=== PATIENT | female | born 1960 | race Caucasian/White ===

== ENCOUNTER 2023-10-17 20:09 | Inpatient (IN) ==
--- OUTSIDE RECORDS SUMMARY | 2023-10-17 20:12 | External Medical Summary | Summary of Care ---
Author Name Unknown Organization [facility] Address [address] [place] [address] Phone [phone] Care Team Providers Care Division Service Manager Name Role Phone Mikla Butler MD Primary Care Provide r Reason for Visit * Reason Comments Acute Encounter Details Date Type Department Care Team (Latest Contact Info) Description 10/13/2023 3:00 PM EDT Office Visit Family Medicine [address] [phone] Baldemar Krishnan [address] [place] [address] Gastroesophageal reflux disease, unspecified whether esophagitis present*; Burning chest pain; Shortness of breath Allergies Active Allergy Reactions Criticality Noted Date Comments Penicillins 03/18/2012 documented as of this encounter (statuses as of 10/13/2023) Medications Medication Sig Dispensed Refills Start Date End Date Status Buprenorphine HCl-Naloxone HCl 8-2 MG Sublingual Tablet Sublingual (Suboxone) Place 1.25 tablet under tongue once a day as directed 04/22/2022 Active Ventolin HFA 108 (90 Base) MCG/ACT Inhalation Aerosol SolutionIndicatio ns:Bronchitis, complicated Inhale 2 Puffs by mouth every 4 hours as needed for Wheezing (cough). 8 g 5 01/06/2023 Active Cetirizine HCl 10 MG Oral Tablet (ZyrTEC)Indicatio ns:Allergic disorder, initial encounter Take 1 Tablet by mouth in the morning. 90 Tablet 1 05/20/2023 Active Clopidogrel Bisulfate 75 MG Oral Tablet (pLAVix)Indicatio ns:History of DVT (deep vein thrombosis) Take 1 Tablet by mouth in the morning. 90 Tablet 1 05/20/2023 Active Rivaroxaban 20 MG Oral Tablet (Xarelto) Take 1 Tablet by mouth daily with dinner. 30 Tablet 5 05/27/2023 Active hydrOXYzine HCl 25 MG Oral TabletIndications :Rash and nonspecific skin eruption Take 1 Tablet by mouth every 6 hours as needed for Itching. 40 Tablet 2 09/30/2023 Active Triamcinolone Acetonide 0.1 % External Ointment (Aristocort)Indic ations:Stasis dermatitis of both legs Apply 2x daily (or more if itchy instead of scratching) to areas on trunk/arms/legs as instructed on patient checkout sheet 454 g 1 09/30/2023 Active Pantoprazole Sodium 40 MG Oral Tablet Delayed Release (Protonix)Indicat ions:Gastroesopha geal reflux disease, unspecified whether esophagitis present Take 1 Tablet by mouth in the morning. 60 Tablet 5 10/13/2023 Active Permethrin 5 % External Cream (Elimite)Indicati ons:Scabies Apply thin layer from cheeks of face down to inbetween toes and all creases of body (be sure to cut nails very short and place under nails), rinse off 10-14 hours after applying, then repeat 1 week later. Use whole tube for each treatment and take the ivermectin pills at the same time. 60 g 1 09/01/2023 10/13/2023 Discontinue d(Medicatio n List Clean Up) Ivermectin 3 MG Oral Tablet (Stromectol)Indic ations:Scabies Take 7 pills all together (the same night you are applying the permethrin cream) and then repeat both 1 week later 7 Tablet 1 09/01/2023 10/13/2023 Discontinue d(Medicatio n List Clean Up) documented as of this encounter (statuses as of 10/13/2023) Active Problems Problem Noted Date Diagnosed Date Pain of left calf 04/09/2023 Tobacco use 01/06/2023 Claudication in peripheral vascular disease 05/2021 History of DVT (deep vein thrombosis) 12/14/2017 BMI 26.0-26.9,adult 11/07/2015 Overview: 183 lbs Dyslipidemia, goal LDL below 130 02/26/2011 Family hx-breast malignancy 01/07/2010 Family history of diabetes mellitus 01/07/2010 HSV-2 infection Opioid dependence, uncomplicated Overview: on Subutex documented as of this encounter (statuses as of 10/13/2023) Resolved Problems Problem Noted Date Diagnosed Date Resolved Date Obesity, Class I, BMI 30.0-3 4.9 (see actual BMI) 02/26/2011 11/07/2015 Cervicalgia 02/26/2011 12/14/2017 Non-traumatic compartment sy ndrome of upper extremity 02/26/2011 12/14/2017 Pain in limb 02/26/2011 12/14/2017 PHLEBITIS OF DEEP VEINS OF RIGHT ARM 01/07/2010 11/07/2015 documented as of this encounter (statuses as of 10/13/2023) Immunizations Name Administration Dates Next Due COVID-19 mRNA, LNP-s, No Pre serve, 2-Dose Series (Moderna) 09/21/2020,08/24/2020 COVID-19, MRNA-LNP, 23-24, P F, 30 MCG/0.3 mL, 12 YRS AND ABOVE, IM (PFIZER-Comirnaty) 04/15/2023 Pneumococcal Polysaccharide PPV23 (Pneumovax) 06/17/2010 Seasonal Influenza, PF, 6 M & above, IM , (FluLaval or Fluzone) 04/15/2023,05/13/2022,03/04/2021 Seasonal Influenza, Quadriva lent, No Preserve, IM 01/11/2015 Seasonal Influenza, Split, I IV3, With Preserve, Inj 12/14/2013,02/12/2012,12/23/2010 TDAP, Age 7 and older, IM (Adacel) 01/07/2010 Zoster Vaccine Recombinant (Shingrix) 03/04/2021 documented as of this encounter Social History Tobacco Use Types Packs/Day Years Used Date Smoking Tobacco: Some Days Cigarettes Smokeless Tobacco: Never Tobacco Cessation:Ready to Q uit: Not Asked; Counseling Given: Not Answered Comments:MAYBE 1 EVERY OTHER DAY IF THAT Alcohol Use Standard Drinks/Week Comments Yes 0 (1 standard drink = 0.6 oz pur e alcohol) social PHQ-2 Answer Date Recorded PHQ-2 Score 0 03/21/2019 Sex and Gender Information Value Date Recorded Sex Assigned at Not on file Gender Identity Not on file Sexual Orientation Not on file Job Start Date Occupation Industry Not on file Not on file Not on file documented as of this encounter Last Filed Vital Signs Vital Sign Reading Time Taken Comments Blood Pressure 130/62 10/13/2023 2:07 PM EDT Pulse 84 10/13/2023 2:07 PM EDT Temperature 36.6 C (97.8 F) 10/13/2023 2:07 PM ED T Respiratory Rate 16 10/13/2023 2:07 PM EDT Oxygen Saturation 98% 10/13/2023 2:07 PM EDT Inhaled Oxygen Concentration - - Weight 93.2 kg (205 lb 7 oz) 10/13/2023 2:07 PM EDT Height - - Body Mass Index 31.68 04/09/2023 8:22 AM EST documented in this encounter Nursing Notes * Ginger Jane LPN - 10/13/2023 2:[address], has to catch her breath when she first wakes up. Feels like she wants to pass out when doing activities. Chest pain. Has been feeling this way for a month. Funny taste in mouth. Stopped smoking a month ago. documented in this encounter Plan of Treatment Upcoming Encounters Date Type Department Care Team (Late st Contact Info) Description 10/23/2023 10:00 AM EDT Office Visit Family Medicine [address] [place] [phone] Tana Gil PA-C [address] [place] [address] [place] [id number] 04/22/2024 10:00 AM EST Office Visit Family Medicine [address] [place] [phone] Mikal Butler MD [address] [place] [address] [place] [id number] Scheduled Orders Name Type Priority Associated Diagnoses Orde r Schedule EKG EKG Routine Burning chest pain Shortness of breath Expected: 10/13/2023 (Approximate), Expires: 11/12/2024 Health Maintenance Due Date Last Done Comments DISCUSS TOBACCO CESSATION (REFER TO SMARTSET #3293) 1959 HPV/Co-Test 1989 Cologuard 2004 Colonoscopy 2004 Colorectal Cancer Screening 2004 Fecal Occult Blood Test 2004 Sigmoidoscopy 2004 Pneumococcal Vaccine: Pediatrics (0 to 5 Years) and At-Risk Patients (6 to 64 Years) (2 of 2 - PCV) 06/18/2011 06/17/2010 Cervical Cancer Screening 02/13/2013 Pap Smear 02/13/2013 02/13/2010, 02/13/2010 DTaP,Tdap,and Td Vaccines (2 - Td or Tdap) 01/08/2020 01/07/2010 Depression Screening 03/21/2020 03/21/2019 Zoster Vaccines (2 of 2) 04/29/2021 03/04/2021 Mammogram 06/26/2023 06/25/2022, 08/0 09/2011, 02/15/2010, Additional history exists Influenza Vaccine (FLU shot) (#1) 2023 04/15/2023, 05/13/2022, 03/04/2021, Additional history exists Diabetes Screening 04/07/2026 04/07/2023, 0 08/20/2021, 03/04/2021, Additional history exists Lipid Panel 04/07/2028 04/07/2023, 02/05, 11/21/2016, Additional history exists COVID-19 Vaccine Completed 04/15/2023, , 08/24/2020 HPV (Gardasil) Vaccine Aged Out No lo nger eligible based on patient's age to complete this topic Hepatitis B Vaccine Aged Out No longe r eligible based on patient's age to complete this topic MENINGOCOCCAL (MENACTRA/MENVEO) Aged Out No longer eligible based on patient's age to complete this topic documented as of this encounter Medical Devices Not on filedocumented as of this encounter Visit Diagnoses Diagnosis Gastroesophageal reflux disease, unspecified whether esophagitis present- Primary Burning chest pain Other chest pain Shortness of breath documented in this encounter Care Teams Division Service Manager Relationship Specialty Start Date End Date Mikal Butler MD [address] [place] [address] [place] [id number] PCP - General Family Medicine 11/21/16 documented as of this encounter
--- OUTSIDE RECORDS SUMMARY | 2023-10-17 20:12 | External Medical Summary | Summary of Care ---
Author Name Unknown Organization [facility] Address [address] [place] [address] Phone [phone] Care Team Providers Care Pattern Cleaner Name Role Phone Mikal Butler MD Primary Care Provide r Reason for Visit * Reason Onset Date Comments Medication Refill 09/29/2023 Encounter Details Date Type Department Care Team (Late st Contact Info) Description 09/29/2023 Refill Dermat[address] [place] [phone] Amanda Thomason PA-C [address] [place] [address] [place] [address] Stasis dermatitis of both legs Allergies Active Allergy Reactions Criticality Noted Date Comments Penicillins 03/18/2012 documented as of this encounter (statuses as of 09/30/2023) Medications Medication Sig Dispensed Refills Start Date [...] with dinner. 30 Tablet 5 05/27/2023 Active Permethrin 5 % External Cream (Elimite)Indicati [...] the same time. 60 g 1 09/01/2023 Active Ivermectin 3 MG Oral Tablet (Stromectol)Indic ations:Scabies Take 7 pills all together (the same night you are applying the permethrin cream) and then repeat both 1 week later 7 Tablet 1 09/01/2023 Active Triamcinolone Acetonide 0.1 % External Ointment (Aristocort)Indic ations:Stasis dermatitis of both legs Apply 2x daily (or more if itchy instead of scratching) to areas on trunk/arms/legs as instructed on patient checkout sheet 454 g 1 09/30/2023 Active Triamcinolone Acetonide 0.1 % External Ointment (Aristocort)Indic ations:Stasis dermatitis of both legs Apply 2x daily (or more if itchy instead of scratching) to areas on trunk/arms/legs as instructed on patient checkout sheet 454 g 10/13/2022 09/29/2023 Discontinue d(Refill) hydrOXYzine HCl 25 MG Oral TabletIndications :Rash and nonspecific skin eruption Take 1 Tablet by mouth every 6 hours as needed for Itching. 40 Tablet 2 07/29/2023 09/29/2023 Discontinue d(Refill) documented as of this encounter (statuses as of 09/30/2023) Active Problems Problem Noted Date Diagnosed Date [...] as of this encounter (statuses as of 09/30/2023) Resolved Problems Problem Noted Date Diagnosed Date Resolved Date Obesity, Class I, BMI 30.0-3 4.9 (see actual BMI) 02/26/2011 11/07/2015 Cervicalgia 02/26/2011 12/14/2017 Non-traumatic compartment sy ndrome of upper extremity 02/26/2011 12/14/2017 Pain in limb 02/26/2011 12/14/2017 PHLEBITIS OF DEEP VEINS OF RIGHT ARM 01/07/2010 11/07/2015 documented as of this encounter (statuses as of 09/30/2023) Immunizations Name Administration Dates Next Due COVID-19 [...] Tobacco: Some Days Cigarettes Smokeless Tobacco: Never Comments:MAYBE 1 EVERY OTHER DAY IF THAT [...] on file documented as of this encounter Miscellaneous Notes * Telephone Encounter - Ivania Clark PA-C - 09/30/2023 11:39 AM EDT Signed Prescriptions: Disp Refills Triamcinolone Acetonide 0.1 % External Oin*454 g 1 Sig: Apply 2xdaily (or more if itchy instead of scratching) to areas on trunk/arms/legs as instructed on patientcheckout sheetAuthorizing Provider: IVANIA CLARK * Telephone Encounter - Sherin Yuen LPN - 09/30/2023 9:37 AM EDTPending Prescriptions: Disp Refills Triamcinolone Acetonide 0.1 % External Oin*454 g 1 Sig: Apply 2x daily (or more if itchy instead of scratching) to areas on trunk/arms/legs as instructed on patient checkout sheet * Telephone Encounter - Sherin Yuen LPN - 09/30/2023 9:37 AM EDT Pending Prescriptions: Disp Refills Triamcinolone Acetonide 0.1 % External Oi*454 g 1 Sig: Apply 2x daily (or more if itchy instead of scratching) to areas on trunk/arms/legs as instructed on patient checkout sheet 05/11/2023 (in office), Visit date not found (telemedicine) Patient Phone Numbers Labs: Lab Results Component Value Date/Time CREAT 1.0 04/07/2023 08:36 AM CREAT 0.8 07/14/2012 11:35 AM POTASSIUM 4.3 04/07/2023 08:36 AM POTASSIUM 4.4 07/14/2012 11:35 AM TSH 2.64 08/20/2021 02:45 PM TSH 2.99 01/22/2011 03:57 PM LDLCALC 131 (H) 04/07/2023 08:36 AM LDLCALC 155 (H) 11/21/2016 03:56 PM LDLDIRECT NOT APPLICABLE 11/21/2016 03:56 PM ALT 16 08/20/2021 02:45 PM ALT 19 07/14/2012 11:35 AM documented in this encounter Plan of Treatment Upcoming Encounters Date Type Department Care Team (Late st Contact Info) Description 10/23/2023 10:00 AM EDT Office Visit [address] [place] [phone] Tana Gil PA-C [address] [place] [address] [place] [phone] 04/22/2024 10:00 AM EST Office Visit [address] [place] [phone] Mikal Butler MD [address] [place] [address] [place] [address] Health Maintenance Due Date Last Done Comments DISCUSS TOBACCO CESSATION (REFER TO SMARTSET #1109) 1959 HPV/Co-Test 1989 Cologuard 2004 Colonoscopy 2004 [...] 06/25/2022, 08/0 09/2011, 02/15/2010, Additional history exists Diabetes Screening 04/07/2026 04/07/2023, 0 08/20/2021, 03/04/2021, Additional history exists Lipid Panel 04/07/2028 04/07/2023, 02/05, 11/21/2016, Additional history exists COVID-19 Vaccine Completed 04/15/2023, , 08/24/2020 Influenza Vaccine (FLU shot) Completed 01/2024, 05/13/2022, 03/04/2021, Additional history exists GARDASIL-HPV IMMUNIZATION SERIES Aged Out No longer eligible based on patient's age to complete this topic Hepatitis B Aged Out No longer eligi ble based on patient's age to complete this topic MENINGOCOCCAL (MENACTRA/MENVEO) Aged Out No longer eligible based on patient's age to complete this topic documented as of this encounter Medical Devices Not on filedocumented as of this encounter Visit Diagnoses Diagnosis Stasis dermatitis of both legs Varicose veins of lower extremities with inflammation documented in this encounter Care Teams Pattern Cleaner Relationship Specialty Start Date End Date Mikal Butler MD [address] [place] [address] [place] [id number] PCP - General Family Medicine 11/21/16 documented as of this encounter
--- OUTSIDE RECORDS SUMMARY | 2023-10-17 20:12 | External Medical Summary | Summary of Care ---
Author Name Unknown Organization [facility] Address [address] [place] [address] Phone [phone] Care Team Providers Care Phlebotomy Tech Name Role Phone Shirley Butler MD Primary Care Provide r Reason for Visit * Reason Onset Date Comments Medication Refill 09/29/2023 Encounter Details Date Type Department Care Team (Late st Contact Info) Description 09/29/2023 Refill Family Medicine [address] [phone] Shirley Butler MD [address] [place] [address] [place] [address] Rash and nonspecific skin eruption Allergies Active Allergy Reactions Criticality Noted Date Comments Penicillins 03/18/2012 documented as of this encounter (statuses as of 09/30/2023) Medications Medication Sig Dispensed Refills Start Date End Date Status Buprenorphine HCl-Naloxone HCl 8-2 MG Sublingual Tablet Sublingual (Suboxone) Place 1.25 tablet under tongue once a day as directed 04/22/2022 Active Triamcinolone Acetonide 0.1 % External Ointment (Aristocort)Indic ations:Stasis dermatitis of both legs Apply 2x daily (or more if itchy instead of scratching) to areas on trunk/arms/legs as instructed on patient checkout sheet 454 g 10/13/2022 Active Ventolin HFA 108 (90 Base) MCG/ACT [...] week later 7 Tablet 1 09/01/2023 Active hydrOXYzine HCl 25 MG Oral TabletIndications :Rash and nonspecific skin eruption Take 1 Tablet by mouth every 6 hours as needed for Itching. 40 Tablet 2 09/30/2023 Active hydrOXYzine HCl 25 MG Oral TabletIndications [...] MCG/0.3 mL, 12 YRS AND ABOVE, IM (uSpeak-Comirnat) 04/15/2023 Pneumococcal Polysaccharide PPV23 (Pneumovax) 06/17/2010 Seasonal [...] encounter Miscellaneous Notes * Telephone Encounter - Ely Fried [facility] - 09/30/2023 10:11 AM EDT Signed Prescriptions: Disp Refills hydrOXYzine HCl 25 MG Oral Tablet 40 Tab*2 Sig: Take 1 Tablet bymouth every 6 hours as needed for Itching.Authorizing Provider: SHIRLEY BUTLER User: ELY FRIED documented in this encounter Plan of Treatment Upcoming Encounters Date Type Department Care Team (Late st Contact Info) Description 10/23/2023 10:00 AM EDT Office Visit [address] [phone] Tana Gil PA-C [address] [place] [address] [place] [address] 04/22/2024 10:00 AM EST Office Visit Family [address] [place] [phone] Shirley Butler MD [address] [place] [address] [place] [address] Health Maintenance Due Date Last Done Comments DISCUSS TOBACCO CESSATION (REFER TO SMARTSET #3291) 1959 HPV/Co-Test 1989 Cologuard 2004 Colonoscopy 2004 [...] as of this encounter Visit Diagnoses Diagnosis Rash and nonspecific skin eruption Rash and other nonspecific skin eruption documented in this encounter Care Teams Phlebotomy Tech Relationship Specialty Start Date End Date Shirley Butler MD [address] [place] [address] [place] [id number] PCP - General Family Medicine 11/21/16 documented as of this encounter
--- OUTSIDE RECORDS SUMMARY | 2023-10-17 20:13 | External Medical Summary | Summary of Care ---
Author Name Unknown Organization [facility] Address [address] [place] [address] Phone [phone] Care Team Providers Care Box Person Name Role Phone Shirley Butler MD Primary Care Provide r Reason for Visit * Reason Onset Date Comments Medication Refill 07/27/2023 Encounter Details Date Type Department Care Team (Late st Contact Info) Description 07/27/2023 Refill Family Medicine [address] [phone] Shirley Butler MD [address] [place] [address] [place] [address] Rash and nonspecific skin eruption Allergies Active Allergy Reactions Criticality Noted Date Comments Penicillins 03/18/2012 documented as of this encounter (statuses as of 07/29/2023) Medications Medication Sig Dispensed Refills Start Date End Date Status Buprenorphine HCl-Naloxone HCl 8-2 MG Sublingual Tablet Sublingual (Suboxone) Place 1.25 tablet under tongue once a day as directed 0 04/22/2022 Active Triamcinolone Acetonide 0.1 % External Ointment (Aristocort)Indic ations:Stasis dermatitis of both legs Apply 2x daily (or more if itchy instead of scratching) to areas on trunk/arms/legs as instructed on patient checkout sheet 454 g 0 10/13/2022 Active Ventolin HFA 108 (90 Base) [...] body (be sure to cut nails very short), rinse off 10-14 hours after applying, then repeat 1 week later. Use whole tube for each treatment. 60 g 1 07/28/2023 Active hydrOXYzine HCl 25 MG Oral TabletIndications :Rash and nonspecific skin eruption Take 1 Tablet by mouth every 6 hours as needed for Itching. 40 Tablet 2 07/29/2023 Active hydrOXYzine HCl 25 MG Oral TabletIndications :Rash and nonspecific skin eruption Take 1 Tablet by mouth every 6 hours as needed for Itching. 40 Tablet 2 04/28/2023 07/27/2023 Discontinue d(Refill) documented as of this encounter (statuses as of 07/29/2023) Active Problems Problem Noted Date Diagnosed Date [...] as of this encounter (statuses as of 07/29/2023) Resolved Problems Problem Noted Date Diagnosed Date Resolved Date Obesity, Class I, BMI 30.0-3 4.9 (see actual BMI) 02/26/2011 11/07/2015 Cervicalgia 02/26/2011 12/14/2017 Non-traumatic compartment sy ndrome of upper extremity 02/26/2011 12/14/2017 Pain in limb 02/26/2011 12/14/2017 PHLEBITIS OF DEEP VEINS OF RIGHT ARM 01/07/2010 11/07/2015 documented as of this encounter (statuses as of 07/29/2023) Immunizations Name Administration Dates Next Due COVID-19 [...] Split, I IV3, With Preserve, Inj 12/14/2013,02/12/2012,12/23/2010 TDAP (age 11 and older)(Adacel) 01/07/2010 Zoster Vaccine Recombinant (Shingrix) 03/04/2021 documented [...] encounter Miscellaneous Notes * Telephone Encounter - Karli Navas [facility] - 07/29/2023 8:52 AM EDTSigned Prescriptions: Disp Refills hydrOXYzine HCl 25 MG Oral Tablet 40 Tab*2 Sig: Take 1 Tablet by mouth every 6 hours as needed for Itching.Authorizing Provider: SHIRLEY BUTLEROrderflor User: KARLI NAVAS documented in this encounter Plan of Treatment Upcoming Encounters Date Type Department Care Team (Late st Contact Info) Description 10/23/2023 10:00 AM EDT Office Visit [address] [phone] Tana Gil PA-C [address] [place] [address] [place] [address] 04/22/2024 10:00 AM EST Office Visit [address] [phone] Shirley Butler MD [address] [place] [address] [place] [id number] Health Maintenance Due Date Last Done Comments DISCUSS TOBACCO CESSATION (REFER TO SMARTSET #1833) 1959 HPV/Co-Test 1989 Cologuard 2004 Colonoscopy 2004 [...] eruption documented in this encounter Care Teams Box Person Relationship Specialty Start Date End Date Shirley Butler MD [address] [place] [address] [place] [id number] PCP - General Family Medicine 11/21/16 documented as of this encounter
--- OUTSIDE RECORDS SUMMARY | 2023-10-17 20:13 | External Medical Summary | Summary of Care ---
Author Name Unknown Organization [facility] Address [address] [place] [address] Phone [phone] Care Team Providers Care Client Solutions Manager Name Role Phone Mikal Butler MD Primary Care Provide r Reason for Visit * Reason Onset Date Comments Health Maintenance 06/23/2023 Encounter Details Date Type Department Care Team (Late st Contact Info) Description 06/23/2023 Telephone Family Medicine [address] [phone] Mikal Butler MD [address] [place], [place] [address]t [id number] Health Maintenance Allergies Active Allergy Reactions Criticality Noted Date Comments Penicillins 03/18/2012 documented as of this encounter (statuses as of 06/23/2023) Medications Medication Sig Dispensed Refills Start Date End Date Status Buprenorphine HCl-Naloxone HCl 8-2 MG Sublingual Tablet Sublingual (Suboxone) Place 1.25 tablet under tongue once a day as directed 0 04/22/2022 Active Triamcinolone Acetonide 0.1 % External Ointment (Aristocort)Indicati ons:Stasis dermatitis of both legs Apply 2x daily (or more if itchy instead of scratching) to areas on trunk/arms/legs as instructed on patient checkout sheet 454 g 0 10/13/2022 Active Ventolin HFA 108 (90 Base) MCG/ACT Inhalation Aerosol SolutionIndications: Bronchitis, complicated Inhale 2 Puffs by mouth every 4 hours as needed for Wheezing (cough). 8 g 5 01/06/2023 Active hydrOXYzine HCl 25 MG Oral TabletIndications:Ra sh and nonspecific skin eruption Take 1 Tablet by mouth every 6 hours as needed for Itching. 40 Tablet 2 04/28/2023 Active Cetirizine HCl 10 MG Oral Tablet (ZyrTEC)Indications: Allergic disorder, initial encounter Take 1 Tablet by mouth in the morning. 90 Tablet 1 05/20/2023 Active Clopidogrel Bisulfate 75 MG Oral Tablet (pLAVix)Indications: History of DVT (deep vein thrombosis) Take 1 Tablet by mouth in the morning. 90 Tablet 1 05/20/2023 Active Rivaroxaban 20 MG Oral Tablet (Xarelto) Take 1 Tablet by mouth daily with dinner. 30 Tablet 5 05/27/2023 Active Permethrin 5 % External Cream (Elimite) Apply thin layer from cheeks of face down to inbetween toes and all creases of body (be sure to cut nails very short), rinse off 10-14 hours after applying, then repeat 1 week later. Use whole tube for each treatment. 60 g 1 05/28/2023 Active documented as of this encounter (statuses as of 06/23/2023) Active Problems Problem Noted Date Diagnosed Date [...] as of this encounter (statuses as of 06/23/2023) Resolved Problems Problem Noted Date Diagnosed Date Resolved Date Obesity, Class I, BMI 30.0-3 4.9 (see actual BMI) 02/26/2011 11/07/2015 Cervicalgia 02/26/2011 12/14/2017 Non-traumatic compartment sy ndrome of upper extremity 02/26/2011 12/14/2017 Pain in limb 02/26/2011 12/14/2017 PHLEBITIS OF DEEP VEINS OF RIGHT ARM 01/07/2010 11/07/2015 documented as of this encounter (statuses as of 06/23/2023) Immunizations Name Administration Dates Next Due COVID-19 [...] encounter Miscellaneous Notes * Telephone Encounter - oXchilt AnthonyJARRETT - 06/23/2023 10:34 AM EDT Care Gaps Comprehensive Care Outreach Last Office/Telemedicine Visit: 04/15/2023 (in office), 12/29/2022 (telemedicine) Next Office Visit: Visit date not found Hemoglobin AIC Results: No results found for: "HEMOGLOBIN A1C" BP Readings from Last 1 Encounters: 04/15/23 114/76 Reviewed Health Maintenance below: Health Maintenance Topic Date Due DISCUSS TOBACCO CESSATION (REFER TO SMARTSET #3291) Never done Colorectal Cancer Screening Never done Pneumococcal Vaccine: Pediatrics (0 to 5 Years) and At-Risk Patients (6 to 64 Years) (2 of 2 - PCV)06/18/2011 Cervical Cancer Screening 02/13/2013 DTaP,Tdap,and Td Vaccines (2 - Td or Tdap) 01/08/2020 Depression Screening 03/21/2020 Zoster Vaccines (2 of 2) 04/29/2021 Mammogram 06/26/2023 Cologuard follow declined Mamm already scheduled Ov scheduled 6 month Care Gap Outreach Action Taken: Spoke to patient documented in this encounter Plan of Treatment Upcoming Encounters Date Type Department Care Team (Late st Contact Info) Description 06/26/2023 10:00 AM EDT Imaging Radiology [address] [place] [id number] 10/23/2023 10:00 AM EDT Office Visit Family Medicine [address] [place] [address] Tana Gil PA-C [address] [place] [address] [place] [address] 04/22/2024 10:00 AM EST Office Visit Family Medicine [address] [place] [phone] Mikal Butler MD [address] [place] [address] [place] [address] Health Maintenance Due Date Last Done Comments DISCUSS TOBACCO CESSATION (REFER TO SMARTSET #8342) 1959 HPV/Co-Test 1989 Cologuard 2004 Colonoscopy 2004 [...] Not on filedocumented as of this encounter Care Teams Client Solutions Manager Relationship Specialty Start Date End Date Mikal Butler MD [address] [place] [address] [place] [address] PCP - General Family Medicine 11/21/16 documented as of this encounter
--- OUTSIDE RECORDS SUMMARY | 2023-10-17 20:13 | External Medical Summary | Summary of Care ---
Author Name Unknown Organization [facility] Address [address] [place] [address] Phone [phone] Care Team Providers Care Community Nutrition Educator Name Role Phone Mikal Butler MD Primary Care Provide r Reason for Visit * Reason Comments Acute Encounter Details Date Type Department Care Team (Late st Contact Info) Description 08/21/2023 12:40 PM EDT Telemedicine Family Practice [facility] [address] [place] [address] Jamie Guzman, DO [address] [place] [address] Thrush* Allergies Active Allergy Reactions Criticality Noted Date Comments Penicillins 03/18/2012 documented as of this encounter (statuses as of 08/21/2023) Medications Medication Sig Dispensed Refills Start Date End Date Status Buprenorphine HCl-Naloxone HCl 8-2 MG Sublingual Tablet Sublingual (Suboxone) Place 1.25 tablet under tongue once a day as directed 0 04/22/2022 Active Triamcinolone Acetonide 0.1 % External Ointment (Aristocort)Indicat ions:Stasis dermatitis of both legs Apply 2x daily (or more if itchy instead of scratching) to areas on trunk/arms/legs as instructed on patient checkout sheet 454 g 0 10/13/2022 Active Ventolin HFA 108 (90 Base) MCG/ACT Inhalation Aerosol SolutionIndications :Bronchitis, complicated Inhale 2 Puffs by mouth every 4 hours as needed for Wheezing (cough). 8 g 5 01/06/2023 Active Cetirizine HCl 10 MG Oral Tablet (ZyrTEC)Indications :Allergic disorder, initial encounter Take 1 Tablet by mouth in the morning. 90 Tablet 1 05/20/2023 Active Clopidogrel Bisulfate 75 MG Oral Tablet (pLAVix)Indications :History of DVT (deep vein thrombosis) Take 1 Tablet by mouth in the morning. 90 Tablet 1 05/20/2023 Active Rivaroxaban 20 MG Oral Tablet (Xarelto) Take 1 Tablet by mouth daily with dinner. 30 Tablet 5 05/27/2023 Active Permethrin 5 % External Cream (Elimite)Indication s:Scabies Apply thin layer from cheeks of face down to inbetween toes and all creases of body (be sure to cut nails very short), rinse off 10-14 hours after applying, then repeat 1 week later. Use whole tube for each treatment. 60 g 1 07/28/2023 Active hydrOXYzine HCl 25 MG Oral TabletIndications:R nikkie and nonspecific skin eruption Take 1 Tablet by mouth every 6 hours as needed for Itching. 40 Tablet 2 07/29/2023 Active Nystatin 314883 UNIT/ML Mouth/Throat SuspensionIndicatio ns:Thrush Swish and swallow 5 mL in the morning and 5 mL at noon and 5 mL in the evening and 5 mL before bedtime. For thrush.. 240 mL 1 08/21/2023 09/20/2023 Active documented as of this encounter (statuses as of 08/21/2023) Active Problems Problem Noted Date Diagnosed Date [...] as of this encounter (statuses as of 08/21/2023) Resolved Problems Problem Noted Date Diagnosed Date Resolved Date Obesity, Class I, BMI 30.0-3 4.9 (see actual BMI) 02/26/2011 11/07/2015 Cervicalgia 02/26/2011 12/14/2017 Non-traumatic compartment sy ndrome of upper extremity 02/26/2011 12/14/2017 Pain in limb 02/26/2011 12/14/2017 PHLEBITIS OF DEEP VEINS OF RIGHT ARM 01/07/2010 11/07/2015 documented as of this encounter (statuses as of 08/21/2023) Immunizations Name Administration Dates Next Due COVID-19 [...] on file documented as of this encounter Progress Notes * Jamie Guzman, DO - 08/21/2023 12:48 PM EDT Subjective: Sonia Mccarthy is a 63 year old female. Chief Complaint Patient presents with Acute Patient location: HOME. I was in a hospital or clinic location. After connecting through [employer],patient was verified with two unique identifiers. Patient (or authorized legal outbound sales representative) was then informed that this was a Telemedicine visit and being conducted confidentially over secure lines. Methods to assure confidentiality were taken. Patient acknowledged consent and understanding of pr ivacy and security of the Telemedicine visit. The patient agreed to participate. HPI: YEsterday she woke up with a nasty taste in her mouth. She has a white or yellow film on her tongue. She had a yellow film with smoking but now more white. IT has a terrible taste. No ST.No F or C. Her food tastes a little off. 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 Opioid dependence, uncomplicated (HCC) F11.20 History of DVT (deep vein thrombosis) Z86.718 Claudication in peripheral vascular disease (HCC) I73.9 Tobacco use Z72.0 Pain of left calf M79.662 Current Outpatient Medications Medication Sig Dispense Refill Buprenorphine HCl-Naloxone HCl 8-2 MG Sublingual Tablet Sublingual (Suboxone) Place 1.25 tablet under tongue once a day as directed Triamcinolone Acetonide 0.1 % External Ointment (Aristocort) Apply 2x daily (or more if itchy instead of scratching) to areas on trunk/arms/legs as instructed on patient checkout sheet 454 g 0 Ventolin HFA 108 (90 Base) MCG/ACT Inhalation Aerosol Solution Inhale 2 Puffs by mouth every 4 hours as needed for Wheezing (cough). 8 g 5 Cetirizine HCl 10 MG Oral Tablet (ZyrTEC) Take 1 Tablet by mouth in the morning. 90 Tablet 1 Clopidogrel Bisulfate 75 MG Oral Tablet (pLAVix) Take 1 Tablet by mouth in the morning. 90 Tablet 1 Rivaroxaban 20 MG Oral Tablet (Xarelto) Take 1 Tablet by mouth daily with dinner. 30 Tablet 5 Permethrin 5 % External Cream (Elimite) Apply thin layer from cheeks of face down to inbetween toesand all creases of body (be sure to cut nails very short), rinse off 10-14 hours after applying, then repeat 1 week later. Use whole tube for each treatment. 60 g 1 hydrOXYzine HCl 25 MG Oral Tablet Take 1 Tablet by mouth every 6 hours as needed for Itching. 40 Tablet 2 No current facility-administered medications for this visit. Review of patient's allergies indicates: Allergen Reactions Penicillins OBJECTIVE: LMP 05/01/2013 Estimated body mass index is 31.61 kg/m as calculated from the following: Height as of 04/09/23: 1.715 m (5' 7.52"). Weight as of 04/15/23: 93 kg (205 lb). BP Readings from Last 3 Encounters: 04/15/23 114/76 04/09/23 146/80 01/06/23 140/82 Wt Readings from Last 3 Encounters: 04/15/23 93 kg (205 lb) 04/09/23 94.4 kg (208 lb 3.2 oz) 01/06/23 86.2 kg (190 lb) ROS: Negative except for above PHYSICAL EXAM: General: alert, healthy, and no distress Head: Normocephalic, No masses, lesions, tenderness or abnormalities Oropharynx: no exudate, no erythema, mucous membranes are moist, and thrush ASSESSMENT/Plan Thrush (Primary) - Nystatin 225380 UNIT/ML Mouth/Throat Suspension; Swish and swallow 5 mL in the morning and 5 mL at noon and 5 mL in the evening and 5 mL before bedtime. For thrush.. The above was discussed and understanding was expressed. Jamie Guzman DO documented in this encounter Nursing Notes * Everett Monge MED ASSIST - 08/21/2023 12:28 PM EDT Attempted to call patient could not get a hold of them. documented in this encounter Plan of Treatment Upcoming Encounters Date Type Department Care Team (Late st Contact Info) Description 10/23/2023 10:00 AM EDT Office Visit [address] [phone] Tana Gli PA-C [address] [place] [address] [place] [address] 04/22/2024 10:00 AM EST Office Visit [address] [phone] Mikal Butler MD [address] [place] [address] [place] [address] Health Maintenance Due Date Last Done Comments DISCUSS TOBACCO CESSATION (REFER TO SMARTSET #9542) 1959 HPV/Co-Test 1989 Cologuard 2004 Colonoscopy 2004 [...] Additional history exists Lipid Panel 04/07/2028 04/07/2023, 1112/2020, 11/21/2016, Additional history exists COVID-19 Vaccine Completed [...] as of this encounter Visit Diagnoses Diagnosis Thrush- Primary Candidiasis of mouth documented in this encounter Care Teams Community Nutrition Educator Relationship Specialty Start Date End Date Mikal Butler MD [address] [place] [address] [place] [address] PCP - General Family Medicine 11/21/16 documented as of this encounter
--- OUTSIDE RECORDS SUMMARY | 2023-10-17 20:13 | External Medical Summary | Summary of Care ---
Author Name Unknown Organization [facility] Address [address] [place] [address] Phone [phone] Care Team Providers Care Head Of It Name Role Phone Mikal Butler MD Primary Care Provide r Reason for Visit * Reason Onset Date Comments Medication Refill 09/01/2023 Encounter Details Date Type Department Care Team (Late st Contact Info) Description 09/01/[address] [address] Amanda Thomason PA-C [address] [place] [address] [place] [address] Scabies Allergies Active Allergy Reactions Criticality Noted Date Comments Penicillins 03/18/2012 documented as of this encounter (statuses as of 09/01/2023) Medications Medication Sig Dispensed Refills Start Date [...] Itching. 40 Tablet 2 07/29/2023 Active Nystatin 688204 UNIT/ML Mouth/Throat SuspensionIndicat ions:Thrush Swish and swallow 5 mL in the morning and 5 mL at noon and 5 mL in the evening and 5 mL before bedtime. For thrush.. 240 mL 1 08/21/2023 09/20/2023 Active Permethrin 5 % External Cream (Elimite)Indicati [...] week later 7 Tablet 1 09/01/2023 Active Permethrin 5 % External Cream (Elimite)Indicati ons:Scabies Apply thin layer from cheeks of face down to inbetween toes and all creases of body (be sure to cut nails very short), rinse off 10-14 hours after applying, then repeat 1 week later. Use whole tube for each treatment. 60 g 1 07/28/2023 09/01/2023 Discontinue d(Refill) documented as of this encounter (statuses as of 09/01/2023) Active Problems Problem Noted Date Diagnosed Date [...] as of this encounter (statuses as of 09/01/2023) Resolved Problems Problem Noted Date Diagnosed Date Resolved Date Obesity, Class I, BMI 30.0-3 4.9 (see actual BMI) 02/26/2011 11/07/2015 Cervicalgia 02/26/2011 12/14/2017 Non-traumatic compartment sy ndrome of upper extremity 02/26/2011 12/14/2017 Pain in limb 02/26/2011 12/14/2017 PHLEBITIS OF DEEP VEINS OF RIGHT ARM 01/07/2010 11/07/2015 documented as of this encounter (statuses as of 09/01/2023) Immunizations Name Administration Dates Next Due COVID-19 mRNA, LNP-s, No Pre serve, 2-Dose Series (Moderna) 09/21/2020,08/24/2020 COVID-19, MRNA-LNP, 23-24, P F, 30 MCG/0.3 mL, 12 YRS AND ABOVE, IM ([employer]-Comirnaty) 04/15/2023 Pneumococcal Polysaccharide PPV23 (Pneumovax) 06/17/2010 Seasonal [...] on file documented as of this encounter Plan of Treatment Upcoming Encounters Date Type Department Care Team (Late st Contact Info) Description 10/23/2023 10:00 AM EDT Office Visit [address] [place] [phone] Tana Gil PA-C [address] [place] [address] [place] [address] 04/22/2024 10:00 AM EST Office Visit [address] [place] [phone] Mikal Butler MD [address] [place] [address] [place] [address] Health Maintenance Due Date Last Done Comments DISCUSS TOBACCO CESSATION (REFER TO SMARTSET #7518) 1959 HPV/Co-Test 1989 Cologuard 2004 Colonoscopy 2004 [...] as of this encounter Visit Diagnoses Diagnosis Scabies documented in this encounter Care Teams Head Of It Relationship Specialty Start Date End Date Mikal Butler MD [address] [place] [address] [place] [address] PCP - General Family Medicine 11/21/16 documented as of this encounter
--- OUTSIDE RECORDS SUMMARY | 2023-10-17 20:13 | External Medical Summary | Summary of Care ---
Author Name Unknown Organization [facility] Address [address] [place] [address] Phone [phone] Care Team Providers Care Laborer Pole Crew Name Role Phone Mikal Butler MD Primary Care Provide r Reason for Visit * Reason Onset Date Comments Medication Refill 06/26/2023 Encounter Details Date Type Department Care Team (Late st Contact Info) Description 06/26/[address] [address] Amanda Thomason PA-C [address] [place] [address] [place] [address] Scabies* Allergies Active Allergy Reactions Criticality Noted Date Comments Penicillins 03/18/2012 documented as of this encounter (statuses as of 06/26/2023) Medications Medication Sig Dispensed Refills Start Date [...] 01/06/2023 Active hydrOXYzine HCl 25 MG Oral TabletIndications [...] tube for each treatment. 60 g 1 06/26/2023 Active Ivermectin 3 MG Oral Tablet (Stromectol)Indic ations:Scabies Take 7 pills all together (the same night you are applying the permethrin cream) and then repeat both 1 week later 7 Tablet 1 06/26/2023 Active Permethrin 5 % External Cream (Elimite) Apply thin layer from cheeks of face down to inbetween toes and all creases of body (be sure to cut nails very short), rinse off 10-14 hours after applying, then repeat 1 week later. Use whole tube for each treatment. 60 g 1 05/28/2023 06/26/2023 Discontinue d(Refill) documented as of this encounter (statuses as of 06/26/2023) Active Problems Problem Noted Date Diagnosed Date [...] as of this encounter (statuses as of 06/26/2023) Resolved Problems Problem Noted Date Diagnosed Date Resolved Date Obesity, Class I, BMI 30.0-3 4.9 (see actual BMI) 02/26/2011 11/07/2015 Cervicalgia 02/26/2011 12/14/2017 Non-traumatic compartment sy ndrome of upper extremity 02/26/2011 12/14/2017 Pain in limb 02/26/2011 12/14/2017 PHLEBITIS OF DEEP VEINS OF RIGHT ARM 01/07/2010 11/07/2015 documented as of this encounter (statuses as of 06/26/2023) Immunizations Name Administration Dates Next Due COVID-19 [...] 10/23/2023 10:00 AM EDT Office Visit Family [address] [place] [address] Tana Gil PA-C [address] [place] [address] [place] [address] 04/22/2024 10:00 AM EST Office Visit [address] [place] [address] Mikal Butler MD [address] [place] [address] [place] [address] Health Maintenance Due Date Last Done Comments DISCUSS TOBACCO CESSATION (REFER TO SMARTSET #9871) 1959 HPV/Co-Test 1989 Cologuard 2004 Colonoscopy 2004 [...] of 2) 04/29/2021 03/04/2021 Mammogram 06/26/2023 06/25/2022, 08/09/2011, 02/15/2010, Additional history exists Diabetes Screening 04/07/2026 [...] as of this encounter Visit Diagnoses Diagnosis Scabies- Primary documented in this encounter Care Teams Laborer Pole Crew Relationship Specialty Start Date End Date Mikal Butler MD [address] [place] [address] [place] [address] PCP - General Family Medicine 11/21/16 documented as of this encounter
--- OUTSIDE RECORDS SUMMARY | 2023-10-17 20:13 | External Medical Summary | Summary of Care ---
Author Name Unknown Organization [facility] Address [address] [place] [address] Phone [phone] Care Team Providers Care Pharmacy Scheduler Name Role Phone Mikal Butler MD Primary Care Provide r Reason for Visit * Reason Onset Date Comments Medication Refill 07/27/2023 Encounter Details Date Type Department Care Team (Late st Contact Info) Description 07/27/[address] [address] Romy Thomason PA-C [address] [place] [address] [place] [address] Scabies Allergies Active Allergy Reactions Criticality Noted Date Comments Penicillins 03/18/2012 documented as of this encounter (statuses as of 07/28/2023) Medications Medication Sig Dispensed Refills Start Date [...] each treatment. 60 g 1 07/28/2023 Active Permethrin 5 % External Cream (Elimite)Indicati ons:Scabies Apply thin layer from cheeks of face down to inbetween toes and all creases of body (be sure to cut nails very short), rinse off 10-14 hours after applying, then repeat 1 week later. Use whole tube for each treatment. 60 g 1 06/26/2023 07/27/2023 Discontinue d(Refill) Ivermectin 3 MG Oral Tablet (Stromectol)Indic ations:Scabies Take 7 pills all together (the same night you are applying the permethrin cream) and then repeat both 1 week later 7 Tablet 1 06/26/2023 07/28/2023 Discontinue d(End of Procedure) documented as of this encounter (statuses as of 07/28/2023) Active Problems Problem Noted Date Diagnosed Date [...] as of this encounter (statuses as of 07/28/2023) Resolved Problems Problem Noted Date Diagnosed Date Resolved Date Obesity, Class I, BMI 30.0-3 4.9 (see actual BMI) 02/26/2011 11/07/2015 Cervicalgia 02/26/2011 12/14/2017 Non-traumatic compartment sy ndrome of upper extremity 02/26/2011 12/14/2017 Pain in limb 02/26/2011 12/14/2017 PHLEBITIS OF DEEP VEINS OF RIGHT ARM 01/07/2010 11/07/2015 documented as of this encounter (statuses as of 07/28/2023) Immunizations Name Administration Dates Next Due COVID-19 [...] encounter Miscellaneous Notes * Telephone Encounter - Romy Thomason PA-C - 07/28/2023 7:41 AM EDT Signed Prescriptions: Disp Refills Permethrin 5 % External Cream (Elimite) 60 g 1 Sig: Apply thin layer from cheeks of face down to inbetween toes and all creases of body (be sure to cut nails very short), rinse off 10-14 hours after applying, then repeat 1 week later. Use whole tube for each treat ment.Authorizing Provider: ROMY THOMASON * Telephone Encounter - Naz Deleon LPN - 07/28/2023 7:27 AM EDTPending Prescriptions: Disp Refills Permethrin 5 % External Cream (Elimite) 60 g 1 Sig: Apply thin layer from cheeks of face down to inbetween toes and all creases of body (be sure to cut nails very short), rinse off 10-14 hours after applying, then repeat 1 week later. Use whole tube for each treatment. * Telephone Encounter - Naz Deleon LPN - 07/28/2023 7:27 AM EDT Pending Prescriptions: Disp Refills Permethrin 5 % External Cream (Elimite) 60 g 1 Sig: Apply thin layer from cheeks of face down to inbetween toes and all creases of body (be sure to cut nails very short), rinse off 10-14 hours after applying, then repeat 1 week later. Use whole tube for each treatment. Visit date not found (in office), Visit date not found (telemedicine) Visit date not found If no future appointments scheduled, and last appointment is greater than a year ago, please schedule patient for a follow-up appointment Last date the medication was ordered: 06/06/2023 Patient Phone Numbers Labs: Lab Results Component [...] 10:00 AM EDT Office Visit Family Medicine [address] [phone] Tana Gil PA-C [address] [place] [address] [place] [address] 04/22/2024 10:00 AM EST Office Visit Family Medicine [address] [place] [phone] Mikal Butler MD [address] [place] [address] [place] [address] Health Maintenance Due Date Last Done Comments DISCUSS TOBACCO CESSATION (REFER TO SMARTSET #8374) 1960 HPV/Co-Test 1989 Cologuard 2004 Colonoscopy 2004 [...] Scabies documented in this encounter Care Teams Pharmacy Scheduler Relationship Specialty Start Date End Date Mikal Butler MD [address] [place] [address] [place] [id number] PCP - General Family Medicine 11/21/16 documented as of this encounter
--- OUTSIDE RECORDS SUMMARY | 2023-10-17 20:13 | External Medical Summary | Summary of Care ---
Author Name Unknown Organization [facility] Address [address] [place] [address] Phone [phone] Care Team Providers [employer] Sales Representative Name Role Phone Mikal Butler MD Primary Care Provide r Reason for Visit * Reason Comments eRx-Medication Refill Encounter Details Date Type Department Care Team (Late st Contact Info) Description 07/28/2023 Refill Family [address] [phone] Mikal Butler MD [address] [place] [address] [place] [id number] Rash and nonspecific skin eruption Allergies Active [...] Notes * Telephone Encounter - Karli Navas [facility] - 07/29/2023 8:52 AM EDTRefused Prescriptions: Disp Refills hydrOXYzine HCl 25 MG Oral Tablet 40 Tab*0 Sig: Take 1 Tablet by mouth every 6 hours as needed for Itching.Refused By: KARLI NAVAS for Refusal: Duplicate Request documented in this encounter Plan of Treatment Upcoming Encounters Date Type Department Care Team (Late st Contact Info) Description 10/23/2023 10:00 AM EDT Office Visit [address] [phone] Tana Gil PA-C [address] [place] [address] [place] [id number] 04/22/2024 10:00 AM EST Office Visit [address] [phone] Mikal Butler MD [address] [place] [address] [place] [id number] Health Maintenance Due Date Last Done Comments DISCUSS TOBACCO CESSATION (REFER TO SMARTSET #[id number]) 1959 HPV/Co-Test 1989 Cologuard 2004 Colonoscopy 2004 [...] eruption documented in this encounter Care Teams Fuels Sales Representative Relationship Specialty Start Date End Date Mikal Butler MD [address] [place] [address] [place] [id number] PCP - General Family Medicine 11/21/16 documented as of this encounter
[2023-10-17 20:51] LABS: Base Excess VBG -1.1 mEq/L; HCO3 VBG 23 mmol/L; Oxygen Saturation VBG < 60.0 %; PCO2 VBG 34 mmHg (38-50); PO2 VBG < 20 mmHg; pH VBG 7.43 (7.36-7.41)
--- NOTE | 2023-10-17 21:04 | Emergency Department Note ---
Impression & Plan AMS (altered mental status), Anemia requiring transfusions, Symptomatic anemia, Hypocalcemia ED Provider Note HISTORY OF PRESENT ILLNESS: Patient is a 63-year-old female presenting with altered mental status. Daughter provides most of history. Reports the patient lives home alone. She last checked on her mom last week and states that she seemed to be slightly confused. Reports that she had had a fever and a cough and runny nose for the few days prior to her visit a week ago. She thought that it was just secondary to her respiratory illness. Reports that today she went and checked on the patient and she was speaking nonsensically and was acting very abnormal. Reports that the patient has been complaining of significant shortness of breath over the last few days via phone conversations. She reportedly is normally [facility] around the corner from her house, but 2 days ago became significantly winded. Daughter reports that she thinks the patient passed out sometime this week, but states the patient is confused on time. Reports the patient is normally fully independent and alert and oriented. Patient denies any complaints on arrival to the ER. She denies any chest pain, shortness of breath, nausea or vomiting. Denies any recent melena or blood in her stool. She is on Xarelto and plavix for history of a DVT. History of cardiac stents. ROS: as above PHYSICAL EXAM: Constitutional: Patient appears in no acute distress. HENT: Head: Normocephalic and atraumatic. Eyes: EOMI, PERRL Mouth/Throat: Mucous membranes moist. Neck: Trachea midline. Neck supple. Cardiovascular: Tachycardic with regular rhythm. No murmurs, rubs or gallops. Intact distal pulses. Pulmonary/Chest: No respiratory distress. Breath sounds clear and equal bilaterally. No wheezes or rales. Abdominal: Abdomen soft, no tenderness, rebound or guarding. Rectal: Chaperoned by nursing staff. No palpable masses or hemorrhoids. No significant melena on glove. Hemoccult negative. Musculoskeletal: No edema, tenderness or deformity noted. Skin: Warm and dry. Patient is very pale in complexion Psychiatric: Appropriate mood and affect for situation. Neurological: Alert to self only - she thinks is 1925 and that she is in [place]. CN II-XII grossly intact, moving all extremities equally and fully. MDM: - Vitals signs showed tachycardic and hypoxic. However, on repeat assessment, the patient's saturations are normal on room air. - History obtained via patient's daughter, given patient's confusion. History as above. - Chronic conditions affecting care: peripheral vascular disease; opioid dependence; DVT; HLD - Differential diagnoses include, but are not limited to: CVA; intracranial hemorrhage; ACS; pneumonia; UTI; anemia; viral syndrome - Order placed for continuous cardiac monitoring. At this time, monitor showed rate of 101 bpm with normal sinus rhythm, per my interpretation. - External medical records reviewed. [facility] medicine visit note dated 10/09/2023 was reviewed. Patient was seen in the clinic for shortness of breath and epigastric pain. It is noted to have been ongoing for 2 months per their documentation. They are noting that she has a history of DVT and is on Xarelto for 6 months. [facility] to have had a hemoglobin level of 13.6 on 04/07/2023. - EKG interpreted by myself showed normal sinus rhythm. Rate tachycardic at 101 bpm. QT 388. No acute ischemic changes. - Laboratory workup interpreted by myself showed leukopenia (WBC 4.59); anemia (Hgb 4.9); elevated INR (1.3); normal lactate; normal lactate; hypocalcemia (Ca 7.7); normal troponin; normal procalciton - VBG grossly unremarkable - CXR showed a left pleural effusion, per my interpretation. - CT head wo contrast negative for acute intracranial hemorrhage, per my interpretation - Patient consented for blood. 3 units PRBCs ordered for transfusion. Ordered 1g IV calcium gluconate for hypoglycemia and in setting of multiple PRBC transfusions. - Viral respiratory panel negative - UA ordered. - Discussion was had with special education case manager about patient's case and need for admission - Hospitalist, Dr. Reynoso, consulted for admission - Patient admitted to [facility] hospitalist service for further evaluation and management. I have personally spent 48 minutes of critical care time in the direct management of this patient. This includes bedside care, interpretation of diagnostic studies, and testing, discussion with consultants, patient, and family members, and other required patient management activities. This 48 minutes is in excess of all separately billable procedures. ASSESSMENT AND PLAN: Diagnosis: Altered mental status; anemia requiring transfusions; symptomatic anemia; hypocalcemia Plan: Admit Past Med/Surg History Problem List (Updated 10/17/23 @ 22:02 by Karli Hess MD) Hypocalcemia (Acute) Symptomatic anemia (Acute) Anemia requiring transfusions (Acute) AMS (altered mental status) (Acute) Recurrent UTI (urinary tract infection) Microscopic hematuria Urinary symptom or sign Chest pain (Acute) Social History Smoking Status: Current every day smoker Tobacco Type: Cigarettes Preferred Language: Romanian Feels Safe at Home: Yes Allergies Allergies Allergy/AdvReac Type Severity Reaction Status Date / Time amoxicillin Allergy Intermediate RASH; N/V/D Verified 10/17/23 21:37 Home Meds Home Medications Medication Instructions Recorded Confirmed buprenorphine 8 mg-naloxone 2 mg 1.25 tab sublingual DAILY 10/17/23 10/17/23 sublingual tablet cetirizine 10 mg tablet 10 mg PO DAILY PRN .allergies 10/17/23 10/17/23 clopidogrel 75 mg tablet 75 mg PO DAILY 10/17/23 10/17/23 hydroxyzine HCl 25 mg tablet 25 mg PO Q6 PRN Itching 10/17/23 10/17/23 naloxone 4 mg/actuation nasal spray 1 spray intranasal DIRECTED PRN 10/17/23 10/17/23 .opioid od pantoprazole 40 mg tablet,delayed 40 mg PO QAM 10/17/23 10/17/23 release rivaroxaban 20 mg tablet (Xarelto) 20 mg PO DAILY 10/17/23 10/17/23 triamcinolone acetonide 0.1 % 1 applic topical DIRECTED 10/17/23 10/17/23 topical ointment Results & Data (ED) Vital Signs Vital Signs - 24 hr 10/17/23 20:15 10/17/23 20:18 10/17/23 20:51 Temperature 37.5 C Temperature Source Oral Pulse Rate 103 H 104 H Pulse Rate [Apical] Pulse Rhythm [Apical] Respiratory Rate 18 Respiratory Depth Normal Blood Pressure 112/63 Blood Pressure [Right Arm] Blood Pressure Mean 79 Blood Pressure Mean [Right Arm] Pulse Oximetry 88 L 97 Oxygen Delivery Method Room Air Room Air Sepsis Recent Fever Within 48 Hours No Sepsis New/Unexplained Change in Mental Status No Sepsis Action Taken by Nursing No Action Required 10/17/23 21:05 10/17/23 21:45 Temperature Temperature Source Pulse Rate Pulse Rate [Apical] 100 H 101 H Pulse Rhythm [Apical] Regular Respiratory Rate 18 18 Respiratory Depth Normal Normal Blood Pressure Blood Pressure [Right Arm] 112/63 112/63 Blood Pressure Mean Blood Pressure Mean [Right Arm] 79 79 Pulse Oximetry 95 96 Oxygen Delivery Method Room Air Room Air Sepsis Recent Fever Within 48 Hours Sepsis New/Unexplained Change in Mental Status Sepsis Action Taken by Nursing Laboratory Data 10/17/23 20:20 10/17/23 20:20 Lab Results 10/17/23 10/17/23 10/17/23 Range/Units 20:20 20:40 21:05 WBC 4.59 L (4.8-10.8) K/ul RBC 1.40 L (4.20-5.40) M/uL Hgb 4.9 L* (12.0-16.0) g/dl Hct 15.4 L* (37.0-47.0) % MCV 110.0 H (80.0-100.0) fL MCH 35.0 H (25.0-34.0) pg MCHC 31.8 L (32.0-36.0) g/dL RDW Std Deviation 64.6 H (36.4-46.3) fL RDW Coeff of Jared 16.2 H (11.5-14.5) % PT 13.5 H (9.0-12.0) Seconds INR 1.3 H (0.9-1.1) VBG pH 7.43 H (7.36-7.41) VBG pCO2 34 L (38-50) mmHg VBG pO2 < 20 mmHg VBG HCO3 23 mmol/L VBG O2 Saturation < 60.0 % VBG Base Excess -1.1 mEq/L Sodium 133 L (136-145) mmol/L Potassium 3.5 (3.5-5.1) mmol/L Chloride 103 (98-107) mmol/L Carbon Dioxide 21 (21-32) mmol/L Anion Gap 9 (3-11) BUN 14 (6-23) mg/dl Creatinine 0.98 (0.6-1.2) mg/dl Est Cr Clr Drug Dosing 71.8 ml/min Est GFR ( Amer) 70.7 ml/min Est GFR (Non-Af Amer) 61.0 ml/min BUN/Creatinine Ratio 14.3 (10-20) Glucose 130 H (70-99(Fasting)) mg/dl Lactate 1.2 (0.4-2.0) mmol/L Calcium 7.7 L (8.6-10.3) mg/dl Magnesium 2.0 (1.7-2.4) mg/dl Total Bilirubin 0.6 (0.2-1.0) mg/dl AST 19 (13-39) U/L ALT 18 (7-52) U/L Alkaline Phosphatase 99 (34-104) U/L Troponin I High Sens 9.3 (0-14) pg/ml Total Protein 6.9 (6.0-8.3) gm/dl Albumin 3.0 L (3.4-5.0) gm/dl Globulin 3.9 (2.5-4.0) gm/dl Albumin/Globulin Ratio 0.8 L (0.9-2) Procalcitonin 0.34 (0-0.5) ng/ml Adenovirus (PCR) Not Detected (NotDetected) B. pertussis DNA (PCR) Not Detected (NotDetected) B.parapertussis DNA PCR Not Detected (NotDetected) C. pneumoniae DNA (PCR) Not Detected (NotDetected) Coronavirus OC43 (PCR) Not Detected (NotDetected) Coronavirus HKU1 (PCR) Not Detected (NotDetected) Coronavirus 229E (PCR) Not Detected (NotDetected) SARS-CoV-2 (PCR) Not Detected (NotDetected) Coronavirus NL63 (PCR) Not Detected (NotDetected) Human Metapneumovir PCR Not Detected (NotDetected) Influenza Type A (PCR) Not Detected (NotDetected) Influenza Type B (PCR) Not Detected (NotDetected) M. pneumoniae (PCR) Not Detected (NotDetected) Parainfluenza 1 (PCR) Not Detected (NotDetected) Parainfluenza 2 (PCR) Not Detected (NotDetected) Parainfluenza 3 (PCR) Not Detected (NotDetected) Parainfluenza 4 (PCR) Not Detected (NotDetected) RSV (PCR) Not Detected (NotDetected) Entero/Rhino (PCR) Not Detected (NotDetected) Blood Type A Positive Blood Type Recheck Antibody Screen NEGATIVE Crossmatch See Detail 10/17/23 Range/Units 21:30 WBC (4.8-10.8) K/ul RBC (4.20-5.40) M/uL Hgb (12.0-16.0) g/dl Hct (37.0-47.0) % MCV (80.0-100.0) fL MCH (25.0-34.0) pg MCHC (32.0-36.0) g/dL RDW Std Deviation (36.4-46.3) fL RDW Coeff of Jared (11.5-14.5) % PT (9.0-12.0) Seconds INR (0.9-1.1) VBG pH (7.36-7.41) VBG pCO2 (38-50) mmHg VBG pO2 mmHg VBG HCO3 mmol/L VBG O2 Saturation % VBG Base Excess mEq/L Sodium (136-145) mmol/L Potassium (3.5-5.1) mmol/L Chloride (98-107) mmol/L Carbon Dioxide (21-32) mmol/L Anion Gap (3-11) BUN (6-23) mg/dl Creatinine (0.6-1.2) mg/dl Est Cr Clr Drug Dosing ml/min Est GFR ( Amer) ml/min Est GFR (Non-Af Amer) ml/min BUN/Creatinine Ratio (10-20) Glucose (70-99(Fasting)) mg/dl Lactate (0.4-2.0) mmol/L Calcium (8.6-10.3) mg/dl Magnesium (1.7-2.4) mg/dl Total Bilirubin (0.2-1.0) mg/dl AST (13-39) U/L ALT (7-52) U/L Alkaline Phosphatase (34-104) U/L Troponin I High Sens (0-14) pg/ml Total Protein (6.0-8.3) gm/dl Albumin (3.4-5.0) gm/dl Globulin (2.5-4.0) gm/dl Albumin/Globulin Ratio (0.9-2) Procalcitonin (0-0.5) ng/ml Adenovirus (PCR) (NotDetected) B. pertussis DNA (PCR) (NotDetected) B.parapertussis DNA PCR (NotDetected) C. pneumoniae DNA (PCR) (NotDetected) Coronavirus OC43 (PCR) (NotDetected) Coronavirus HKU1 (PCR) (NotDetected) Coronavirus 229E (PCR) (NotDetected) SARS-CoV-2 (PCR) (NotDetected) Coronavirus NL63 (PCR) (NotDetected) Human Metapneumovir PCR (NotDetected) Influenza Type A (PCR) (NotDetected) Influenza Type B (PCR) (NotDetected) M. pneumoniae (PCR) (NotDetected) Parainfluenza 1 (PCR) (NotDetected) Parainfluenza 2 (PCR) (NotDetected) Parainfluenza 3 (PCR) (NotDetected) Parainfluenza 4 (PCR) (NotDetected) RSV (PCR) (NotDetected) Entero/Rhino (PCR) (NotDetected) Blood Type Blood Type Recheck A Positive Antibody Screen Crossmatch Administered Medications Discontinued Medications Calcium Gluconate () 1,000 mg in 60 mls @ 240 mls/hr IV NOW STA Stop: 10/17/23 22:05 Last Admin: 10/17/23 21:58 Dose: 240 mls/hr Documented By: GRIFFIN Discharge Plan Visit Data Chief Complaint: Illness Stated Complaint: ILLNESS ED Provider: Karli Hess Discharge Problem: AMS (altered mental status), Anemia requiring transfusions, Symptomatic anemia, Hypocalcemia Forms Stand Alone Forms: [facility] Prescriptions Prescriptions: No Action cetirizine 10 mg tablet 10 mg PO DAILY PRN (Reason: .allergies) clopidogrel 75 mg tablet 75 mg PO DAILY pantoprazole 40 mg tablet,delayed release (DR/EC) 40 mg PO QAM triamcinolone acetonide 0.1 % ointment 1 applic TOPICAL DIRECTED hydroxyzine HCl 25 mg tablet 25 mg PO Q6 PRN (Reason: Itching) buprenorphine-naloxone 8-2 mg tablet, sublingual 1.25 tab SUBLINGUAL DAILY Xarelto 20 mg tablet 20 mg PO DAILY naloxone 4 mg/actuation spray,non-aerosol 1 spray INTRANASAL DIRECTED PRN (Reason: .opioid od) Referrals Referrals: Xiang Thibodeaux [Outside Practitioners] -
[2023-10-17 21:11] LABS: Albumin Globulin Ratio 0.8 (0.9-2); BUN Creatinine Ratio 14.3 (10-20); Bilirubin,Total 0.6 mg/dl (0.2-1.0); Calcium 7.7 mg/dl (8.6-10.3); Creatinine Clr Calc Pharmacy 71.8 ml/min; Est GFR (African American) 70.7 ml/min; Globulin 3.9 gm/dl (2.5-4.0); Potassium 3.5 mmol/L (3.5-5.1); Total Protein 6.9 gm/dl (6.0-8.3)
[2023-10-17 21:17] LABS: Troponin I High Sensitivity 9.3 pg/ml (0-14)
[2023-10-17 21:24] LABS: INR 1.3 (0.9-1.1); Prothrombin Time 13.5 Seconds (9.0-12.0)
[2023-10-17 21:31] LABS: Hematocrit (blood only) 15.4 % (37.0-47.0); Hemoglobin 4.9 g/dl (12.0-16.0); Mean Corpuscular Hgb Conc 31.8 g/dL (32.0-36.0); RDW Coefficient of Variation 16.2 % (11.5-14.5); RDW Standard Deviation 64.6 fL (36.4-46.3); White Blood Count 4.59 K/ul (4.8-10.8)
[2023-10-17] MEDS ORDERED: SODIUM CHLORIDE 0.9% 250 ML IV PRN (21:45)
[2023-10-17] MEDS: CALCIUM GLUCONATE 1,000 MG/60 ML BAG IV STA (21:58)
[2023-10-17 22:15] LABS: Adenovirus PCR Not Detected (NotDetected); Bordetella parapertussis PCR Not Detected (NotDetected); Bordetella pertussis PCR Not Detected (NotDetected); Chlamydia pneumoniae PCR Not Detected (NotDetected); Coronavirus 229E PCR Not Detected (NotDetected); Coronavirus CoV-2 (COVID19)PCR Not Detected (NotDetected); Coronavirus HKU1 PCR Not Detected (NotDetected); Coronavirus NL63 PCR Not Detected (NotDetected); Coronavirus OC43PCR Not Detected (NotDetected); Human Metapneumovirus PCR Not Detected (NotDetected); Influenza A PCR Not Detected (NotDetected); Influenza B PCR Not Detected (NotDetected); Mycoplasma pneumoniae PCR Not Detected (NotDetected); Parainfluenza Virus 1 PCR Not Detected (NotDetected); Parainfluenza Virus 2 PCR Not Detected (NotDetected); Parainfluenza Virus 3 PCR Not Detected (NotDetected); Parainfluenza Virus 4 PCR Not Detected (NotDetected); Respiratory Syncytial VirusPCR Not Detected (NotDetected); Rhinovirus/Enterovirus PCR Not Detected (NotDetected)
[2023-10-17 22:18] LABS: Dohle Bodies 1+; Mean Platelet Volume 11.5 fL (9.4-12.4); Platelet Count 40 K/uL (130-400); Platelet Estimate Decreased (Normal)
--- NOTE | 2023-10-17 23:56 | CT Scan Report ---
Exam(s): CT HEAD Without Contrast IV Amt: 120 ml optiray 320 EXAM: CT Head Without Intravenous Contrast CLINICAL HISTORY: Reason for exam: confusion. TECHNIQUE: Axial computed tomography images of the head/brain without intravenous contrast. CTDI is 34.49 mGy and DLP is 546.36 mGy-cm. Automated exposure control was utilized for the study. A dose lowering technique was utilized adhering to the principles of ALARA. COMPARISON: No relevant prior studies available. FINDINGS: No acute intracranial hemorrhage. No midline shift or mass effect. The territorial tomlin-white matter differentiation is maintained throughout. The ventricles and sulci are commensurate with age. The visualized orbits appear grossly unremarkable. The calvarium is intact. The visualized paranasal sinuses and mastoid air cells are grossly clear. IMPRESSION: No acute intracranial hemorrhage, midline shift, or mass effect. Electronically signed by: Anurag Wynn MD 10/17/23 23:55 PM
--- NOTE | 2023-10-18 00:06 | History & Physical Report ---
Date of Service October 18, 2023 Assessment & Plan (1) Symptomatic anemia: Plan: New onset pancytopenia ? Precipitated by viral illness ? New PPI Rx for possible GERD (myelosuppression noted in some case reports) hx PAD/arterial occlusive disease on Plavix LE DVT on Xarelto (04/2023) chronic pain on Suboxone Hyperglycemia rule out DM past tobacco abuse Medical telemetry Transfuse PRBC to maintain hemoglobin of at least 8, history PAD Peripheral blood smear, anemia workup Hold Plavix and Xarelto, hemoccult all stools until GI bleed ruled out (initial FOBT done at the ER was negative) Hematology consult Re: Pancytopenia Check hemoglobin A1c DVT prophylaxis. TEDs while Xarelto on hold (SCDs contraindicated with history PAD) Full code Patient daughter requesting updates providers. Ms. Maki Mccarthy, contact #[phone]. Text document was generated using Gigz[employer] voice recognition software. It may contain grammatical or spelling errors. Kindly contact undersigned for clarification of any documentation item in question. History of Present Illness Chief Complaint: Chest pain, shortness of breath, weakness Primary Care Provider: Mikal Butler MD History obtained from patient, family, and records. Medical history significant for PAD/arterial occlusive disease on Plavix, LE DVT on Xarelto (04/2023), GERD, chronic pain on Suboxone, past tobacco abuse. Patient seen at PCPs office 5 days ago for shortness of breath and burning epigastric pain of 2 months duration. Nausea and dry cough symptoms. Denies black/bloody stools/hematemesis/coffee-ground emesis/hematuria. Protonix started for possible GERD. Improved discomfort as per patient. Patient with worsening SOB over the last few days. Substernal pain. Patient somewhat confused when daughter saw her yesterday. Patient brought to ER for evaluation. 3 units PRBC transfused at the ER. 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 Allergies Allergy/AdvReac Type Severity Reaction Status Date / Time amoxicillin Allergy Intermediate RASH; N/V/D Verified 10/17/23 21:37 Home Medications Medication Instructions Recorded Confirmed Type buprenorphine 8 mg-naloxone 2 mg 1.25 tab sublingual DAILY 10/17/23 10/17/23 History sublingual tablet cetirizine 10 mg tablet 10 mg PO DAILY PRN .allergies 10/17/23 10/17/23 History clopidogrel 75 mg tablet 75 mg PO DAILY 10/17/23 10/17/23 History hydroxyzine HCl 25 mg tablet 25 mg PO Q6 PRN Itching 10/17/23 10/17/23 History naloxone 4 mg/actuation nasal spray 1 spray intranasal DIRECTED PRN 10/17/23 10/17/23 History .opioid od pantoprazole 40 mg tablet,delayed 40 mg PO QAM 10/17/23 10/17/23 History release rivaroxaban 20 mg tablet (Xarelto) 20 mg PO DAILY 10/17/23 10/17/23 History triamcinolone acetonide 0.1 % 1 applic topical DIRECTED 10/17/23 10/17/23 History topical ointment Past Med/Surg History Problem List (Updated 10/17/23 @ 22:02 by Karli Hess MD) Hypocalcemia (Acute) Symptomatic anemia (Acute) Anemia requiring transfusions (Acute) AMS (altered mental status) (Acute) Recurrent UTI (urinary tract infection) Microscopic hematuria Urinary symptom or sign Chest pain (Acute) Social History Smoking Status: Former smoker Tobacco Type: Cigarettes Hx Alcohol Use: No Hx Substance Use: No Preferred Language: Citizen Of [place] Communication Ability: Effective 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 Psychologist Required: No Beliefs That Will Affect Care: None Current Living Situation: Alone Feels Safe at Home: Yes Safety Concerns: Feels Safe At This Time Assistive Devices: Denture - Upper, Denture - Lower, Glasses, Hearing Aid - Bilateral and Walker Assistive Devices Comment: PRN O2 per pt Review of Systems Review of Systems: As per HPI, all other systems reviewed and negative Physical Exam Physical Exam: GENERAL: Slightly anxious, oriented to day,, no respiratory distress SKIN: Pallor,, warm HEENT: Pale palpebral conjunctivae, no ptosis, dry buccal mucosa NECK : Supple, no tenderness CHEST : Decreased breath sounds, no tenderness HEART : RRR, no obvious murmurs ABDOMEN: Some distention, nontender EXTREMITIES : No LE swelling/tenderness, no other conspicuous deformities noted NEUROLOGIC : Coherent, no facial asymmetry, no other gross focality Results & Data Results & Data Vital Signs (Past 12 Hours) Vital Signs Temp Pulse Pulse Resp BP BP Pulse Ox 10/17/23 23:25 37.2 C 98 H 18 124/61 96 10/17/23 22:55 37.2 C 97 H 18 100/80 98 10/17/23 22:40 37.0 C 98 H 18 112/86 96 10/17/23 22:20 36.9 C 97 H 18 110/61 96 10/17/23 21:45 101 H 18 112/63 96 10/17/23 21:05 100 H 18 112/63 95 10/17/23 20:51 97 10/17/23 20:18 104 H 10/17/23 20:15 37.5 C 103 H 18 112/63 88 L O2 Del Method 10/17/23 23:25 10/17/23 22:55 10/17/23 22:40 10/17/23 22:20 10/17/23 21:45 Room Air 10/17/23 21:05 Room Air 10/17/23 20:51 Room Air 10/17/23 20:18 10/17/23 20:15 Room Air Laboratory Results Laboratory Results WBC 4.59 K/ul (4.8-10.8) L 10/17/23 20:20 RBC 1.40 M/uL (4.20-5.40) L 10/17/23 20:20 Hgb 4.9 g/dl (12.0-16.0) L* 10/17/23 20:20 Hct 15.4 % (37.0-47.0) L* 10/17/23 20:20 MCV 110.0 fL (80.0-100.0) H 10/17/23 20:20 MCH 35.0 pg (25.0-34.0) H 10/17/23 20:20 MCHC 31.8 g/dL (32.0-36.0) L 10/17/23 20:20 RDW Std Deviation 64.6 fL (36.4-46.3) H 10/17/23 20:20 RDW Coeff of Jared 16.2 % (11.5-14.5) H 10/17/23 20:20 Plt Count 40 K/uL (130-400) L 10/17/23 20:20 MPV 11.5 fL (9.4-12.4) 10/17/23 20:20 Neutrophils % (Manual) 54 % 10/17/23 20:20 Lymphocytes % (Manual) 43 % 10/17/23 20:20 Monocytes % (Manual) 1 % 10/17/23 20:20 Eosinophils % (Manual) 1 % 10/17/23 20:20 Myelocytes % (Man) 1 % 10/17/23 20:20 Neutrophils # (Manual) 2.48 K/uL (1.40-6.50) 10/17/23 20:20 Total Absolute Neuts 2.48 K/uL (1.4-6.5) 10/17/23 20:20 Lymphocytes # (Manual) 1.97 K/uL (1.2-3.4) 10/17/23 20:20 Total Abs Lymphocytes 1.97 K/uL (1.2-3.4) 10/17/23 20:20 Monocytes # (Manual) 0.05 K/uL (0.11-0.59) L 10/17/23 20:20 Eosinophils # (Manual) 0.05 K/uL (0-0.50) 10/17/23 20:20 Myelocytes # (Manual) 0.05 K/uL (0-0) H 10/17/23 20:20 Dohle Bodies 1+ 10/17/23 20:20 Platelet Estimate Decreased (Normal) L 10/17/23 20:20 PT 13.5 Seconds (9.0-12.0) H 10/17/23 20:20 INR 1.3 (0.9-1.1) H 10/17/23 20:20 VBG pH 7.43 (7.36-7.41) H 10/17/23 20:40 VBG pCO2 34 mmHg (38-50) L 10/17/23 20:40 VBG pO2 < 20 mmHg 10/17/23 20:40 VBG HCO3 23 mmol/L 10/17/23 20:40 VBG O2 Saturation < 60.0 % 10/17/23 20:40 VBG Base Excess -1.1 mEq/L 10/17/23 20:40 Sodium 133 mmol/L (136-145) L 10/17/23 20:20 Potassium 3.5 mmol/L (3.5-5.1) 10/17/23 20:20 Chloride 103 mmol/L (98-107) 10/17/23 20:20 Carbon Dioxide 21 mmol/L (21-32) 10/17/23 20:20 Anion Gap 9 (3-11) 10/17/23 20:20 BUN 14 mg/dl (6-23) 10/17/23 20:20 Creatinine 0.98 mg/dl (0.6-1.2) 10/17/23 20:20 Est Cr Clr Drug Dosing 71.8 ml/min 10/17/23 20:20 Est GFR ( Amer) 70.7 ml/min 10/17/23 20:20 Est GFR (Non-Af Amer) 61.0 ml/min 10/17/23 20:20 BUN/Creatinine Ratio 14.3 (10-20) 10/17/23 20:20 Glucose 130 mg/dl (70-99(Fasting)) H 10/17/23 20:20 Lactate 1.2 mmol/L (0.4-2.0) 10/17/23 21:05 Calcium 7.7 mg/dl (8.6-10.3) L 10/17/23 20:20 Magnesium 2.0 mg/dl (1.7-2.4) 10/17/23 20:20 Total Bilirubin 0.6 mg/dl (0.2-1.0) 10/17/23 20:20 AST 19 U/L (13-39) 10/17/23 20:20 ALT 18 U/L (7-52) 10/17/23 20:20 Alkaline Phosphatase 99 U/L (34-104) 10/17/23 20:20 Lactate Dehydrogenase 296 U/L (86-244) H 10/17/23 20:20 Troponin I High Sens 9.3 pg/ml (0-14) 10/17/23 20:20 B-Natriuretic Peptide 308 pg/ml (0-100) H 10/17/23 20:20 Total Protein 6.9 gm/dl (6.0-8.3) 10/17/23 20:20 Albumin 3.0 gm/dl (3.4-5.0) L 10/17/23 20:20 Globulin 3.9 gm/dl (2.5-4.0) 10/17/23 20:20 Albumin/Globulin Ratio 0.8 (0.9-2) L 10/17/23 20:20 Procalcitonin 0.34 ng/ml (0-0.5) 10/17/23 20:20 Adenovirus (PCR) Not Detected (NotDetected) 10/17/23 20:40 B. pertussis DNA (PCR) Not Detected (NotDetected) 10/17/23 20:40 B.parapertussis DNA PCR Not Detected (NotDetected) 10/17/23 20:40 C. pneumoniae DNA (PCR) Not Detected (NotDetected) 10/17/23 20:40 Coronavirus OC43 (PCR) Not Detected (NotDetected) 10/17/23 20:40 Coronavirus HKU1 (PCR) Not Detected (NotDetected) 10/17/23 20:40 Coronavirus 229E (PCR) Not Detected (NotDetected) 10/17/23 20:40 SARS-CoV-2 (PCR) Not Detected (NotDetected) 10/17/23 20:40 Coronavirus NL63 (PCR) Not Detected (NotDetected) 10/17/23 20:40 Human Metapneumovir PCR Not Detected (NotDetected) 10/17/23 20:40 Influenza Type A (PCR) Not Detected (NotDetected) 10/17/23 20:40 Influenza Type B (PCR) Not Detected (NotDetected) 10/17/23 20:40 M. pneumoniae (PCR) Not Detected (NotDetected) 10/17/23 20:40 Parainfluenza 1 (PCR) Not Detected (NotDetected) 10/17/23 20:40 Parainfluenza 2 (PCR) Not Detected (NotDetected) 10/17/23 20:40 Parainfluenza 3 (PCR) Not Detected (NotDetected) 10/17/23 20:40 Parainfluenza 4 (PCR) Not Detected (NotDetected) 10/17/23 20:40 RSV (PCR) Not Detected (NotDetected) 10/17/23 20:40 Entero/Rhino (PCR) Not Detected (NotDetected) 10/17/23 20:40 Blood Type A Positive 10/17/23 21:05 Blood Type Recheck A Positive 10/17/23 21:30 Antibody Screen NEGATIVE 10/17/23 21:05 Crossmatch See Detail 10/17/23 21:[address] 10/17/23 20:58 Exam(s): CT HEAD Without Contrast IV Amt: 120 ml optiray 320 EXAM: CT Head Without Intravenous Contrast CLINICAL HISTORY: Reason for exam: confusion. TECHNIQUE: Axial computed tomography images of the head/brain without intravenous contrast. CTDI is 34.49 mGy and DLP is 546.36 mGy-cm. Automated exposure control was utilized for the study. A dose lowering technique was utilized adhering to the principles of ALARA. COMPARISON: No relevant prior studies available. FINDINGS: No acute intracranial hemorrhage. No midline shift or mass effect. The territorial tomlin-white matter differentiation is maintained throughout. The ventricles and sulci are commensurate with age. The visualized orbits appear grossly unremarkable. The calvarium is intact. The visualized paranasal sinuses and mastoid air cells are grossly clear. IMPRESSION: No acute intracranial hemorrhage, midline shift, or mass effect. Electronically signed by: Anurag Wynn MD 10/17/23 23:55 PM Diagnostic Findings Chest x-ray as per them interpretation cardiomegaly, minimal congestion, atelectasis EKG as per my interpretation : Rate 105, sinus tachycardia, normal axis, nonspecific T wave abnormalities
[2023-10-18] MEDS ORDERED: PROMETHAZINE HCL 6.25 MG in SODIUM CHLORIDE 0.9% 50 ML IV PRN (00:09)
[2023-10-18 01:12] LABS: Thyroid Stimulating Hormone 2.162 uIu/ml (0.300-4.500)
[2023-10-18] MEDS ORDERED: CETIRIZINE HCL 10 MG TABLET PO PRN (02:24)
[2023-10-18] MEDS ORDERED: SODIUM CHLORIDE 0.9% 250 ML IV PRN (02:55)
[2023-10-18 07:13] LABS: Appearance Urine Cloudy (Clear); Bilirubin Urine Negative (Negative); Blood Urine 1+ (Negative); Glucose Urine UA Negative (Negative); Ketones Urine Negative (Negative); Leukocyte Esterase Urine Trace (Negative); Nitrite Urine Negative (Negative); Protein Urine Trace (Negative); Specific Gravity Urine 1.025 (1.000-1.030); Urobilinogen Urine Negative (Negative); pH Urine 5.5 (4.5-7.5)
[2023-10-18 07:16] LABS: Color Urine Dark Yellow
[2023-10-18 07:40] LABS: Epithelial Cell Urine 0-2 /hpf (0-2); WBC Urine >50 /hpf (0-5)
[2023-10-18 07:41] LABS: Bacteria Urine 4+ (None Seen)
[2023-10-18 08:25] LABS: Estimated Average Glucose 137 mg/dl; Hemoglobin A1C 6.4 % (4.5-5.6)
[2023-10-18 08:29] LABS: BUN Creatinine Ratio 15.4 (10-20); Calcium 7.5 mg/dl (8.6-10.3); Est GFR (African American) 77.3 ml/min; Est GFR (Non-African American) 66.7 ml/min; Potassium 3.7 mmol/L (3.5-5.1)
[2023-10-18 08:36] LABS: Hematocrit (blood only) 23.8 % (37.0-47.0); White Blood Count 3.89 K/ul (4.8-10.8)
[2023-10-18 08:37] LABS: Mean Corpuscular Hemoglobin 32.1 pg (25.0-34.0); Mean Corpuscular Hgb Conc 33.6 g/dL (32.0-36.0); Mean Corpuscular Volume 95.6 fL (80.0-100.0); RDW Coefficient of Variation 19.8 % (11.5-14.5); RDW Standard Deviation 68.6 fL (36.4-46.3); Red Blood Count 2.49 M/uL (4.20-5.40)
--- NOTE | 2023-10-18 08:42 | XRay Report ---
XR chest 1V portable HISTORY: Dyspnea COMPARISON: Chest 05/09/2013. FINDINGS: No pneumothorax. Trace right and small left pleural effusions. The heart is mildly enlarged . There is progressive interstitial and vascular thickening consistent with mild congestive change. L eft basilar linear densities favor subsegmental atelectasis. No acute fractures. IMPRESSION: 1. Cardiomegaly with mild congestive change and bilateral pleural effusions. 2. Left basilar densities favor compressive atelectasis from the pleural effusion. A pneumonia could also have a similar appearance in the appropriate clinical setting. ACT 112: Negative or not required by law. Electronically signed by: Neymar Lizarraga M.D. 10/18/2023 8:40 AM
[2023-10-18 08:44] LABS: Basophils # (manual) 0.09 K/uL (0-0.2); Basophils % (manual) 2 %; Blast # (manual) 0.28 K/uL (0-0); Blast Cells % (manual) 6 %; Metamyelocytes # (manual) 0.14 K/uL (0-0); Metamyelocytes % (manual) 3 %
[2023-10-18 08:44] LABS: Reticulocyte % 1.16 % (0.50-2.00)
[2023-10-18 08:51] LABS: Lymphocytes % (manual) 63 %; Neutrophils % (manual) 24 %
[2023-10-18] MEDS: PANTOprazole 40 MG TAB PO SCH ×2 (08:51→09:03)
[2023-10-18 08:52] LABS: Monocytes % (manual) 2 %
[2023-10-18] MEDS: BUPRENORPHINE/NALOXONE 8/2 MG TAB SL SCH (08:52)
[2023-10-18 08:53] LABS: Lymphocytes # (manual) 2.89 K/uL (1.2-3.4); Monocytes # (manual) 0.09 K/uL (0.11-0.59)
[2023-10-18 08:54] LABS: ALC (manual) 2.89 K/uL (1.2-3.4)
[2023-10-18 08:55] LABS: Folate (Folic Acid),Ser orPlas 10.81 ng/ml (>5.38)
[2023-10-18 08:58] LABS: Mean Platelet Volume 10.8 fL (9.4-12.4); Platelet Count 28 K/uL (130-400)
[2023-10-18 09:03] LABS: ALC (manual) 1.79 K/uL (1.2-3.4); ANC (manual) 1.63 K/uL (1.4-6.5); Anisocytosis Present; Basophils % (manual) 0 %; Blast # (manual) 0.19 K/uL (0-0); Blast Cells % (manual) 5 %; Eosinophils % (manual) 0 %; Lymphocytes # (manual) 1.79 K/uL (1.2-3.4); Lymphocytes % (manual) 46 %; Metamyelocytes # (manual) 0.12 K/uL (0-0); Metamyelocytes % (manual) 3 %; Monocytes # (manual) 0.04 K/uL (0.11-0.59); Monocytes % (manual) 1 %; Myelocytes # (manual) 0.12 K/uL (0-0); Myelocytes % (manual) 3 %; Neutrophils # (manual) 1.63 K/uL (1.40-6.50); Neutrophils % (manual) 42 %; Nucleated RBC # (auto) 0.02 K/uL (0.00-0.12); Nucleated RBC % (auto) 0.5 %
[2023-10-18 09:15] LABS: Macrocytosis Present
[2023-10-18] MEDS ORDERED: OLANZapine 10 MG/2.1 ML SDV IM PRN (11:39)
--- NOTE | 2023-10-18 12:56 | Electrocardiogram Report ---
Test Reason : Blood Pressure : / mmHG Vent. Rate : 101 BPM Atrial Rate : 101 BPM P-R Int : 126 ms QRS Dur : 070 ms QT Int : 388 ms P-R-T Axes : 036 027 049 degrees QTc Int : 503 ms Sinus tachycardia Nonspecific T wave abnormality Abnormal ECG When compared with ECG of 09-MAY-2013 15:14, Nonspecific T wave abnormality now evident in Anterolateral leads QT has lengthened Confirmed by Nash Sánchez ([id number]) on 10/18/2023 12:55:33 PM Referred By: Confirmed By:Nash Sánchez
--- NOTE | 2023-10-18 14:11 | Communication Note ---
Date of Service: October 18, 2023 Patient was seen and examined at bedside. 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 She was found to be anemic with hemoglobin of 4.9 at presentation. She is being managed for the following: Pancytopenia, new onset Symptomatic anemia Patient coming in with shortness of breath, substernal chest pain, confusion. See above. April 2023 lab: WBC 5.98K, hemoglobin 13.6, platelet 213 K Admitting labs: WBC 4.59K, hemoglobin 4.9, platelets 40 K. Iron 103 [ferritin 1532], vitamin B12 1264, folate 10.81. Admitting LDH 296, haptoglobin and peripheral smear pending. Recent new PPI treatment for possible GERD versus viral illness versus unknown etiology. FOBT done at ED negative. Status post 3 unit PRBC. Platelets dropping. Hemoglobin now stable. Patient with no complaints of blood in the stool or abdominal pain or hemoptysis or hematemesis. Hematology consult, await recommendation. Monitor labs in the afternoon and daily. Plavix and Xarelto on hold. Transfuse PRBC to maintain hemoglobin of at least 8. 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 Admitting CXR w/ concern for LLL pna. Will treat her given encephalopathy. rocephin and doxy. Other chronic medical conditions: Continue with/resume home meds as and when able. History of PAD/arterial occlusive disease on Plavix, Plavix on hold LE DVT on Xarelto [04/2023], Xarelto on hold Chronic pain on Suboxone, continue Prediabetes, 6.4 A1c, encourage lifestyle modification, A1c repeat in 3 months. Past tobacco abuse DVT prophylaxis. TEDs while Xarelto on hold. (SCDs contraindicated with history PAD) Full code Patient daughter Ms. Maki Mccarthy, contact #[phone]. Given phone call 10/17, updated, answered all her questions. Text document was generated using [employer] voice recognition software. It may contain grammatical or spelling errors. Kindly contact undersigned for clarification of any documentation item in question. For further details of the patient, refer to today's H&P note.
--- NOTE | 2023-10-18 14:27 | Oncology Consultation ---
Date of Consultation October 18, 2023 Assessment & Plan (1) Symptomatic anemia: Transfuse if Hb is <7.0 g/dl. Recommend bone marrow biopsy as patient has bicytopenia and peripheral blasts. (2) Thrombocytopenia: Transfuse if platelelts <10,000/ul or if actively bleeding. Recommend Bone ma rrow biopsy. Plan Hematology will continue to follow the patient and make appropriate recommendations. History of Present Illness Reason for Consultation: Bicytopenia, thrombocytopenia and significant anemia Attending Physician: Wilian Cohen MD History of Present Illness patient is a very pleasant 63-year-old woman with a past history of peripheral arterial disease, currently on Plavix, lower extremity DVT, gastroesophageal reflux disease, chronic pain who was admitted to [facility] with shortness of breath, epigastric pain. Was noted to have significant symptomatic anemia as well as thrombocytopenia. On admission her hemoglobin level was only 4.9 g/dL, platelet count was 40,000/mcL. Hematology has been consulted to assist in management of this patient with significant anemia with possible blasts in the peripheral blood as well as thrombocytopenia. During my interview the patient woke up from sleep was able to articulate all of her recent her health issues and family members. Allergies Allergy/AdvReac Type Severity Reaction Status Date / Time amoxicillin Allergy Intermediate RASH; N/V/D Verified 10/17/23 21:37 Home Medications Medication Instructions Recorded Confirmed Type buprenorphine 8 mg-naloxone 2 mg 1.25 tab sublingual DAILY 10/17/23 10/17/23 History sublingual tablet cetirizine 10 mg tablet 10 mg PO DAILY PRN .allergies 10/17/23 10/17/23 History clopidogrel 75 mg tablet 75 mg PO DAILY 10/17/23 10/17/23 History hydroxyzine HCl 25 mg tablet 25 mg PO Q6 PRN Itching 10/17/23 10/17/23 History naloxone 4 mg/actuation nasal spray 1 spray intranasal DIRECTED PRN 10/17/23 10/17/23 History .opioid od pantoprazole 40 mg tablet,delayed 40 mg PO QAM 10/17/23 10/17/23 History release rivaroxaban 20 mg tablet (Xarelto) 20 mg PO DAILY 10/17/23 10/17/23 History triamcinolone acetonide 0.1 % 1 applic topical DIRECTED 10/17/23 10/17/23 History topical ointment Patient History Social History Smoking Status: Former smoker Tobacco Type: Cigarettes Hx Alcohol Use: No Hx Substance Use: No Preferred Language: Japanese Communication Ability: Effective Line Helper Required: No Beliefs That Will Affect Care: None Current Living Situation: Alone Feels Safe at Home: Yes Safety Concerns: Feels Safe At This Time Assistive Devices: Denture - Upper, Denture - Lower, Glasses, Hearing Aid - Bilateral and Walker Assistive Devices Comment: PRN O2 per pt Review of Systems Review of Systems: All systems reviewed & are unremarkable except as noted in HPI & below Weakness, fatigue, shortness of breath Constitutional: as per Subjective / HPI Eyes: as per Subjective / HPI Ear, Nose, Mouth, Throat: as per Subjective / HPI Respiratory: as per Subjective / HPI Cardiovascular: as per Subjective / HPI Gastrointestinal: as per Subjective / HPI Genitourinary: as per Subjective / HPI Musculoskeletal: as per Subjective / HPI Integumentary: as per Subjective / HPI Neurologic: as per Subjective / HPI Psychiatric: as per Subjective / HPI Endocrine: as per Subjective / HPI Physical Exam Constitutional: WD/WN, vitals as above Eyes: PERRL, conjunctivae normal, anicteric sclerae ENMT: external ear and nose normal, oropharynx normal Neck: trachea midline, no thyromegaly Respiratory: normal respiratory effort, lungs clear to auscultation Cardiovascular: RRR, no murmur, no edema Gastrointestinal (Abdomen): normal bowel sounds, soft, nontender, no hepatosplenomegaly Musculoskeletal: no cyanosis or clubbing, extremities motor strength 5/5 Skin: no rashes, warm and dry Neurologic: patellar DTR's 2+ bilat, sensation intact Psychiatric: A+Ox3, euthymic affect Genitourinary: no vaginal lesions, no adnexal mass Results & Data Vital Signs (Past 12 Hours) Vital Signs Temp Pulse Pulse Resp BP BP Pulse Ox 10/18/23 14:13 100 H 10/18/23 11:54 36.8 C 102 H 16 127/78 93 10/18/23 07:47 37.2 C 95 H 16 135/74 95 10/18/23 07:45 10/18/23 07:19 97 H 10/18/23 06:31 36.7 C 90 20 132/78 94 10/18/23 05:41 36.7 C 92 H 20 117/85 93 10/18/23 04:41 36.8 C 100 H 18 151/81 H 97 10/18/23 04:11 36.8 C 96 H 16 140/68 95 10/18/23 04:11 36.8 C 96 H 16 140/68 95 10/18/23 03:56 36.8 C 97 H 20 125/69 97 10/18/23 03:40 36.6 C 97 H 18 144/81 H 94 10/18/23 02:51 36.8 C 91 H 18 124/77 96 10/18/23 02:44 O2 Del Method O2 Flow Rate 10/18/23 14:13 10/18/23 11:54 Room Air 10/18/23 07:47 Room Air 10/18/23 07:45 Room Air 10/18/23 07:19 10/18/23 06:31 0 10/18/23 05:41 0 10/18/23 04:41 10/18/23 04:11 10/18/23 04:11 10/18/23 03:56 0 10/18/23 03:40 10/18/23 02:51 0 10/18/23 02:44 Room Air
[2023-10-18 15:29] LABS: Hematocrit (blood only) 24.1 % (37.0-47.0); Hemoglobin 8.1 g/dl (12.0-16.0); Mean Corpuscular Hemoglobin 32.3 pg (25.0-34.0); Mean Corpuscular Hgb Conc 33.6 g/dL (32.0-36.0); Mean Platelet Volume 12.3 fL (9.4-12.4); Platelet Count 28 K/uL (130-400); RDW Coefficient of Variation 20.8 % (11.5-14.5); RDW Standard Deviation 70.9 fL (36.4-46.3); Red Blood Count 2.51 M/uL (4.20-5.40); White Blood Count 3.65 K/ul (4.8-10.8)
[2023-10-18] MEDS: cefTRIAXone SODIUM 2,000 MG/50 ML BAG IV SCH (16:16)
[2023-10-18] MEDS: DOXYCYCLINE HYCLATE 100 MG in DEXTROSE 5% MINI-B 100 ML IV SCH (16:16)
[2023-10-18] MEDS: METOPROLOL TARTRATE 1 MG/ML VIAL IV PRN (16:50)
[2023-10-18 17:07] LABS: Creatinine Clr Calc Pharmacy 74.6 ml/min; Est GFR (African American) 74.3 ml/min; Est GFR (Non-African American) 64.1 ml/min; Phosphorus 2.6 mg/dl (2.5-4.9); Potassium 3.8 mmol/L (3.5-5.1)
[2023-10-18 17:14] LABS: Troponin I High Sensitivity 10.2 pg/ml (0-14)
[2023-10-18] MEDS: MAGNESIUM SULFATE / D5W 1 GM/100 ML BAG IV SCH (17:21)
[2023-10-18] MEDS: POTASSIUM CHLORIDE CRTAB 20 MEQ TABCR PO STA (18:05)
[2023-10-18] MEDS: METOPROLOL TARTRATE 25 MG TAB PO SCH (21:03)
[2023-10-19 06:54] LABS: Hematocrit (blood only) 21.7 % (37.0-47.0); Hemoglobin 7.4 g/dl (12.0-16.0); Mean Corpuscular Hemoglobin 32.6 pg (25.0-34.0); Mean Corpuscular Hgb Conc 34.1 g/dL (32.0-36.0); Mean Corpuscular Volume 95.6 fL (80.0-100.0); Mean Platelet Volume 12.5 fL (9.4-12.4); Platelet Count 24 K/uL (130-400); RDW Coefficient of Variation 20.4 % (11.5-14.5); RDW Standard Deviation 69.3 fL (36.4-46.3); Red Blood Count 2.27 M/uL (4.20-5.40); White Blood Count 3.44 K/ul (4.8-10.8)
[2023-10-19 07:14] LABS: BUN Creatinine Ratio 17.5 (10-20); Calcium 7.8 mg/dl (8.6-10.3); Creatinine Clr Calc Pharmacy 72.3 ml/min; Est GFR (African American) 71.5 ml/min; Est GFR (Non-African American) 61.7 ml/min; Magnesium 2.5 mg/dl (1.7-2.4); Phosphorus 3.3 mg/dl (2.5-4.9); Potassium 4.5 mmol/L (3.5-5.1)
--- NOTE | 2023-10-19 12:03 | Cardiology Consultation ---
Date of Consultation October 19, 2023 Assessment & Plan (1) Symptomatic anemia: (2) Thrombocytopenia: (3) Urinary tract infection: (4) New onset atrial fibrillation: Plan Assessment: 63 year old female admitted with symptoms of worsening shortness of breath and confusion. Found to be profoundly anemia, low platelets and also with a UTI. Subsequently developed new onset atrial fibrillation during course of hospitalization with no prior cardiac history to date. Plan: -Patient's H/H was found to be critically low and received 3 units of PRBC's in the emergency dept. While improved, HgB has begun to fall again noted on above labs. patient continues to deny any latha bleeding. -marked low platelets in the setting of profound anemia. Continued investigation per primary team and Heme/Onc. -Echocardiogram demonstrates normal LVEF; however there is a small circumferenti al pericardial effusion noted (no prior studies available). found in the setting of blood loss and thrombocytopenia gives concern to other developing or progressive processes. Heme/Onc has been consulted. -New onset A-fib likely secondary to her profound anemia and also current UTI. fortunately, she has spontaneously converted to NSR as of 142 and maintained without incident. -CHADS2-VASC score of 1. Would not recommend initiation of any anticoagulants as patient is maintaining a NSR and risk of bleed in the setting of active anemia is far greater than the benefit at this time. -Continue to monitor closely on telemetry. -patient is euvolemic on exam. Suspect her ongoing dyspnea in s/t her anemia -Continue to monitor on telemetry. -Continued management of UTI per primary team. -No further cardiac work up is needed at this present time. Case has been discussed with Dr. Loya. Further recommendations regarding plan of care as per his assessment. I spent a total of 40 minutes on the date of service in preparation, delivery, documentation of the care provided to the patient excluding any time spent in the performance of separately billed services. CARMEN Blas [facility] Cardiology [facility] Supervising Physician Co-Signing Physician Notes Attending attestation: Case reviewed with the advanced practitioner. I have personally performed a history and physical examination on the patient. I have reviewed the advanced practitioner's documentation on the date of service referenced in note, and I agree with, and take responsibility for the plan of care. Echocardiogram with normal LVEF, mild aortic valve sclerosis without stenosis, small circumferential pericardial effusion noted in the subcostal images with mild degree of organization, no tamponade. Patient back in sinus rhythm. She denies not having any subjective sensation of racing heart rate or worsening shortness of breath while in atrial fibrillation. Given anemia and thrombocytopenia, she is not a candidate for anticoagulation or antiplatelet therapy. Agree with metoprolol and ongoing anemia work up. I spent a total of 20 minutes coordinating, documenting, and providing care for this patient excluding time spent in the performance of separately billed services or time spent by another provider. Frank Loya DO History of Present Illness Reason for Consultation: New onset A-fib Requesting Physician: Slime Jarvis Attending Physician: Wilian Cohen MD History of Present Illness HPI: patient is a 63 year old pleasant female with PMHx significant for Chronic back pain/lumbar disc disease, opioid dependence, on subutex, prior DVT, and tobacco use that presented to the ED after daughter found patient to be extremely disoriented. Patient had a URI illness in the weeks prior to her admission, and had continued to complain of ongoing/worsening dyspnea. Daughter states that her mother appears more and more short of breath over the phone and increasingly confused which is not her norm prompting her to presents. Patient was found to be hypoxic and tachycardic with a HgB of 4.9. No latha bleeding reported. Patient received 3 units of PRBC's in the ED. labs today show a small decline in HgB (was up to 8.1 and is now 7.4) Platelet counts remains markedly low (24) Troponin negative x2. Initial EKG on admission demonstrates sinus tachycardia Rate 101 with non- specific T wave abnormality in the Anterolateral leads. Repeat EKG the following day at 1622 demonstrates new onset A-fib with RVR rate 129 bpm. Patient has converted in and out of A-fib multiple times yesterday and eventually spontaneously converted to NSR at 0143 this morning and has remained NSR. EKG this morning demonstrates NSR rate 87bpm. Patient is resting comfortably in bed at this time. She states that she has ongoing dyspnea, worse with exertion, but no chest pain, pressure or palpitations. Continue to deny any latha bleeding. Allergies Allergy/AdvReac Type Severity Reaction Status Date / Time amoxicillin Allergy Intermediate RASH; N/V/D Verified 10/17/23 21:37 Home Medications Medication Instructions Recorded Confirmed Type buprenorphine 8 mg-naloxone 2 mg 1.25 tab sublingual DAILY 10/17/23 10/17/23 History sublingual tablet cetirizine 10 mg tablet 10 mg PO DAILY PRN .allergies 10/17/23 10/17/23 History clopidogrel 75 mg tablet 75 mg PO DAILY 10/17/23 10/17/23 History hydroxyzine HCl 25 mg tablet 25 mg PO Q6 PRN Itching 10/17/23 10/17/23 History naloxone 4 mg/actuation nasal spray 1 spray intranasal DIRECTED PRN 10/17/23 10/17/23 History .opioid od pantoprazole 40 mg tablet,delayed 40 mg PO QAM 10/17/23 10/17/23 History release rivaroxaban 20 mg tablet (Xarelto) 20 mg PO DAILY 10/17/23 10/17/23 History triamcinolone acetonide 0.1 % 1 applic topical DIRECTED 10/17/23 10/17/23 History topical ointment Patient History Social History Smoking Status: Former smoker Tobacco Type: Cigarettes Hx Alcohol Use: No Hx Substance Use: No Preferred Language: Stateless Communication Ability: Effective 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 Beliefs That Will Affect Care: None Current Living Situation: Alone Feels Safe at Home: Yes Safety Concerns: Feels Safe At This Time Assistive Devices: None Assistive Devices Comment: PRN O2 per pt Review of Systems Review of Systems: All systems reviewed & are unremarkable except as noted in HPI & below Physical Exam Constitutional: well developed and well nourished; no acute distress and not ill appearing Neck: normal visual inspection and trachea midline Respiratory: normal respiratory effort, lungs clear to auscultation Cardiovascular: Rate/Rhythm: regular rate and regular rhythm Heart Sounds: normal S1, normal S2 and + murmur (+1/6 systolic) Vessels: dorsalis pedis pulses present; no JVD Skin: no rashes, warm and dry Psychiatric: A+Ox3, euthymic affect Results & Data Vital Signs (Past 12 Hours) Vital Signs Temp Pulse Pulse Pulse Resp BP Pulse Ox 10/19/23 10:39 82 10/19/23 09:22 10/19/23 08:40 36.6 C 10/19/23 07:10 82 21 120/66 93 10/19/23 04:04 81 16 122/65 94 O2 Del Method O2 Flow Rate 10/19/23 10:39 10/19/23 09:22 Room Air 10/19/23 08:40 10/19/23 07:10 Nasal Cannula 2 10/19/23 04:04 Nasal Cannula 2 Laboratory Results Cardiac Enzymes 10/18/23 Range/Units 16:42 Troponin I High Sens 10.2 (0-14) pg/ml CBC 10/18/23 10/19/23 Range/Units 14:53 06:01 WBC 3.65 L 3.44 L (4.8-10.8) K/ul RBC 2.51 L 2.27 L (4.20-5.40) M/uL Hgb 8.1 L 7.4 L (12.0-16.0) g/dl Hct 24.1 L 21.7 L (37.0-47.0) % Plt Count 28 L* 24 L* (130-400) K/uL Comprehensive Metabolic Panel 10/18/23 10/19/23 Range/Units 16:42 06:01 Sodium 132 L 132 L (136-145) mmol/L Potassium 3.8 4.5 (3.5-5.1) mmol/L Chloride 103 104 (98-107) mmol/L Carbon Dioxide 21 22 (21-32) mmol/L BUN 16 17 (6-23) mg/dl Creatinine 0.94 0.97 (0.6-1.2) mg/dl Glucose 114 H 109 H (70-99(Fasting)) mg/dl Calcium 8.0 L 7.8 L (8.6-10.3) mg/dl Intake and Output 10/18/23 10/19/23 10/19/23 22:59 06:59 14:59 Intake Total 350.000 / 550.000 200 / 550.000 Balance 350.000 / 450.000 200 / 450.000 Intake: IV 350.000 / 450.000 100 / 450.000 Doxycycline Hyclate 100 mg In 100.000 / 200.000 100 / 200.000 Dextrose 5% Mini-B 100 ml @ 50 mls/hr IV Q12H [facility] Rx#:[id number] Magnesium Sulfate / D5w 1 gm In 200 / 200 100 ml @ 50 mls/hr IV Q2H [facility] Rx#:[id number] cefTRIAXone SODIUM 2,000 mg In 50 / 50 50 ml @ 100 mls/hr IV Q24H [facility] Rx#:[id number] Oral 100 / 100 Other: Other Intake Source sips # Unmeasured Voids 1 Diagnostic Findings Echocardiogram 10/19/23: Mild concentric LVH No regional wall motion abnormalities LVEF 55-60% RV normal is size and function Aortic valve sclerosis is mild with no significant Small circumferential pericardial effusion with organization Tamponade is absent
[2023-10-19] MEDS: metroNIDAZOLE 500 MG/100 ML BAG IV SCH (12:37)
--- NOTE | 2023-10-19 12:40 | Electrocardiogram Report ---
Test Reason : Blood Pressure : / mmHG Vent. Rate : 129 BPM Atrial Rate : 104 BPM P-R Int : 000 ms QRS Dur : 080 ms QT Int : 380 ms P-R-T Axes : 000 043 075 degrees QTc Int : 556 ms Atrial fibrillation with rapid ventricular response Cannot rule out Inferior infarct , age undetermined Abnormal ECG When compared with ECG of 17-OCT-2023 20:32, Atrial fibrillation has replaced Sinus rhythm Minimal criteria for Inferior infarct are now Present Nonspecific T wave abnormality, worse in Inferior leads Nonspecific T wave abnormality, worse in Lateral leads Confirmed by Nash Sánchez ([id number]) on 10/19/2023 12:40:32 PM Referred By: REFERRED SELF Confirmed By:Nash Sánchez
--- NOTE | 2023-10-19 12:59 | Electrocardiogram Report ---
Test Reason : Blood Pressure : / mmHG Vent. Rate : 087 BPM Atrial Rate : 087 BPM P-R Int : 134 ms QRS Dur : 080 ms QT Int : 418 ms P-R-T Axes : 081 017 009 degrees QTc Int : 502 ms Normal sinus rhythm Nonspecific T wave abnormality Abnormal ECG When compared with ECG of 18-OCT-2023 16:22, (unconfirmed) Sinus rhythm has replaced Atrial fibrillation Confirmed by Nash Sánchez ([id number]) on 10/19/2023 12:59:34 PM Referred By: REFERRED SELF Confirmed By:Nash Sánchez
[2023-10-19 13:23] LABS: Hematocrit (blood only) 23.6 % (37.0-47.0); Hemoglobin 7.9 g/dl (12.0-16.0); Mean Corpuscular Hemoglobin 32.5 pg (25.0-34.0); Mean Corpuscular Hgb Conc 33.5 g/dL (32.0-36.0); Mean Corpuscular Volume 97.1 fL (80.0-100.0); Mean Platelet Volume 10.1 fL (9.4-12.4); Nucleated RBC # (auto) 0.02 K/uL (0.00-0.12); Nucleated RBC % (auto) 0.5 %; Platelet Count 25 K/uL (130-400); RDW Coefficient of Variation 20.7 % (11.5-14.5); RDW Standard Deviation 72.7 fL (36.4-46.3); Red Blood Count 2.43 M/uL (4.20-5.40); White Blood Count 4.12 K/ul (4.8-10.8)
--- NOTE | 2023-10-19 14:45 | Hospitalist Progress Note ---
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 She was found to be anemic with hemoglobin of 4.9 at presentation. She is being managed for the following: Pancytopenia, new onset Symptomatic anemia Patient coming in with shortness of breath, substernal chest pain, confusion. See above. April 2023 lab: WBC 5.98K, hemoglobin 13.6, platelet 213 K Admitting labs: WBC 4.59K, hemoglobin 4.9, platelets 40 K. Iron 103 [ferritin 1532], vitamin B12 1264, folate 10.81. Admitting LDH 296, haptoglobin and peripheral smear pending. Recent new PPI treatment for possible GERD versus viral illness versus unknown etiology. FOBT done at ED negative. Status post 3 unit PRBC. Hb around 8, Plt around 25K, no s/s of bleeding. Hematology consult, recs is BM biopsy. Ordered BM biopsy. Monitor labs in the afternoon and daily. Plavix and Xarelto on hold. Transfuse PRBC to maintain hemoglobin of at least 7 and platelet for plt <10K. 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 Admitting CXR w/ concern for LLL pna. Started Rx given her encephalopathy at presentation. improving. rocephin 10/17 and doxy 10/17. RN noted choking on food 10/18, speech consulted, ongoing eval, metronidazole added 10/18. Concern for UTI: UCx positive for GNB, pt already on antibiotic as above. f/u Urine C/S. Afib RVR: flipped in afib rvr on 10/17 evening, rate controlled w/ iv metoprolol doses, Pt was started on PO metoprolol. ECHO w/ EF of 55-60%, no RWMA, LV systolic fxn is normal. Cardio evaluating, appreciate recs. Other chronic medical conditions: Continue with/resume home meds as and when able. History of PAD/arterial occlusive disease on Plavix, Plavix on hold LE DVT on Xarelto [04/2023], Xarelto on hold Chronic pain on Suboxone, continue Prediabetes, 6.4 A1c, encourage lifestyle modification, A1c repeat in 3 months. Past tobacco abuse DVT prophylaxis. TEDs while Xarelto on hold. (SCDs contraindicated with history PAD) Full code Patient daughter Ms. Maki Mccarthy, contact #[phone]. Given phone call 10/17 and 10/18, updated, answered all her questions. Text document was generated using [employer] voice recognition software. It may contain grammatical or spelling errors. Kindly contact undersigned for clarification of any documentation item in question. Admission and Anticipated Discharge Date Admission Date: October 18, 2023 Subjective Patient was seen and examined at bedside. Patient was lying in bed, on room air, NAD, resting comfortably. Per RN, no acute agitation overnight or in the morning. Will initiate every 15 minute checks. Patient with okay appetite, with choking on food per RN, speech evaluation ongoing. Patient is back into sinus rhythm, denies chest pain or palpitation. Physical Exam Physical Exam: GENERAL: AO x 2, no respiratory distress, on RA. SKIN: Pallor, warm HEENT: Pale palpebral conjunctivae, no ptosis, moist buccal mucosa NECK : Supple, no tenderness CHEST : Decreased breath sounds, no tenderness HEART : RRR, no obvious murmurs ABDOMEN: Some distention, nontender EXTREMITIES : No LE swelling/tenderness, no other conspicuous deformities noted NEUROLOGIC : Coherent, no facial asymmetry, no other gross focality Results & Data Results & Data Vital Signs (Past 12 Hours) Vital Signs Temp Pulse Pulse Pulse Resp BP Pulse Ox 10/19/23 14:26 78 10/19/23 10:39 82 10/19/23 09:22 10/19/23 08:40 36.6 C 10/19/23 07:10 82 21 120/66 93 10/19/23 04:04 81 16 122/65 94 O2 Del Method O2 Flow Rate 10/19/23 14:26 10/19/23 10:39 10/19/23 09:22 Room Air 10/19/23 08:40 10/19/23 07:10 Nasal Cannula 2 10/19/23 04:04 Nasal Cannula 2
[2023-10-20 07:07] LABS: Hematocrit (blood only) 24.1 % (37.0-47.0); Mean Corpuscular Hemoglobin 32.7 pg (25.0-34.0); Mean Corpuscular Hgb Conc 33.2 g/dL (32.0-36.0); Mean Corpuscular Volume 98.4 fL (80.0-100.0); Mean Platelet Volume 10.1 fL (9.4-12.4); Platelet Count 25 K/uL (130-400); RDW Coefficient of Variation 19.9 % (11.5-14.5); RDW Standard Deviation 70.4 fL (36.4-46.3); Red Blood Count 2.45 M/uL (4.20-5.40); White Blood Count 3.99 K/ul (4.8-10.8)
[2023-10-20 07:28] LABS: BUN Creatinine Ratio 21.5 (10-20); Calcium 8.2 mg/dl (8.6-10.3); Creatinine Clr Calc Pharmacy 89.4 ml/min; Est GFR (African American) 91.7 ml/min; Est GFR (Non-African American) 79.1 ml/min; Magnesium 2.1 mg/dl (1.7-2.4); Phosphorus 3.6 mg/dl (2.5-4.9)
[2023-10-20] MEDS: DOCUSATE SODIUM/SENNA 50/8.6MG TAB PO SCH (10:23)
[2023-10-20] MEDS: POLYETHYLENE (MIRALAX) 17 GM PACK PO SCH (10:23)
--- NOTE | 2023-10-20 13:06 | CT Scan Report ---
CT-GUIDED BONE MARROW BIOPSY CLINICAL HISTORY: Pancytopenia PROCEDURE: Procedure and risks were explained. Informed consent was obtained. A final timeout was com pleted. The patient was placed prone on the CT exam table. The left gluteal region was prepped and dr aped in sterile fashion. 1% lidocaine was utilized for skin anesthesia. The patient received 1 g Tyle nol IV. Utilizing CT guidance, an 11-gauge bone biopsy needle was advanced into the left iliac bone. Multiple aspirates and one bone core was obtained and given to the lab. The needle was removed and Band-Aid a pplied. The patient tolerated the procedure well. Vital signs will be monitored postprocedure. IMPRESSION: Bone marrow biopsy as above. Performed, dictated, and signed by Delgado Moreno PA-C; to be co-signed by Dr. Surjit Olivares. Electronically signed by: Surjit Olivares M.D. 10/20/2023 2:09 PM
[2023-10-20] MEDS: ACETAMINOPHEN 1000 MG/100 ML IV IV ONE (13:12)
--- NOTE | 2023-10-20 14:10 | Fluoroscopy Report ---
VIDEO SWALLOW STUDY CLINICAL HISTORY: Aspiration. COMPARISON STUDY: No priors. Fluoroscopy time: 1.25 minutes. Ka,r: 11.8 mGy FINDINGS: Fluoroscopic guidance is provided to the Department of speech pathology in performing a vid eo swallow study. The patient consumed barium-impregnated pudding, cracker with paste, nectar-thick l iquids, and thin barium while the swallowing mechanism was observed in real-time. No penetration or a spiration was seen with any of the sampled textures. IMPRESSION: No penetration or aspiration was seen with any of the sampled textures. See dedicated spe ech pathology report for detailed findings and recommendations. Dictated: 10/20/2023 12:06 PM Transcribed: 10/20/2023 12:15 PM Andres [id number] GERRY_Sara Electronically signed by: Surjit Olivares M.D. 10/20/2023 2:09 PM
[2023-10-20 14:43] LABS: ALC (manual) 1.76 K/uL (1.2-3.4); ANC (manual) 1.36 K/uL (1.4-6.5); Basophils # (manual) 0.08 K/uL (0-0.2); Basophils % (manual) 2 %; Blast # (manual) 0.28 K/uL (0-0); Blast Cells % (manual) 7 %; Lymphocytes # (manual) 1.76 K/uL (1.2-3.4); Lymphocytes % (manual) 44 %; Metamyelocytes # (manual) 0.16 K/uL (0-0); Metamyelocytes % (manual) 4 %; Monocytes # (manual) 0.16 K/uL (0.11-0.59); Monocytes % (manual) 4 %; Myelocytes % (manual) 5 %; Neutrophils # (manual) 1.36 K/uL (1.40-6.50); Neutrophils % (manual) 34 %; Toxic Granulation 1+
--- NOTE | 2023-10-20 15:35 | Hospitalist Progress Note ---
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 She was found to be anemic with hemoglobin of 4.9 at presentation. She is being managed for the following: Pancytopenia, new onset Symptomatic anemia Patient coming in with shortness of breath, substernal chest pain, confusion. See above. April 2023 lab: WBC 5.98K, hemoglobin 13.6, platelet 213 K Admitting labs: WBC 4.59K, hemoglobin 4.9, platelets 40 K. Iron 103 [ferritin 1532], vitamin B12 1264, folate 10.81. Admitting LDH 296, haptoglobin and peripheral smear pending. Recent new PPI treatment for possible GERD versus viral illness versus unknown etiology. FOBT done at ED negative. Status post 3 unit PRBC. Hb around 8, Plt around 25K, no s/s of bleeding. Hematology consult, recs is BM biopsy. s/p BM biopsy 10/19, f/u results. Labs in AM Plavix and Xarelto on hold. Transfuse PRBC to maintain hemoglobin of at least 7 and platelet for plt <10K. 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 Admitting CXR w/ concern for LLL pna. Started Rx given her encephalopathy at presentation. improving mentation. rocephin 10/17 and doxy 10/17. RN noted choking on food 10/18, metronidazole added 10/18. Speech evaled, - She does not have any penetration or aspiration however she has significant esophageal dysmotility with no clearance and this reflux is likely being aspirated. GI as OP. Concern for UTI: UCx positive for GNB, pt already on antibiotic as above. Afib RVR: flipped in afib rvr on 10/17 evening, rate controlled w/ iv metoprolol doses, Pt was started on PO metoprolol. ECHO w/ EF of 55-60%, no RWMA, LV systolic fxn is normal. Cardio evaluating, appreciate recs. Other chronic medical conditions: Continue with/resume home meds as and when able. History of PAD/arterial occlusive disease on Plavix, Plavix on hold LE DVT on Xarelto [04/2023], Xarelto on hold Chronic pain on Suboxone, continue Prediabetes, 6.4 A1c, encourage lifestyle modification, A1c repeat in 3 months. Past tobacco abuse DVT prophylaxis. TEDs while Xarelto on hold. (SCDs contraindicated with history PAD) Full code Patient daughter Ms. Maki Mccarthy, contact #[phone]. Given phone call 10/17 and 10/18, updated, answered all her questions. Text document was generated using [employer] voice recognition software. It may contain grammatical or spelling errors. Kindly contact undersigned for clarification of any documentation item in question. Admission and Anticipated Discharge Date Admission Date: October 18, 2023 Subjective Patient was seen and examined at bedside. Patient was lying in bed, on room air, NAD, resting comfortably. Per RN, no acute agitation overnight or in the morning. Pt is eating ok and moving bowels ok. Patient is in sinus rhythm, denies chest pain or palpitation. Physical Exam Physical Exam: GENERAL: AO x 3, no respiratory distress, on RA. SKIN: Pallor, warm HEENT: Pale palpebral conjunctivae, no ptosis, moist buccal mucosa NECK : Supple, no tenderness CHEST : Decreased breath sounds, no tenderness HEART : RRR, no obvious murmurs ABDOMEN: Some distention, nontender EXTREMITIES : No LE swelling/tenderness, no other conspicuous deformities noted NEUROLOGIC : Coherent, no facial asymmetry, no other gross focality Results & Data Results & Data Vital Signs (Past 12 Hours) Vital Signs Temp Pulse Pulse Pulse Resp BP Pulse Ox 10/20/23 14:46 37.0 C 70 18 119/75 93 10/20/23 14:40 37 C 69 18 119/75 95 10/20/23 14:40 77 10/20/23 14:10 36.5 C 79 18 125/65 95 10/20/23 13:40 76 18 133/70 95 10/20/23 13:16 36.7 C 82 18 110/55 L 91 10/20/23 12:28 83 18 123/68 98 10/20/23 11:23 36.7 C 83 18 147/72 H 97 10/20/23 07:41 36.8 C 82 17 137/75 92 O2 Del Method 10/20/23 14:46 Room Air 10/20/23 14:40 Room Air 10/20/23 14:40 10/20/23 14:10 Room Air 10/20/23 13:40 Room Air 10/20/23 13:16 Room Air 10/20/23 12:28 Room Air 10/20/23 11:23 Room Air 10/20/23 07:41 Room Air
--- NOTE | 2023-10-20 17:15 | Communication Note ---
Date of Service: October 20, 2023 Telemetry reviewed, sinus rhythm in 70s observed. No recurrent atrial fibrillation since 10/19/2023. Continue metoprolol tartrate 25 mg twice daily.
[2023-10-21 06:13] LABS: Hemoglobin 7.4 g/dl (12.0-16.0); Mean Corpuscular Hemoglobin 32.7 pg (25.0-34.0); Mean Corpuscular Hgb Conc 33.6 g/dL (32.0-36.0); Mean Corpuscular Volume 97.3 fL (80.0-100.0); Mean Platelet Volume 11.2 fL (9.4-12.4); Platelet Count 19 K/uL (130-400); RDW Coefficient of Variation 19.4 % (11.5-14.5); RDW Standard Deviation 68.1 fL (36.4-46.3); Red Blood Count 2.26 M/uL (4.20-5.40); White Blood Count 2.47 K/ul (4.8-10.8)
[2023-10-21 06:25] LABS: Calcium 7.7 mg/dl (8.6-10.3); Magnesium 1.8 mg/dl (1.7-2.4); Potassium 3.9 mmol/L (3.5-5.1)
[2023-10-21 06:31] LABS: BUN Creatinine Ratio 20.6 (10-20); Creatinine Clr Calc Pharmacy 103.9 ml/min; Est GFR (African American) 107.1 ml/min; Est GFR (Non-African American) 92.4 ml/min; Phosphorus 3.8 mg/dl (2.5-4.9)
--- NOTE | 2023-10-21 12:10 | Communication Note ---
Date of Service: October 21, 2023 Telemetry reviewed, patient remains in sinus rhythm in the 70s. Continue metoprolol.
--- NOTE | 2023-10-21 12:14 | Hematology/Oncology Prog Note ---
Date of Service October 21, 2023 Assessment & Plan (1) Acute leukemia: Plan: I got a call from the pathologist stating that the patient most likely has acute leukemia given the abundance of blasts on the bone marrow. I have discussed this with the patient, her daughter as well as the [facility] internal medicine doctor. At this point I have recommended transfer to tertiary facility such as [facility] for [facility] for treatment of this patient with acute leukemia. Discussed this with Dr. Noel dumont [facility] internal medicine Plan Hematology will continue to follow the patient and make appropriate recommendations. Admission and Anticipated Discharge Date Admission Date: hematology will continue to follow the patient, make appropriate recommendations. Subjective Currently the patient is doing the same, reports no pain, fever, chills, night sweats. She continues to eat well. Review of Systems Review of Systems: Complete review of system was done, was positive for fatigue, tiredness Constitutional: as per Subjective / HPI Eyes: as per Subjective / HPI Ear, Nose, Mouth, Throat: as per Subjective / HPI Respiratory: as per Subjective / HPI Cardiovascular: as per Subjective / HPI Gastrointestinal: as per Subjective / HPI Genitourinary: as per Subjective / HPI Musculoskeletal: as per Subjective / HPI Integumentary: as per Subjective / HPI Neurologic: as per Subjective / HPI Psychiatric: as per Subjective / HPI Endocrine: as per Subjective / HPI Hematologic / Lymphatic: as per Subjective / HPI Allergy / Immunological: as per Subjective / HPI Physical Exam Constitutional: WD/WN, vitals as above Eyes: PERRL, conjunctivae normal, anicteric sclerae ENMT: external ear and nose normal, oropharynx normal Neck: trachea midline, no thyromegaly Respiratory: normal respiratory effort, lungs clear to auscultation Cardiovascular: RRR, no murmur, no edema Gastrointestinal (Abdomen): normal bowel sounds, soft, nontender, no hepatosplenomegaly Musculoskeletal: no cyanosis or clubbing, extremities motor strength 5/5 Skin: no rashes, warm and dry Neurologic: patellar DTR's 2+ bilat, sensation intact Psychiatric: A+Ox3, euthymic affect Genitourinary: no vaginal lesions, no adnexal mass Results & Data Vital Signs (Past 12 Hours) Vital Signs Temp Pulse Pulse Resp BP Pulse Ox O2 Del Method 10/21/23 11:08 36.9 C 82 18 136/68 95 Room Air 10/21/23 09:00 74 10/21/23 07:46 36.9 C 79 19 162/79 H 96 Room Air 10/21/23 02:29 36.5 C 81 16 150/83 H 98 Room Air
[2023-10-21] MEDS: ACETAMINOPHEN 325 MG TAB PO PRN (14:02)
[2023-10-21] MEDS: NICOTINE 14 MG/24 HR PATCH TD SCH (14:57)
--- NOTE | 2023-10-21 15:40 | Discharge Summary ---
Date of Service October 21, 2023 Admission HPI Per Admitting Provider History obtained from patient, family, and records. Medical history significant for PAD/arterial occlusive disease on Plavix, LE DVT on Xarelto (04/2023), GERD, chronic pain on Suboxone, past tobacco abuse. Patient seen at PCPs office 5 days ago for shortness of breath and burning epigastric pain of 2 months duration. Nausea and dry cough symptoms. Denies black/bloody stools/hematemesis/coffee-ground emesis/hematuria. Protonix started for possible GERD. Improved discomfort as per patient. Patient with worsening SOB over the last few days. Substernal pain. Patient somewhat confused when daughter saw her yesterday. Patient brought to ER for evaluation. 3 units PRBC transfused at the ER. 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 SKIN: Pallor, warm HEENT: Pale palpebral conjunctivae, no ptosis, moist buccal mucosa NECK : Supple, no tenderness CHEST : Decreased breath sounds, no tenderness HEART : RRR, no obvious murmurs ABDOMEN: Some distention, nontender EXTREMITIES : No LE swelling/tenderness, no other conspicuous deformities noted NEUROLOGIC : Coherent, no facial asymmetry, no other gross focality Discharge Data Allergies Allergy/AdvReac Type Severity Reaction Status Date / Time amoxicillin Allergy Intermediate RASH; N/V/D Verified 10/17/23 21:37 Consultations 10/17/23 21:57 ED Decision to Admit Stat 10/18/23 02:24 Consult Hematology Routine 10/18/23 16:34 Consult Cardiology Routine Ordered Studies 10/17/23 20:58 CT head/brain wo con Stat 10/20/23 08:03 IR bone marrow bx & asp Routine 10/20/23 11:30 Fluoro video [FL video swallow] Routine Hospital Course (1) New onset atrial fibrillation: Plan 63-year-old lady with PMH of PAD/arterial occlusive disease on Plavix, LE DVT on Xarelto [April 2023], GERD, chronic pain on Suboxone, past tobacco abuse, GERD presented to the ED with complaint of worsening shortness of breath for the last few days [employer] associated with substernal pain and somewhat confusion per family member since 1 day [employer]. She was found to be anemic with hemoglobin of 4.9 at presentation. She was managed for the following: Pancytopenia, new onset Symptomatic anemia Acute leukemia Patient coming in with shortness of breath, substernal chest pain, confusion. See above. April 2023 lab: WBC 5.98K, hemoglobin 13.6, platelet 213 K Admitting labs: WBC 4.59K, hemoglobin 4.9, platelets 40 K. Iron 103 [ferritin 1532], vitamin B12 1264, folate 10.81. Admitting LDH 296, haptoglobin and peripheral smear pending. FOBT done at ED negative. Status post 3 unit PRBC. Hb around 7.4, Plt around 19K, no s/s of bleeding. Hematology consult, d/w heme onc, BM biopsy showing acute leukemia, transfer to tertiary care recommended Spoke w/ heme onc at [facility] transfer line, pt was accepted, paper work done, dtr and patient were made aware and were agreeable for transfer. Pt will be transferred for further Mx of acute leukemia Plavix and Xarelto on hold. Transfuse PRBC to maintain hemoglobin of at least 7 and platelet for plt <10K. Concern for pneumonia; Metabolic encephalopathy 2/2 above: Per Dtr Pt has recent viral infection about a week ago [employer]. Admitting CXR w/ concern for LLL pna. Started Rx given her encephalopathy at presentation. improving mentation. rocephin 10/17 and doxy 10/17. RN noted choking on food 10/18, metronidazole added 10/18. Speech evaled, - She does not have any penetration or aspiration however she has significant esophageal dysmotility with no clearance and this reflux is likely being aspirated. GI as OP. Concern for UTI: UCx positive for GNB, pt already on antibiotic as above. Afib RVR: flipped in afib rvr on 10/17 evening, rate controlled w/ iv metoprolol doses, Pt was started on PO metoprolol. ECHO w/ EF of 55-60%, no RWMA, LV systolic fxn is normal. Cardio evaled, appreciate recs. Other chronic medical conditions: Continue with/resume home meds as and when able. History of PAD/arterial occlusive disease on Plavix, Plavix on hold LE DVT on Xarelto [04/2023], Xarelto on hold Chronic pain on Suboxone, continue Prediabetes, 6.4 A1c, encourage lifestyle modification, A1c repeat in 3 months. Past tobacco abuse DVT prophylaxis. TEDs while Xarelto on hold. (SCDs contraindicated with history PAD) Full code Patient daughter Ms. Maki Mccarthy, contact #[phone]. Given phone call 10/17, 10/18 and 10/20 updated, answered all her questions. Dispo: pt being transferred to [facility], bed available, awaiting transport. Text document was generated using [employer] voice recognition software. It may contain grammatical or spelling errors. Kindly contact undersigned for clarification of any documentation item in question. Home Health Attestation I certify that this patient is under my care and that I, or a physicians litigation legal assistant working with me, had a face to-face encounter that meets the home health [id number] encounter requirements with this patient. The encounter with the patient was in whole, or in part, for the following medical condition, which is the primary reason for home health care (list medical condition): I certify that, based on my findings, the following services are medically necessary home health services: My clinical findings support the need for the above services because: Further, I certify that my clinical findings support that this patient is homebound (i.e. absences from home require considerable and taxing effort and are for medical reasons or christian services or infrequently or of short duration when for other reasons) because: Certification for Home Health Services: Based on the above findings, I certify that this patient is confined to the home and needs intermittent mcc care, physical therapy and/or speech therapy or continues to need occupational therapy. The patient is under my care, and I have initiated the establishment of the plan of care. This patient will be followed by a physician who will periodically review the plan of care. Total Time Total Time Spent Total Time Spent (In Minutes): 55 Discharge Plan Discharge Items Patient Disposition: Transfer Acute Care Hospital Reason For Visit: SYMPTOMATIC ANEMIA Discharge Diagnosis: Acute leukemia Activity: As commented below Activity Comment: Per tertiary care recommendation Non-emergency contact: Primary Care Provider Call non-emergency contact if: you have any medication questions and your symptoms worsen Follow-up/Referrals: Mikal Butler MD [Primary Care Provider] - Diet: Heart Healthy Diet Texture: Easy to Chew Addtl Attending Provider Instructions: You are being discharged to [facility] for management of acute leukemia, new diagnosis. Your prior to arrival Home medication will be continued as it is in [facility]. Your current inpatient medications are copied and pasted here for the sake of comparison at tertiary [facility]: Current Inpatient Medications Acetaminophen (Acetaminophen 325 Mg Tab) 650 mg PO QID PRN PRN Reason: pain/fever Stop: 11/17/23 00:08 Last Admin: 10/21/23 14:02 Dose: 650 mg Buprenorphine/Naloxone (Buprenorphine/Naloxone 8/2 Mg Tab) 1.25 tab SL DAILY [facility] Stop: 11/17/23 08:59 Last Admin: 10/21/23 08:43 Dose: 1.25 tab Cetirizine HCl (Cetirizine Hcl 10 Mg Tablet) 10 mg PO DAILY PRN PRN Reason: .allergies Stop: 11/17/23 02:23 Promethazine HCl 6.25 mg/ (Sodium Chloride) 50.25 mls @ 201 mls/hr IV Q6H PRN PRN Reason: Nausea And Vomiting Stop: 11/17/23 00:08 Ceftriaxone Sodium (Rocephin) 2,000 mg in 50 mls @ 100 mls/hr IV Q24H [facility] Stop: 10/25/23 14:44 Last Admin: 10/21/23 14:01 Dose: 100 mls/hr Doxycycline Hyclate 100 mg/ (Dextrose) 100 mls @ 50 mls/hr IV Q12H [facility] Stop: 10/25/23 14:44 Last Admin: 10/21/23 14:02 Dose: 50 mls/hr Metronidazole (Flagyl) 500 mg in 100 mls @ 100 mls/hr IV Q8H [facility]; Protocol Stop: 10/26/23 10:59 Last Infusion: 10/21/23 12:06 Dose: Infused Metoprolol Tartrate (Metoprolol Tartrate 25 Mg Tab) 25 mg PO BID [facility] Stop: 11/17/23 20:59 Last Admin: 10/21/23 08:39 Dose: 25 mg Miscellaneous (Remove Nicoderm Patch) 1 each N/A DAILY@0859 [facility] Stop: 11/21/23 08:58 Nicotine (Nicotine 14 Mg/24 Hr Patch) 1 patch TD QAM [facility] Stop: 11/20/23 13:59 Last Admin: 10/21/23 14:57 Dose: 1 patch Olanzapine (Olanzapine 10 Mg/2.1 Ml Sdv) 2.5 mg IM Q8H PRN PRN Reason: agitation Stop: 11/17/23 11:44 Pantoprazole Sodium (Pantoprazole 40 Mg Tab) 40 mg PO QAM [facility] Stop: 11/17/23 08:59 Last Admin: 10/21/23 08:40 Dose: 40 mg Polyethylene Glycol (Polyethylene (Miralax) 17 Gm Pack) 17 gm PO DAILY [facility] Stop: 11/19/23 09:59 Last Admin: 10/21/23 08:40 Dose: Not Given Senna/Docusate Sodium (Docusate Sodium/Senna 50/8.6mg Tab) [facility] Stop: 11/19/23 09:59 Last Admin: 10/21/23 08:40 Dose: Not Given Pending Studies at Discharge: Yes Stand-Alone Forms: [facility] Skilled Items Patient informed of condition?: Yes DNR: No Discharge Level of Care: Other Communicable Disease: No Discharge Prognosis: Other Lines: Peripheral IV Urinary Catheter: No Medications and DC Order Prescriptions: Continued cetirizine 10 mg tablet 10 mg PO DAILY PRN (Reason: .allergies) clopidogrel 75 mg tablet 75 mg PO DAILY pantoprazole 40 mg tablet,delayed release (DR/EC) 40 mg PO QAM triamcinolone acetonide 0.1 % ointment 1 applic TOPICAL DIRECTED hydroxyzine HCl 25 mg tablet 25 mg PO Q6 PRN (Reason: Itching) buprenorphine-naloxone 8-2 mg tablet, sublingual 1.25 tab SUBLINGUAL DAILY Xarelto 20 mg tablet 20 mg PO DAILY naloxone 4 mg/actuation spray,non-aerosol 1 spray INTRANASAL DIRECTED PRN (Reason: .opioid od) Discharge Orders: Discharge Order (Routine); Ordered 10/21/23 Ordered By: Wilian Martínez/Other Patient Handouts: Prediabetes, 5 Steps for Eating Healthier Admission Data Admit Date/Time: 10/18/23 00:08 Attending Provider: Wilian Cohen Admit Provider: Chepe Reynoso Primary Care Provider: Mikal Butler Other Providers: Chepe Reynoso; Eleazar Aguilar; Ivania Mcclendon; Frank Loya; Rohit Potter; James Colmenares; Aashish Castillo; Miguel Orr; Beti Green; Ankita Romano; Janiya Wilder; Ivania Hill; Da Pacheco; Luis Catsillo; Wanda Gallo; Mariela Kearney; Melly Morel; Michael Potter; Stevie Mabry; Rosaura Louie
[2023-10-21 22:51] LABS: Hemoglobin 8.1 g/dl (12.0-16.0); Mean Corpuscular Hgb Conc 32.4 g/dL (32.0-36.0); Mean Corpuscular Volume 98.8 fL (80.0-100.0); Mean Platelet Volume 10.6 fL (9.4-12.4); Platelet Count 21 K/uL (130-400); RDW Coefficient of Variation 19.1 % (11.5-14.5); RDW Standard Deviation 69.5 fL (36.4-46.3); Red Blood Count 2.53 M/uL (4.20-5.40); White Blood Count 2.66 K/ul (4.8-10.8)
[2023-10-22 07:26] LABS: Calcium 8.3 mg/dl (8.6-10.3); Magnesium 1.7 mg/dl (1.7-2.4); Potassium 3.7 mmol/L (3.5-5.1)
[2023-10-22 07:32] LABS: Creatinine Clr Calc Pharmacy 113.9 ml/min; Est GFR (African American) 110.4 ml/min; Est GFR (Non-African American) 95.3 ml/min; Phosphorus 3.2 mg/dl (2.5-4.9)
[2023-10-22 07:39] LABS: Hematocrit (blood only) 24.5 % (37.0-47.0); Mean Corpuscular Hemoglobin 31.9 pg (25.0-34.0); Mean Corpuscular Hgb Conc 32.7 g/dL (32.0-36.0); Mean Corpuscular Volume 97.6 fL (80.0-100.0); Mean Platelet Volume 12.9 fL (9.4-12.4); Platelet Count 19 K/uL (130-400); RDW Coefficient of Variation 18.6 % (11.5-14.5); RDW Standard Deviation 65.9 fL (36.4-46.3); Red Blood Count 2.51 M/uL (4.20-5.40); White Blood Count 2.63 K/ul (4.8-10.8)
== END 2023-10-22 07:44 | disposition short-term general hospital (02) | DRG 840 ==
LOC: ED 20:09 → 2N 10-18 00:08 → SUATTDRO 10-18 00:08 → 2N 10-18 01:47 → 2E 10-18 17:41

== ENCOUNTER 2024-05-11 11:37 | Inpatient (IN) ==
--- NOTE | 2024-05-11 11:43 | ED Triage Note ---
Date of Service May 11, 2024 Provider in Triage Author: Rose Marie Fox History of Present Illness This patient was briefly evaluated while in triage. An abbreviated physical exam was performed. This patient is a 64-year-old Female who presents to the ED for evaluation sore throat, cough, fever (100F) Hgb 7.7, due for platelet transfusion tomorrow was at oncology appointment at [facility] -sent for possible "neutropenic fever" has AML, off chem x 1 month Physical Exam GENERAL: NAD CARDIOVASCULAR: RRR RESPIRATORY: CTA ABDOMEN: BS x 4. Nontender to palpation. Initial orders for labs and / or imaging were placed and patient was placed in the waiting area until a bed is available. Please see further documentation for the full ED course. MDM / Impression Impression Impression: Pancytopenia, Influenza, Elevated troponin, Acute hypokalemia
[2024-05-11] MEDS ORDERED: SODIUM CHLORIDE 0.9% 100 ML IV PRN ×2 (12:23→12:39)
[2024-05-11] MEDS ORDERED: SODIUM CHLORIDE 0.9% 50 ML IV PRN ×2 (12:23→12:39)
[2024-05-11 12:30] LABS: Hemoglobin 8.3 g/dl (12.0-16.0); Mean Corpuscular Hemoglobin 29.7 pg (25.0-34.0); Mean Corpuscular Hgb Conc 36.1 g/dL (32.0-36.0); Mean Corpuscular Volume 82.4 fL (80.0-100.0); Mean Platelet Volume 12.1 fL (9.4-12.4); Platelet Count 4 K/uL (130-400); RDW Coefficient of Variation 12.4 % (11.5-14.5); RDW Standard Deviation 37.2 fL (36.4-46.3); Red Blood Count 2.79 M/uL (4.20-5.40); White Blood Count 0.66 K/ul (4.8-10.8)
[2024-05-11 12:37] LABS: Alanine Aminotransferase 26 U/L (7-52); Albumin Level 3.4 gm/dl (3.4-5.0); Alkaline Phosphatase 91 U/L (34-104); Anion Gap 7 (3-11); Aspartate Aminotransferase 26 U/L (13-39); BUN Creatinine Ratio 19.2 (10-20); Bilirubin Direct 0.2 mg/dl (0-0.2); Bilirubin,Total 1.2 mg/dl (0.2-1.0); Blood Urea Nitrogen 14 mg/dl (6-23); Carbon Dioxide 26 mmol/L (21-32); Chloride 101 mmol/L (98-107); Glucose 112 mg/dl (70-99(Fasting)); Magnesium 1.9 mg/dl (1.7-2.4); Potassium 3.1 mmol/L (3.5-5.1); Sodium 134 mmol/L (136-145); Total Protein 7.8 gm/dl (6.0-8.3)
[2024-05-11 12:43] LABS: Troponin I High Sensitivity 17.9 pg/ml (0-14)
[2024-05-11 13:02] LABS: Lymphocytes # (auto) 0.07 K/uL (1.20-3.40); Lymphocytes % (auto) 10.6 %; Monocytes # (auto) 0.11 K/uL (0.11-0.59); Monocytes % (auto) 16.7 %; Neutrophils # (auto) 0.48 K/uL (1.40-6.50); Neutrophils % (auto) 72.7 %
[2024-05-11 13:04] LABS: Adenovirus PCR Not Detected (NotDetected); Bordetella parapertussis PCR Not Detected (NotDetected); Bordetella pertussis PCR Not Detected (NotDetected); Chlamydia pneumoniae PCR Not Detected (NotDetected); Coronavirus 229E PCR Not Detected (NotDetected); Coronavirus CoV-2 (COVID19)PCR Not Detected (NotDetected); Coronavirus HKU1 PCR Not Detected (NotDetected); Coronavirus NL63 PCR Not Detected (NotDetected); Coronavirus OC43PCR Not Detected (NotDetected); Human Metapneumovirus PCR Not Detected (NotDetected); Influenza A (H1 2009) PCR DETECTED (NotDetected); Influenza B PCR Not Detected (NotDetected); Mycoplasma pneumoniae PCR Not Detected (NotDetected); Parainfluenza Virus 1 PCR Not Detected (NotDetected); Parainfluenza Virus 2 PCR Not Detected (NotDetected); Parainfluenza Virus 3 PCR Not Detected (NotDetected); Parainfluenza Virus 4 PCR Not Detected (NotDetected); Respiratory Syncytial VirusPCR Not Detected (NotDetected); Rhinovirus/Enterovirus PCR Not Detected (NotDetected)
--- NOTE | 2024-05-11 13:11 | XRay Report ---
XR chest 1V portable CLINICAL HISTORY: cough COMPARISON STUDY: 10/17/2023 FINDINGS: Interval right chest port tip is near the cavoatrial junction. Stable moderate cardiomegaly without pulmonary vascular congestion. No effusion or consolidation. No pneumothorax. IMPRESSION: No pneumonia seen. ACT 112: Negative or not required by law. Electronically signed by: Felice Fields M.D. 05/11/2024 1:10 PM
--- NOTE | 2024-05-11 13:35 | Emergency Department Note ---
Impression & Plan Pancytopenia, Influenza, Elevated troponin, Acute hypokalemia ED Provider Note NAME: NIRMAL MATA AGE: 64 SEX: Female INFORMANT: Patient ED PROVIDER(S): Aiden Naidu MD CHIEF COMPLAINT: Flulike symptoms PLAN: Disposition: Admitted Outpatient prescription management: none Referral: None MEDICAL DECISION MAKING: Patient presented because of flulike symptoms and abnormal labs. Workup was initiated. Patient was found to be pancytopenic however hemoglobin was 8. She was above her transfusion threshold. Unfortunate patient's platelet count was 4. She was neutropenic and placed on precautions. Record review indicates patient has been getting her prophylaxis with antibiotics and antifungal. She was also getting acyclovir. Patient was afebrile here. BioFire testing revealed the presence of influenza. COVID-negative. Patient had a negative chest x-ray. No evidence of pneumonia. She was mildly hypokalemic and did have a mildly elevated troponin. Troponin elevation was new. Her EKG did not show any acute ischemia. I did consult with her peanut butter maker Dr. Canchola. He did not recommend any red blood cell transfusion given her current hemoglobin but did ask for her to receive a nonirradiated platelet transfusion. Discussed with the patient. She was given oral Tamiflu here as well as oral potassium. [facility] Case discussed and diagnostics were reviewed. Patient was evaluated in the ER and admitted for further management. Care/management discussed with: Hematology, digital analytics manager Level of care consideration(s): After review of the information above and other included data, I feel the patient requires escalation of care to admission Triage Nursing notes: reviewed and agree them. Vital Signs: reviewed and remarkable for mild hypertension. Borderline fever. Additional History obtained from: none Chronic Medical/Social Conditions affecting care: Pancytopenia Prior/ Outside/ External records reviewed: Hematology progress note from the office reviewed from April. 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 Currently on Levaquin, acyclovir and an azole for prophylaxis. Differential Diagnosis: Viral syndrome, pharyngitis, pneumonia, influenza, meningitis, urinary tract infection, sepsis, bacteremia, as well as other pathologies. Diagnostics, independently interpreted by me: ECG: Twelve-lead ECG reveals normal sinus rhythm [address] elevation or depression. No PACs or PVCs. Cardiac Monitoring: Cardiac monitoring ordered by me: The patient was placed on continuous cardiac monitoring and observed. It revealed a normal sinus rhythm at 75 beats per minute without ectopy or evidence of dysrhythmia. Medical decision rules: none Imaging studies: Chest x-ray. Findings: A chest x-ray was performed and revealed no pneumothorax, effusion, infiltrate, pulmonary edema, free air under the diaphragm, or wide mediastinum. Impression: No acute disease. HPI: 64 year old Female arrives for evaluation of Flulike symptoms. This started 2 days ago and is persisting. Patient had blood work done today and was sent over from her hematology office. She was found to be pancytopenic and neutropenic. Patient has had chronic issues like this due to her leukemia and treatments. Patient states she gets weekly transfusions of blood and platelets. The patient also notes the following associated symptoms, cough, borderline fever of 99. She does note a minimal sore throat but states that is improving and seems like it is from coughing. The patient has been prescribed no relieving factors. Current pain is rated as 0/10. Patient denies any sick contacts.. pt denies LOC, headache, chills, diaphoresis, visual changes, neck pain, chest pain, breathing difficulties, nausea, vomiting, abdominal pain, back pain, melena, hematochezia, urinary symptoms, numbness, weakness, lymphadenopathy, rash, or other complaints. PAST MEDICAL HISTORY: See Below, leukemia PAST SURGICAL HISTORY: See Below, SOCIAL HISTORY: See Below, smoker HOME MEDICATIONS: See Below ALLERGIES: See Below VITALS: See Below PHYSICAL EXAMINATION: GENERAL: Awake, alert, nontoxic-appearing, in no distress HENT: Normocephalic, atraumatic. Oropharynx unremarkable. EYES: Normal conjunctiva. Sclera non-icteric. NECK: Inspection normal. Non-tender. Supple. No nuchal rigidity. FROM. No masses. RESPIRATORY: Clear to auscultation. No wheezes. No rales. Normal respiratory effort. CARDIAC: Normal rate. Normal rhythm. No murmurs. No rubs. Extremities warm and well perfused. Pulses equal. No JVD. GI: Soft, non-distended. No tenderness to palpation. No rebound or guarding. No masses. RECTAL: Deferred. MUSCULOSKELETAL: Atraumatic. Chest examination reveals no tenderness. The back is symmetrical on inspection without obvious abnormality. There is no CVA tenderness to palpation. No joint edema. LOWER EXTREMITIES: Calves are equal size bilaterally and non-tender. Trace edema. Chronic venous discoloration. NEURO: Normal sensorium. No sensory or motor deficits noted. SKIN: No rash or jaundice noted. PROCEDURES: none CRITICAL CARE: I have personally spent 30 minutes of critical care time in the direct management of this patient. This includes bedside care, interpretation of diagnostic studies, and testing, discussion with consultants, patient, and family members, and other required patient management activities. These minutes are in excess of all separately billable procedures. OBSERVATION NOTE: none Past Med/Surg History Problem List (Updated 05/11/24 @ 15:25 by CARMEN De Guzman) Febrile neutropenia Acute hypokalemia (Acute) Elevated troponin (Acute) Influenza (Acute) Pancytopenia (Acute) Anemia requiring transfusions (Acute) Medical History (Updated 05/11/24 @ 15:25 by CARMEN De Guzman) Leg wound, right Leg wound, left Leg edema History of DVT (deep vein thrombosis) Paroxysmal A-fib AML (acute myeloblastic leukemia) Surgical History H/O skin graft History of surgery on arm Social History Smoking Status: Unknown if ever smoked Tobacco Type: Cigarettes Hx Alcohol Use: No Hx Substance Use: No Preferred Language: Macedonian Communication Ability: Effective Staff Midwife/Apprenticeship Director Required: No Beliefs That Will Affect Care: None Current Living Situation: Alone Feels Safe at Home: Yes Safety Concerns: Feels Safe At This Time Assistive Devices: None Allergies Allergies Allergy/AdvReac Type Severity Reaction Status Date / Time amoxicillin Allergy Intermediate RASH; N/V/D Verified 05/11/24 13:25 Home Meds Home Medications Medication Instructions Recorded Confirmed posaconazole 100 mg tablet,delayed 300 mg PO DAILY 11/06/23 05/11/24 release acyclovir 400 mg tablet 400 mg PO BID 11/09/23 05/11/24 metoprolol tartrate 25 mg tablet 25 mg PO BID 11/09/23 05/11/24 ondansetron 8 mg disintegrating 8 mg PO DAILY 11/09/23 05/11/24 tablet buprenorphine 8 mg-naloxone 2 mg 0.25 tab sublingual DAILY 05/11/24 05/11/24 sublingual tablet cetirizine 10 mg tablet 10 mg PO DAILY 05/11/24 05/11/24 furosemide 40 mg tablet 40 mg PO Q OTHER DAY 05/11/24 05/11/24 hydroxyzine HCl 25 mg tablet 25 mg PO Q6H PRN Itching 05/11/24 05/11/24 mupirocin 2 % topical ointment 1 applic topical TID 05/11/24 05/11/24 pantoprazole 40 mg tablet,delayed 40 mg PO DAILY 05/11/24 05/11/24 release (Protonix) potassium chloride 10 mEq 20 meq PO BID 05/11/24 05/11/24 tablet,extended release Results & Data (ED) Vital Signs Vital Signs - 24 hr 05/11/24 11:42 05/11/24 12:26 05/11/24 12:52 Temperature 37.0 C Temperature Source Oral Pulse Rate 74 64 64 Respiratory Rate 18 18 Respiratory Effort / Characteristics Non-Labored Blood Pressure 137/76 Blood Pressure Mean 96 Pulse Oximetry 99 93 Oxygen Delivery Method Room Air Room Air Sepsis Recent Fever Within 48 Hours No Sepsis New/Unexplained Change in Mental Status N/A Sepsis Action Taken by Nursing No Action Required 05/11/24 13:29 Temperature 37.8 C H Temperature Source Oral Pulse Rate 67 Respiratory Rate 22 Respiratory Effort / Characteristics Blood Pressure 165/72 H Blood Pressure Mean 103 Pulse Oximetry 98 Oxygen Delivery Method Sepsis Recent Fever Within 48 Hours Sepsis New/Unexplained Change in Mental Status Sepsis Action Taken by Nursing Laboratory Data 05/11/24 17:54 05/11/24 11:52 Lab Results 05/11/24 05/11/24 05/11/24 Range/Units 11:48 11:52 12:28 WBC 0.66 L* (4.8-10.8) K/ul RBC 2.79 L (4.20-5.40) M/uL Hgb 8.3 L (12.0-16.0) g/dl Hct 23.0 L (37.0-47.0) % MCV 82.4 (80.0-100.0) fL MCH 29.7 (25.0-34.0) pg MCHC 36.1 H (32.0-36.0) g/dL RDW Std Deviation 37.2 (36.4-46.3) fL RDW Coeff of Jared 12.4 (11.5-14.5) % Plt Count 4 L* (130-400) K/uL MPV 12.1 (9.4-12.4) fL Immature Gran % (Auto) 0.0 % Neut % (Auto) 72.7 % Lymph % (Auto) 10.6 % [place] % (Auto) 16.7 % Eos % (Auto) 0.0 % Baso % (Auto) 0.0 % Neut # (Auto) 0.48 L* (1.40-6.50) K/uL Lymph # (Auto) 0.07 L (1.20-3.40) K/uL [place] # (Auto) 0.11 (0.11-0.59) K/uL Eos # (Auto) 0.00 (0.00-0.50) K/uL Baso # (Auto) 0.00 (0.00-0.20) K/uL Immature Gran # (Auto) 0.00 L (0.01-0.20) K/uL Sodium 134 L (136-145) mmol/L Potassium 3.1 L (3.5-5.1) mmol/L Chloride 101 (98-107) mmol/L Carbon Dioxide 26 (21-32) mmol/L Anion Gap 7 (3-11) BUN 14 (6-23) mg/dl Creatinine 0.73 (0.6-1.2) mg/dl Est Cr Clr Drug Dosing Not Reportable eGFR 91.21 BUN/Creatinine Ratio 19.2 (10-20) Glucose 112 H (70-99(Fasting)) mg/dl Lactate 1.2 (0.4-2.0) mmol/L Calcium 9.0 (8.6-10.3) mg/dl Magnesium 1.9 (1.7-2.4) mg/dl Total Bilirubin 1.2 H (0.2-1.0) mg/dl Direct Bilirubin 0.2 (0-0.2) mg/dl AST 26 (13-39) U/L ALT 26 (7-52) U/L Alkaline Phosphatase 91 (34-104) U/L Troponin I High Sens 17.9 H (0-14) pg/ml Total Protein 7.8 (6.0-8.3) gm/dl Albumin 3.4 (3.4-5.0) gm/dl Procalcitonin 0.17 (0-0.5) ng/ml Nasal Influ A H1 2008 PCR DETECTED A (NotDetected) Adenovirus (PCR) Not Detected (NotDetected) B. pertussis DNA (PCR) Not Detected (NotDetected) B.parapertussis DNA PCR Not Detected (NotDetected) C. pneumoniae DNA (PCR) Not Detected (NotDetected) Coronavirus OC43 (PCR) Not Detected (NotDetected) Coronavirus HKU1 (PCR) Not Detected (NotDetected) Coronavirus 229E (PCR) Not Detected (NotDetected) SARS-CoV-2 (PCR) Not Detected (NotDetected) Coronavirus NL63 (PCR) Not Detected (NotDetected) Human Metapneumovir PCR Not Detected (NotDetected) Influenza Type B (PCR) Not Detected (NotDetected) M. pneumoniae (PCR) Not Detected (NotDetected) Parainfluenza 1 (PCR) Not Detected (NotDetected) Parainfluenza 2 (PCR) Not Detected (NotDetected) Parainfluenza 3 (PCR) Not Detected (NotDetected) Parainfluenza 4 (PCR) Not Detected (NotDetected) RSV (PCR) Not Detected (NotDetected) Entero/Rhino (PCR) Not Detected (NotDetected) Group A Strep (PCR) NOT DETECTED (NotDetected) Blood Type A Positive Antibody Screen NEGATIVE Crossmatch See Detail Administered Medications Furosemide (Furosemide 40 Mg Tab) 40 mg PO Q2D@0900 [facility] Stop: 06/10/24 15:59 Last Admin: 05/11/24 16:14 Dose: 40 mg Documented By: CORIN Cefepime HCl (Maxipime 2000mg) 2,000 mg in 20 mls @ 5 mls/min IV Q8H [facility]; Protocol Stop: 05/16/24 14:29 Last Admin: 05/11/24 15:20 Dose: 5 mls/min Documented By: MEGGAN Miscellaneous (Order Awaiting Action) 1 each N/A QS [facility] Stop: 06/10/24 15:59 Last Admin: 05/11/24 17:09 Dose: Not Given Documented By: MEGGAN Discontinued Medications Oseltamivir Phosphate (Oseltamivir Phosphate 75 Mg Cap) 75 mg PO NOW STA; Protocol Stop: 05/11/24 13:15 Last Admin: 05/11/24 14:11 Dose: 75 mg Documented By: FATIMAH Potassium Chloride (Potassium Chloride Crtab 20 Meq Tabcr) 20 meq PO NOW STA Stop: 05/11/24 13:15 Last Admin: 05/11/24 14:11 Dose: 20 meq Documented By: FATIMAH Imaging Data Radiologist's Impression: Chest X-Ray 05/11/24 12:56 XR chest 1V portable CLINICAL HISTORY: cough COMPARISON STUDY: 10/17/2023 FINDINGS: Interval right chest port tip is near the cavoatrial junction. Stable moderate cardiomegaly without pulmonary vascular congestion. No effusion or consolidation. No pneumothorax. IMPRESSION: No pneumonia seen. ACT 112: Negative or not required by law. Electronically signed by: Felice Fields M.D. 05/11/2024 1:10 PM Discharge Plan Visit Data Chief Complaint: Sore Throat Stated Complaint: SORE THROAT, COUGH ED Provider: Aiden Naidu Discharge Problem: Pancytopenia, Influenza, Elevated troponin, Acute hypokalemia Patient Disposition: Admitted As Inpatient Discharge Instructions Interventions: ED Discharge Assessment Last Done: 05/11/24 14:26
[2024-05-11] MEDS: OSELTAMIVIR PHOSPHATE 75 MG CAP PO STA (14:11)
[2024-05-11] MEDS: POTASSIUM CHLORIDE CRTAB 20 MEQ TABCR PO STA (14:11)
[2024-05-11] MEDS ORDERED: ACETAMINOPHEN 325 MG TAB PO PRN (14:24)
--- NOTE | 2024-05-11 14:42 | History & Physical Report ---
Date of Service May 11, 2024 Assessment & Plan (1) Influenza: (2) Febrile neutropenia: Plan: Admit to [facility] with telemetry Patient presenting by referral of the oncology office for evaluation of fever and febrile neutropenia In the ED, patient tested positive for influenza A Patient saturating well on room air, no evidence of pneumonia on CXR S/p Tamiflu in the ED, will continue with Given patient's immunocompromised state, will empirically start IV cefepime. Check MRSA nasal swab and if positive will add IV vancomycin. Follow blood and urine cultures. Patient has chronic BLLE wounds/erythema. Currently not worse than baseline per patient. No drainage. Continue prophylactic THERAPEUTIC STRATEGY LEAD acyclovir and posaconazole. Noted patient previously prescribed Levaquin 250 mg daily as well for prophylaxis. However patient reports she has not been taking this for some time. Per outpatient oncology note, patient is to be on Levaquin, acyclovir, posaconazole. Likely will need to resume Levaquin at discharge and provide prescription. (3) Pancytopenia: (4) AML (acute myeloblastic leukemia): Plan: Receives transfusions twice weekly, received PRBC and platelets on 05/09/2024 Currently not on treatment Follows with Dr. Kevin Canchola CBC today shows WBC 0.6K, Hgb 8.3K, platelets 4K Dr. Canchola notified by ED, recommends 1 platelet transfusion today Per outpatient oncology note: 2 units of PRBC if the hemoglobin is less than 6, 1 unit of Platelet for the Platelet count less than 10,000. (5) Acute hypokalemia: Plan: K+ 3.1, received replacement in ED Mg+ 1.9 Follow electrolytes (6) Elevated troponin: Plan: Mildly elevated HS troponin 17.9 No reports of chest pain, EKG without acute ST changes Continue to trend (7) Paroxysmal A-fib: Plan: Rate controlled on metoprolol Not on anticoagulation secondary to chronic anemia/ former cytopenia in the setting of AML (8) Leg edema: (9) Leg wound, left: (10) Leg wound, right: Plan: Patient reports chronic BLLE wounds for the past several months Erythema not worse than baseline per patient. Some scattered scabbing noted, no drainage. Continue THERAPEUTIC STRATEGY LEAD furosemide Wound care nurse consult (11) History of DVT (deep vein thrombosis): Plan: Not on anticoagulation secondary to chronic anemia/ former cytopenia in the setting of AML DVT PROPHYLAXIS SCDs due to anemia/ thrombocytopenia Patient seen in collaboration with Dr. Wilian Cohen. I spent a total of 75 minutes coordinating, documenting, and providing care for this patient excluding time spent in the performance of separately billed services. This included personally reviewing all current laboratories and imaging studies, medication reconciliation, outpatient chart review, and discussion with specialists. Admission and Anticipated Discharge Date Admission Date: May 11, 2024 History of Present Illness Chief Complaint: Fever Primary Care Provider: Mikal Butler MD 64-year-old female PMH AML, pancytopenia, paroxysmal atrial fibrillation, history of DVT not on anticoagulation secondary to anemia/ thrombocytopenia from AML, remote history of narcotic abuse on Suboxone, and other problems listed below who presents to the ED for evaluation of fever. Patient reports she started to feel ill yesterday with sore throat, mild cough, fever. Patient had routine appointment with her oncologist today and was referred to the ED for fur ther evaluation of febrile neutropenia. Patient denies chest pain and shortness of breath. Cough has been nonproductive. She reports feeling generally weak, no falls. Reports a good appetite, denies abdominal pain, nausea, vomiting, diarrhea. No urinary symptoms. In the ED, patient tested positive for influenza. Labs show WBC 0.6K, Hgb 8.3, platelet 4K. K+ 3.1, EKG without acute ST changes. VSS. Patient was given Tamiflu, potassium replacement, and ordered platelet transfusion. Allergies Allergy/AdvReac Type Severity Reaction Status Date / Time amoxicillin Allergy Intermediate RASH; N/V/D Verified 05/11/24 13:25 Home Medications Medication Instructions Recorded Confirmed Type posaconazole 100 mg tablet,delayed 300 mg PO DAILY 11/06/23 05/11/24 History release acyclovir 400 mg tablet 400 mg PO BID 11/09/23 05/11/24 History metoprolol tartrate 25 mg tablet 25 mg PO BID 11/09/23 05/11/24 History ondansetron 8 mg disintegrating 8 mg PO DAILY 11/09/23 05/11/24 History tablet buprenorphine 8 mg-naloxone 2 mg 0.25 tab sublingual DAILY 05/11/24 05/11/24 History sublingual tablet cetirizine 10 mg tablet 10 mg PO DAILY 05/11/24 05/11/24 History furosemide 40 mg tablet 40 mg PO Q OTHER DAY 05/11/24 05/11/24 History hydroxyzine HCl 25 mg tablet 25 mg PO Q6H PRN Itching 05/11/24 05/11/24 History mupirocin 2 % topical ointment 1 applic topical TID 05/11/24 05/11/24 History pantoprazole 40 mg tablet,delayed 40 mg PO DAILY 05/11/24 05/11/24 History release (Protonix) potassium chloride 10 mEq 20 meq PO BID 05/11/24 05/11/24 History tablet,extended release Past Med/Surg History Problem List (Updated 05/11/24 @ 15:25 by CARMEN De Guzman) Febrile neutropenia Acute hypokalemia (Acute) Elevated troponin (Acute) Influenza (Acute) Pancytopenia (Acute) Anemia requiring transfusions (Acute) Medical History (Updated 05/11/24 @ 15:25 by CARMEN De Guzman) Leg wound, right Leg wound, left Leg edema History of DVT (deep vein thrombosis) Paroxysmal A-fib AML (acute myeloblastic leukemia) Surgical History H/O skin graft History of surgery on arm Social History Smoking Status: Unknown if ever smoked Tobacco Type: Cigarettes Hx Alcohol Use: No Hx Substance Use: No Preferred Language: Urdu Communication Ability: Effective Weather Reporter Required: No Beliefs That Will Affect Care: None Current Living Situation: Alone Feels Safe at Home: Yes Safety Concerns: Feels Safe At This Time Assistive Devices: None Review of Systems Review of Systems: ROS per HPI, all other systems reviewed and negative Physical Exam Constitutional: WD/WN, vitals as above no acute distress Chronically ill-appearing Eyes: PERRL, conjunctivae normal, anicteric sclerae ENMT: external ear and nose normal, oropharynx normal Respiratory: normal respiratory effort; no respiratory distress Auscultation: + diminished lung sounds ( bilateral bases) Cardiovascular: Rate/Rhythm: regular rate and regular rhythm Vessels: normal peripheral pulses Extremities: no edema Gastrointestinal (Abdomen): normal bowel sounds, soft, nontender, no hepatosplenomegaly Musculoskeletal: no cyanosis or clubbing, extremities motor strength 5/5 Skin: no rashes, warm and dry erythema noted BLE with some scattered scabbing, no drainage noted Neurologic: PERRL, EOMI, accommodation nl, no face palsy, no dysarthria Psychiatric: A+Ox3, euthymic affect Results & Data Results & Data Vital Signs (Past 12 Hours) Vital Signs Temp Pulse Resp BP Pulse Ox O2 Del Method 05/11/24 14:02 38.1 C H 79 22 166/65 H 95 05/11/24 13:47 37.2 C 73 23 160/73 H 97 05/11/24 13:44 37.2 C 73 22 168/74 H 97 05/11/24 13:29 37.8 C H 67 22 165/72 H 98 05/11/24 12:52 64 18 93 Room Air 05/11/24 12:26 64 05/11/24 11:42 37.0 C 74 18 137/76 99 Room Air Laboratory Results Short CBC 05/11/24 Range/Units 11:52 WBC 0.66 L* (4.8-10.8) K/ul Hgb 8.3 L (12.0-16.0) g/dl Hct 23.0 L (37.0-47.0) % Plt Count 4 L* (130-400) K/uL BMP 05/11/24 11:52 Sodium 134 L Potassium 3.1 L Chloride 101 Carbon Dioxide 26 BUN 14 Creatinine 0.73 Glucose 112 H Calcium 9.0 Liver Function 05/11/24 Range/Units 11:52 Total Bilirubin 1.2 H (0.2-1.0) mg/dl Direct Bilirubin 0.2 (0-0.2) mg/dl AST 26 (13-39) U/L ALT 26 (7-52) U/L Alkaline Phosphatase 91 (34-104) U/L Albumin 3.4 (3.4-5.0) gm/dl Diagnostic Findings Chest X-Ray 05/11/24 12:56 XR chest 1V portable CLINICAL HISTORY: cough COMPARISON STUDY: 10/17/2023 FINDINGS: Interval right chest port tip is near the cavoatrial junction. Stable moderate cardiomegaly without pulmonary vascular congestion. No effusion or consolidation. No pneumothorax. IMPRESSION: No pneumonia seen. ACT 112: Negative or not required by law. Electronically signed by: Felice Fields M.D. 05/11/2024 1:10 PM Code Status & VTE Plan VTE Prophylaxis Plan VTE Prophylaxis will be ordered: Yes Supervising Physician Co-Signing Physician Notes 64-year-old female with PMH of AML, pancytopenia [transfusion dependent, receives transfusion twice a week], PAF, DVT, not on anticoagulation secondary to anemia/thrombocytopenia from AML, remote history of narcotic abuse on Suboxone presented to the ED from oncologist office for concerns of febrile neutropenia. Patient reports 1 day of dry cough, sore throat, fever of 100 F at home. Patient denied chest pain/belly pain/diarrhea/pain or burning while passing urine/nausea/vomiting. No open wounds/source of infection noted during examination. Labs reviewed: WBC 0.66, has been 8.3, platelet 4. Sodium 134 [about baseline], potassium 3.1, normal renal function, procalcitonin negative, normal LFT. Influenza A positive. CXR with no acute finding/no pneumonia. Febrile neutropenia: Blood culture sent, follow. Patient continues to have fever in the hospital, will put her on cefepime. Get MRSA screen and UA, follow. Currently no source of infection besides influenza A. Influenza A viral URTI: Continue Tamiflu, supportive care, DuoNeb as needed for shortness of breath or wheezing. Leukopenia: Likely exacerbated due to viral URTI. Neutropenic precautions. Thrombocytopenia: Platelet 4K, transfuse platelet, repeat CBC after platelet transfusion. Hypokalemia: Replete potassium, labs in AM. HO AML: c/w home doses of prophylactic acyclovir and posaconazole. On exam: GENERAL: Alert and oriented x3. NAD, on RA. HEENT: No pallor, no icterus. Pupils equal, round and reactive to light. Oral mucosa moist. throat slightly congested and erythematous. NECK: No JVD, no neck masses. HEART: S1 and S2 heard. Regular rate and rhythm. No murmur, no gallop. RESPIRATORY SYSTEM: Normal AP diameter. No accessory muscle use. No wheezing, no crackles. ABDOMEN: Soft, bowel sounds present, nontender, no distention. CENTRAL NERVOUS SYSTEM: No facial droop. Speech is clear. Obeys simple commands. Moves extremities. EXTREMITIES: 1+ pitting edema ble, chronic skin changes ble, no open wounds/infection noted ble, non tender ble. I have seen and examined the patient and have discussed the case with the provider above. I agree with the assessment and plan as stated. time spent separately: 35 min
--- NOTE | 2024-05-11 14:58 | Electrocardiogram Report ---
Test Reason : Blood Pressure : */* mmHG Vent. Rate : 70 BPM Atrial Rate : 70 BPM P-R Int : 124 ms QRS Dur : 78 ms QT Int : 436 ms P-R-T Axes : 93 16 12 degrees QTcB Int : 470 ms Normal sinus rhythm Minor Nonspecific T wave abnormality Anterior leads Normal ECG When compared with ECG of 19-Oct-2023 08:38, No significant change Confirmed by Aleksey Bauer ([id number]) on 05/11/2024 2:58:14 PM Referred By: REFERRED SELF Confirmed By: Aleksey Bauer
[2024-05-11] MEDS: CEFEPIME 2000MG 2,000 MG/20 ML SYR IV SCH (15:20)
[2024-05-11 15:34] LABS: Appearance Urine Cloudy (Clear); Bacteria Urine Automated 2+ (None Seen); Bilirubin Urine Negative (Negative); Blood Urine Negative (Negative); Cast Urine Automated 0-2 /lpf (0-2); Color Urine Yellow; Epithelial Cell Urine Auto 0-2 /hpf (0-2); Glucose Urine UA Negative (Negative); Ketones Urine Negative (Negative); Leukocyte Esterase Urine Negative (Negative); Nitrite Urine Negative (Negative); Protein Urine Trace (Negative); Specific Gravity Urine 1.016 (1.000-1.030); Urobilinogen Urine Positive (Negative); WBC Urine Automated 0-5 /hpf (0-5)
[2024-05-11] MEDS: FUROSEMIDE 40 MG TAB PO SCH (16:14)
[2024-05-11 18:49] LABS: Hematocrit (blood only) 21.6 % (37.0-47.0); Hemoglobin 8.1 g/dl (12.0-16.0); Mean Corpuscular Hemoglobin 30.7 pg (25.0-34.0); Mean Corpuscular Hgb Conc 37.5 g/dL (32.0-36.0); Mean Corpuscular Volume 81.8 fL (80.0-100.0); Mean Platelet Volume 10.9 fL (9.4-12.4); Platelet Count 14 K/uL (130-400); RDW Coefficient of Variation 12.6 % (11.5-14.5); RDW Standard Deviation 37.2 fL (36.4-46.3); Red Blood Count 2.64 M/uL (4.20-5.40); White Blood Count 0.75 K/ul (4.8-10.8)
--- OUTSIDE RECORDS SUMMARY | 2024-05-11 20:33 | External Medical Summary ---
Author Name Unknown Address Unknown Organization [id number]:[facility] [place] [address] Laboratory Report Ordering Provider Test Date Status JOSE ARMANDO HAMMER 05/11/2024 10:17:28 Final Observation Date Value Abnormality Reference (Units ) Status SYNC LEUKOCYTES IN BLOOD BY AUTOMATED COUNT 05/11/2024 10:17:28 0.76 Below lower panic limits 4.00-10.80 (K/uL) Final Neutrophils/100 leukocytes in Blood by Manual count 05/11/2024 10:17:28 66.0 40.0-75.0 (%) Final Lymphocytes/100 leukocytes in Blood by Manual count 05/11/2024 10:17:28 20.0 18.0-42.0 (%) Final Monocytes/100 leukocytes in Blood by Manual count 05/11/2024 10:17:28 14.0 Above high normal 1.0-11.0 (%) Final Neutrophils [#/volume] in Blood by Manual count 05/11/2024 10:17:28 0.50 Below low normal 1.80-7.70 (K/uL) Final Lymphocytes [#/volume] in Blood by Manual count 05/11/2024 10:17:28 0.15 Below low normal 1.00-4.80 (K/uL) Final Monocytes [#/volume] in Blood by Manual count 05/11/2024 10:17:28 0.11 0.00-1.10 (K/uL) Final Nucleated erythrocytes/100 leukocytes [Ratio] in Blood by Automated count 05/11/2024 10:17:28 Final Performing Location [facility] [place] [address]
--- OUTSIDE RECORDS SUMMARY | 2024-05-11 20:33 | External Medical Summary ---
Author Name Unknown Address Unknown Organization K09:[facility] [place] [address] Laboratory Report Ordering Provider Test Date Status HARMANJOSE ARMANDO 05/11/2024 10:17:28 Final Observation Date Value Abnormality Reference (Units ) Status Phosphate 05/11/2024 10:17:28 3.2 2.5-4.8 (m g/dL) Final Performing Location [facility] [place] [address]
--- OUTSIDE RECORDS SUMMARY | 2024-05-11 20:33 | External Medical Summary | Summary of Care ---
Author Name Unknown Organization [facility] Address [address] [place] [address] Phone [phone] Care Team Providers Care Pipe Washer Name Role Phone Mikal Butler MD Primary Care Provide r Encounter Details Date Type Department Care Team (Late st Contact Info) Description 2024 Orders Only Hematology/Oncology [facility] [place] [address] [facility] [place] [phone] Kevin Canchola MD [address] [facility] [place] [id number] Allergies Active Allergy Reactions Criticality Noted Date Comments Amoxicillin Rash High 01/18/2024 Nausea, Vomiting, Diarrhea Penicillins 03/18/2012 documented as of this encounter (statuses as of 2024) Medications ACYCLOVIR 800 MG PO TABSIndications :Shingles One pill by mouth 5 times a day for 7 days for shingles 35 Tab 0 2 Active Buprenorphine HCl-Naloxone HCl 8-2 MG Sublingual Tablet Sublingual (Suboxone) Place 1.25 tablet under tongue once a day as directed 3 Active Ventolin HFA 108 (90 Base) MCG/ACT Inhalation Aerosol SolutionIndicat ions:Bronchitis , complicated Inhale 2 Puffs by mouth every 4 hours as needed for Wheezing (cough). 8 g 5 3 Active Additional Information Patient not taking.Reported on 04/22/2024 Cetirizine HCl 10 MG Oral Tablet (ZyrTEC)Indicat ions:Allergic disorder, initial encounter Take 1 Tablet by mouth in the morning. 90 Tablet 1 4 Active Pantoprazole Sodium 40 MG Oral Tablet Delayed Release (Protonix)Indic ations:Gastroes ophageal reflux disease, unspecified whether esophagitis present Take 1 Tablet by mouth in the morning. 60 Tablet 5 4 Active Additional Information Patient not taking.Reported on 04/22/2024 Prochlorperazin e Maleate 5 MG Oral Tablet (Compazine)[place] cations:Acute myeloid leukemia not having achieved remission (HCC) Take 2 Tablets by mouth every 6 hours as needed for Nausea or Vomiting. 60 Tablet 11/04/2023 10:51 AM EDT 4 Active Naloxone HCl 4 MG/0.1ML Nasal Liquid (Narcan Nasal) [place] 1 spray nasal single dose as needed Use one inhaler immediately for unresponsive patient. Call 911. If patient does not respond in 2-4 minutes, use 2nd inhaler. 4 Active Metoprolol Tartrate 25 MG Oral Tablet (Lopressor)[place] cations:Acute myeloid leukemia not having achieved remission (HCC) Take 1 Tablet by mouth in the morning and 1 Tablet before bedtime. 60 Tablet 5 4 Active Posaconazole 100 MG Oral Tablet Delayed Release (Noxafil)Indica tions:Acute myeloid leukemia not having achieved remission (HCC) Take 300 mg by mouth in the morning. 90 Tablet 6 4 Active Acyclovir 400 MG Oral Tablet (Zovirax)Indica tions:Acute myeloid leukemia not having achieved remission (HCC) Take 1 Tablet by mouth in the morning and 1 Tablet before bedtime. 60 Tablet 5 4 Active Lidocaine-Prilo janee 2.5-2.5 % External Cream (Emla)Indicatio ns:Acute myeloid leukemia not having achieved remission (HCC) APPLY TO SKIN OVER MEDIPORT & COVER 1HR PRIOR TO ACCESSING. 30 g 4 Active Allopurinol 300 MG Oral Tablet (Zyloprim)Indic ations:Acute myeloid leukemia not having achieved remission (HCC) Take 1 Tablet by mouth in the morning. 30 Tablet 4 Active levoFLOXacin 250 MG Oral Tablet (Levaquin) Take 1 Tablet by mouth in the morning. Take only when absolute neutrophil counts (ANC) is less than 0.5.. 30 Tablet 6 4 Active Furosemide 40 MG Oral Tablet (Lasix)Indicati ons:Acute myeloid leukemia not having achieved remission (HCC) 1 tablet every other day 30 Tablet 3 5 Active Ondansetron HCl 8 MG Oral Tablet (Zofran)Indicat ions:Acute myeloid leukemia not having achieved remission (HCC) Take 1 Tablet by mouth daily. 30 Tablet 3 5 Active hydrOXYzine HCl 25 MG Oral TabletIndicatio ns:Acute myeloid leukemia not having achieved remission (HCC),Rash and nonspecific skin eruption TAKE ONE TABLET BY MOUTH EVERY 6 HOURS NEEDED FOR ITCHING 40 Tablet 2 5 Active Mupirocin 2 % External Ointment (Bactroban)[place] cations:Ulcers of both lower legs (HCC) Apply topically to affected area 3 times a day for 14 days. To affected area for up to 14 days. 60 g 1 5 05/06/19 25 Active Potassium Chloride ER 10 MEQ Oral Tablet Extended ReleaseIndicati ons:Hypokalemia ,Acute myeloid leukemia not having achieved remission (HCC) Take 2 Tablets by mouth in the morning and 2 Tablets before bedtime. 120 Tablet 2 5 Active documented as of this encounter (statuses as of 2024) Active Problems Problem Noted Date Diagnosed Date Pancytopenia 04/22/2024 Ulcers of both lower legs 04/22/2024 Bilateral lower extremity edema 04/22/2024 Lymphedema 04/22/2024 Encounter for adjustment and management of vascular access device 02/09/2024 Encounter for antineoplastic chemotherapy 2023 Paroxysmal atrial fibrillation 10/25/2023 Admission for antineoplastic chemotherapy 2023 Acute myeloid leukemia not having achieved remis romi 10/22/2023 Pain of left calf 04/09/2023 Tobacco use 01/06/2023 Claudication in peripheral vascular disease 05/2021 History of DVT (deep vein thrombosis) 12/14/2017 BMI 26.0-26.9,adult 11/07/2015 Overview (11/07/2015): 183 lbs Dyslipidemia, goal LDL below 130 02/26/2011 Family hx-breast malignancy 01/07/2010 Family history of diabetes mellitus 01/07/2010 HSV-2 infection Opioid dependence, uncomplicated Overview (11/21/2016): on Subutex documented as of this encounter (statuses as of 2024) Resolved Problems Problem Noted Date Diagnosed Date Resolved Date Persistent atrial fibrillation 10/22/2023 04/22/2024 Obesity, Class I, BMI 30.0-3 4.9 (see actual BMI) 02/26/2011 11/07/2015 Cervicalgia 02/26/2011 12/14/2017 Non-traumatic compartment sy ndrome of upper extremity 02/26/2011 12/14/2017 Pain in limb 02/26/2011 12/14/2017 PHLEBITIS OF DEEP VEINS OF RIGHT ARM 01/07/2010 11/07/2015 documented as of this encounter (statuses as of 2024) Immunizations Name Administration Dates Next Due COVID-19 mRNA, LNP-s, No Pre serve, 2-Dose Series (Moderna) 09/21/2020,08/24/2020 COVID-19, MRNA-LNP, PF, 30 M CG/0.3 mL, 12 YRS AND ABOVE, IM (PFIZER-Comirnaty) 04/15/2023 Pneumococcal Polysaccharide PPV23 (Pneumovax) 06/17/2010 Seasonal Influenza Vac., MDV , IM, 0.5 mL (Fluzone) 12/14/2013,02/12/2012,12/23/2010 Seasonal Influenza, PF, 6 M & above, IM , (FluLaval or Fluzone) 04/15/2023,05/13/2022,03/04/2021 Seasonal Influenza, Quadriva lent, No Preserve, IM 01/11/2015 Seasonal Influenza, Trivalen t, (IIV3), PF, (Fluzone) 04/22/2024 TDAP, Age 7 and older, IM (Adacel) 01/07/2010 Zoster Vaccine Recombinant (Shingrix) 03/04/2021 documented as of this encounter Social History Tobacco Use Types Packs/Day Years Used Date Smoking Tobacco: Former Cigarettes 4 52.5 1 972 - 10/19/2023 Smokeless Tobacco: Never Alcohol Use Standard Drinks/Week Comments Not Currently 0 (1 standard drink = 0.6 oz pur e alcohol) social PHQ-2 Answer Date Recorded PHQ-2 Score 0 03/21/2019 Personal Safety Answer Date Recorded Do you feel unsafe or have concerns for your saf ety? No 10/22/2023 Do you have concerns for you r family's safety? (Household - for ages 0-17 years) Not on file 10/22/2023 Utilities Answer Date Recorded Do you have trouble paying y our heating, water, or electric bill? No 10/22/2023 Is your family able to pay t he heat, water, or electric bill? (Household - for ages 0-17 years) Not on file 10/22/2023 Does your family have access to good internet? (Household - for ages 0-17 years) Not on file 10/22/2023 Transportation Needs Answer Date Record ed Do you have trouble getting a ride to medical visits or work? (Adult - for ages 18 years and over) Not on file 10/22/2023 Does your family have a hard time getting a ride to doctors visits? (Household - for ages 0-17 years) Not on file 10/22/2023 Has lack of transportation k ept you from medical appointments, meetings, work, or from getting things needed for daily living? Check all that apply. No 10/22/2023 Do you (or your family) have trouble finding or paying for a ride (transportation)? (Household - for ages 0-17 years) Not on file 10/22/2023 Housing Stability Answer Date Recorded Do you currently live in a s helter or have no steady place to sleep at night? (Adult - for ages 18 years and over) Not on file 10/22/2023 Do you think you are at risk of becoming homeless? (Adult - for ages 18 years and over) Not on file 10/22/2023 Does your family worry about paying for your home or becoming homeless? (Household - for ages 0-17 years) Not on file 0 10/22/2023 Are you homeless or worried that you might be in the future? No 10/22/2023 Are you (or your family) jono eless or worried that you might be in the future? (Household - for ages 0-17 years) Not on file Food Insecurity Answer Date Recorded Do you need food for this week? No 10/22/2023 Are you able to get enough f ood for your family? (Household - for ages 0-17 years) Not on file 10/22/2023 Does your family need food t his week? (Household - for ages 0-17 years) Not on file 10/22/2023 Do you always have enough fo od for your family? (Household - for ages 0-17 years) Not on file 10/22/2023 Comments No Sex and Gender Information Value Date Recorded Sex Assigned at Not on file Legal Sex Female 6:47 AM EST Gender Identity Not on file Sexual Orientation Not on file documented as of this encounter Functional Status * Are you deaf or do you have serious difficulty hearing? Answer Date of Assessment Author No 10/22/2023 9:24 AM Jo Perkins RN * Are you blind or do you have serious difficulty seeing, even when wearing glasses? Answer Date of Assessment Author Yes 10/22/2023 9:24 AM Jo Perkins RN * Do you have serious difficulty walking or climbing stairs? (5 years old or older) Answer Date of Assessment Author No 10/22/2023 9:24 AM Jo Perkins RN * Do you have difficulty dressing or bathing? (5 years old or older) Answer Date of Assessment Author No 10/22/2023 9:24 AM Jo Perkins RN * Because of a physical, mental, or emotional condition, do you have difficulty doing errands alone such as visiting a doctors office or shopping? (15 years old or older) Answer Date of Assessment Author Yes 10/22/2023 9:24 AM Jo Perkins RN documented as of this encounter Mental Status * Because of a physical, mental, or emotional condition, do you have serious difficulty concentrating, remembering, or making decisions? (5 years old or older) Answer Entry Date Author No 10/22/2023 9:24 AM EDT Jo Saxena RN documented in this encounter Plan of Treatment Upcoming Encounters Date Type Department Care Team (Late st Contact Info) Description 05/11/2024 11:00 AM EST Office Visit Hematology/Oncology [facility] [address] [facility] [place] [phone] Kevin Canchola MD [address] [facility] [place] [address] 12/02/2024 1:00 PM EDT Office Visit Family Medicine [address] [phone] Mikal Butler MD [address] [place] [address] [place] [phone] Health Maintenance Due Date Last Done Comments Cologuard 2004 Colonoscopy 2004 Colorectal Cancer Screening 2004 Fecal Occult Blood Test 2004 Sigmoidoscopy 2004 Lung Cancer Screening 2009 Pneumococcal Vaccine: 50+ Years (2 of 2 - PCV) 06/18/2011 06/17/2010 DTap/Tdap Vaccines (2 - Td or Tdap) 01/08/2020 01/07/2010 Depression Screening 03/21/2020 03/21/2019 Zoster Vaccines (2 of 2) 04/29/2021 03/04/2021 Mammogram 06/26/2023 06/25/2022, 08/0 09/2011, 02/15/2010, Additional history exists COVID-19 Vaccine ( season) 2023 04/15/2023, 09/21/2020, 08/24/2020 DXA Scan 2024 Diabetes Screening 03/28/2027 03/28/2024, 1 05/22/2023, 03/14/2024, Additional history exists Lipid Panel 04/07/2028 04/07/2023, 02/05, 11/21/2016, Additional history exists Cervical Cancer Screening Discontinued Pap Smear Discontinued 02/13/2010, 02/13/2010 Influenza Vaccine (FLU shot) Completed 04/22/2024, 04/15/2023, 05/13/2022, Additional history exists HPV (Gardasil) Vaccine Aged Out No lo nger eligible based on patient's age to complete this topic HPV/Co-Test Discontinued Hepatitis B Vaccine Aged Out No longe r eligible based on patient's age to complete this topic MENINGOCOCCAL (MENACTRA/MENVEO) Aged Out No longer eligible based on patient's age to complete this topic documented as of this encounter Medical Devices Implanted Type Area Aws Developer Device Identifier Shelf Expiration Date Model / Serial / Lot Port Implant [id number] Poly Cath - [id number] Implanted:Qty : 1 on 11/18/2023 by Gregory Trevino MD at OR [facility] Right: Chest CR BARD : PERIPHERAL VASCULAR [id number] 09/03/2024 [id number] / / [id number] documented as of this encounter Procedures Procedure Name Priority Date/Time Associated Diagnosis Comments CHEMISTRY-OUTSIDE Routine 05/05/2024 documented in this encounter Results * (ABNORMAL) CHEMISTRY-OUTSIDE (05/05/2024) Not all results display below - see scan for full detail OUTSIDE LAB (SEE SCANNED REPORT) Comment:[facility] CREATININE OUTSIDE L AB (SEE SCANNED REPORT) EGFR OUTSIDE LA B (SEE SCANNED REPORT) POTASSIUM OUTSIDE LA B (SEE SCANNED REPORT) GLUCOSE OUTSIDE LA B (SEE SCANNED REPORT) HOURS FASTING OUTSID E LAB (SEE SCANNED REPORT) TRIGLYCERIDES-OUT SIDE LAB OUTSIDE LAB (SEE SCANNED REPORT) CHOLESTEROL-OUTSI DE LAB OUTSIDE LAB (SEE SCANNED REPORT) HDL-OUTSIDE LAB OUTS FRED LAB (SEE SCANNED REPORT) CHOL/HDL RATIO-OUTSIDE LAB OUTSIDE LA B (SEE SCANNED REPORT) LDL (CALCULATED)-OUTS FRED LAB OUTSIDE LAB (SEE SCANNED REPORT) LDL (DIRECT MEASURE)-OUTSIDE LAB OUTSIDE LAB (SEE SCANNED REPORT) HEMOGLOBIN, [id number] LAB OUTSIDE LAB (SEE SCANNED REPORT) PHOSPHORUS-OUTSID E LAB OUTSIDE LAB (SEE SCANNED REPORT) PTH-OUTSIDE LAB OUTS FRED LAB (SEE SCANNED REPORT) MICROALBUMIN RATIO-OUTSIDE LAB OUTSIDE LA B (SEE SCANNED REPORT) PROTEIN, UA-OUTSIDE LAB OUTSIDE LAB (SEE SCANNED REPORT) HGB 8.5(A) 12 - 16 G/DL OUTSIDE LAB (SEE SCANNED REPORT) 05/05/2024 us Kevin Canchola MD LABORATORY Final Result OUTSIDE LAB (SEE SCANNED REPORT) documented in this encounter Advance Directives * Full Code (Latest Code Status on File) Date Activated Date Inactivated Comments 10/22/2023 10:19 AM 11/04/2023 4:56 PM This order reflects the patients wishes and were consensually agreed upon. Question Answer Comments Discussion of Advance Directives occurred with: Patient Does the patient have a Living Will? No Does the patient have Health Care Power of Attor abraham? No Care Teams Pipe Washer Relationship Specialty Start Date End Date Mikal Butler MD [address] [place] [address] [place] [id number] PCP - General Family Medicine 11/21/16 documented as of this encounter
--- OUTSIDE RECORDS SUMMARY | 2024-05-11 20:33 | External Medical Summary ---
Author Name Unknown Address Unknown Organization K09:[facility] [address] [place] [address] Laboratory Report Ordering Provider Test Date Status JOSE ARMANDO HAMMER 05/11/2024 10:17:28 Final Observation Date Value Abnormality Reference (Units ) Status BUN 05/11/2024 10:17:28 13 6-20 (mg/dL) Final Creatinine 05/11/2024 10:17:28 0.8 0.5-1.0 (mg/dL) Final Glomerular filtration rate/1.73 sq M.predicted [Volume Rate/Area] in Serum, Plasma or Blood by Creatinine-based formula (CKD-EPI) 05/11/2024 10:17:28 83 >=60 (mL/min) Final eGFR is calculated based on the CKD-EPI 2020 equation. Sodium 05/11/2024 10:17:28 134 Below low normal 135 -146 (mmol/L) Final Potassium 05/11/2024 10:17:28 3.2 Below low normal 3.5 -5.1 (mmol/L) Final Cl 05/11/2024 10:17:28 99 98-107 (mm ol/L) Final CO2 05/11/2024 10:17:28 24 22-32 (mmo l/L) Final Anion gap 05/11/2024 10:17:28 11 7-15 (mmol /L) Final Glucose 05/11/2024 10:17:28 110 70-120 (mg /dL) Final Albumin 05/11/2024 10:17:28 3.3 Below low normal 3.8 -5.0 (g/dL) Final AST (Aspartate aminotransferase) 05/11/2024 10:17:28 32 10-35 (U/L) Fin al Alk Phos 05/11/2024 10:17:28 104 35-130 (U/ L) Final Bilirubin, Total 05/11/2024 10:17:28 1.1 <=1 .2 (mg/dL) Final Calcium 05/11/2024 10:17:28 8.7 8.4-10.2 ( mg/dL) Final Protein 05/11/2024 10:17:28 7.7 6.0-8.3 (g /dL) Final ALT (Alanine aminotransferase) 05/11/2024 10:17:28 28 10-35 (U/L) Phan flynn Performing Location [facility] [address] [place] [address]
--- OUTSIDE RECORDS SUMMARY | 2024-05-11 20:33 | External Medical Summary | Summary of Care ---
Author Name Unknown Organization [facility] Address [address] [place] [address] Phone [phone] Care Team Providers Care Splitter Head Name Role Phone Mikal Butler MD Primary Care Provide r Encounter Details Date Type Department Care Team (Late st Contact Info) Description 04/29/2024 Orders Only Hematology/Oncology [facility] [address] [place] [phone] Kevin Canchola MD [address] [place] [address] Allergies Active Allergy Reactions Criticality Noted Date Comments Amoxicillin Rash High 01/18/2024 Nausea, Vomiting, Diarrhea Penicillins 03/18/2012 documented as of this encounter (statuses as of 04/29/2024) Medications ACYCLOVIR 800 MG PO TABSIndications :Shingles [...] HCl 4 MG/0.1ML Nasal Liquid (Narcan Nasal) [place] 1 spray nasal single dose as needed Use one inhaler immediately for unresponsive patient. Call 911. If patient does not respond in 2-4 minutes, use 2nd inhaler. 4 Active Potassium Chloride ER 10 MEQ Oral Tablet Extended ReleaseIndicati ons:Hypokalemia ,Acute myeloid leukemia not having achieved remission (HCC) Take 2 Tablets by mouth in the morning and 2 Tablets before bedtime. 120 Tablet 2 4 Active Metoprolol Tartrate 25 MG Oral [...] 60 g 1 5 05/06/19 25 Active documented as of this encounter (statuses as of 04/29/2024) Active Problems Problem Noted Date Diagnosed Date [...] as of this encounter (statuses as of 04/29/2024) Resolved Problems Problem Noted Date Diagnosed Date Resolved Date Persistent atrial fibrillation 10/22/2023 04/22/2024 Obesity, Class I, BMI 30.0-3 4.9 (see actual BMI) 02/26/2011 11/07/2015 Cervicalgia 02/26/2011 12/14/2017 Non-traumatic compartment sy ndrome of upper extremity 02/26/2011 12/14/2017 Pain in limb 02/26/2011 12/14/2017 PHLEBITIS OF DEEP VEINS OF RIGHT ARM 01/07/2010 11/07/2015 documented as of this encounter (statuses as of 04/29/2024) Immunizations Name Administration Dates Next Due COVID-19 [...] Care Team (Late st Contact Info) Description 05/04/2024 3:00 PM EST Imaging Radiology [address] [place] [phone] 05/11/2024 11:00 AM EST Office Visit Hematology/Oncology [facility] [address] [facility] [place] [phone] Kevin Canchola MD [address] [place] [address] 12/02/2024 1:00 PM EDT Office Visit Family Medicine [address] [phone] Mikal Butler MD [address] [place] [address] [place] [phone] Health Maintenance Due Date Last Done Comments HPV/Co-Test 1989 Cologuard 2004 Colonoscopy 2004 Colorectal Cancer Screening 2004 Fecal Occult Blood Test 2004 Sigmoidoscopy 2004 Lung Cancer Screening 2009 Pneumococcal Vaccine: 50+ Years (2 of 2 - PCV) 06/18/2011 06/17/2010 Cervical Cancer Screening 02/13/2013 Pap Smear 02/13/2013 02/13/2010, 02/13/2010 DTap/Tdap Vaccines (2 - Td or Tdap) 01/08/2020 01/07/2010 Depression Screening 03/21/2020 03/21/2019 Zoster Vaccines (2 of 2) 04/29/2021 03/04/2021 Mammogram 06/26/2023 06/25/2022, 08/0 09/2011, 02/15/2010, Additional history exists COVID-19 Vaccine ( season) 2023 04/15/2023, 09/21/2020, 08/24/2020 Diabetes Screening 03/28/2027 03/28/2024, 1 05/22/2023, 03/14/2024, Additional history exists Lipid Panel 04/07/2028 04/07/2023, 02/05, 11/21/2016, Additional history exists Influenza Vaccine (FLU shot) Completed , 04/15/2023, 05/13/2022, Additional history exists HPV (Gardasil) [...] this encounter Medical Devices Implanted Type Area C S S Representative Device Identifier Shelf Expiration Date Model / Serial / Lot Port Implant [id number] Poly Cath - [id number] Implanted:Qty : 1 on 11/18/2023 by Gregory Trevino MD at OR [facility] Right: Chest CR BARD : PERIPHERAL VASCULAR [id number] 09/03/2024 [id number] / / [id number] documented as of this encounter Procedures Procedure Name Priority Date/Time Associated Diagnosis Comments CHEMISTRY-OUTSIDE Routine 04/28/2024 documented in this encounter Results * (ABNORMAL) CHEMISTRY-OUTSIDE (04/28/2024) Not all results display below - see scan for full detail OUTSIDE LAB (SEE SCANNED REPORT) Comment:SCAN INCLUDES - [facility] ; [place] PLP2 TRANSFUSED CREATININE OUTSIDE L AB (SEE SCANNED REPORT) [...] LAB OUTSIDE LAB (SEE SCANNED REPORT) HEMOGLOBIN, F2N-FDNOLAS LAB OUTSIDE LAB (SEE SCANNED REPORT) PHOSPHORUS-OUTSID E LAB OUTSIDE LAB (SEE SCANNED REPORT) PTH-OUTSIDE LAB OUTS FRED LAB (SEE SCANNED REPORT) MICROALBUMIN RATIO-OUTSIDE LAB OUTSIDE LA B (SEE SCANNED REPORT) PROTEIN, UA-OUTSIDE LAB OUTSIDE LAB (SEE SCANNED REPORT) HGB 7.4(A) 12.0 - 16.0 G/DL OUTSIDE LAB (SEE SCANNED REPORT) 04/28/2024 Kevin Canchola MD LABORATORY Final Result OUTSIDE [...] Power of Attor abraham? No Care Teams Splitter Head Relationship Specialty Start Date End Date Mikal Butler MD [address] [place] [address] [place] [phone] PCP - General Family Medicine 11/21/16 documented as of this encounter
--- OUTSIDE RECORDS SUMMARY | 2024-05-11 20:33 | External Medical Summary ---
Author Name Unknown Address Unknown Organization K09:[facility] [place] [address] Laboratory Report Ordering Provider Test Date Status JOSE ARMANDO HAMMER 05/11/2024 10:17:28 Final Observation Date Value Abnormality Reference (Units ) Status WBC, Total 05/11/2024 10:17:28 0.76 Below lower panic limits 4.00-10.80 (K/uL) Final RBC 05/11/2024 10:17:28 2.59 3.85-5.15 (M/uL) Final Hemoglobin 05/11/2024 10:17:28 7.7 Below low normal 12.0-15.3 (g/dL) Final HCT 05/11/2024 10:17:28 22.1 Below low normal 36.0-45.2 (%) Final MCV 05/11/2024 10:17:28 85.3 81.5-97.5 (fL) Final MCH 05/11/2024 10:17:28 29.7 27.0-34.0 (pg) Final MCHC 05/11/2024 10:17:28 34.8 32.0-36.0 (g/dL) Final RDW 05/11/2024 10:17:28 12.4 11.5-15.5 (%) Final Platelets 05/11/2024 10:17:28 <10 Below lower panic limits 140-400 (K/uL) Final MPV 05/11/2024 10:17:28 13.5 6.6-11.1 (fL) Final Performing Location [facility] [place] [place] [address] [place] [id number]
--- OUTSIDE RECORDS SUMMARY | 2024-05-11 20:33 | External Medical Summary | Summary of Care ---
Author Name Unknown Organization [facility] Address [address] [place] [address] Phone [phone] Care Team Providers Care Email Developer Name Role Phone Mikal Butler MD Primary Care Provide r Encounter Details Date Type Department Care Team (Late st Contact Info) Description 05/09/2024 Orders Only Hematology/Oncology [facility] [address] [facility] [place] [address] Kevin Canchola MD [address] [facility] [place] [address] Allergies Active Allergy Reactions Criticality Noted Date Comments Amoxicillin Rash High 01/18/2024 Nausea, Vomiting, Diarrhea Penicillins 03/18/2012 documented as of this encounter (statuses as of 05/09/2024) Medications ACYCLOVIR 800 MG PO TABSIndications :Shingles [...] HCl 4 MG/0.1ML Nasal Liquid (Narcan Nasal) [place] 1 spray nasal single dose as needed [...] FOR ITCHING 40 Tablet 2 5 Active Potassium Chloride ER 10 MEQ Oral Tablet Extended ReleaseIndicati ons:Hypokalemia ,Acute myeloid leukemia not having achieved remission (HCC) Take 2 Tablets by mouth in the morning and 2 Tablets before bedtime. 120 Tablet 2 5 Active documented as of this encounter (statuses as of 05/09/2024) Active Problems Problem Noted Date Diagnosed Date [...] as of this encounter (statuses as of 05/09/2024) Resolved Problems Problem Noted Date Diagnosed Date Resolved Date Persistent atrial fibrillation 10/22/2023 04/22/2024 Obesity, Class I, BMI 30.0-3 4.9 (see actual BMI) 02/26/2011 11/07/2015 Cervicalgia 02/26/2011 12/14/2017 Non-traumatic compartment sy ndrome of upper extremity 02/26/2011 12/14/2017 Pain in limb 02/26/2011 12/14/2017 PHLEBITIS OF DEEP VEINS OF RIGHT ARM 01/07/2010 11/07/2015 documented as of this encounter (statuses as of 05/09/2024) Immunizations Name Administration Dates Next Due COVID-19 [...] Entry Date Author No 10/22/2023 9:24 AM Jo Perkins RN documented in this encounter Plan of Treatment Upcoming Encounters Date Type Department Care Team (Late st Contact Info) Description 05/11/2024 11:00 AM EST Office Visit Hematology/Oncology [facility] [address] [facility] [place] [phone] Kevin Canchola MD 200 [facility] [place] [address] 12/02/2024 1:00 PM EDT Office Visit Family Medicine [address] [phone] Mikal Butler MD [address] [place] [address] [place] [address] Health Maintenance Due Date Last Done Comments [...] this encounter Medical Devices Implanted Type Area Commercial Coordinator Device Identifier Shelf Expiration Date Model / Serial / Lot Port Implant W8f Poly Cath - [id number] Implanted:Qty : 1 on 11/18/2023 by Gregory Trevino MD at [facility] Right: Chest CR BARD : PERIPHERAL VASCULAR [id number] 09/03/2024 [id number] / / [id number] documented as of this encounter Procedures Procedure Name Priority Date/Time Associated Diagnosis Comments CHEMISTRY-OUTSIDE Routine 05/09/2024 documented in this encounter Results * (ABNORMAL) CHEMISTRY-OUTSIDE (05/09/2024) Not all results display below - see scan for full detail OUTSIDE LAB (SEE SCANNED REPORT) Comment:SCAN INCLUDES: CBCD, TYPE AND SCREEN, XM PACKED CELLS, LEUKOREDUCED CREATININE OUTSIDE L AB (SEE SCANNED REPORT) [...] LAB OUTSIDE LAB (SEE SCANNED REPORT) HEMOGLOBIN, F8L-[place] LAB OUTSIDE LAB (SEE SCANNED REPORT) PHOSPHORUS-OUTSID E LAB OUTSIDE LAB (SEE SCANNED REPORT) PTH-OUTSIDE LAB OUTS FRED LAB (SEE SCANNED REPORT) MICROALBUMIN RATIO-OUTSIDE LAB OUTSIDE LA B (SEE SCANNED REPORT) PROTEIN, UA-OUTSIDE LAB OUTSIDE LAB (SEE SCANNED REPORT) HGB 6.7(A) 12.0 - 16.0 G/DL OUTSIDE LAB (SEE SCANNED REPORT) 05/09/2024 us Kevin Canchola MD LABORATORY Final Result [...] Power of Attor abraham? No Care Teams Email Developer Relationship Specialty Start Date End Date Mikal Butler MD [address] [place] [address] [place] [phone] PCP - General Family Medicine 11/21/16 documented as of this encounter
--- OUTSIDE RECORDS SUMMARY | 2024-05-11 20:33 | External Medical Summary | Summary of Care ---
Author Name Unknown Organization [facility] Address [address] [place] [address] Phone [phone] Care Team Providers Care Business Leader Name Role Phone Mikal Butler MD Primary Care Provide r Reason for Visit * Reason Onset Date Comments Medication Refill 04/29/2024 Encounter Details Date Type Department Care Team (Late st Contact Info) Description 04/29/2024 Refill Hematology/Oncology [facility] [place] 200 [place] [address] Dee Leyva MD Hypokalemia; Acute myeloid leukemia not having achieved remission (HCC) Allergies Active Allergy Reactions Criticality Noted Date Comments Amoxicillin Rash High 01/18/2024 Nausea, Vomiting, Diarrhea Penicillins 03/18/2012 documented as of this encounter (statuses as of 04/29/2024) Medications ACYCLOVIR 800 MG PO TABSIndications :Shingles One pill by mouth 5 times a day for 7 days for shingles 35 Tab 0 12/12/19 12 Active Buprenorphine HCl-Naloxone HCl 8-2 MG Sublingual Tablet Sublingual (Suboxone) Place 1.25 tablet under tongue once a day as directed 04/22/19 23 Active Ventolin HFA 108 (90 Base) MCG/ACT Inhalation Aerosol SolutionIndicat ions:Bronchitis , complicated Inhale 2 Puffs by mouth every 4 hours as needed for Wheezing (cough). 8 g 5 01/07/20 23 Active Additional Information Patient not taking.Reported on 04/22/2024 Cetirizine HCl 10 MG Oral Tablet (ZyrTEC)Indicat ions:Allergic disorder, initial encounter Take 1 Tablet by mouth in the morning. 90 Tablet 1 05/20/19 24 Active Pantoprazole Sodium 40 MG Oral Tablet Delayed Release (Protonix)Indic ations:Gastroes ophageal reflux disease, unspecified whether esophagitis present Take 1 Tablet by mouth in the morning. 60 Tablet 5 10/13/19 24 Active Additional Information Patient not taking.Reported on 04/22/2024 Prochlorperazin e Maleate 5 MG Oral Tablet (Compazine)[place] cations:Acute myeloid leukemia not having achieved remission (HCC) Take 2 Tablets by mouth every 6 hours as needed for Nausea or Vomiting. 60 Tablet 11/04/2023 10:51 AM EDT 11/02/19 24 Active Naloxone HCl 4 MG/0.1ML Nasal Liquid (Narcan Nasal) [place] 1 spray nasal single dose as needed Use one inhaler immediately for unresponsive patient. Call 911. If patient does not respond in 2-4 minutes, use 2nd inhaler. 09/08/19 24 Active Metoprolol Tartrate 25 MG Oral Tablet (Lopressor)[place] cations:Acute myeloid leukemia not having achieved remission (HCC) Take 1 Tablet by mouth in the morning and 1 Tablet before bedtime. 60 Tablet 5 01/12/20 24 Active Posaconazole 100 MG Oral Tablet Delayed Release (Noxafil)Indica tions:Acute myeloid leukemia not having achieved remission (HCC) Take 300 mg by mouth in the morning. 90 Tablet 6 01/13/20 24 Active Acyclovir 400 MG Oral Tablet (Zovirax)Indica tions:Acute myeloid leukemia not having achieved remission (HCC) Take 1 Tablet by mouth in the morning and 1 Tablet before bedtime. 60 Tablet 5 01/21/20 24 Active Lidocaine-Prilo janee 2.5-2.5 % External Cream (Emla)Indicatio ns:Acute myeloid leukemia not having achieved remission (HCC) APPLY TO SKIN OVER MEDIPORT & COVER 1HR PRIOR TO ACCESSING. 30 g 02/01/20 24 Active Allopurinol 300 MG Oral Tablet (Zyloprim)Indic ations:Acute myeloid leukemia not having achieved remission (HCC) Take 1 Tablet by mouth in the morning. 30 Tablet 02/19/20 24 Active levoFLOXacin 250 MG Oral Tablet (Levaquin) Take 1 Tablet by mouth in the morning. Take only when absolute neutrophil counts (ANC) is less than 0.5.. 30 Tablet 6 03/07/20 24 Active Furosemide 40 MG Oral Tablet (Lasix)Indicati ons:Acute myeloid leukemia not having achieved remission (HCC) 1 tablet every other day 30 Tablet 3 04/08/19 25 Active Ondansetron HCl 8 MG Oral Tablet (Zofran)Indicat ions:Acute myeloid leukemia not having achieved remission (HCC) Take 1 Tablet by mouth daily. 30 Tablet 3 04/08/19 25 Active hydrOXYzine HCl 25 MG Oral TabletIndicatio ns:Acute myeloid leukemia not having achieved remission (HCC),Rash and nonspecific skin eruption TAKE ONE TABLET BY MOUTH EVERY 6 HOURS NEEDED FOR ITCHING 40 Tablet 2 04/18/19 25 Active Mupirocin 2 % External Ointment (Bactroban)[place] cations:Ulcers of both lower legs (HCC) Apply topically to affected area 3 times a day for 14 days. To affected area for up to 14 days. 60 g 1 04/22/19 25 025 Active Potassium Chloride ER 10 MEQ Oral Tablet Extended ReleaseIndicati ons:Hypokalemia ,Acute myeloid leukemia not having achieved remission (HCC) Take 2 Tablets by mouth in the morning and 2 Tablets before bedtime. 120 Tablet 2 04/29/19 25 Active Potassium Chloride ER 10 MEQ Oral Tablet Extended ReleaseIndicati ons:Hypokalemia ,Acute myeloid leukemia not having achieved remission (HCC) Take 2 Tablets by mouth in the morning and 2 Tablets before bedtime. 120 Tablet 2 12/17/19 24 025 Discontin ued(Refil l) documented as of this encounter (statuses as [...] of Assessment Author Yes 10/22/2023 9:24 AM EDT Jo Saxena RN documented as of this encounter Mental Status * Because of a physical, mental, or emotional condition, do you have serious difficulty concentrating, remembering, or making decisions? (5 years old or older) Answer Entry Date Author No 10/22/2023 9:24 AM EDT Jo Saxena RN documented in this encounter Miscellaneous Notes * Telephone Encounter - Kevin Canchola MD - 04/29/2024 11:56 AM EST E-prescribed Kevin Canchola MD Hem/Onc * Telephone Encounter - Soha Geller LPN - 04/29/2024 9:45 AM ESTPending Prescriptions: Disp Refills Potassium Chloride ER 10 MEQ Oral Tablet E*120 Ta*2 Sig: Take 2 Tablets by mouth in the morning and 2 Tablets before bedtime. * Telephone Encounter - Soha Geller LPN - 04/29/2024 9:42 AM EST Refill request for Potassium Chloride ER 10 meq tab pended below: Last Refill: 12/17/2023 Last Potassium level: 4.5 mmol/L 03/28/2024 Last seen: 04/08/2024 Next Appt.: 05/11/2024 Requesting: Patient * Telephone Encounter - Kateyln Redman, reed repairer - 04/29/2024 9:25 AM EST Patient is up to date for office visits. Pending Prescriptions: Disp Refills Potassium Chloride ER 10 MEQ Oral Tablet *120 Ta*2 Sig: Take 2 Tablets by mouth in the morning and 2 Tablets before bedtime. Last Visit: 04/08/2024 (in office), Visit date not found (telemedicine) Next Visit: 05/11/2024 If no future appointments scheduled, and last appointment is greater than a year ago, please schedule patient for a follow-up appointment Last date the medication was ordered: 12/17/2023 Pharmacy: [facility], [address] [place] Is this request for a controlled substance?No it is not controlled. Urine Drug Screen:No results found for this or any previous visit. Patient Phone Numbers Labs: Lab Results Component Value Date/Time CREAT 1.1 (H) 03/28/2024 08:05 AM CREAT 0.8 07/14/2012 11:35 AM POTASSIUM 4.5 03/28/2024 08:05 AM POTASSIUM 4.4 07/14/2012 11:35 AM TSH 2.64 08/20/2021 02:45 PM TSH 2.99 01/22/2011 03:57 PM LDL 131 (H) 04/07/2023 08:36 AM LDL 155 (H) 11/21/2016 03:56 PM LDL NOT APPLICABLE 11/21/2016 03:56 PM ALT 19 03/28/2024 08:05 AM ALT 19 07/14/2012 11:35 AM documented in this encounter Plan of Treatment Upcoming Encounters Date Type Department Care Team (Late st Contact Info) Description 05/04/2024 3:00 PM EST Imaging Radiology [address] [place] [phone] 05/11/2024 11:00 AM EST Office Visit Hematology/Oncology [facility] [place] [address] [place] [phone] Kevin Canchola MD [address] [place] [address] 12/02/2024 1:00 PM EDT Office Visit Family Medicine [address] [place] [address] Mikal Butler MD [address] [place] [address] [place] [address] Health Maintenance Due Date Last Done Comments [...] 06/26/2023 06/25/2022, 08/09/2011, 02/15/2010, Additional history exists COVID-19 Vaccine ( [...] this encounter Medical Devices Implanted Type Area Supervisor Carbon Electrodes Device Identifier Shelf Expiration Date Model / Serial / Lot Port Implant W8f Poly Cath - [id number] Implanted:Qty : 1 on 11/18/2023 by Gregory Trevino MD at [facility] Right: Chest CR BARD : PERIPHERAL VASCULAR [id number] 09/03/2024 [id number] / / [id number] documented as of this encounter Visit Diagnoses Diagnosis Hypokalemia Hypopotassemia Acute myeloid leukemia not having achieved remission (HCC) documented in this encounter Advance Directives * [...] Power of Attor abraham? No Care Teams Business Leader Relationship Specialty Start Date End Date Mikal Butler MD [address] [place] [address] [place] [id number] PCP - General Family Medicine 11/21/16 documented as of this encounter
--- OUTSIDE RECORDS SUMMARY | 2024-05-11 20:34 | External Medical Summary | Summary of Care ---
Author Name Unknown Organization [facility] Address [address] [place] [address] Phone [phone] Care Team Providers Care Set O Type Operator Name Role Phone Mikal Butler MD Primary Care Provide r Reason for Visit * Reason Onset Date Comments Test Results 04/18/2024 Encounter Details Date Type Department Care Team (Late st Contact Info) Description 04/18/2024 Telephone Hematology/Oncology [facility] [place] 200 [facility] [place] [address] Kevin Canchola MD 200 [place] [address] Test Results Allergies Active Allergy Reactions Criticality Noted Date Comments Amoxicillin Rash High 01/18/2024 Nausea, Vomiting, Diarrhea Penicillins 03/18/2012 documented as of this encounter (statuses as of 04/18/2024) Medications ACYCLOVIR 800 MG PO TABSIndications :Shingles [...] Active Additional Information Patient not taking.Reported on 11/18/2023 Cetirizine HCl 10 MG Oral Tablet (ZyrTEC)Indicat ions:Allergic disorder, initial encounter Take 1 Tablet by mouth in the morning. 90 Tablet 1 4 Active Pantoprazole Sodium 40 MG Oral Tablet Delayed Release (Protonix)Indic ations:Gastroes ophageal reflux disease, unspecified whether esophagitis present Take 1 Tablet by mouth in the morning. 60 Tablet 5 4 Active Additional Information Patient not taking.Reported on 12/21/2023 Prochlorperazin e Maleate 5 MG Oral Tablet (Compazine)[place] cations:Acute myeloid leukemia not having achieved remission (HCC) Take 2 Tablets by mouth every 6 hours as needed for Nausea or Vomiting. 60 Tablet 11/04/2023 10:51 AM EDT 4 Active Naloxone HCl 4 MG/0.1ML Nasal Liquid (Narcan Nasal) [place] 1 spray nasal single dose as needed [...] FOR ITCHING 40 Tablet 2 5 Active documented as of this encounter (statuses as of 04/18/2024) Active Problems Problem Noted Date Diagnosed Date Encounter for adjustment and management of vascular access device 02/09/2024 Encounter for antineoplastic chemotherapy 2023 Paroxysmal atrial fibrillation 10/25/2023 Admission for antineoplastic chemotherapy 2023 Acute myeloid leukemia not having achieved remis romi 10/22/2023 Persistent atrial fibrillation 10/22/2023 Pain of left calf 04/09/2023 Tobacco use 01/06/2023 Claudication in peripheral vascular disease 05/2021 History of DVT (deep vein thrombosis) 12/14/2017 BMI 26.0-26.9,adult 11/07/2015 Overview (11/07/2015): 183 lbs Dyslipidemia, goal LDL below 130 02/26/2011 Family hx-breast malignancy 01/07/2010 Family history of diabetes mellitus 01/07/2010 HSV-2 infection Opioid dependence, uncomplicated Overview (11/21/2016): on Subutex documented as of this encounter (statuses as of 04/18/2024) Resolved Problems Problem Noted Date Diagnosed Date Resolved Date Obesity, Class I, BMI 30.0-3 4.9 (see actual BMI) 02/26/2011 11/07/2015 Cervicalgia 02/26/2011 12/14/2017 Non-traumatic compartment sy ndrome of upper extremity 02/26/2011 12/14/2017 Pain in limb 02/26/2011 12/14/2017 PHLEBITIS OF DEEP VEINS OF RIGHT ARM 01/07/2010 11/07/2015 documented as of this encounter (statuses as of 04/18/2024) Immunizations Name Administration Dates Next Due COVID-19 [...] Influenza, Quadriva lent, No Preserve, IM 01/11/2015 TDAP, Age 7 and older, IM (Adacel) [...] Jo Perkins RN documented in this encounter Miscellaneous Notes * Telephone Encounter - Kevin Canchola MD - 04/18/2024 10:10 AM EST Noticed. * Telephone Encounter - Soha Geller LPN - 04/18/2024 10:02 AM EST JEFFREY Cruz: Charlotte from [facility] sent Critical Labs via [place] Text: Hgb: 5.6 Hct: 15.8 Platelet Count: 4 ANC: 0.18 She states they are out of platelets, if they cannot get them in today. [facility] will have the patient come back in tomorrow, 04/19/2024, for 1 unit of platelets. Per parameters from 04/08/2024: "2 units of PRBC if the hemoglobin is less than 6". The patient willreceive 2 units of prbc today. documented in this encounter Plan of Treatment Upcoming Encounters Date Type Department Care Team (Late st Contact Info) Description 04/22/2024 9:40 AM EST Office Visit Family Medicine [address] [phone] Mikal Butler MD [address] [place] [address] [place] [address] 05/11/2024 11:00 AM EST Office Visit Hematology/Oncology [facility] [address] [place] [phone] Kevin Canchola MD 200 [facility] [place] [address] Health Maintenance Due Date Last Done Comments [...] Vaccine ( season) 2023 04/15/2023, 09/21/2020, 08/24/2020 Influenza Vaccine (FLU shot) (#1) 2023 04/15/2023, 05/13/2022, 03/04/2021, Additional history exists Diabetes Screening 03/28/2027 03/28/2024, 1 05/22/2023, 03/14/2024, Additional history exists Lipid Panel 04/07/2028 04/07/2023, 02/05, 11/21/2016, Additional history exists HPV (Gardasil) Vaccine Aged Out No lo nger eligible based on patient's age to complete this topic Hepatitis B Vaccine Aged Out No longe r eligible based on patient's age to complete this topic MENINGOCOCCAL (MENACTRA/MENVEO) Aged Out No longer eligible based on patient's age to complete this topic documented as of this encounter Medical Devices Implanted Type Area It Security Consulting Director Device Identifier Shelf Expiration Date Model / Serial / Lot Port Implant W8f Poly Cath - [id number] Implanted:Qty : 1 on 11/18/2023 by Gregory Trevino MD at [facility] Right: Chest CR BARD : PERIPHERAL VASCULAR [id number] 09/03/2024 [id number] / / [id number] documented as of this encounter Advance Directives * Full Code [...] Power of Attor abraham? No Care Teams Set O Type Operator Relationship Specialty Start Date End Date Mikal Butler MD [address] [place] [address] [place] [phone] PCP - General Family Medicine 11/21/16 documented as of this encounter
--- OUTSIDE RECORDS SUMMARY | 2024-05-11 20:34 | External Medical Summary | Summary of Care ---
Author Name Unknown Organization [facility] Address [address] [place] [address] Phone [phone] Care Team Providers Care Display Fabrication Supervisor Name Role Phone Mikal Butler MD Primary Care Provide r Encounter Details Date Type Department Care Team (Late st Contact Info) Description 04/25/2024 Orders Only Hematology/Oncology [facility] 200 [facility] [place] [address] Kevin Canchola MD 200 [facility] [place] [address] Allergies Active Allergy Reactions Criticality Noted Date Comments Amoxicillin Rash High 01/18/2024 Nausea, Vomiting, Diarrhea Penicillins 03/18/2012 documented as of this encounter (statuses as of 04/25/2024) Medications ACYCLOVIR 800 MG PO TABSIndications :Shingles [...] HCl 4 MG/0.1ML Nasal Liquid (Narcan Nasal) [place] 1 spray nasal single dose as needed [...] as of this encounter (statuses as of 04/25/2024) Active Problems Problem Noted Date Diagnosed Date [...] as of this encounter (statuses as of 04/25/2024) Resolved Problems Problem Noted Date Diagnosed Date Resolved Date Persistent atrial fibrillation 10/22/2023 04/22/2024 Obesity, Class I, BMI 30.0-3 4.9 (see actual BMI) 02/26/2011 11/07/2015 Cervicalgia 02/26/2011 12/14/2017 Non-traumatic compartment sy ndrome of upper extremity 02/26/2011 12/14/2017 Pain in limb 02/26/2011 12/14/2017 PHLEBITIS OF DEEP VEINS OF RIGHT ARM 01/07/2010 11/07/2015 documented as of this encounter (statuses as of 04/25/2024) Immunizations Name Administration Dates Next Due COVID-19 [...] Assessment Author No 10/22/2023 9:24 AM Jo ePrkins RN * Because of a physical, mental, [...] 05/11/2024 11:00 AM EST Office Visit Hematology/Oncology [facility] [address] [facility] [place] [phone] Kevin Canchola MD [address] [facility] [place] [address] 12/02/2024 1:00 PM EDT Office Visit Family Medicine [address] [phone] Mikal Butler MD [address] [place] [address] [place] [address] Health Maintenance Due Date Last Done Comments [...] this encounter Medical Devices Implanted Type Area Manager Technical Sales Device Identifier Shelf Expiration Date Model / Serial / Lot Port Implant W8f Poly Cath - [id number] Implanted:Qty : 1 on 11/18/2023 by Gregory Trevino MD at OR [facility] Right: Chest CR BARD : PERIPHERAL VASCULAR [id number] 09/03/2024 [id number] / / [id number] documented as of this encounter Procedures Procedure Name Priority Date/Time Associated Diagnosis Comments CHEMISTRY-OUTSIDE Routine 04/21/2024 documented in this encounter Results * (ABNORMAL) CHEMISTRY-OUTSIDE (04/21/2024) Not all results display below - see scan for full detail OUTSIDE LAB (SEE SCANNED REPORT) Comment:SCAN INCLUDES - CBCD CREATININE OUTSIDE L AB (SEE SCANNED REPORT) [...] LAB OUTSIDE LAB (SEE SCANNED REPORT) HEMOGLOBIN, [id number] LAB OUTSIDE LAB (SEE SCANNED REPORT) PHOSPHORUS-OUTSID E LAB OUTSIDE LAB (SEE SCANNED REPORT) PTH-OUTSIDE LAB OUTS FRED LAB (SEE SCANNED REPORT) MICROALBUMIN RATIO-OUTSIDE LAB OUTSIDE LA B (SEE SCANNED REPORT) PROTEIN, UA-OUTSIDE LAB OUTSIDE LAB (SEE SCANNED REPORT) HGB 8.0(A) 12.0 - 16.0 G/DL OUTSIDE LAB (SEE SCANNED REPORT) 04/21/2024 us Kevin Canchola MD LABORATORY Final Result [...] Power of Attor abraham? No Care Teams Display Fabrication Supervisor Relationship Specialty Start Date End Date Mikal Butler MD [address] [place] [address] [place] [id number] PCP - General Family Medicine 11/21/16 documented as of this encounter
--- OUTSIDE RECORDS SUMMARY | 2024-05-11 20:34 | External Medical Summary | Summary of Care ---
Author Name Unknown Organization [facility] Address [address] [place] [address] Phone [phone] Care Team Providers Care Operations Manager Name Role Phone Mikal Butler MD Primary Care Provide r Encounter Details Date Type Department Care Team (Late st Contact Info) Description 04/27/2024 Orders Only Hematology/Oncology [facility] [place] [address] [facility] [place] [address] Kevin Canchola MD [address] [facility] [place] [address] Allergies Active Allergy Reactions Criticality Noted Date Comments Amoxicillin Rash High 01/18/2024 Nausea, Vomiting, Diarrhea Penicillins 03/18/2012 documented as of this encounter (statuses as of 04/27/2024) Medications ACYCLOVIR 800 MG PO TABSIndications :Shingles [...] HCl 4 MG/0.1ML Nasal Liquid (Narcan Nasal) [place] 1 spray nasal single dose as needed [...] as of this encounter (statuses as of 04/27/2024) Active Problems Problem Noted Date Diagnosed Date [...] as of this encounter (statuses as of 04/27/2024) Resolved Problems Problem Noted Date Diagnosed Date Resolved Date Persistent atrial fibrillation 10/22/2023 04/22/2024 Obesity, Class I, BMI 30.0-3 4.9 (see actual BMI) 02/26/2011 11/07/2015 Cervicalgia 02/26/2011 12/14/2017 Non-traumatic compartment sy ndrome of upper extremity 02/26/2011 12/14/2017 Pain in limb 02/26/2011 12/14/2017 PHLEBITIS OF DEEP VEINS OF RIGHT ARM 01/07/2010 11/07/2015 documented as of this encounter (statuses as of 04/27/2024) Immunizations Name Administration Dates Next Due COVID-19 [...] 05/11/2024 11:00 AM EST Office Visit Hematology/Oncology [facility] [address] [facility] [place] [phone] Kevin Canchola MD [address] [facility] [place] [address] 12/02/2024 1:00 PM EDT Office Visit Family Medicine [address] [phone] Mikal Butler MD [address] [place] [address] [place] [address] Health Maintenance Due Date Last Done Comments [...] this encounter Medical Devices Implanted Type Area Creative Services Intern Device Identifier Shelf Expiration Date Model / Serial / Lot Port Implant W8f Poly Cath - [id number] Implanted:Qty : 1 on 11/18/2023 by Gregory Trevino MD at OR [facility] Right: Chest CR BARD : PERIPHERAL VASCULAR [id number] 09/03/2024 [id number] / / [id number] documented as of this encounter Procedures Procedure Name Priority Date/Time Associated Diagnosis Comments CHEMISTRY-OUTSIDE Routine 04/26/2024 documented in this encounter Results * (ABNORMAL) CHEMISTRY-OUTSIDE (04/26/2024) Not all results display below - see scan for full detail OUTSIDE LAB (SEE SCANNED REPORT) Comment:SCAN INCLUDES - CBCD , DC PLP3 TRANSFUSED CREATININE OUTSIDE L AB (SEE SCANNED [...] LAB OUTSIDE LAB (SEE SCANNED REPORT) HEMOGLOBIN, [id number] LAB OUTSIDE LAB (SEE SCANNED REPORT) PHOSPHORUS-OUTSID E LAB OUTSIDE LAB (SEE SCANNED REPORT) PTH-OUTSIDE LAB OUTS FRED LAB (SEE SCANNED REPORT) MICROALBUMIN RATIO-OUTSIDE LAB OUTSIDE LA B (SEE SCANNED REPORT) PROTEIN, UA-OUTSIDE LAB OUTSIDE LAB (SEE SCANNED REPORT) HGB 5.5(A) 12.0 - 16.0 G/DL OUTSIDE LAB (SEE SCANNED REPORT) 04/26/2024 us Kevin Canchola MD LABORATORY Final Result [...] Power of Attor abraham? No Care Teams Operations Manager Relationship Specialty Start Date End Date Mikal Butler MD [address] [place] [address] [place] [address] PCP - General Family Medicine 11/21/16 documented as of this encounter
--- OUTSIDE RECORDS SUMMARY | 2024-05-11 20:34 | External Medical Summary | Summary of Care ---
Author Name Unknown Organization [facility] Address [address] [place] [address] Phone [phone] Care Team Providers Care Service Trainer Name Role Phone Mikal Butler MD Primary Care Provide r Encounter Details Date Type Department Care Team (Late st Contact Info) Description 04/19/2024 Orders Only Hematology/Oncology [facility] [place] [address] [place] [address] Kevin Canchola MD [address] [place] [address] Allergies Active Allergy Reactions Criticality Noted Date Comments Amoxicillin Rash High 01/18/2024 Nausea, Vomiting, Diarrhea Penicillins 03/18/2012 documented as of this encounter (statuses as of 04/19/2024) Medications ACYCLOVIR 800 MG PO TABSIndications :Shingles [...] HCl 4 MG/0.1ML Nasal Liquid (Narcan Nasal) [place] 1 spray nasal single dose as needed [...] as of this encounter (statuses as of 04/19/2024) Active Problems Problem Noted Date Diagnosed Date [...] as of this encounter (statuses as of 04/19/2024) Resolved Problems Problem Noted Date Diagnosed Date Resolved Date Obesity, Class I, BMI 30.0-3 4.9 (see actual BMI) 02/26/2011 11/07/2015 Cervicalgia 02/26/2011 12/14/2017 Non-traumatic compartment sy ndrome of upper extremity 02/26/2011 12/14/2017 Pain in limb 02/26/2011 12/14/2017 PHLEBITIS OF DEEP VEINS OF RIGHT ARM 01/07/2010 11/07/2015 documented as of this encounter (statuses as of 04/19/2024) Immunizations Name Administration Dates Next Due COVID-19 [...] of Assessment Author No 10/22/2023 9:24 AM oJ Perkins RN * Do you have difficulty [...] 9:40 AM EST Office Visit Family Medicine [address] [place] [phone] Mikal Butler MD [address] [place] [address] [place] [address] 05/11/2024 11:00 AM EST Office Visit Hematology/Oncology [facility] [address] [place] [address] Kevin Canchola MD [address] [facility] [place] [address] Health Maintenance Due Date Last Done Comments [...] this encounter Medical Devices Implanted Type Area Retail Performance Specialist Device Identifier Shelf Expiration Date Model / Serial / Lot Port Implant W8f Poly Cath - [id number] Implanted:Qty : 1 on 11/18/2023 by Gregory Trevino MD at OR [facility] Right: Chest CR BARD : PERIPHERAL VASCULAR [id number] 09/03/2024 [id number] / / [id number] documented as of this encounter Procedures Procedure Name Priority Date/Time Associated Diagnosis Comments CHEMISTRY-OUTSIDE Routine 04/18/2024 documented in this encounter Results * (ABNORMAL) CHEMISTRY-OUTSIDE (04/18/2024) Not all results display below - see scan for full detail OUTSIDE LAB (SEE SCANNED REPORT) Comment:SCAN INCLUDES - CBCD , TS/R, XM/R/2, ANTIBODY SCREEN CREATININE OUTSIDE L AB (SEE SCANNED REPORT) [...] LAB OUTSIDE LAB (SEE SCANNED REPORT) HEMOGLOBIN, [id number] LAB OUTSIDE LAB (SEE SCANNED REPORT) PHOSPHORUS-OUTSID E LAB OUTSIDE LAB (SEE SCANNED REPORT) PTH-OUTSIDE LAB OUTS FRED LAB (SEE SCANNED REPORT) MICROALBUMIN RATIO-OUTSIDE LAB OUTSIDE LA B (SEE SCANNED REPORT) PROTEIN, UA-OUTSIDE LAB OUTSIDE LAB (SEE SCANNED REPORT) HGB 5.6(A) 12.0 - 16.0 G/DL OUTSIDE LAB (SEE SCANNED REPORT) 04/18/2024 us Kevin Canchola MD LABORATORY Final Result [...] Power of Attor abraham? No Care Teams Service Trainer Relationship Specialty Start Date End Date Mikal Butler MD [address] [place] [address] [place] [address] PCP - General Family Medicine 11/21/16 documented as of this encounter
--- OUTSIDE RECORDS SUMMARY | 2024-05-11 20:34 | External Medical Summary | Summary of Care ---
Author Name Unknown Organization [facility] Address [address] [place] [address] Phone [phone] Care Team Providers Care Manipulator Operator Name Role Phone Mikal Butler MD Primary Care Provide r Encounter Details Date Type Department Care Team (Late st Contact Info) Description 01/19/2024 Telephone [facility] Hematology and Oncology [address] [facility] [place] [address] Dee Leyva MD Allergies Active Allergy Reactions Criticality Noted Date [...] HCl 4 MG/0.1ML Nasal Liquid (Narcan Nasal) [place] 1 spray nasal single dose as needed [...] the morning. 90 Tablet 6 4 Active documented as of this encounter (statuses [...] encounter Miscellaneous Notes * Telephone Encounter - Maki Hanley LPN - 01/19/2024 10:55 AM EDT Erna calling from [facility] Oncology Department to report Critical Labs: Critical Labs: WBC Count of 0.45 Platelet of 17 ANC less than 0.5 Spoke with Sunitha in hematology/Oncology Department, she is going to send message via to Dr. Leyva via AwesomeTouch Text * Telephone Encounter - Lilly Delatorre OSA - 01/19/2024 10:49 AM EDT Reason for patient's call: lab work Caller was transferred to [facility] at the nurse line. documented in this encounter Plan of Treatment Upcoming Encounters Date Type Department Care Team (Late st Contact Info) Description 04/22/2024 9:40 AM EST Office Visit Family Medicine [address] [phone] Mikal Butler MD [address] [place] [address] [place] [address] 05/11/2024 11:00 AM EST Office Visit Hematology/Oncology [facility] [address] [place] [address] [place] [phone] Kevin Canchola MD 200 [facility] [place] [address] Health Maintenance Due Date Last Done Comments [...] this encounter Medical Devices Implanted Type Area Trim Setter Device Identifier Shelf Expiration Date Model / Serial / Lot Port Implant W8f Poly Cath - [id number] Implanted:Qty : 1 on 11/18/2023 by Gregory Trevino MD at OR [facility] Right: Chest CR BARD : PERIPHERAL VASCULAR [id number] 09/03/2024 [id number] / / [id number] documented as of this encounter Advance Directives [...] Power of Attor abraham? No Care Teams Manipulator Operator Relationship Specialty Start Date End Date Mikal Butler MD [address] [place] [address] [place] [address] PCP - General Family Medicine 11/21/16 documented as of this encounter
--- OUTSIDE RECORDS SUMMARY | 2024-05-11 20:34 | External Medical Summary | Summary of Care ---
Author Name Unknown Organization [facility] Address [address] [place] [address] Phone [phone] Care Team Providers Care Practice Performance Manager Name Role Phone Mikal Butler MD Primary Care Provide r Reason for Visit * Reason Comments eRx-Medication Refill Encounter Details Date Type Department Care Team (Late st Contact Info) Description 04/17/2024 Refill Hematology/Oncology [facility] [address] [facility] [place] [address] Kevin Canchola MD 200 [place] [address] Acute myeloid leukemia not having achieved remission (HCC); Rash and nonspecific skin eruption Allergies Active Allergy Reactions Criticality Noted Date Comments Amoxicillin Rash High 01/18/2024 Nausea, Vomiting, Diarrhea Penicillins 03/18/2012 documented as of this encounter (statuses as of 04/18/2024) Medications Buprenorphine HCl-Naloxone HCl 8-2 MG Sublingual Tablet Sublingual (Suboxone) Place 1.25 tablet under tongue once a day as directed 04/22/19 23 Active Ventolin HFA 108 (90 Base) MCG/ACT Inhalation Aerosol SolutionIndica tions:Bronchit is, complicated Inhale 2 Puffs by mouth every 4 hours as needed for Wheezing (cough). 8 g 5 01/07/20 23 Active Additional Information Patient not taking.Reported on 11/18/2023 Cetirizine HCl 10 MG Oral Tablet (ZyrTEC)Indica tions:Allergic disorder, initial encounter Take 1 Tablet by mouth in the morning. 90 Tablet 1 05/20/19 24 Active Pantoprazole Sodium 40 MG Oral Tablet Delayed Release (Protonix)[place] cations:Gastro esophageal reflux disease, unspecified whether esophagitis present Take 1 Tablet by mouth in the morning. 60 Tablet 5 10/13/19 24 Active Additional Information Patient not taking.Reported on 12/21/2023 Prochlorperazi ne Maleate 5 MG Oral Tablet (Compazine)Ind ications:Acute myeloid leukemia not having achieved remission (HCC) Take 2 Tablets by mouth every 6 hours as needed for Nausea or Vomiting. 60 Tablet 4 10:51 AM EDT 11/02/19 24 Active Naloxone HCl 4 MG/0.1ML Nasal Liquid (Narcan Nasal) [place] 1 spray nasal single dose as needed Use one inhaler immediately for unresponsive patient. Call 911. If patient does not respond in 2-4 minutes, use 2nd inhaler. 09/08/19 24 Active Potassium Chloride ER 10 MEQ Oral Tablet Extended ReleaseIndicat ions:Hypokalem ia,Acute myeloid leukemia not having achieved remission (HCC) Take 2 Tablets by mouth in the morning and 2 Tablets before bedtime. 120 Tablet 2 12/17/19 24 Active Metoprolol Tartrate 25 MG Oral Tablet (Lopressor)Ind ications:Acute myeloid leukemia not having achieved remission (HCC) Take 1 Tablet by mouth in the morning and 1 Tablet before bedtime. 60 Tablet 5 01/12/20 24 Active Posaconazole 100 MG Oral Tablet Delayed Release (Noxafil)Indic ations:Acute myeloid leukemia not having achieved remission (HCC) Take 300 mg by mouth in the morning. 90 Tablet 6 01/13/20 24 Active Acyclovir 400 MG Oral Tablet (Zovirax)Indic ations:Acute myeloid leukemia not having achieved remission (HCC) Take 1 Tablet by mouth in the morning and 1 Tablet before bedtime. 60 Tablet 5 01/21/20 24 Active Lidocaine-Pril ocaine 2.5-2.5 % External Cream (Emla)Indicati ons:Acute myeloid leukemia not having achieved remission (HCC) APPLY TO SKIN OVER MEDIPORT & COVER 1HR PRIOR TO ACCESSING. 30 g 02/01/20 24 Active Allopurinol 300 MG Oral Tablet (Zyloprim)[place] cations:Acute myeloid leukemia not having achieved remission (HCC) Take 1 Tablet by mouth in the morning. 30 Tablet 02/19/20 24 Active levoFLOXacin 250 MG Oral Tablet (Levaquin) Take 1 Tablet by mouth in the morning. Take only when absolute neutrophil counts (ANC) is less than 0.5.. 30 Tablet 6 03/07/20 24 Active Furosemide 40 MG Oral Tablet (Lasix)Indicat ions:Acute myeloid leukemia not having achieved remission (HCC) 1 tablet every other day 30 Tablet 3 04/08/19 25 Active Ondansetron HCl 8 MG Oral Tablet (Zofran)Indica tions:Acute myeloid leukemia not having achieved remission (HCC) Take 1 Tablet by mouth daily. 30 Tablet 3 04/08/19 25 Active hydrOXYzine HCl 25 MG Oral TabletIndicati ons:Acute myeloid leukemia not having achieved remission (HCC),Rash and nonspecific skin eruption TAKE ONE TABLET BY MOUTH EVERY 6 HOURS NEEDED FOR ITCHING 40 Tablet 2 04/18/19 25 Active hydrOXYzine HCl 25 MG Oral TabletIndicati ons:Acute myeloid leukemia not having achieved remission (HCC),Rash and nonspecific skin eruption Take 2 Tablets by mouth every 6 hours as needed for Itching. 120 Tablet 2 02/01/20 24 025 Discontinued documented as of this encounter (statuses as [...] of Assessment Author No 10/22/2023 9:24 AM Toma Perkins RN * Because of a physical, [...] Encounter - Kevin Canchola MD - 04/18/2024 10:08 AM EST E-prescribed hydroxyzine. * Telephone Encounter - Soha Geller LPN - 04/18/2024 9:52 AM ESTPending Prescriptions: Disp Refills hydrOXYzine HCl 25 MG Oral Tablet [Pharmac*40 Tab*2 Sig: TAKE ONE TABLET BY MOUTH EVERY 6 HOURS NEEDED FOR ITCHING * Telephone Encounter - Soha Geller LPN - 04/18/2024 9:48 AM EST Refill request for Hydroxyzine Hcl 25 mg tab pended below: Last Refill: 02/01/2024 Last seen: 04/08/2024 She has bilateral leg edema with a erythematous skin changes, itching, Next Appt.: 05/11/2023 Requesting: [facility] documented in this encounter Plan of Treatment Upcoming Encounters Date Type Department Care Team (Late st Contact Info) Description 04/22/2024 9:40 AM EST Office Visit Family Medicine [address] [place] [phone] Mikal Butler MD [address] [place] [address] [place] [address] 05/11/2024 11:00 AM EST Office Visit Hematology/Oncology [place] [address] [address] [place] [address] Kevin Canchola MD [address] [facility] [place] [address] Health Maintenance Due Date Last Done Comments [...] of 2) 04/29/2021 03/04/2021 Mammogram 06/26/2023 06/25/2022, 0809/2011, 02/15/2010, Additional history exists COVID-19 Vaccine ( [...] this encounter Medical Devices Implanted Type Area Software Quality Test Engineer Device Identifier Shelf Expiration Date Model / Serial / Lot Port Implant W8f Poly Cath - [id number] Implanted:Qty : 1 on 11/18/2023 by Gregory Trevino MD at OR [facility] Right: Chest CR BARD : PERIPHERAL VASCULAR [id number] 09/03/2024 [id number] / / [id number] documented as of this encounter Visit Diagnoses Diagnosis Acute myeloid leukemia not having achieved remission (HCC) Rash and nonspecific skin eruption Rash and other nonspecific skin eruption documented in this encounter Advance Directives * [...] Power of Attor abraham? No Care Teams Practice Performance Manager Relationship Specialty Start Date End Date Mikal Butler MD [address] [place] [address] [place] [address] PCP - General Family Medicine 11/21/16 documented as of this encounter
--- OUTSIDE RECORDS SUMMARY | 2024-05-11 20:34 | External Medical Summary | Summary of Care ---
Author Name Unknown Organization [facility] Address [address] [place] [address] Phone [phone] Care Team Providers Care Auto Apprentice Mechanic Name Role Phone Mikal Butler MD Primary Care Provide r Encounter Details Date Type Department Care Team (Late st Contact Info) Description 04/26/2024 Result Scan Unspecified Department Kevin Canchola MD [address] [place] [address] <No scans attached> Allergies Active Allergy Reactions Criticality Noted Date Comments Amoxicillin Rash High 01/18/2024 Nausea, Vomiting, Diarrhea Penicillins 03/18/2012 documented as of this encounter (statuses as of 04/27/2024) Medications Buprenorphine HCl-Naloxone HCl 8-2 MG Sublingual [...] HCl 4 MG/0.1ML Nasal Liquid (Narcan Nasal) [place] 1 spray nasal single dose as needed [...] Office Visit Hematology/Oncology [facility] [place] [address] [place] [phone] Kevin Canchola MD [address] [place] [address] 12/02/2024 1:00 PM EDT Office Visit Family Medicine [address] [phone] Mikal Butler MD [address] [place] [address] [place] [address] Health Maintenance Due Date Last Done Comments [...] encounter Medical Devices Implanted Type Area Supervisor Finish End Device Identifier Shelf Expiration Date Model / Serial / Lot Port Implant W8f Poly Cath - [id number] Implanted:Qty : 1 on 11/18/2023 by Gregory Trevino MD at [facility] Right: Chest CR BARD : PERIPHERAL VASCULAR [id number] 09/03/2024 [id number] / / [id number] documented as of this encounter Procedures Procedure Name Priority Date/Time Associated Diagnosis Comments OUTSIDE LAB RESULTS 04/26/2024 documented in this encounter Results * OUTSIDE LAB RESULTS (04/26/2024) 04/26/2024 Kevin Canchola MD LABORATORY Final Result documented in this encounter Advance Directives * [...] Power of Attor abraham? No Care Teams Auto Apprentice Mechanic Relationship Specialty Start Date End Date Mikal Butler MD [address] [place] [address] [place] [address] PCP - General Family Medicine 11/21/16 documented as of this encounter
--- OUTSIDE RECORDS SUMMARY | 2024-05-11 20:34 | External Medical Summary | Summary of Care ---
Author Name Unknown Organization [facility] Address [address] [place] [address] Phone [phone] Care Team Providers Care Missile Technician Name Role Phone Mikal Butler MD Primary Care Provide r Reason for Referral * Precert (Within 10 days (routine)) - Authorized Specialty Diagnoses / Procedures Referred By Contac t Referred To Contact Radiology Diagnoses History of tobacco abuse Procedures CT CHEST LOW DOSE SCAN LUNG CANCER SCREEN INITIAL LUNG CANCER SCREENING PROGRAM REFERRAL Mikal Butler MD [address] [place] [address] [place] [id number] Phone: tel: fax: Referral ID Status Reason Start Date Expiration Date V isits Requested Visits Authorized [id number] Authorized 04/22/2024 [id number] Reason for Visit * Reason Comments Re-Check Encounter Details Date Type Department Care Team (Latest Contact Info) Description 04/22/2024 9:40 AM EST Office Visit Family Medicine [address] [place] [phone] Mikal Butler MD [address] [place] [address] [place] [id number] Pancytopenia (HCC)*; Acute myeloid leukemia not having achieved remission (HCC); Paroxysmal atrial fibrillation (HCC); Claudication in peripheral vascular disease (HCC); Opioid dependence, uncomplicated (HCC); History of DVT (deep vein thrombosis); Bilateral lower extremity edema; Ulcers of both lower legs (HCC); Lymphedema; History of tobacco abuse; Need for prophylactic vaccination and inoculation against influenza Allergies Active Allergy Reactions Criticality Noted Date Comments Amoxicillin Rash High 01/18/2024 Nausea, Vomiting, Diarrhea Penicillins 03/18/2012 documented as of this encounter (statuses as of 04/22/2024) Medications ACYCLOVIR 800 MG PO TABSIndications :Shingles [...] HCl 4 MG/0.1ML Nasal Liquid (Narcan Nasal) [place] 1 spray nasal single dose as needed [...] HOURS NEEDED FOR ITCHING 40 Tablet 2 Active Mupirocin 2 % External Ointment (Bactroban)[place] cations:Ulcers of both lower legs (HCC) Apply topically to affected area 3 times a day for 14 days. To affected area for up to 14 days. 60 g 1 5 05/06/19 25 Active documented as of this encounter (statuses as of 04/22/2024) Active Problems Problem Noted Date Diagnosed Date [...] as of this encounter (statuses as of 04/22/2024) Resolved Problems Problem Noted Date Diagnosed Date Resolved Date Persistent atrial fibrillation 10/22/2023 04/22/2024 Obesity, Class I, BMI 30.0-3 4.9 (see actual BMI) 02/26/2011 11/07/2015 Cervicalgia 02/26/2011 12/14/2017 Non-traumatic compartment sy ndrome of upper extremity 02/26/2011 12/14/2017 Pain in limb 02/26/2011 12/14/2017 PHLEBITIS OF DEEP VEINS OF RIGHT ARM 01/07/2010 11/07/2015 documented as of this encounter (statuses as of 04/22/2024) Immunizations Name Administration Dates Next Due COVID-19 [...] Sign Reading Time Taken Comments Blood Pressure 124/72 04/22/2024 9:30 AM EST Pulse 61 04/22/2024 9:30 AM EST Temperature 36.1 C (97 F) 04/22/2024 9:30 AM EST Respiratory Rate - - Oxygen Saturation 98% 04/22/2024 9:30 AM EST Inhaled Oxygen Concentration - - Weight 74.8 kg (165 lb) 04/22/2024 9:30 AM EST Height - - Body Mass Index 26.63 11/18/2023 12:13 PM EDT documented in this encounter Functional Status * Are you deaf or do you have serious difficulty hearing? Answer Date of Assessment Author No 10/22/2023 9:24 AM EDT Jo Saxena RN * Are you blind or do [...] Jo Perkins RN documented in this encounter Patient Instructions * Patient Instructions* Mikal Butler MD - 04/22/2024 10:10 AM EST Sonia Mccarthy [id number] Benefits of Quitting Smoking Why should I quit smoking? Smoking is bad for you and bad for others around you. Smoking causes cancer, heart attacks, hardening of the arteries, bronchitis, emphysema, cough, shortness of breath, wrinkles, and premature aging. It stains teeth and fingers, irritates the eyes, furs the tongue, and causes bad breath. People are living longer today than their parents did, so it makes sense to work on staying healthy and independent. One of the best ways to do this is to quit smoking. Benefits of quitting smoking It takes time to reverse many years' worth of smoking damage to your body, but some benefits of quitting smoking begin immediately. For example, you're financially better off on day one. Your health starts to improve right away, too, because you remove a former constant source of irritation from your lungs. People may comment that you no longer cough. Your blood circulation is likely to improve, so your hands and feet may feel warmer. Your teeth, breath, and fingers are no longer a turn-off. Benefits that you're less aware of also begin to occur. These include better resistance to colds and respiratory infections, less likelihood of major heart and circulation problems, less risk of high blood pressure or stroke, and less risk of developing cancer. The following arguments are often presented by smokers as justifications for their continuing to smoke: "I have to sometime, so I might as well enjoy life until then." True, but as a smoker you're much more likely to of a heart attack or cancer - neither of whichare very pleasant ways to go. "I'm only hurting myself." True, if you don't count the heartache and grief you may cause your loved ones by your early or permanent disability, or the damage of your smoke to others. "Lots of people who smoke live to ripe old ages in perfect health." True, but this is rare. Nearly all smokers have significant health problems. "Smoking is one of my pleasures. I don't want to quit." Smoking is associated with pleasure because the nicotine in tobacco is an addictive drug. Your bodywill continue to crave a regular supply until you can overcome the habit. Smoking is always a disadvantage to your health and that of your loved ones. "It's my choice and I choose to smoke." True. It is your choice. In a survey of older former smokers, more than 90% quit on their own because they decided to do so. The main reasons they gave for quitting were wanting to stay healthy, following health care provider's advice, regaining control of their lives, and making a loved one happy . [place] Department of Health Quit Line [employer] Free Quitline 5-606 QUIT NOW ( ) Your insurance company may also have more information and helpful programs to help you quit. Some may even help cover some of the costs. For example, [facility] members can call to find out about their smoking cessation program and medication coverage. Developed by Norma Wolfe MD, for [employer]. Published by [employer]. Last modified: 2005-08-15 Last reviewed: 2005-06-04 This content is reviewed periodically and is subject to change as new health information becomes available. The information is intended to inform and educate and is not a replacement for medical evaluation, advice, diagnosis or treatment by a healthcare professional. Adult Health Advisor 2006.4 Index Adult Health Advisor 2005.4 Credits Copyright 2006 [employer] and/or one of its subsidiaries. All Rights Reserved. documented in this encounter Progress Notes * Mikal Butler MD - 04/22/2024 9:42 AM EST Subjective: Sonia Mccarthy is a 63 year old female. Chief Complaint Patient presents with Re-Check HPI: Brief Clinical History Ms. Mccarthy is a 63 year old female last seen in Family Medicine [facility] on 10/13/2023 by Baldemar Krishnan She has a h/o the following chronic conditions indicated on the problem list: Chronic Conditions Acute myeloid leukemia not having achieved remission (HCC) Claudication in peripheral vascular disease (HCC) Opioid dependence, uncomplicated (HCC) Pancytopenia (HCC) Paroxysmal atrial fibrillation (HCC) Was diagnosed with AML at the end of September 2023. She was also found to have PAF when she was admitted to [facility] in October 2023 for initial treatment of the AML. Her Plavix and Xarelto were stopped at that time due to severe thrombocytopenia. Is still getting blood and platelet transfusions about every 2 weeks. Legs have been swelling and getting open scabbed areas on them. Started at the end of November when they were very red from the chemotherapy. The redness improved but not still opening up. They are swollen. Is taking Lasix. Sometimes get hot. She tends to peel the skin off because it sticks to her clothes. She does get some leg cramping when she walks. Had repeat bone marrow biopsy in March 2024 and showed no residual leukemia. She was taken off her chemo pill at that time. Is now following with Dr. Canchola instead of Dr. Leyva and had herinitial appointment with him this month. Would like to have low dose lung cancer screening CT. Has cut way back on smoking since the lung cancer diagnosis. Is now smoking 2-3 cigarettes a day now and trying to cut back. Declines mammogram. Results for orders placed or performed in visit on 04/19/24 CHEMISTRY-OUTSIDE Result Value Ref Range Not all results display below - see scan for full detail CREATININE EGFR POTASSIUM GLUCOSE HOURS FASTING TRIGLYCERIDES-OUTSIDE LAB CHOLESTEROL-OUTSIDE LAB HDL-OUTSIDE LAB CHOL/HDL RATIO-OUTSIDE LAB LDL (CALCULATED)-OUTSIDE LAB LDL (DIRECT MEASURE)-OUTSIDE LAB HEMOGLOBIN, [id number]-[id number] LAB PHOSPHORUS-OUTSIDE LAB PTH-OUTSIDE LAB MICROALBUMIN RATIO-OUTSIDE LAB PROTEIN, UA-OUTSIDE LAB HGB 5.6 (A) 12.0 - 16.0 G/DL PHM: Patient Active Problem List Diagnosis Family hx-breast malignancy Family history of diabetes mellitus Dyslipidemia, goal LDL below 130 BMI 26.0-26.9,adult HSV-2 infection Opioid dependence, uncomplicated (HCC) History of DVT (deep vein thrombosis) Claudication in peripheral vascular disease (HCC) Tobacco use Pain of left calf Acute myeloid leukemia not having achieved remission (HCC) Admission for antineoplastic chemotherapy Paroxysmal atrial fibrillation (HCC) Encounter for antineoplastic chemotherapy Encounter for adjustment and management of vascular access device Pancytopenia (HCC) Ulcers of both lower legs (HCC) Bilateral lower extremity edema Lymphedema Current Outpatient Medications Medication Sig Dispense Refill Buprenorphine HCl-Naloxone HCl 8-2 MG Sublingual Tablet Sublingual (Suboxone) Place 1.25 tablet under tongue once a day as directed Cetirizine HCl 10 MG Oral Tablet (ZyrTEC) Take 1 Tablet by mouth in the morning. 90 Tablet 1 Prochlorperazine Maleate 5 MG Oral Tablet (Compazine) Take 2 Tablets by mouth every 6 hours as needed for Nausea or Vomiting. 60 Tablet 0 Potassium Chloride ER 10 MEQ Oral Tablet Extended Release Take 2 Tablets by mouth in the morning and 2 Tablets before bedtime. 120 Tablet 2 Metoprolol Tartrate 25 MG Oral Tablet (Lopressor) Take 1 Tablet by mouth in the morning and 1 Tablet before bedtime. 60 Tablet 5 Posaconazole 100 MG Oral Tablet Delayed Release (Noxafil) Take 300 mg by mouth in the morning. 90 Tablet 6 Acyclovir 400 MG Oral Tablet (Zovirax) Take 1 Tablet by mouth in the morning and 1 Tablet before bedtime. 60 Tablet 5 Lidocaine-Prilocaine 2.5-2.5 % External Cream (Emla) APPLY TO SKIN OVER MEDIPORT & COVER 1HR PRIOR TO ACCESSING. 30 g 0 Allopurinol 300 MG Oral Tablet (Zyloprim) Take 1 Tablet by mouth in the morning. 30 Tablet 0 levoFLOXacin 250 MG Oral Tablet (Levaquin) Take 1 Tablet by mouth in the morning. Take only when absolute neutrophil counts (ANC) is less than 0.5.. 30 Tablet 6 Furosemide 40 MG Oral Tablet (Lasix) 1 tablet every other day 30 Tablet 3 Ondansetron HCl 8 MG Oral Tablet (Zofran) Take 1 Tablet by mouth daily. 30 Tablet 3 hydrOXYzine HCl 25 MG Oral Tablet TAKE ONE TABLET BY MOUTH EVERY 6 HOURS NEEDED FOR ITCHING 40 Tablet 2 Mupirocin 2 % External Ointment (Bactroban) Apply topically to affected area 3 times a day for 14 days. To affected area for up to 14 days. 60 g 1 ACYCLOVIR 800 MG PO TABS One pill by mouth 5 times a day for 7 days for shingles 35 Tab 0 Ventolin HFA 108 (90 Base) MCG/ACT Inhalation Aerosol Solution Inhale 2 Puffs by mouth every 4 hours as needed for Wheezing (cough). (Patient not taking: Reported on 04/22/2024) 8 g 5 Pantoprazole Sodium 40 MG Oral Tablet Delayed Release (Protonix) Take 1 Tablet by mouth in the morning. (Patient not taking: Reported on 04/22/2024) 60 Tablet 5 Naloxone HCl 4 MG/0.1ML Nasal Liquid (Narcan Nasal) [place] 1 spray nasal single dose as needed Use one inhaler immediately for unresponsive patient. Call 911. If patient does not respond in 2-4 minutes, use 2nd inhaler. (Patient not taking: Reported on 04/22/2024) No current facility-administered medications for this visit. Past Medical History: Diagnosis Date BMI 28.0-28.9,adult 11/07/2015 183 lbs Cervical spondylosis with radiculopathy 08/23/2012 MRI multilevel Cystitis 09/09/2022 10-100,000 pansensitive E coli Disc degeneration, lumbosacral 2016 according to pain clinic Fracture of left toe 11/07/2015 tangential fx left 4th proximal phalanx with minimal angulation HSV-2 infection Opioid dependence (HCC) on Subutex Strep throat 07/30/2015 Thrombophlebitis of deep veins of upper extremities Past Surgical History: Procedure Laterality Date INFORMATION 08/18/09 [facility]- blood clots removed in right arm. INFORMATION 08/2009 Dr. Jolly Wolf [facility] INSER TUNN ACC DEV;5 YRS/OLDER Right 11/18/2023 INSERT TUNNELED CENTRAL VENOUS ACCESS WITH SUBQ PORT performed by Gregory Trevino MD at [facility] IR BIOPSY 03/25/2024 REMOVAL OF TONSILS, UNDER AGE 11 Social History Socioeconomic History Marital status: Spouse name: Not on file Number of children: Not on file Years of education: Not on file Highest education level: Not on file Occupational History Not on file Tobacco Use Smoking status: Former Current packs/day: 0.00 Average packs/day: 4.0 packs/day for 52.5 years (210.1 ttl pk-yrs) Types: Cigarettes Start date: 1971 Quit date: 10/19/2023 Years since quittin.5 Smokeless tobacco: Never Vaping Use Vaping status: Never Used Substance and Sexual Activity Alcohol use: Not Currently Comment: social Drug use: Yes Types: Fentanyl, Oxycodone Comment: marijuana last time 2004 Sexual activity: Not on file Other Topics Concern Not on file Social History Narrative Not on file Social Needs Financial Resource Strain: Not on file Food Insecurity: No Food Insecurity (10/22/2023) Food Insecurity Do you need food for this week? (Adult - for ages 18 years and over): No Are you able to get enough food for your family? (Household - for ages 0-17 years): Not on file Does your family need food this week? (Household - for ages 0-17 years): Not on file Do you always have enough food for your family? (Household - for ages 0-17 years): Not on file Transportation Needs: No Transportation Needs (10/22/2023) Transportation Needs Do you have trouble getting a ride to medical visits or work? (Adult - for ages 18 years and over):Not on file Does your family have a hard time getting a ride to doctors visits? (Household - for ages 0-17 years): Not on file Has lack of transportation kept you from medical appointments, meetings, work, or from getting things needed for daily living? Check all that apply. (Adult - for ages 18 years and over): No Do you (or your family) have trouble finding or paying for a ride (transportation)? (Household - for ages 0-17 years): Not on file Social Connections: Not on file Housing Stability: Low Risk (10/22/2023) Housing Stability Do you currently live in a mcc or have no steady place to sleep at night? (Adult - for ages 18 years and over): Not on file Do you think you are at risk of becoming homeless? (Adult - for ages 18 years and over): Not on file Does your family worry about paying for your home or becoming homeless? (Household - for ages 0-17 years): Not on file Are you homeless or worried that you might be in the future? (Adult - for ages 18 years and over): No Are you (or your family) homeless or worried that you might be in the future? (Household - for ages0-17 years): Not on file Review of patient's allergies indicates: Allergen Reactions Amoxicillin Rash Nausea, Vomiting, Diarrhea Penicillins Objective: BP 124/72 | Pulse 61 | Temp 97 F (36.1 C) (Tympanic) | Wt 165 lb (74.8 kg) | LMP 05/01/2013 | SpO2 98% | BMI 26.63 kg/m | BSA 1.87 m Physical Exam: General: alert, no distress, well nourished, and well developed Head: Normocephalic, No masses, lesions, tenderness or abnormalities Eye Exam: PERRLA, extraocular movements intact, conjunctiva are pink and non- injected, sclera clear Ears: External ears normal, Canals clear, TM's Normal Nose: no mucosal erythema, no mucosal edema, no purulent discharge Oropharynx: no exudate, no erythema, lips, buccal mucosa, and tongue normal, and mucous membranes are moist Neck: supple, no adenopathy, no bruits Heart: regular rate & rhythm, no murmur, and no gallops Lungs: chest symmetric with normal AP diameter, no chest deformities noted, no chest wall tenderness, lungs clear to auscultation Extremities: no clubbing, no cyanosis, +lymphedematous non-pitting edema of bilateral lower extremities with scabbed superficially ulcerated areas on bilateral lower extremities, right more than left. No erythema or warmth Neuro Exam: alert & oriented x 3 with fluent speech, no focal motor/sensory deficits Extensive ROS Constitutional (f/c/wt/vision/hearing): Negative Resp (cough/sob/whitten): Negative CV (cp/palp/fluttering/diaphoresis/whitten/pnd):Negative GI (n/v/d/hrtburn): Negative Endo (hair/cold or heat intol/ 3 p's): Negative Neuro (shaking/weak/fatigu/parasthesi/): Negative Skin (rash/easy bruis/xerosis): see above hpi Psy (si/hi/halluc/): Negative (nocturia/hesit/drib/sexual review): Negative Lymph (swollen glands/b sx's/: Negative ASSESSMENT: Pancytopenia (HCC) (Primary)--recently completed treatment for AML. Receiving regular blood and platelet transfusions. Following with hematology. Acute myeloid leukemia not having achieved remission (HCC)--bone marrow biopsy in March without evidence for leukemia. Remains markedly pancytopenic. Follow-up with hematology as scheduled. Paroxysmal atrial fibrillation (HCC)--occurred in setting of new diagnosis of AML and critical illness. Not on Xarelto due to thrombocytopenia. Claudication in peripheral vascular disease (HCC)--stable. Cannot take antiplatelets due to severe thrombocytopenia. Opioid dependence, uncomplicated (HCC)--stable. Follows with outside provider for Suboxone therapy. History of DVT (deep vein thrombosis)--off Xarelto since 10/2023 due to AML and thrombocytopenia. DVT occurred 04/2023. Bilateral lower extremity edema--started during chemotherapy. Picture from November 2023 appears consistent with vasculitis, which is now improved but now with edema and superficial ulcerations and scabs. Continue furosemide 40 mg daily. Ulcers of both lower legs (HCC)--discussed not picking at the skin and allowing to heal. Start Bactroban and will wrap legs with gauze. Discussed signs of infection and will call or return if these develop. - Mupirocin 2 % External Ointment (Bactroban); Apply topically to affected area 3 times a day for 14 days. To affected area for up to 14 days. Lymphedema--as above. History of tobacco abuse--would like to proceed with low dose lung cancer screening CT. She has cutback to 2-3 cigarettes a day. Education provided. - LUNG CANCER EDU. - CT CHEST LOW DOSE SCAN LUNG CANCER SCREEN INITIAL; Future; Expected date: 04/22/2024 Need for prophylactic vaccination and inoculation against influenza - INFLUENZA VAC, TRIVALENT, (IIV3), PF, 0.5 ML (FLUZONE) Follow Up: Return in about 6 months (around 10/20/2024) for Clinic Visit. | For: Clinic Visit | Check-out note: Needs 40 PLAN: Continue present medication(s): Begin medication(s): Bactroban to lower extremities Immunization(s) ordered: Influenza vaccine Patient education: Influenza vaccine, mammogram, low dose lung cancer screening CT, and wound care of legs. Appears to have started due to chemotherapy/AML and slow to heal given PVD and lymphedema. Does not appear cellulitic at this time. Follow up: in 6 month(s). Mikal Butler MD The following information was reviewed/discussed with the patient: Benefits & harms of screening Potential indications for follow-up testing, if/when necessary Risk of over-diagnosis, false positive findings, and radiation exposure Importance of cigarette smoking abstinence, if applicable Annual adherence to lung cancer screening Impact of comorbidities and ability or willingness to undergo diagnostic testing and/or treatment if something concerning is identified during screening. documented in this encounter Nursing Notes * Yenny Wyman LPN - 04/22/2024 9:32 AM EST Return 6 month return Doing better Having issues with legs Has a lot of redness and open areas on bilateral legs Draining Scabbing documented in this encounter Plan of Treatment Upcoming Encounters Date Type Department Care Team (Late st Contact Info) Description 05/11/2024 11:00 AM EST Office Visit Hematology/Oncology [employer] [address] [place] [phone] Kevin Canchola MD [address] [place] [id number] 12/02/2024 1:00 PM EDT Office Visit Family Medicine [address] [place] [phone] Mikal Butler MD [address] [place] [address] [place] [id number] Scheduled Orders Name Type Priority Associated Diagnoses Orde r Schedule CT CHEST LOW DOSE SCAN LUNG CANCER SCREEN INITIAL Medical Imaging Routine History of tobacco abuse Expected: 04/22/2024, Expires: 04/22/2026 Health Maintenance Due Date Last Done Comments [...] this encounter Medical Devices Implanted Type Area Hadoop Engineer Device Identifier Shelf Expiration Date Model / Serial / Lot Port Implant [id number] Poly Cath - [id number] Implanted:Qty : 1 on 11/18/2023 by Gregory Trevino MD at [facility] Right: Chest CR BARD : PERIPHERAL VASCULAR [id number] 09/03/2024 [id number] / / [id number] documented as of this encounter Visit Diagnoses Diagnosis Pancytopenia (HCC)- Primary Other pancytopenia Acute myeloid leukemia not having achieved remission (HCC) Paroxysmal atrial fibrillation (HCC) Atrial fibrillation Claudication in peripheral vascular disease (HCC) Peripheral vascular disease, unspecified Opioid dependence, uncomplicated (HCC) History of DVT (deep vein thrombosis) Personal history of venous thrombosis and embolism Bilateral lower extremity edema Edema Ulcers of both lower legs (HCC) Ulcer of lower limb, unspecified Lymphedema Other lymphedema History of tobacco abuse Personal history of tobacco use, presenting hazards to health Need for prophylactic vaccination and inoculation against influenza documented in this encounter Advance Directives * [...] Power of Attor abraham? No Care Teams Missile Technician Relationship Specialty Start Date End Date Mikal Butler MD [address] [place] [address] [place] [id number] PCP - General Family Medicine 11/21/16 documented as of this encounter
--- OUTSIDE RECORDS SUMMARY | 2024-05-11 20:34 | External Medical Summary | Summary of Care ---
Author Name Unknown Organization [facility] Address [address] [place] [address] Phone [phone] Care Team Providers Care Mash Tub Cooker Operator Name Role Phone Mikal Butler MD Primary Care Provide r Reason for Referral * Precert (Within 10 days (routine)) - Authorized Specialty Diagnoses / Procedures Referred By Contac t Referred To Contact Radiology Diagnoses History of tobacco abuse Procedures CT CHEST LOW DOSE SCAN LUNG CANCER SCREEN INITIAL LUNG CANCER SCREENING PROGRAM REFERRAL Mikal Butler MD [address] [place] [address] [place] [address] Phone: tel: fax: Referral ID Status Reason Start Date Expiration Date V isits Requested Visits Authorized [id number] Authorized 04/22/2024 999 999 Reason for Visit * Reason Comments Re-Check Encounter Details Date Type Department Care Team (Latest Contact Info) Description 04/22/2024 9:40 AM EST Office Visit Family Medicine [address] [place] [phone] Mikal Butler MD [address] [place] [address] [place] [address] Pancytopenia (HCC)*; Acute myeloid [...] HCl 4 MG/0.1ML Nasal Liquid (Narcan Nasal) [place] 1 spray nasal single dose as needed [...] - 04/22/2024 10:10 AM EST Sonia Mccarthy [id number] Benefits of Quitting Smoking Why should I [...] and making a loved one happy . [place] Department of Health Quit Line [employer] Free Quitline [phone] QUIT NOW ( ) Your insurance company may also have more information and helpful programs to help you quit. Some may even help cover some of the costs. For example, [facility] members can call to find out about their smoking cessation program and medication coverage. Developed by Norma Wolfe MD, for [employer]. Published by [employer]. Last modified: 2005-08-15 Last reviewed: 2005-06-04 This content is reviewed periodically and is subject to change as new health information becomes available. The information is intended to inform and educate and is not a replacement for medical evaluation, advice, diagnosis or treatment by a healthcare professional. Adult Health Advisor 2006.4 Index Adult Health Advisor 2005.4 Credits Copyright 2006 [employer] and/or one of its subsidiaries. All Rights Reserved. documented in this encounter Progress Notes * Mikal Butler MD - 04/22/2024 9:42 AM EST Subjective: Sonia Mccarthy is a 63 year old female. Chief Complaint Patient presents with Re-Check HPI: Brief Clinical History Ms. Mccarthy is a 63 year old female last seen in Family Medicine [facility] on 10/13/2023 by Baldemar Krishnan She [...] have PAF when she was admitted to [facility] in October 2023 for initial treatment of [...] (CALCULATED)-OUTSIDE LAB LDL (DIRECT MEASURE)-OUTSIDE LAB HEMOGLOBIN, U2R-USDOSXO LAB PHOSPHORUS-OUTSIDE LAB PTH-OUTSIDE LAB MICROALBUMIN RATIO-OUTSIDE [...] HCl 4 MG/0.1ML Nasal Liquid (Narcan Nasal) [place] 1 spray nasal single dose as needed [...] Surgical History: Procedure Laterality Date INFORMATION 08/18/09 [place]- blood clots removed in right arm. INFORMATION 08/2009 Dr. Jolly Wolf [facility] INSER TUNN ACC DEV;5 YRS/OLDER Right 11/18/2023 INSERT TUNNELED CENTRAL VENOUS ACCESS WITH SUBQ PORT performed by Gregory Trevino MD at [facility] IR BIOPSY 03/25/2024 REMOVAL OF TONSILS, UNDER [...] Stability Do you currently live in a fci or have no steady place to sleep [...] Visit Hematology/Oncology [employer] [address] [place] [phone] Kevin Canchola MD [address] [place] [address] 12/02/2024 1:00 PM EDT Office Visit Family Medicine [address] [place] [phone] Mikal Butler MD [address] [place] [address] [place] [address] Scheduled Orders Name Type Priority Associated Diagnoses [...] this encounter Medical Devices Implanted Type Area Farmworker Fruit Device Identifier Shelf Expiration Date Model / Serial / Lot Port Implant W8f Poly Cath - [id number] Implanted:Qty : 1 on 11/18/2023 by Gregory Trevino MD at [facility] Right: Chest CR BARD : PERIPHERAL VASCULAR [id number] 09/03/2024 [id number] / / [id number] documented as of this encounter Visit Diagnoses [...] Power of Attor abraham? No Care Teams Mash Tub Cooker Operator Relationship Specialty Start Date End Date Mikal Butler MD [address] [place] [address] [place] [phone] PCP - General Family Medicine 11/21/16 documented as of this encounter
--- OUTSIDE RECORDS SUMMARY | 2024-05-11 20:34 | External Medical Summary | Summary of Care ---
Author Name Unknown Organization [facility] Address [address] [place] [address] Phone [phone] Care Team Providers Care Filling Carrier Name Role Phone Mikal Butler MD Primary Care Provide r Reason for Visit * Reason Onset Date Comments Appointment 04/11/2024 Encounter Details Date Type Department Care Team (Late st Contact Info) Description 04/11/2024 Telephone Hematology/Oncology Treatment, [place] [address] [place] [address] Kevin Canchola MD [address] [place] [address] Appointment Allergies Active Allergy Reactions Criticality Noted Date Comments Amoxicillin Rash High 01/18/2024 Nausea, Vomiting, Diarrhea Penicillins 03/18/2012 documented as of this encounter (statuses as of 04/12/2024) Medications ACYCLOVIR 800 MG PO TABSIndications :Shingles [...] HCl 4 MG/0.1ML Nasal Liquid (Narcan Nasal) [place] 1 spray nasal single dose as needed [...] 1 Tablet before bedtime. 60 Tablet 5 10/17/202 4 Active hydrOXYzine HCl 25 MG Oral TabletIndicatio ns:Acute myeloid leukemia not having achieved remission (HCC),Rash and nonspecific skin eruption Take 2 Tablets by mouth every 6 hours as needed for Itching. 120 Tablet 2 4 Active Lidocaine-Prilo janee 2.5-2.5 % External [...] mouth daily. 30 Tablet 3 5 Active documented as of this encounter (statuses as of 04/12/2024) Active Problems Problem Noted Date Diagnosed Date [...] as of this encounter (statuses as of 04/12/2024) Resolved Problems Problem Noted Date Diagnosed Date Resolved Date Obesity, Class I, BMI 30.0-3 4.9 (see actual BMI) 02/26/2011 11/07/2015 Cervicalgia 02/26/2011 12/14/2017 Non-traumatic compartment sy ndrome of upper extremity 02/26/2011 12/14/2017 Pain in limb 02/26/2011 12/14/2017 PHLEBITIS OF DEEP VEINS OF RIGHT ARM 01/07/2010 11/07/2015 documented as of this encounter (statuses as of 04/12/2024) Immunizations Name Administration Dates Next Due COVID-19 [...] encounter Miscellaneous Notes * Telephone Encounter - Soha Geller LPN - 04/12/2024 1:41 PM EST Faxed transportation and appointment schedules to both [facility] and [facility]. * Telephone Encounter - Soha Geller LPN - 04/12/2024 1:29 PM EST Attempted to call [facility] Transportation, No answer, unable to leave a voicemail. Spoke with [place] in [facility]. Patient is now scheduled every Thursday and at 09:30 am until further notice. Reviewed parameters from last office visit. She denies needing new orders from Dr. Canchola had this time. * Telephone Encounter - Janay White RN - 04/11/2024 4:46 PM EST Patient will be continuing labs/ transfusions every Thursday and . [place]: can you please call [facility]/ transportation to arrange this? Will also need transportation for appt with Dr Canchola 05/11/24. They may as well schedule out for the next few months if this is easier- patient unlikely to restart chemotherapy. documented in this encounter Plan of Treatment Upcoming Encounters Date Type Department Care Team (Late st Contact Info) Description 04/22/2024 10:00 AM EST Office Visit Family Medicine [address] [phone] Mikal Butler MD [address] [place] [address] [place] [address] 05/11/2024 11:00 AM EST Office Visit Hematology/Oncology [facility] [place] [facility] [address] [facility] [place] [phone] Kevin Canchola MD [address] [facility] [place] [address] Health Maintenance Due Date Last Done Comments [...] this encounter Medical Devices Implanted Type Area Corset Maker Device Identifier Shelf Expiration Date Model / Serial / Lot Port Implant W8f Poly Cath - [id number] Implanted:Qty : 1 on 11/18/2023 by Gregory Trevino MD at [facility] Right: Chest CR BARD : PERIPHERAL VASCULAR [id number] 09/03/2024 [id number] / / [id number] documented as of this encounter Advance Directives [...] Power of Attor abraham? No Care Teams Filling Carrier Relationship Specialty Start Date End Date Mikal Butler MD [address] [place] [address] [place] [address] PCP - General Family Medicine 11/21/16 documented as of this encounter
--- OUTSIDE RECORDS SUMMARY | 2024-05-11 20:34 | External Medical Summary | Summary of Care ---
Author Name Unknown Organization [facility] Address [address] [place] [address] Phone [phone] Care Team Providers Care Cable Assembler And Swager Name Role Phone Mikal Butler MD Primary Care Provide r Encounter Details Date Type Department Care Team (Late st Contact Info) Description 04/15/2024 Orders Only Hematology/Oncology [facility] [place] [address] [facility] [place] [address] Kevin Canchola MD [address] [facility] [place] [address] Allergies Active Allergy Reactions Criticality Noted Date Comments Amoxicillin Rash High 01/18/2024 Nausea, Vomiting, Diarrhea Penicillins 03/18/2012 documented as of this encounter (statuses as of 04/15/2024) Medications ACYCLOVIR 800 MG PO TABSIndications :Shingles [...] HCl 4 MG/0.1ML Nasal Liquid (Narcan Nasal) [place] 1 spray nasal single dose as needed [...] before bedtime. 60 Tablet 5 4 Active hydrOXYzine HCl 25 MG Oral [...] as of this encounter (statuses as of 04/15/2024) Active Problems Problem Noted Date Diagnosed Date [...] as of this encounter (statuses as of 04/15/2024) Resolved Problems Problem Noted Date Diagnosed Date Resolved Date Obesity, Class I, BMI 30.0-3 4.9 (see actual BMI) 02/26/2011 11/07/2015 Cervicalgia 02/26/2011 12/14/2017 Non-traumatic compartment sy ndrome of upper extremity 02/26/2011 12/14/2017 Pain in limb 02/26/2011 12/14/2017 PHLEBITIS OF DEEP VEINS OF RIGHT ARM 01/07/2010 11/07/2015 documented as of this encounter (statuses as of 04/15/2024) Immunizations Name Administration Dates Next Due COVID-19 [...] 10:00 AM EST Office Visit Family Medicine [address] [place] [phone] Mikal Butler MD [address] [place] [address] [place] [address] 05/11/2024 11:00 AM EST Office Visit Hematology/Oncology [place] [address] [place] [phone] Kevin Canchola MD [address] [place] [address] Health Maintenance Due Date Last Done Comments [...] this encounter Medical Devices Implanted Type Area Food Preparation Kitchen Aide Device Identifier Shelf Expiration Date Model / Serial / Lot Port Implant W8f Poly Cath - [id number] Implanted:Qty : 1 on 11/18/2023 by Gregory Trevino MD at [facility] Right: Chest CR BARD : PERIPHERAL VASCULAR [id number] 09/03/2024 [id number] / / [id number] documented as of this encounter Procedures Procedure Name Priority Date/Time Associated Diagnosis Comments CBC Routine 04/14/2024 documented in this encounter Results * (ABNORMAL) CBC WITH WBC DIFFERENTIAL (04/14/2024) HGB 7.1(A) 12.0 - 16.0 G/DL OUTSIDE LAB (SEE SCANNED REPORT) Blood Venous blood specimen / Unknown 04/14/2024 us Kevin Canchola MD LAB BLOOD ORDERABLES Final Res ult OUTSIDE LAB (SEE SCANNED REPORT) documented in [...] Power of Attor abraham? No Care Teams Cable Assembler And Swager Relationship Specialty Start Date End Date Mikal Butler MD [address] [place] [address] [place] [address] PCP - General Family Medicine 11/21/16 documented as of this encounter
--- OUTSIDE RECORDS SUMMARY | 2024-05-11 20:34 | External Medical Summary | Summary of Care ---
Author Name Unknown Organization [facility] Address [address] [place] [address] Phone [phone] Care Team Providers Care Palliative Nurse Name Role Phone Mikal Butler MD Primary Care Provide r Encounter Details Date Type Department Care Team (Late st Contact Info) Description 04/18/2024 Result Scan Unspecified Department Kevin Canchola MD [address] [place] [address] <No scans attached> Allergies Active Allergy Reactions Criticality Noted Date Comments Amoxicillin Rash High 01/18/2024 Nausea, Vomiting, Diarrhea Penicillins 03/18/2012 documented as of this encounter (statuses as of 04/19/2024) Medications Buprenorphine HCl-Naloxone HCl 8-2 MG Sublingual [...] HCl 4 MG/0.1ML Nasal Liquid (Narcan Nasal) [place] 1 spray nasal single dose as needed [...] 9:40 AM EST Office Visit Family Medicine [address] [phone] Mikal Butler MD [address] [place] [address] [place] [address] 05/11/2024 11:00 AM EST Office Visit Hematology/Oncology [facility] [place] [address] [facility] [place] [phone] Kevin Canchola MD [address] [facility] [place] [address] Health Maintenance Due Date Last Done Comments [...] this encounter Medical Devices Implanted Type Area Distribution Engineer Device Identifier Shelf Expiration Date Model / Serial / Lot Port Implant W8f Poly Cath - [id number] Implanted:Qty : 1 on 11/18/2023 by Gregory Trevino MD at OR [facility] Right: Chest CR BARD : PERIPHERAL VASCULAR [id number] 09/03/2024 [id number] / / [id number] documented as of this encounter Procedures Procedure Name Priority Date/Time Associated Diagnosis Comments OUTSIDE LAB RESULTS 04/18/2024 documented in this encounter Results * OUTSIDE LAB RESULTS (04/18/2024) 04/18/2024 Kevin Canchola MD LABORATORY Final Result documented [...] Power of Attor abraham? No Care Teams Palliative Nurse Relationship Specialty Start Date End Date Mikal Butler MD [address] [place] [address] [place] [address] PCP - General Family Medicine 11/21/16 documented as of this encounter
--- OUTSIDE RECORDS SUMMARY | 2024-05-11 20:35 | External Medical Summary | Summary of Care ---
Author Name Unknown Organization [facility] Address [address] [place] [address] Phone [phone] Care Team Providers Care Battery Tester Name Role Phone Mikal Butler MD Primary Care Provide r Encounter Details Date Type Department Care Team (Late st Contact Info) Description 04/12/2024 Orders Only Hematology/Oncology [facility] [address] [facility] [place] [address] Kevin Canchola MD [address] [facility] [place] [address] Allergies Active Allergy Reactions Criticality Noted Date [...] HCl 4 MG/0.1ML Nasal Liquid (Narcan Nasal) [place] 1 spray nasal single dose as needed [...] 10:00 AM EST Office Visit Family Medicine [address] [place] [phone] Mikal Butler MD [address] [place] [address] [place] [address] 05/11/2024 11:00 AM EST Office Visit Hematology/Oncology [place] [address] [place] [address] Kevin Canchola MD [address] [place] [address] Health Maintenance Due Date Last Done Comments [...] this encounter Medical Devices Implanted Type Area Construction Checker Device Identifier Shelf Expiration Date Model / Serial / Lot Port Implant W8f Poly Cath - [id number] Implanted:Qty : 1 on 11/18/2023 by Gregory Trevino MD at OR [facility] Right: Chest CR BARD : PERIPHERAL VASCULAR [id number] 09/03/2024 [id number] / / [id number] documented as of this encounter Procedures Procedure Name Priority Date/Time Associated Diagnosis Comments CHEMISTRY-OUTSIDE Routine 04/11/2024 documented in this encounter Results * (ABNORMAL) CHEMISTRY-OUTSIDE (04/11/2024) Not all results display below - see scan for full detail OUTSIDE LAB (SEE SCANNED REPORT) Comment:SCAN INCL: CBC, PLP LEUKO, CREATININE OUTSIDE L AB (SEE SCANNED REPORT) [...] LAB OUTSIDE LAB (SEE SCANNED REPORT) HEMOGLOBIN, [id number] LAB OUTSIDE LAB (SEE SCANNED REPORT) PHOSPHORUS-OUTSID E LAB OUTSIDE LAB (SEE SCANNED REPORT) PTH-OUTSIDE LAB OUTS FRED LAB (SEE SCANNED REPORT) MICROALBUMIN RATIO-OUTSIDE LAB OUTSIDE LA B (SEE SCANNED REPORT) PROTEIN, UA-OUTSIDE LAB OUTSIDE LAB (SEE SCANNED REPORT) HGB 7.8(A) 12.0 - 16.0 G/DL OUTSIDE LAB (SEE SCANNED REPORT) 04/11/2024 us Kevin Canchola MD LABORATORY Final Result [...] Power of Attor abraham? No Care Teams Battery Tester Relationship Specialty Start Date End Date Mikal Butler MD [address] [place] [address] [place] [phone] PCP - General Family Medicine 11/21/16 documented as of this encounter
--- OUTSIDE RECORDS SUMMARY | 2024-05-11 20:35 | External Medical Summary | Summary of Care ---
Author Name Unknown Organization [facility] Address [address] [place] [address] Phone [phone] Care Team Providers Care Ventilation Mechanic Name Role Phone Mikal Butler MD Primary Care Provide r Encounter Details Date Type Department Care Team (Late st Contact Info) Description 03/31/2024 Orders Only Family Medicine [address] [phone] Mikal Butler MD [address] [place] [address] [place] [address] Allergies Active Allergy Reactions Criticality Noted Date Comments Amoxicillin Rash High 01/18/2024 Nausea, Vomiting, Diarrhea Penicillins 03/18/2012 documented as of this encounter (statuses as of 03/31/2024) Medications ACYCLOVIR 800 MG PO TABSIndications :Shingles [...] HCl 4 MG/0.1ML Nasal Liquid (Narcan Nasal) [place] 1 spray nasal single dose as needed [...] before bedtime. 60 Tablet 5 4 Active Venetoclax 100 MG Oral Tablet (Venclexta)[place] cations:Acute myeloid leukemia not having achieved remission (HCC) Take 1 Tablet by mouth in the morning. 30 Tablet 6 03/18/2024 11:11 AM EST 4 Active Posaconazole 100 MG Oral Tablet [...] in the morning. 30 Tablet 4 Active Furosemide 40 MG Oral Tablet (Lasix)Indicati ons:Acute myeloid leukemia not having achieved remission (HCC) Take 1 Tablet by mouth in the morning. 30 Tablet 4 Active levoFLOXacin 250 MG Oral Tablet (Levaquin) Take 1 Tablet by mouth in the morning. Take only when absolute neutrophil counts (ANC) is less than 0.5.. 30 Tablet 6 4 Active Ondansetron HCl 8 MG Oral Tablet (Zofran)Indicat ions:Acute myeloid leukemia not having achieved remission (HCC) Take 1 Tablet by mouth daily. 20 Tablet 4 Active documented as of this encounter (statuses as of 03/31/2024) Active Problems Problem Noted Date Diagnosed Date [...] as of this encounter (statuses as of 03/31/2024) Resolved Problems Problem Noted Date Diagnosed Date Resolved Date Obesity, Class I, BMI 30.0-3 4.9 (see actual BMI) 02/26/2011 11/07/2015 Cervicalgia 02/26/2011 12/14/2017 Non-traumatic compartment sy ndrome of upper extremity 02/26/2011 12/14/2017 Pain in limb 02/26/2011 12/14/2017 PHLEBITIS OF DEEP VEINS OF RIGHT ARM 01/07/2010 11/07/2015 documented as of this encounter (statuses as of 03/31/2024) Immunizations Name Administration Dates Next Due COVID-19 [...] Care Team (Late st Contact Info) Description 04/08/2024 8:30 AM EST Pharmacy Pharmacy Hematology Oncology [address] [place] [address] [facility] Hem[facility]Onc [address] [place] [address] 04/08/2024 11:15 AM EST Office Visit Hematology/Oncology [facility] [place] [address] [place] [phone] Kevin Canchola MD [address] [place] [address] 04/22/2024 10:00 AM EST Office Visit [address] [phone] Mikal Butler MD [address] [place] [address] [place] [address] Health Maintenance Due Date Last Done Comments [...] exists COVID-19 Vaccine ( season) 2023 04/15/2023, 04/15/2023, 09/21/2020, Additional history exists Influenza Vaccine (FLU shot) [...] this encounter Medical Devices Implanted Type Area Air Hoist Operator Device Identifier Shelf Expiration Date Model / Serial / Lot Port Implant W8f Poly Cath - [id number] Implanted:Qty : 1 on 11/18/2023 by Gregory Trevino MD at [facility] Right: Chest CR BARD : PERIPHERAL VASCULAR [id number] 09/03/2024 [id number] / / [id number] documented as of this encounter Procedures Procedure Name Priority Date/Time Associated Diagnosis Comments CHEMISTRY-OUTSIDE Routine 03/31/2024 documented in this encounter Results * (ABNORMAL) CHEMISTRY-OUTSIDE (03/31/2024) Not all results display below - see scan for full detail OUTSIDE LAB (SEE SCANNED REPORT) Comment:SEE SCAN - CBCD CREATININE OUTSIDE L AB (SEE [...] LAB OUTSIDE LAB (SEE SCANNED REPORT) HEMOGLOBIN, [id number] LAB OUTSIDE LAB (SEE SCANNED REPORT) PHOSPHORUS-OUTSID E LAB OUTSIDE LAB (SEE SCANNED REPORT) PTH-OUTSIDE LAB OUTS FRED LAB (SEE SCANNED REPORT) MICROALBUMIN RATIO-OUTSIDE LAB OUTSIDE LA B (SEE SCANNED REPORT) PROTEIN, UA-OUTSIDE LAB OUTSIDE LAB (SEE SCANNED REPORT) HGB 5.7(A) 12.0 - 16.0 G/DL OUTSIDE LAB (SEE SCANNED REPORT) 03/31/2024 us Kevin Canchola MD LABORATORY Final Result [...] Power of Attor abraham? No Care Teams Ventilation Mechanic Relationship Specialty Start Date End Date Mikal Butler MD [address] [place] [address] [place] [address] PCP - General Family Medicine 11/21/16 documented as of this encounter
--- OUTSIDE RECORDS SUMMARY | 2024-05-11 20:35 | External Medical Summary | Summary of Care ---
Author Name Unknown Organization [facility] Address [address] [place] [address] Phone [phone] Care Team Providers Care Manager Provider Relations Name Role Phone Mikal Butler MD Primary Care Provide r Encounter Details Date Type Department Care Team (Late st Contact Info) Description 04/07/2024 Result Scan Unspecified Department Kevin Canchola MD [address] [place] [address] <No scans attached> Allergies Active Allergy Reactions Criticality Noted Date Comments Amoxicillin Rash High 01/18/2024 Nausea, Vomiting, Diarrhea Penicillins 03/18/2012 documented as of this encounter (statuses as of 04/08/2024) Medications Buprenorphine HCl-Naloxone HCl 8-2 MG Sublingual [...] HCl 4 MG/0.1ML Nasal Liquid (Narcan Nasal) [place] 1 spray nasal single dose as needed [...] as of this encounter (statuses as of 04/08/2024) Active Problems Problem Noted Date Diagnosed Date [...] as of this encounter (statuses as of 04/08/2024) Resolved Problems Problem Noted Date Diagnosed Date Resolved Date Obesity, Class I, BMI 30.0-3 4.9 (see actual BMI) 02/26/2011 11/07/2015 Cervicalgia 02/26/2011 12/14/2017 Non-traumatic compartment sy ndrome of upper extremity 02/26/2011 12/14/2017 Pain in limb 02/26/2011 12/14/2017 PHLEBITIS OF DEEP VEINS OF RIGHT ARM 01/07/2010 11/07/2015 documented as of this encounter (statuses as of 04/08/2024) Immunizations Name Administration Dates Next Due COVID-19 [...] 10:00 AM EST Office Visit Family Medicine [address] [place] [phone] Mikal Butler MD [address] [place] [address] [place] [address] 05/11/2024 11:00 AM EST Office Visit Hematology/Oncology [place] [address] [place] [address] Kevin Canchola MD 200 [facility] [place] [address] Health Maintenance Due Date Last Done Comments [...] this encounter Medical Devices Implanted Type Area General Service Technician Device Identifier Shelf Expiration Date Model / Serial / Lot Port Implant W8f Poly Cath - [id number] Implanted:Qty : 1 on 11/18/2023 by Gregory Trevino MD at [facility] Right: Chest CR BARD : PERIPHERAL VASCULAR [id number] 09/03/2024 [id number] / / [id number] documented as of this encounter Procedures Procedure Name Priority Date/Time Associated Diagnosis Comments OUTSIDE LAB RESULTS 04/07/2024 documented in this encounter Results * OUTSIDE LAB RESULTS (04/07/2024) 04/07/2024 us Kevin Canchola MD LABORATORY Final Result documented [...] Power of Attor abraham? No Care Teams Manager Provider Relations Relationship Specialty Start Date End Date Mikal Butler MD [address] [place] [address] [place] [address] PCP - General Family Medicine 11/21/16 documented as of this encounter
--- OUTSIDE RECORDS SUMMARY | 2024-05-11 20:35 | External Medical Summary | Summary of Care ---
Author Name Unknown Organization [facility] Address [address] [place] [address] Phone [phone] Care Team Providers Care Internal Controls Specialist Name Role Phone Mikal Butler MD Primary Care Provide r Reason for Visit * Reason Comments Medication Management Encounter Details Date Type Department Care Team (Late st Contact Info) Description 04/08/2024 8:30 AM [facility] Pharmacy Pharmacy Hematology Oncology [facility] [address] [place], [place] [phone] [facility] [place] Hem/Onc [address] [place], [place] [phone] Acute myeloid leukemia not having achieved remission (HCC)* Allergies Active Allergy Reactions Criticality Noted Date Comments Amoxicillin Rash High 01/18/2024 Nausea, Vomiting, Diarrhea Penicillins 03/18/2012 documented as of this encounter (statuses as of 04/08/2024) Medications ACYCLOVIR 800 MG PO TABSIndication s:Shingles One pill by mouth 5 times a day for 7 days for shingles 35 Tab 0 12/12/19 12 Active Buprenorphine HCl-Naloxone HCl 8-2 MG Sublingual Tablet Sublingual (Suboxone) Place 1.25 tablet under tongue once a day as directed 04/22/19 Active Ventolin HFA 108 (90 Base) MCG/ACT [...] HCl 4 MG/0.1ML Nasal Liquid (Narcan Nasal) [place] 1 spray nasal single dose as needed [...] bedtime. 60 Tablet 5 01/21/20 24 Active hydrOXYzine HCl 25 MG Oral TabletIndicati ons:Acute myeloid leukemia not having achieved remission (HCC),Rash and nonspecific skin eruption Take 2 Tablets by mouth every 6 hours as needed for Itching. 120 Tablet 2 02/01/20 24 Active Lidocaine-Pril ocaine 2.5-2.5 % External [...] daily. 30 Tablet 3 04/08/19 25 Active Venetoclax 100 MG Oral Tablet (Venclexta)Ind ications:Acute myeloid leukemia not having achieved remission (HCC) Take 1 Tablet by mouth in the morning. 30 Tablet 6 4 11:11 AM EST 01/13/20 24 025 Discontinued documented as of this [...] use 01/06/2023 Claudication in peripheral vascular disease 03/0 05/2021 History of DVT (deep vein thrombosis) [...] Jo Perkins RN documented in this encounter Progress Notes * Rosaura Rogers, [facility] - 04/08/2024 1:58 PM EST MEDICATION THERAPY MANAGEMENT Venetoclax (Venclexta) TREATMENT PROGRESS NOTE Sonia Mccarthy [phone] Patient Phone Numbers Labs Thursday and at [facility] If patient is at [place] those days, labs will be completed there Patient has given verbal consent that staff from the [facility] can speak to Patient and Daughter (Maki) regarding their treatment Patient has given verbal consent that staff from the [facility] can leave a voicemailwith treatment-related information: Yes This information can be left on Cell Communication: Spoke to MD/PA/PHARMACY TECHNICIAN INSTRUCTOR Treatment: Medication: Venetoclax Indication: AML Dose: 100 mg (with posaconazole) Administration: daily Start Date: 10/28/23 Reference:https://www.nejm.org/doi/pdf/10.1056/zioqtm7305416 Primary Lighting Technician/Oncologist: Dr. Leyva Treatment Comments:With Azaciditine Supportive Care: Emesis prophylaxis: Ondansetron 8 mg PO daily, 30 minutes prior to chemotherapy Prochlorperazine 10 mg PO q6h PRN N/V Antimicrobial prophylaxis: Acyclovir 400 mg PO BID Posaconazole 300 mg PO daily Levofloxacin 500 mg PO daily when ANC < 0.5 TLS prophylaxis: Allopurinol 300 mg PO daily Signed consent: Completed Precertification: completed Monitoring Parameters Estimated ClCr = Serum creatinine: 1.1 mg/dL (H) 03/28/24 0805 Estimated creatinine clearance: 53.9 mL/min (A) EF: 55% (10/27/2023) Hepatitis panel: Hepatitis A, B and C (10/22/2023) Drug interaction assessment: Treatment plan and current medication list evaluated for drug-drug interactions. Patient to be counseled about interaction, venetoclax and posaconazole. Drug interaction with Xarelto/Venetoclax per discussion with Dr Gipson, hold anticoagulation for now. Oncology Treatment History: 10/18/2023: Bmbx - Acute myeloid leukemia (45% blasts) - completed at [facility] Adverse risk; complex karyotype. Del5q+, monosomy 17 10/22/2023: Flow cytometry On CD45 versus side light scatter, a discrete population of myeloblasts is identified, accounting for about 15% of the total events. The myeloblasts are positive for CD45 (low), CD34, HLA-DR, CD117, CD38 (subset), CD13, CD33 (subset), and CD43 and are negative for CD11b, CD14, CD15, CD16, CD64, CD2, CD3, CD4, CD5, CD7, CD8, CD10, CD19, CD20, CD22, CD23, FMC7, and surface immunoglobulin kappa and lambda light chains. 10/28/2023: C1D1 Venetoclax + Azacitidine 01/2024: Scanned under media - per provider favor remission Current treatment Cycle Dates C1 Azacitidine 10/27-11/03/23 Venetoclax continuously C2 Aza 12/14/23 x 7 days (delayed due to counts) Venetoclax continuously C3 Aza 02/08/24 x 7 days (delayed due to counts) Venetoclax continuously C4 TBD - delayed d/t counts Medication Compliance Date Last Comprehensive Medication Review Performed: 11/04/2023 Medication Compliant: yes Medication Refills: No refills needed Assessment of toxicity: Not assessed Labs reviewed last: 04/07/24 Assessment and Plan: Seen by provider today. Venetoclax discontinued in the setting low counts and BMBx showing no AML. Will discharge from [facility] clinic at this time. Labs reviewed, 03/29/24 ANC < 0.5 will continue levofloxacin. May need to resume anticoagulation in the future for history of DVT. Currently holding per provider. Rosaura Rogers, Pharm.D., [facility] Hematology/Oncology Clinical Pharmacist | [facility] 04/08/2024 1:59 PM documented in this encounter Plan of Treatment Upcoming Encounters Date Type Department Care Team (Late st Contact Info) Description 04/22/2024 10:00 AM EST Office Visit Family Medicine [address] [place] [phone] Mikal Butler MD [address] [place] [address] [place] [address] 05/11/2024 11:00 AM EST Office Visit Hematology/Oncology [facility] [place] [address] [facility] [place] [address] Kevin Canchola MD [address] [facility] [place] [address] Health Maintenance Due Date Last Done Comments [...] 04/07/2028 04/07/2023, 1112/2020, 11/21/2016, Additional history exists HPV (Gardasil) Vaccine Aged Out No lo nger eligible based on patient's age to complete this topic Hepatitis B Vaccine Aged Out No longe r eligible based on patient's age to complete this topic MENINGOCOCCAL (MENACTRA/MENVEO) Aged Out No longer eligible based on patient's age to complete this topic documented as of this encounter Medical Devices Implanted Type Area Hot Oiler Device Identifier Shelf Expiration Date Model / Serial / Lot Port Implant W8f Poly Cath - [id number] Implanted:Qty : 1 on 11/18/2023 by Gregory Trevino MD at [facility] Right: Chest CR BARD : PERIPHERAL VASCULAR [id number] 09/03/2024 [id number] / / [id number] documented as of this encounter Visit Diagnoses Diagnosis Acute myeloid leukemia not having achieved remission (HCC)- Primary documented in this encounter Advance Directives * [...] Power of Attor abraham? No Care Teams Internal Controls Specialist Relationship Specialty Start Date End Date Mikal Butler MD [address] [place] [address] [place] [id number] PCP - General Family Medicine 11/21/16 documented as of this encounter"
--- OUTSIDE RECORDS SUMMARY | 2024-05-11 20:35 | External Medical Summary | Summary of Care ---
Author Name Unknown Organization [facility] Address [address] [place] [address] Phone [phone] Care Team Providers Care Book Illustrator Name Role Phone Mikal Butler MD Primary Care Provide r Reason for Visit * Reason Onset Date Comments Appointment 03/28/2024 Encounter Details Date Type Department Care Team (Late st Contact Info) Description 03/28/2024 Telephone Hematology/Oncology Treatment, [place] [address] [place] [address] Dee Leyva MD Appointment Allergies Active Allergy Reactions Criticality Noted Date Comments Amoxicillin Rash High 01/18/2024 Nausea, Vomiting, Diarrhea Penicillins 03/18/2012 documented as of this encounter (statuses as of 04/11/2024) Medications ACYCLOVIR 800 MG PO TABSIndication s:Shingles [...] HCl 4 MG/0.1ML Nasal Liquid (Narcan Nasal) [place] 1 spray nasal single dose as needed [...] 0.5.. 30 Tablet 6 03/07/20 24 Active Venetoclax 100 MG Oral Tablet (Venclexta)Ind ications:Acute myeloid leukemia not having achieved remission (HCC) Take 1 Tablet by mouth in the morning. 30 Tablet 6 11:11 AM EST 01/13/20 24 2024 Discontinued Furosemide 40 MG Oral Tablet (Lasix)Indicat ions:Acute myeloid leukemia not having achieved remission (HCC) Take 1 Tablet by mouth in the morning. 30 Tablet 03/01/20 24 2024 Discontinued Ondansetron HCl 8 MG Oral Tablet (Zofran)Indica tions:Acute myeloid leukemia not having achieved remission (HCC) Take 1 Tablet by mouth daily. 20 Tablet 03/15/20 24 2024 Discontinued(R efill) documented as of this encounter (statuses as of 04/11/2024) Active Problems Problem Noted Date Diagnosed Date [...] as of this encounter (statuses as of 04/11/2024) Resolved Problems Problem Noted Date Diagnosed Date Resolved Date Obesity, Class I, BMI 30.0-3 4.9 (see actual BMI) 02/26/2011 11/07/2015 Cervicalgia 02/26/2011 12/14/2017 Non-traumatic compartment sy ndrome of upper extremity 02/26/2011 12/14/2017 Pain in limb 02/26/2011 12/14/2017 PHLEBITIS OF DEEP VEINS OF RIGHT ARM 01/07/2010 11/07/2015 documented as of this encounter (statuses as of 04/11/2024) Immunizations Name Administration Dates Next Due COVID-19 [...] Telephone Encounter - Soha Geller LPN - 03/29/2024 10:13 AM EST Faxed updated appointment calendar to [facility] and [facility]. * Telephone Encounter - Soha Geller LPN - 03/29/2024 9:42 AM EST Called and spoke with GRETCHEN Porter at [facility]. Patient is now scheduled on 03/31/2024, 04/04/2024, 04/07, and 04/11. Per Charlotte's request will fax updated appointment calendar to her at [phone]. 09:27 am: Unable to speak with [facility] due to their office being closed for the Holidays. Please see TE from 03/28/2024, this nurse did speak with them in regards to patient's schedule changes yesterday. * Telephone Encounter - Sean Levine OSA - 03/29/2024 8:40 AM EST Appointments have been changed * Telephone Encounter - Janya White RN - 03/29/2024 7:59 AM EST Patient had BMBx 03/24/24 at [facility]. Will need to see MD prior to any further treatment. Scheduling: - cancel all appts for labs/ treatment - add patient to see Dr Canchola for new return Thursday04/08/24 at 11:15am (sent staff message with who to denise) Called patient to review, she verbalized understanding. MyG sent with appts Benoit: please call [facility] and transportation - she will need labs/ possible transfusion 03/31, 04/04, 04/07, 04/11, 04/14 (to save spots/ transportation) - she will see Dr Canchola 04/08 at 11:15am Thanks! documented in this encounter Plan of Treatment Upcoming Encounters Date Type Department Care Team (Late st Contact Info) Description 04/22/2024 10:00 AM EST Office Visit Family Medicine [address] [place] [phone] Mikal Butler MD [address] [place] [address] [place] [id number] 05/11/2024 11:00 AM EST Office Visit Hematology/Oncology [facility] [address] [facility] [place] [phone] Kevin Canchola MD [address] [facility] [place] [address] Health Maintenance Due Date Last Done Comments [...] this encounter Medical Devices Implanted Type Area Professional Nursing Tutor Device Identifier Shelf Expiration Date Model / Serial / Lot Port Implant W8f Poly Cath - [id number] Implanted:Qty : 1 on 11/18/2023 by Gregory Trevino MD at [facility] Right: Chest CR BARD : PERIPHERAL VASCULAR [id number] 09/03/2024 [id number] / / [id number] documented as of this encounter Advance Directives [...] Power of Attor abraham? No Care Teams Book Illustrator Relationship Specialty Start Date End Date Mikal Butler MD [address] [place] [address] [place] [address] PCP - General Family Medicine 11/21/16 documented as of this encounter
--- OUTSIDE RECORDS SUMMARY | 2024-05-11 20:35 | External Medical Summary | Summary of Care ---
Author Name Unknown Organization [facility] Address [address] [place] [address] Phone [phone] Care Team Providers Care Cephalometric Analyst Name Role Phone iMkal Butler MD Primary Care Provide r Encounter Details Date Type Department Care Team (Late st Contact Info) Description 04/08/2024 Orders Only Hematology/Oncology [facility] [address] [facility] [place] [address] Kevin Canchola MD [address] [facility] [place] [address] Allergies Active Allergy Reactions Criticality Noted Date [...] HCl 4 MG/0.1ML Nasal Liquid (Narcan Nasal) [place] 1 spray nasal single dose as needed [...] bedtime. 60 Tablet 5 01/12/20 24 Active Venetoclax 100 MG Oral Tablet (Venclexta)Ind ications:Acute myeloid leukemia not having achieved remission (HCC) Take 1 Tablet by mouth in the morning. 30 Tablet 6 4 11:11 AM EST 01/13/20 24 Active Posaconazole 100 MG Oral Tablet [...] 10:00 AM EST Office Visit Family Medicine [address] [place] [phone] Mikal Butler MD [address] [place] [address] [place] [address] 05/11/2024 11:00 AM EST Office Visit Hematology/Oncology [facility] [address] [facility] [place] [phone] Kevin Canchola MD [address] [facility] [place] [address] Health Maintenance Due Date Last Done Comments [...] Additional history exists Lipid Panel 04/07/2028 04/07/2023, 11/2 12/2020, 11/21/2016, Additional history exists HPV (Gardasil) Vaccine [...] encounter Medical Devices Implanted Type Area Retail Supervisor Device Identifier Shelf Expiration Date Model / Serial / Lot Port Implant W8f Poly Cath - [id number] Implanted:Qty : 1 on 11/18/2023 by Gregory Trevino MD at [facility] Right: Chest CR BARD : PERIPHERAL VASCULAR [id number] 09/03/2024 [id number] / / [id number] documented as of this encounter Procedures Procedure Name Priority Date/Time Associated Diagnosis Comments CHEMISTRY-OUTSIDE Routine 04/07/2024 documented in this encounter Results * (ABNORMAL) CHEMISTRY-OUTSIDE (04/07/2024) Not all results display below - see scan for full detail SCAN INCLUDES: CBCD, PLP LEUKOREDUC /R, PC LEUKO/U, BLOOD TYPE AND SCREEN OUTSIDE LAB (SEE SCANNED REPORT) CREATININE OUTSIDE L AB (SEE SCANNED REPORT) EGFR OUTSIDE LA B (SEE SCANNED REPORT) POTASSIUM OUTSIDE LA B (SEE SCANNED REPORT) GLUCOSE OUTSIDE LA B (SEE SCANNED REPORT) HOURS FASTING OUTSID E LAB (SEE SCANNED REPORT) TRIGLYCERIDES-OU TSIDE LAB OUTSIDE LAB (SEE SCANNED REPORT) CHOLESTEROL-OUTS FRED LAB OUTSIDE LAB (SEE SCANNED REPORT) HDL-OUTSIDE LAB OUTS FRED LAB (SEE SCANNED REPORT) CHOL/HDL RATIO-OUTSIDE LAB OUTSIDE LAB (SEE SCANNED REPORT) LDL (CALCULATED)-OUT SIDE LAB OUTSIDE LAB (SEE SCANNED REPORT) LDL (DIRECT MEASURE)-OUTSIDE LAB OUTSIDE LAB (SEE SCANNED REPORT) HEMOGLOBIN, V3Y-MKLOURM LAB OUTSIDE LAB (SEE SCANNED REPORT) PHOSPHORUS-OUTSI DE LAB OUTSIDE LAB (SEE SCANNED REPORT) PTH-OUTSIDE LAB OUTS FRED LAB (SEE SCANNED REPORT) MICROALBUMIN RATIO-OUTSIDE LAB OUTSIDE LAB (SEE SCANNED REPORT) PROTEIN, UA-OUTSIDE LAB OUTSIDE LAB (SEE SCANNED REPORT) HGB 7.0(A) 12.0 - 16.0 G/DL OUTSIDE LAB (SEE SCANNED REPORT) 04/07/2024 us Kevin Canchola MD LABORATORY Final [...] Power of Attor abraham? No Care Teams Cephalometric Analyst Relationship Specialty Start Date End Date Mikal Butler MD [address] [place] [address] [place] [address] PCP - General Family Medicine 11/21/16 documented as of this encounter
--- OUTSIDE RECORDS SUMMARY | 2024-05-11 20:35 | External Medical Summary | Summary of Care ---
Author Name Unknown Organization [facility] Address [address] [place] [address] Phone [phone] Care Team Providers Care Physicist Light And Optics Name Role Phone Mikal Butler MD Primary Care Provide r Encounter Details Date Type Department Care Team (Late st Contact Info) Description 04/05/2024 Orders Only Family Medicine [address] [phone] Mikal Butler MD [address] [place] [address] [place] [address] Allergies Active Allergy Reactions Criticality Noted Date Comments Amoxicillin Rash High 01/18/2024 Nausea, Vomiting, Diarrhea Penicillins 03/18/2012 documented as of this encounter (statuses as of 04/05/2024) Medications ACYCLOVIR 800 MG PO TABSIndications :Shingles [...] HCl 4 MG/0.1ML Nasal Liquid (Narcan Nasal) [place] 1 spray nasal single dose as needed [...] as of this encounter (statuses as of 04/05/2024) Active Problems Problem Noted Date Diagnosed Date [...] as of this encounter (statuses as of 04/05/2024) Resolved Problems Problem Noted Date Diagnosed Date Resolved Date Obesity, Class I, BMI 30.0-3 4.9 (see actual BMI) 02/26/2011 11/07/2015 Cervicalgia 02/26/2011 12/14/2017 Non-traumatic compartment sy ndrome of upper extremity 02/26/2011 12/14/2017 Pain in limb 02/26/2011 12/14/2017 PHLEBITIS OF DEEP VEINS OF RIGHT ARM 01/07/2010 11/07/2015 documented as of this encounter (statuses as of 04/05/2024) Immunizations Name Administration Dates Next Due COVID-19 [...] 8:30 AM EST Pharmacy Pharmacy Hematology Oncology [address] [place] [address] [facility] [place] Hem/Onc [address] [place] [address] 04/08/2024 11:15 AM EST Office Visit Hematology/Oncology [facility] [place] [address] [place] [phone] Kevin Canchola MD [address] [place] [address] 04/22/2024 10:00 AM EST Office Visit [address] [phone] Mikal Butler MD [address] [place] [address] [place] [address] Health Maintenance Due Date Last Done Comments [...] this encounter Medical Devices Implanted Type Area Sales Applications Engineer Device Identifier Shelf Expiration Date Model / Serial / Lot Port Implant W8f Poly Cath - [id number] Implanted:Qty : 1 on 11/18/2023 by Gregory Trevino MD at OR [facility] Right: Chest CR BARD : PERIPHERAL VASCULAR [id number] 09/03/2024 [id number] / / [id number] documented as of this encounter Procedures Procedure Name Priority Date/Time Associated Diagnosis Comments CHEMISTRY-OUTSIDE Routine 04/04/2024 documented in this encounter Results * (ABNORMAL) CHEMISTRY-OUTSIDE (04/04/2024) Not all results display below - see scan for full detail SCAN INCLUDES: CBCD, BLOOD TYPE, AB SCREEN, PACKED CELLS LEUKOREDUCED OUTSIDE LAB (SEE SCANNED REPORT) CREATININE OUTSIDE [...] LAB OUTSIDE LAB (SEE SCANNED REPORT) HEMOGLOBIN, [id number] LAB OUTSIDE LAB (SEE SCANNED REPORT) PHOSPHORUS-OUTSI DE LAB OUTSIDE LAB (SEE SCANNED REPORT) PTH-OUTSIDE LAB OUTS FRED LAB (SEE SCANNED REPORT) MICROALBUMIN RATIO-OUTSIDE LAB OUTSIDE LAB (SEE SCANNED REPORT) PROTEIN, UA-OUTSIDE LAB OUTSIDE LAB (SEE SCANNED REPORT) HGB 7.0(A) 12.0 - 16.0 G/DL OUTSIDE LAB (SEE SCANNED REPORT) 04/04/2024 Kevin Canchola MD LABORATORY Final Result OUTSIDE [...] Power of Attor abraham? No Care Teams Physicist Light And Optics Relationship Specialty Start Date End Date Mikal Butler MD [address] [place] [address] [place] [address] PCP - General Family Medicine 11/21/16 documented as of this encounter
--- OUTSIDE RECORDS SUMMARY | 2024-05-11 20:35 | External Medical Summary | Summary of Care ---
Author Name Unknown Organization [facility] Address [address] [place] [address] Phone [phone] Care Team Providers Care Production Assistant Name Role Phone Mikal Butler MD Primary Care Provide r Reason for Visit * Reason Onset Date Comments Appointment 04/11/2024 Encounter Details Date Type Department Care Team (Late st Contact Info) Description 04/11/2024 Telephone Hematology/Oncology Treatment, [place] [address] [place] [address] Kevin Canchola MD [address] [place] [address] Appointment Allergies Active Allergy Reactions Criticality Noted [...] HCl 4 MG/0.1ML Nasal Liquid (Narcan Nasal) [place] 1 spray nasal single dose as [...] encounter Miscellaneous Notes * Telephone Encounter - Janay White RN [...] AM EST Office Visit Family Medicine [address] [place] [address] Mikal Butler MD [address] [place] [address] [place] [address] 05/11/2024 11:00 AM EST Office Visit Hematology/Oncology [address] [place] [phone] Kevin Canchola MD 200 [facility] [place] [address] Health Maintenance Due Date Last Done Comments [...] 02/15/2010, Additional history exists COVID-19 Vaccine ( - season) 2023 04/15/2023, 09/21/2020, 08/24/2020 Influenza Vaccine [...] this encounter Medical Devices Implanted Type Area Lidar Technician Device Identifier Shelf Expiration Date Model / Serial / Lot Port Implant W8f Poly Cath - [id number] Implanted:Qty : 1 on 11/18/2023 by Gregory Trevino MD at [facility] Right: Chest CR BARD : PERIPHERAL VASCULAR [id number] 09/03/2024 [id number] / / [id number] documented as of this encounter Advance Directives [...] Power of Attor abraham? No Care Teams Production Assistant Relationship Specialty Start Date End Date Mikal Butler MD [address] [place] [address] [place] [address] PCP - General Family Medicine 11/21/16 documented as of this encounter
--- OUTSIDE RECORDS SUMMARY | 2024-05-11 20:35 | External Medical Summary | Summary of Care ---
Author Name Unknown Organization [facility] Address [address] [place] [address] Phone [phone] Care Team Providers Care Credit Operations Processor Name Role Phone Mikal Butler MD Primary Care Provide r Reason for Visit * Reason Onset Date Comments Appointment 04/11/2024 Encounter Details Date Type Department Care Team (Late st Contact Info) Description 04/11/2024 Telephone Hematology/Oncology Treatment, [place] [address] [place] [address] Kevin Canchola MD 200 [place] [address] Appointment Allergies Active Allergy Reactions Criticality Noted Date Comments Amoxicillin Rash High 01/18/2024 Nausea, Vomiting, Diarrhea Penicillins 03/18/2012 documented as of this encounter (statuses as of 04/11/2024) Medications ACYCLOVIR 800 MG PO TABSIndications :Shingles [...] HCl 4 MG/0.1ML Nasal Liquid (Narcan Nasal) [place] 1 spray nasal single dose as needed [...] 10:00 AM EST Office Visit Family Medicine [address] [place] [address] Mikal Butler MD [address] [place] [address] [place] [address] 05/11/2024 11:00 AM EST Office Visit Hematology/Oncology [address] [place] [phone] Kevin Canchola MD 200 [facility] [place] [address] Health Maintenance Due Date Last Done Comments [...] this encounter Medical Devices Implanted Type Area Digital Archivist Device Identifier Shelf Expiration Date Model / Serial / Lot Port Implant W8f Poly Cath - [id number] Implanted:Qty : 1 on 11/18/2023 by Gregory Trevino MD at [facility] Right: Chest CR BARD : PERIPHERAL VASCULAR [id number] 09/03/2024 [id number] / / [id number] documented as of this encounter Advance Directives [...] Power of Attor abraham? No Care Teams Credit Operations Processor Relationship Specialty Start Date End Date Mikal Butler MD [address] [place] [address] [place] [address] PCP - General Family Medicine 11/21/16 documented as of this encounter
--- OUTSIDE RECORDS SUMMARY | 2024-05-11 20:35 | External Medical Summary | Summary of Care ---
Author Name Unknown Organization [facility] Address [address] [place] [address] Phone [phone] Care Team Providers Care Sandwich Peddler Name Role Phone Mikal Butler MD Primary Care Provide r Encounter Details Date Type Department Care Team (Late st Contact Info) Description 03/24/2024 Result Scan Unspecified Department <No scans attached> Allergies Active Allergy Reactions Criticality Noted Date Comments Amoxicillin Rash High 01/18/2024 Nausea, Vomiting, Diarrhea Penicillins 03/18/2012 documented as of this encounter (statuses as of 04/01/2024) Medications Buprenorphine HCl-Naloxone HCl 8-2 MG Sublingual [...] HCl 4 MG/0.1ML Nasal Liquid (Narcan Nasal) [place] 1 spray nasal single dose as needed [...] as needed for Itching. 120 Tablet 2 10/28/202 4 Active Lidocaine-Prilo janee 2.5-2.5 % External [...] as of this encounter (statuses as of 04/01/2024) Active Problems Problem Noted Date Diagnosed Date [...] as of this encounter (statuses as of 04/01/2024) Resolved Problems Problem Noted Date Diagnosed Date Resolved Date Obesity, Class I, BMI 30.0-3 4.9 (see actual BMI) 02/26/2011 11/07/2015 Cervicalgia 02/26/2011 12/14/2017 Non-traumatic compartment sy ndrome of upper extremity 02/26/2011 12/14/2017 Pain in limb 02/26/2011 12/14/2017 PHLEBITIS OF DEEP VEINS OF RIGHT ARM 01/07/2010 11/07/2015 documented as of this encounter (statuses as of 04/01/2024) Immunizations Name Administration Dates Next Due COVID-19 [...] 8:30 AM EST Pharmacy Pharmacy Hematology Oncology [facility] [address] [place] [address] [facility] [place] Hem/Onc [address] [place] [address] 04/08/2024 11:15 AM EST Office Visit Hematology[facility]On[facility] [phone] Kevin Canchola MD [address] [facility] [place] [address] 04/22/2024 10:00 AM EST Office Visit Family Medicine [address] [phone] Mikal Butler MD [address] [place] [address] [place] [address] Health Maintenance Due Date Last Done Comments [...] this encounter Medical Devices Implanted Type Area Snuff Grinder Device Identifier Shelf Expiration Date Model / Serial / Lot Port Implant W8f Poly Cath - [id number] Implanted:Qty : 1 on 11/18/2023 by Gregory Trevino MD at [facility] Right: Chest CR BARD : PERIPHERAL VASCULAR [id number] 09/03/2024 [id number] / / [id number] documented as of this encounter Procedures Procedure Name Priority Date/Time Associated Diagnosis Comments OUTSIDE LAB RESULTS 03/24/2024 documented in this encounter Results * OUTSIDE LAB RESULTS (03/24/2024) 03/24/2024 us No Physician Data Unknown LABORATORY Final Result documented in this encounter [...] Power of Attor abraham? No Care Teams Sandwich Peddler Relationship Specialty Start Date End Date Mikal Butler MD [address] [place] [address] [place] [address] PCP - General Family Medicine 11/21/16 documented as of this encounter
--- OUTSIDE RECORDS SUMMARY | 2024-05-11 20:35 | External Medical Summary | Summary of Care ---
Author Name Unknown Organization [facility] Address [address] [place] [address] Phone [phone] Care Team Providers Care Braille Operator Name Role Phone Mikal Butler MD Primary Care Provide r Reason for Visit * Reason Comments Appointment Former patient of Dr Gaviota Leyva. New to Dr. Canchola Encounter Details Date Type Department Care Team ([facility] st Contact Info) Description 04/08/2024 11:15 AM EST Office Visit Hematology/Oncology [facility] [place] [address] [facility] [phone] Kevin Canchola MD [address] [facility] [place] [address] Acute myeloid leukemia not having achieved remission (HCC)*; Antineoplastic chemotherapy induced pancytopenia (HCC) Allergies Active Allergy Reactions Criticality Noted Date Comments Amoxicillin Rash High 01/18/2024 Nausea, Vomiting, Diarrhea Penicillins 03/18/2012 documented as of this encounter (statuses as of 04/08/2024) Medications ACYCLOVIR 800 MG PO TABSIndication s:Shingles One pill by mouth 5 times a day for 7 days for shingles 35 Tab 0 09/07/20 12 Active Buprenorphine HCl-Naloxone HCl 8-2 MG [...] HCl 4 MG/0.1ML Nasal Liquid (Narcan Nasal) [place] 1 spray nasal single dose as needed [...] 30 Tablet 6 4 11:11 AM EST 10/09/20 24 Active Posaconazole 100 MG Oral Tablet [...] daily. 30 Tablet 3 04/08/19 25 Active Furosemide 40 MG Oral Tablet (Lasix)Indicat [...] Sign Reading Time Taken Comments Blood Pressure 128/73 04/08/2024 10:41 AM EST Pulse 62 04/08/2024 10:41 AM EST Temperature 36.3 C (97.3 F) 04/08/2024 10:[address] Respiratory Rate - - Oxygen Saturation 99% 04/08/2024 10:41 AM EST Inhaled Oxygen Concentration - - Weight 76.2 kg (168 lb) 04/08/2024 10:41 AM EST Height - - Body Mass Index 27.12 11/18/2023 12:13 PM EDT documented in this [...] documented in this encounter Progress Notes * Kevin Canchola MD - 04/08/2024 11:15 AM EST Hematology/Oncology Outpatient Clinic note [facility] [place] [address] NAME: Sonia Mccarthy :1960 63 years old female, DIAGNOSIS: - 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 - MDS FISH showed a positive for 5q deletion and trisomy 8 - AML FISH PANEL RESULTS: Normal results seen for the 8;21, 11 KMT2A (MLL), 15;17, 16, and 20 probes. NGS checkup --> FLT3, IDH1 and IDH2 --> negative -TP53 positive. KMT2A positive She has chronic bilateral leg edema and the leg cellulitis type of symptoms. She is on Lasix. Bone marrow examination done on 03/1924 at [facility] showed no evidence of residual acute leukemia, variable hypocellular bone marrow around 10 to 20% with trilineage hematopoiesis. Grade 1 reticulin fibrosis. Former patient of Dr. Leyva. CURRENT TREATMENT: - She continues to be on continuous venetoclax 100 mg (dose reduced due to concurrent posaconazole). As of 04/08/2024, advised him to discontinue venetoclax. She will continue Levaquin, posaconazole and acyclovir prophylaxis. She takes Lasix 40 mg every day, advised him to cut down to every other day. She will continue to have CBCD checkup twice a week at [facility]: -2 units of PRBC if the hemoglobin is less than 6 - 1 unit of Platelet for the Platelet count less than 10,000. PREVIOUS TREATMENT: Cycle 1 Vidaza +venetoclax: 10/28/2023-11/03/2023 Cycle 2 Vidaza plus venetoclax: 12/14/2023-12/22/2023 01/19/2024: Bone marrow biopsy: No evidence of residual leukemia with flow cytometry of the bone marrow biopsy shows NK cell hyperplasia and hemodilution. Cycle 3 Vidaza +venetoclax: 02/08/2024-02/16/2024 OTHER IMPORTANT HISTORY: cervical spondylosis w radiculopathy, HSV 2 infection, opioid dependence, DVT on xarelto( currentlynot on AC due to AML treatment associated thrombocytopenia), and PVD. INTERVAL HISTORY: She has come the clinic for the follow-up, she came to clinic by herself. She lives by herself, HER2 daughter lives nearby. She came to the clinic via public transportation. She lives in [place]. Currently she is on venetoclax 100 mg every day. She has bilateral leg edema with a erythematous skin changes, itching, No fever, good appetite, no new cardiac or pulmonary symptoms, no nausea no vomiting, no bleeding from the sites, currently she is not on any anticoagulant treatment. She takes acyclovir, posaconazole and Levaquin prophylaxis. She receives periodic blood and Platelet transfusion at [facility]. She gets blood workup twice a day week. Past Medical History: Diagnosis Date BMI 28.0-28.9,adult [...] Surgical History: Procedure Laterality Date INFORMATION 08/18/09 Amite- blood clots removed in right arm. INFORMATION 08/[address] [facility] TUNN ACC DEV;5 YRS/OLDER Right 11/18/2023 INSERT TUNNELED CENTRAL VENOUS ACCESS WITH SUBQ PORT performed by Gregory Trevino MD at [facility] IR BIOPSY 03/25/2024 REMOVAL OF TONSILS, UNDER AGE 11 Current Outpatient Medications Medication Sig Dispense Refill ACYCLOVIR 800 MG PO TABS One pill by mouth 5 times a day for 7 days for shingles 35 Tab 0 Buprenorphine HCl-Naloxone HCl 8-2 MG Sublingual Tablet Sublingual (Suboxone) Place 1.25 tablet under tongue once a day as directed Ventolin HFA 108 (90 Base) MCG/ACT Inhalation Aerosol Solution Inhale 2 Puffs by mouth every 4 hours as needed for Wheezing (cough). (Patient not taking: Reported on 11/18/2023) 8 g 5 Cetirizine HCl 10 MG Oral Tablet (ZyrTEC) Take 1 Tablet by mouth in the morning. 90 Tablet 1 Pantoprazole Sodium 40 MG Oral Tablet Delayed Release (Protonix) Take 1 Tablet by mouth in the morning. (Patient not taking: Reported on 12/21/2023) 60 Tablet 5 Prochlorperazine Maleate 5 MG Oral Tablet (Compazine) Take 2 Tablets by mouth every 6 hours as needed for Nausea or Vomiting. 60 Tablet 0 Naloxone HCl 4 MG/0.1ML Nasal Liquid (Narcan Nasal) [place] 1 spray nasal single dose as needed Use one inhaler immediately for unresponsive patient. Call 911. If patient does not respond in 2-4 minutes, use 2nd inhaler. (Patient not taking: Reported on 11/18/2023) Potassium Chloride ER 10 MEQ Oral Tablet Extended Release Take 2 Tablets by mouth in the morning and 2 Tablets before bedtime. 120 Tablet 2 Metoprolol Tartrate 25 MG Oral Tablet (Lopressor) Take 1 Tablet by mouth in the morning and 1 Tablet before bedtime. 60 Tablet 5 Venetoclax 100 MG Oral Tablet (Venclexta) Take 1 Tablet by mouth in the morning. 30 Tablet 6 Posaconazole 100 MG Oral Tablet Delayed Release (Noxafil) Take 300 mg by mouth in the morning. 90 Tablet 6 Acyclovir 400 MG Oral Tablet (Zovirax) Take 1 Tablet by mouth in the morning and 1 Tablet before bedtime. 60 Tablet 5 hydrOXYzine HCl 25 MG Oral Tablet Take 2 Tablets by mouth every 6 hours as needed for Itching. 120 Tablet 2 Lidocaine-Prilocaine 2.5-2.5 % External Cream (Emla) APPLY TO SKIN OVER MEDIPORT & COVER 1HR PRIOR TO ACCESSING. 30 g 0 Allopurinol 300 MG Oral Tablet (Zyloprim) Take 1 Tablet by mouth in the morning. 30 Tablet 0 Furosemide 40 MG Oral Tablet (Lasix) Take 1 Tablet by mouth in the morning. 30 Tablet 0 levoFLOXacin 250 MG Oral Tablet (Levaquin) Take 1 Tablet by mouth in the morning. Take only when absolute neutrophil counts (ANC) is less than 0.5.. 30 Tablet 6 Ondansetron HCl 8 MG Oral Tablet (Zofran) Take 1 Tablet by mouth daily. 20 Tablet 0 No current facility-administered medications for this visit. Family History Problem Relation Name Age of Onset Breast Cancer Mother Cancer Mother breast Asthma Brother Diabetes Grandmother (Maternal) Diabetes Aunt (Unspecified) Social History Socioeconomic History Marital status: Spouse name: Not on file Number of children: Not on file Years of education: Not on file Highest education level: Not on file Occupational History Not on file Tobacco Use Smoking status: Former Current packs/day: 0.00 Average packs/day: 4.0 packs/day for 52.5 years (210.1 ttl pk-yrs) Types: Cigarettes Start date: 1971 Quit date: 10/19/2023 Years since quittin.4 Smokeless tobacco: Never Vaping Use Vaping status: [...] - for ages0-17 years): Not on file On exam: LMP 05/01/2013 BP 128/73 (BP Site: Left Arm, BP Position: Sitting, BP Cuff Size: Regular) | Pulse 62 | Temp 36.3 C (97.3 F) (Tympanic) | Wt 76.2 kg (168 lb) | LMP 05/01/2013 | SpO2 99% | BMI 27.12 kg/m | BSA1.88 m Constitutional: Patient is alert, cooperative and oriented x 3. Well built woman, Patient is in no acute distress. HEENT: No icterus, pallor, Throat and pharynx normal. Sinuses are non-tender. Neck: Supple and without lymphadenopathy or masses. No JVD. No Palpable supraclavicular lymph nodes. Lungs: Clear to auscultation. Bilateral symmetric air entry. No wheezing or rhonchi. Cardiovascular: Normal heart sounds, no murmurs.Regular rate and rhythm. Abdomen: soft, nontender, no hepatomegaly, no splenomegaly. Bowel sounds are normal. Neurological: No gross focal neurological deficit; walks with a normal gait. Extremities: No finger clubbing, No cyanosis. Bilateral leg edema with erythematous changes suggestchronic cellulitis. Skin:: No skin rash. SPINE: No spinal or paraspinal tenderness. LABS: Blood workup done on 04/07/2024 at [facility]: -WBC 270, Hemoglobin and hematocrit -7/19.4, Platelet count of 1000. -BUN/Creat: 24/1.1, normal LFT ( 03/28/2024). IMAGING: CT scan of the abdomen and pelvis done on 04/08/2023: 1. 3 mm right renal calculus. No ureteral calculi. No hydronephrosis. No urothelial lesions identified although ureters and bladder incompletely opacified. 2. Several mildly enlarged retroperitoneal lymph nodes, as described above. These are probably benign although are indeterminate and a follow-up CT of the abdomen and pelvis in 6 months to ensure stability is recommended. 3. 1.3 cm nodular enhancing/hyperdense focus within the gallbladder fundus. This probably reflects adenomyomatosis. A gallbladder mass is considered less likely but could appear similar. This can be assessed with a right upper quadrant ultrasound. 4. 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 This isage-indeterminate but probably chronic. Lower extremity Doppler evaluation on 04/09/2023 showed acute DVT in the left popliteal vein. WBC of thrombophlebitis also noted measuring approx 28 mm in the length ASSESSMENT AND PLAN: 63-year-old the female, a case of acute myeloid leukemia diagnosed in October 2019, so far she has received 3 cycles with Vidaza and venetoclax, last Vidaza was received on 02/16/2024, venetoclax continued at 1 mg per day I reviewed her blood workup, she has significant pancytopenia, she gets periodic blood and Platelettransfusion at [facility]. She had 2 bone marrow examination done after starting the treatment, both showed no evidence of residual leukemia, hypocellular bone marrow noted She is on acyclovir, posaconazole and Levaquin prophylaxis. No infection. Chronic leg edema present. She is on Lasix. Previous history of lower extremity DVT but anticoagulant has been discontinued because of significantly low Platelet count. Overall she is feeling well, usual symptoms of anemia present. Ambulating slowly by herself, she lives by herself. I would like to hold venetoclax at this time, she will continue to have CBCD checkup twice a week at [facility] and a blood and Platelet transfusion as needed. She will continue acyclovir, posaconazole and Levaquin prophylaxis. E-prescribed Lasix and Zofran. We talked about prognosis in her case. I am planning to see her back in the clinic about [address] Kevin Canchola Hem/Onc (This note was completed using the dictation program Fluency Direct. As such, there may be misspellings word substitutions, or other variations that should not change the essence of the clinical content of this encounter note. If there is need for further clarification, please direct questions to the provider listed above.) documented in this encounter Nursing Notes * Maki Cid MED ASSIST - 04/08/2024 10:53 AM EST Patient identifed by name and birthdate Do you have any concerns about pain management for today's visit? Yes. Patient instructed to discuss pain concerns with provider during the visit today Living Will or Advance Directive for Health Care as noted on the problem list. [facility] is a way you can talk to your provider on line through e-mail. Would you like to sign up? I can activate it for you? ALREADY ACTIVE Filed Vitals: 04/08/24 1041 BP: 128/73 Pulse: 62 Temp: 36.3 C (97.3 F) TempSrc: Tympanic SpO2: 99% Weight: 76.2 kg (168 lb) Patient was instructed to not get up on the exam table/exam chair until directed and assisted by their provider; patient is to remain seated in the chair/ wheelchair/ exam table/ exam chair for fall prevention and safety reasons. Patient is aware to have assistance to step down off exam table/exam chair with personnel. Patient voiced full comprehension of instructions. Pt has redness on her legs along with scabbing. The scabs are yellow in color. The skin on her legsis dry and flaky. She states that it is painful at times and it is hard to sleep and get up/walk. Pt also stated she needs refills on medications and has been unable to do so documented in this encounter Plan of Treatment Upcoming Encounters Date Type Department Care Team (Late st Contact Info) Description 04/22/2024 10:00 AM EST Office Visit Family Medicine [address] [place] [phone] Mikal Butler MD [address] [place] [address] [place] [id number] 05/11/2024 11:00 AM EST Office Visit Hematology/Oncology [address] [place] [phone] Kevin Canchola MD [address] [place] [address] Health Maintenance Due Date Last Done Comments [...] this encounter Medical Devices Implanted Type Area Pharmaceutical Scientist Device Identifier Shelf Expiration Date Model / Serial / Lot Port Implant W8f Poly Cath - [id number] Implanted:Qty : 1 on 11/18/2023 by Gregory Trevino MD at [facility] Right: Chest CR BARD : PERIPHERAL VASCULAR [id number] 09/03/2024 [id number] / / [id number] documented as of this encounter Visit Diagnoses Diagnosis Acute myeloid leukemia not having achieved remission (HCC)- Primary Antineoplastic chemotherapy induced pancytopenia (HCC) documented in this encounter Advance Directives [...] Power of Attor abraham? No Care Teams Braille Operator Relationship Specialty Start Date End Date Mikal Butler MD [address] [place] [address] [place] [address] PCP - General Family Medicine 11/21/16 documented as of this encounter"
--- OUTSIDE RECORDS SUMMARY | 2024-05-11 20:35 | External Medical Summary | Summary of Care ---
Author Name Unknown Organization [facility] Address [address] [place] [address] Phone [phone] Care Team Providers Care Junior Legal Secretary Name Role Phone Mikal Butler MD Primary Care Provide r Encounter Details Date Type Department Care Team (Late st Contact Info) Description 03/24/2024 Result Scan Unspecified Department Mikal Butler MD [address] [place] [address] [place] [id number] <No scans attached> Allergies Active Allergy Reactions [...] HCl 4 MG/0.1ML Nasal Liquid (Narcan Nasal) [place] 1 spray nasal single dose as needed [...] 10:00 AM EST Office Visit Family Medicine [address] [place] [phone] Mikal Butler MD [address] [place] [address] [place] [address] 05/11/2024 11:00 AM EST Office Visit Hematology/Oncology [facility] [address] [place] [phone] Kevin Canchola MD [address] [place] [address] Health Maintenance Due Date Last Done Comments [...] this encounter Medical Devices Implanted Type Area Director Of Cardiology Device Identifier Shelf Expiration Date Model / Serial / Lot Port Implant W8f Poly Cath - [id number] Implanted:Qty : 1 on 11/18/2023 by Gregory Trevino MD at [facility] Right: Chest CR BARD : PERIPHERAL VASCULAR [id number] 09/03/2024 [id number] / / [id number] documented as of this encounter Procedures Procedure Name Priority Date/Time Associated Diagnosis Comments PATHOLOGY SCANNED RESULT 03/24/2024 documented in this encounter Results * PATHOLOGY SCANNED RESULT (03/24/2024) 03/24/2024 Mikal Butler MD PATHOLOGY Final Result documented in this encounter Advance [...] Power of Attor abraham? No Care Teams Junior Legal Secretary Relationship Specialty Start Date End Date Mikal Butler MD [address] [place] [address] [place] [address] PCP - General Family Medicine 11/21/16 documented as of this encounter
--- OUTSIDE RECORDS SUMMARY | 2024-05-11 20:36 | External Medical Summary | Summary of Care ---
Author Name Unknown Organization [facility] Address [address] [place] [address] Phone [phone] Care Team Providers Care Learning Engineer Name Role Phone Mikal Butler MD Primary Care Provide r Reason for Visit * Reason Comments Re-Check Chemotherapy Encounter Details Date Type Department Care Team (Late st Contact Info) Description 03/21/2024 10:00 AM EST Office Visit Hematology/Oncology [facility] [place] [address] [place] [address] Dee Leyva MD [address] [facility] [place] [phone] Acute myeloid leukemia not having achieved remission (HCC)* Allergies Active Allergy Reactions Criticality Noted Date Comments Amoxicillin Rash High 01/18/2024 Nausea, Vomiting, Diarrhea Penicillins 03/18/2012 documented as of this encounter (statuses as of 03/28/2024) Medications ACYCLOVIR 800 MG PO TABSIndications :Shingles One pill by mouth 5 times a day for 7 days for shingles 35 Tab 0 09/07/201 2 Active Buprenorphine HCl-Naloxone HCl 8-2 MG [...] HCl 4 MG/0.1ML Nasal Liquid (Narcan Nasal) [place] 1 spray nasal single dose as needed [...] as of this encounter (statuses as of 03/28/2024) Active Problems Problem Noted Date Diagnosed Date [...] as of this encounter (statuses as of 03/28/2024) Resolved Problems Problem Noted Date Diagnosed Date Resolved Date Obesity, Class I, BMI 30.0-3 4.9 (see actual BMI) 02/26/2011 11/07/2015 Cervicalgia 02/26/2011 12/14/2017 Non-traumatic compartment sy ndrome of upper extremity 02/26/2011 12/14/2017 Pain in limb 02/26/2011 12/14/2017 PHLEBITIS OF DEEP VEINS OF RIGHT ARM 01/07/2010 11/07/2015 documented as of this encounter (statuses as of 03/28/2024) Immunizations Name Administration Dates Next Due COVID-19 [...] Sign Reading Time Taken Comments Blood Pressure 105/48 03/21/2024 10:04 AM EST Pulse 60 03/21/2024 10:04 AM EST Temperature 36.3 C (97.4 F) 03/21/2024 10:[address] Respiratory Rate - - Oxygen Saturation 98% 03/21/2024 10:04 AM EST Inhaled Oxygen Concentration - - Weight 75.8 kg (167 lb) 03/21/2024 10:04 AM EST Height - - Body Mass Index 26.95 11/18/2023 12:13 PM EDT documented in this [...] of Assessment Author Yes 10/22/2023 9:24 AM Toma Perkins RN documented as of this encounter Mental Status * Because of a physical, mental, or emotional condition, do you have serious difficulty concentrating, remembering, or making decisions? 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 Current treatment: Completed 3 cycles of Vidaza and when venetoclax, cycle 3 given from 02/08/2024-02/16/2024, due to start cycle 4 Subjective Sonia Mccarthy is a 63 year old female presents for follow up re: AML, s/p 3 cycles of Vidaza and when venetoclax, cycle 3 given from 02/08/2024-02/16/2024 (only 6 doses given, patient did not come in for day 7 dose due to transportation problems). Her labs performed today on 03/21/2024 that shows ongoing severe pancytopenia. She continues to be on continuous venetoclax 100 mg (dose reduced due to concurrent posaconazole). She also continues to be on the triple antimicrobial prophylaxis. She was last seen on 03/14/2024 by CARMEN Ramirez, cycle 4 chemo could not be started due to severe pancytopenia HPI: Sonia Mccarthy is a 63 year old female diagnosed in 10/2023 with AML with complex karyotype, del 5q, monosomy 17. She was admitted to [facility] on 10/22/2023, received Cycle #1 chemo Vidaza + Venclexta on 10/28/2023- 11/03/2023. She was discharged from the hospital after Cycle #1 on 11/04/2023. She has a significant pmhx of cervical spondylosis w radiculopathy, HSV 2 infection, opioid dependence, DVT on xarelto( currently not on AC due to AML treatment associated thrombocytopenia), and PVD. She had presented to [facility] w feeling like she could not concentrate/confusion and some sob and was found to have anemia w a hgb 4.9 and plt of 40. Patient received several units of PRBCs and also had a bone marrow biopsy performed. While at the OSH she experienced new onset a fib. Cardiology was consulted and did not start on AC given her ability to maintain NSR and risk of bleeding. Patient was hemodynamically stable upon transfer to [facility]. She was started on azacitadine (7 days) and venetoclax on 10/28/2023 ( 7 days cycle completed on 11/03/2023, followed by continuation of Venclexta 100 mg po qday. The patient has tolerated the treatment well so far. Started metoprolol for intermittent afib. Plavix and Xarelto are on hold for now due to thrombocytopenia, with plan to restart anticoagulation once the platelet count improves due to her history of DVT and atrial fibrillation. At the time of discharge from [facility] , she was started acyclovir, levaquin, posaconazole. She was instructed to continue venetoclax 100 mg day (dose reduced due to the patient being on posaconazole). 11/06/2023: She returns for follow up at [facility] due to proximity from her home in [place]. The plan is for her to continue venetoclax 100 mg daily, undergo labs twice weekly and receive next-day blood transfusions at [facility] as needed. Patient has difficulty with transportation and uses medical ride assistance. She does have a son and a daughter, but unable to help her much with transportation due to their work schedule. She reports doing well and does not have any significant symptoms.Bruises from multiple IV draws previously are slowly resolving. She has b/l lower leg (shins) rash x 5-6 weeks now, itchy, not bleeding, not painful or tender to touch, has b/l 2+ LE edema, reports dry stretchy skin on top of the rash, she is using OTC emolient creams that helps with the itching. Mediport was placed on 11/18/2023. 11/23/2023: Her last platelet transfusion was on 11/23/2023 -received 2 units of platelet transfusion due to platelet count of 7K. 11/30/2023: Office visit for follow up. She continues to have significant cytopenias. Her labs 12/08/2023 showed WBC 1.84, hemoglobin 6.5 grams/deciliter (she received 1 unit of PRBC), platelet count 161K. 12/10/2023: She was a no-show for her appointment on 12/10/2023. 12/14/2023: Patient returns today for follow-up office visit She underwent laboratory testing earlier today on 12/14/2023 that shows WBC 2.81, RBC 2.70, hemoglobin 8.0 grams/deciliter, hematocrit 24.7%, MCV 91.5, RDW 15.8, platelet count 250 1000. The WBC differential shows neutrophil 55% (ANC 1.55),lymphocytes 14% monocytes 25% with moderate degree of acanthocytes and polychromasia seen. She started cycle # 2 of her chemotherapy with Venclexta and Vidaza on 12/14/2023. She has completed 3 cycles of Vidaza and venetoclax. She continues to be on continuous venetoclax 100 mg (dose reduced due to concurrent posaconazole). Cycle 1 Vidaza +venetoclax: 10/28/2023-11/03/2023 Cycle 2 Vidaza plus venetoclax: 12/14/2023-12/22/2023 Overall she is tolerating the treatment well. She is needing frequent blood and platelet transfusions in the weeks following the chemotherapy. She denies any new symptoms or concerns. She underwent bone marrow biopsy on 01/19/2024, pathology results reviewed with the patient, shows no evidence of residual leukemia. The flow cytometry of the bone marrow biopsy that was performed on 01/19/2024 shows NK cell hyperplasia and hemodilution. Cycle 3 Vidaza +venetoclax: 02/08/2024-02/16/2024 She continues to be on acyclovir 400 mg p.o. twice daily, ondansetron as needed, Compazine as needed, metoprolol 25 mg p.o. twice daily, allopurinol 300 mg QD, levofloxacin 500 mg p.o. daily, Venclexta 100 mg p.o. daily, posaconazole 300 mg q.a.m. PMH: Patient Active Problem List Diagnosis Family hx-breast malignancy Family history of diabetes mellitus Dyslipidemia, goal LDL below 130 BMI 26.0-26.9,adult HSV-2 infection Opioid dependence, uncomplicated (HCC) History of DVT (deep vein thrombosis) Claudication in peripheral vascular disease (HCC) Tobacco use Pain of left calf Acute myeloid leukemia not having achieved remission (HCC) Persistent atrial fibrillation (HCC) Admission for antineoplastic chemotherapy Paroxysmal atrial fibrillation (HCC) Encounter for antineoplastic chemotherapy Encounter for adjustment and management of vascular access device Current Outpatient Medications Medication Sig Dispense Refill [...] HCl 4 MG/0.1ML Nasal Liquid (Narcan Nasal) [place] 1 spray nasal single dose as needed [...] Reactions Amoxicillin Rash Nausea, Vomiting, Diarrhea Penicillins Review of Systems Constitutional: Positive for fatigue. HENT: Negative. Eyes: Negative. Respiratory: Positive for shortness of breath (chronic). Cardiovascular: Negative. Gastrointestinal: Positive for abdominal pain (abdominal wall lesions due to vidaza skin injections- tender ecchymosis- vidaza changed to IV). Endocrine: Negative. Genitourinary: Negative. Musculoskeletal: Negative. Skin: Positive for rash (b/l legs present since before AML treatment was started on - elly im proved. Has abdominal wall tender ecchymosis from the Vidaza skin injections -improving now, since medications changed to IV) and wound (b/l legs). Allergic/Immunologic: Negative. Neurological: Negative. Psychiatric/Behavioral: Negative. Objective BP 105/48 (BP Site: Left Arm, BP Position: Sitting, BP Cuff Size: Regular) | Pulse 60 | Temp 36.3 C (97.4 F) (Tympanic) | Wt 75.8 kg (167 lb) | LMP 05/01/2013 | SpO2 98% | BMI 26.95 kg/m | BSA 1.88 m Physical Exam Constitutional: Appearance: Normal appearance. HENT: Head: Normocephalic and atraumatic. Eyes: General: No scleral icterus. Extraocular Movements: Extraocular movements intact. Conjunctiva/sclera: Conjunctivae normal. Pupils: Pupils are equal, round, and reactive to light. Cardiovascular: Rate and Rhythm: Normal rate and regular rhythm. Heart sounds: No murmur heard. Pulmonary: Effort: Pulmonary effort is normal. Breath sounds: Normal breath sounds. Abdominal: General: Abdomen is flat. Bowel sounds are normal. Palpations: Abdomen is soft. Musculoskeletal: Cervical back: Normal range of motion and neck supple. No tenderness. Right lower leg: Edema present. Left lower leg: Edema present. Lymphadenopathy: Cervical: No cervical adenopathy. Skin: Coloration: Skin is not jaundiced or pale. Findings: Rash (b/l shins, pruritic, symmetric, erythematous, not bleeding) present. No bruising. Neurological: General: No focal deficit present. Mental Status: She is alert and oriented to person, place, and time. Psychiatric: Mood and Affect: Mood normal. Behavior: Behavior normal. Thought Content: Thought content normal. Judgment: Judgment normal. ASSESSMENT/PLAN: Sonia Mccarthy is a 63 year old female diagnosed in 10/2023 with AML with complex karyotype, del 5qand monosomy 17. She has completed 3 cycles of Vidaza and venetoclax. She continues to be on continuous venetoclax 100 mg (dose reduced due to concurrent posaconazole). Cycle 1 Vidaza +venetoclax: 10/28/2023-11/03/2023 Cycle 2 Vidaza plus venetoclax: 12/14/2023-12/22/2023 01/19/2024: Bone marrow biopsy: No evidence of residual leukemia with flow cytometry of the bone marrow biopsy shows NK cell hyperplasia and hemodilution. Cycle 3 Vidaza +venetoclax: 02/08/2024-02/16/2024 Overall she is tolerating the treatment well. She is needing frequent blood and platelet transfusions in the weeks following the chemotherapy. She denies any new symptoms or concerns, has chronic fatigue as well as skin rash on her bilateral shins Acute myeloid leukemia not having achieved remission (HCC) (Primary) PLAN OF CARE DISCUSSED WITH PATIENT ON 03/21/2024 : Follow-up: Return in about 1 week (around 03/28/2024). 2 units of PRBC transfusion today on 03/21/2024 2 units of platelet transfusion today on 03/21/2024 Bone marrow biopsy SABINA-scheduled for 03/22/2024 Follow up with me in 1 week-scheduled for 03/28/2024 Hold chemotherapy for now due to severe pancytopenia Dee Leyva MD documented in this encounter Nursing Notes * Maki Cid MED ASSIST - 03/21/2024 10:05 AM EST Patient identifed by name and birthdate Do you have any concerns about pain management for today's visit? Yes. Patient instructed to discuss pain concerns with provider during the visit today Living Will or Advance Directive for Health Care as noted on the problem list. [facility] is a way you can talk to your provider on line through e-mail. Would you like to sign up? I can activate it for you? ALREADY ACTIVE Filed Vitals: 03/21/24 1004 BP: 105/48 Pulse: 60 Temp: 36.3 C (97.4 F) TempSrc: Tympanic SpO2: 98% Weight: 75.8 kg (167 lb) Patient was instructed to not get up on the exam table/exam chair until directed and assisted by their provider; patient is to remain seated in the chair/ wheelchair/ exam table/ exam chair for fall prevention and safety reasons. Patient is aware to have assistance to step down off exam table/exam chair with personnel. Patient voiced full comprehension of instructions. documented in this encounter Plan of Treatment Upcoming Encounters Date Type Department Care Team (Late st Contact Info) Description 04/04/2024 9:10 AM EST Laboratory Laboratory [facility] [address] [place] [phone] [place] [facility] [address] [place] [address] 04/04/2024 10:15 AM EST Hem/Onc Treatment Hematology/Oncology Treatment, [place] [address] [place], [place] [phone] [place], Chair 6 Hem Onc Scenery [address] [place], [place] [address] 04/05/2024 12:15 PM EST Hem/Onc Treatment Hematology/Oncology Treatment, [place] [address] [facility], [place] [phone] [place], Chair 6 Hem Onc Scenery [address] [place] [address] 04/07/2024 9:10 AM EST Laboratory Laboratory Scenery [place] [address] [place] [phone] [place], Lab Scenery [address] [facility] [place] [address] 04/07/2024 10:15 AM EST Hem/Onc Treatment Hematology/Oncology Treatment, [place] [address] [facility], [place] [phone] [place], Chair 5 Hem Onc Scenery [address] [place], [place] [address] 04/22/2024 10:00 AM EST Office Visit Family Medicine [address] [phone] Mikal Butler MD [address] [place] [address] [place] [address] Health Maintenance Due Date Last Done Comments HPV/Co-Test 1989 Cologuard 2004 Colonoscopy 2004 Colorectal Cancer Screening 2004 Fecal Occult Blood Test 2004 Sigmoidoscopy 2004 Lung Cancer Screening 2009 Pneumococcal Vaccine: Pediatrics (0 to 5 Years) [...] this encounter Medical Devices Implanted Type Area Cyber Security Specialist Device Identifier Shelf Expiration Date Model / Serial / Lot Port Implant [id number] Poly Cath - [id number] Implanted:Qty : 1 on 11/18/2023 by Gregory Trevino MD at [facility] Right: Chest CR BARD : PERIPHERAL VASCULAR [id number] 09/03/2024 [id number] / / [id number] documented as of this encounter Visit Diagnoses [...] Power of Attor abraham? No Care Teams Learning Engineer Relationship Specialty Start Date End Date Mikal Butler MD [address] [place] [address] [place] [phone] PCP - General Family Medicine 11/21/16 documented as of this encounter"
--- OUTSIDE RECORDS SUMMARY | 2024-05-11 20:36 | External Medical Summary | Summary of Care ---
Author Name Unknown Organization [facility] Address [address] [place] [address] Phone [phone] Care Team Providers Care Garden Labourer Name Role Phone Mikal Butler MD Primary Care Provide r Reason for Visit * Reason Onset Date Comments Appointment 03/28/2024 Encounter Details Date Type Department Care Team (Late st Contact Info) Description 03/28/2024 Telephone Hematology/Oncology Treatment, [place] [address] [place] [address] Dee Leyva MD [address] [place] [address] Appointment Allergies Active Allergy Reactions Criticality Noted Date Comments Amoxicillin Rash High 01/18/2024 Nausea, Vomiting, Diarrhea Penicillins 03/18/2012 documented as of this encounter (statuses as of 03/29/2024) Medications ACYCLOVIR 800 MG PO TABSIndications :Shingles [...] HCl 4 MG/0.1ML Nasal Liquid (Narcan Nasal) [place] 1 spray nasal single dose as needed [...] as of this encounter (statuses as of 03/29/2024) Active Problems Problem Noted Date Diagnosed Date [...] as of this encounter (statuses as of 03/29/2024) Resolved Problems Problem Noted Date Diagnosed Date Resolved Date Obesity, Class I, BMI 30.0-3 4.9 (see actual BMI) 02/26/2011 11/07/2015 Cervicalgia 02/26/2011 12/14/2017 Non-traumatic compartment sy ndrome of upper extremity 02/26/2011 12/14/2017 Pain in limb 02/26/2011 12/14/2017 PHLEBITIS OF DEEP VEINS OF RIGHT ARM 01/07/2010 11/07/2015 documented as of this encounter (statuses as of 03/29/2024) Immunizations Name Administration Dates Next Due COVID-19 [...] Telephone Encounter - Janay White RN - 03/29/2024 7:59 AM EST Patient had BMBx 03/24/24 at [facility]. Will need to see MD prior to any further treatment. Scheduling: - cancel all appts for labs/ treatment - add patient to see Dr Canchola for new return Thursday04/08/24 at 11:15am (sent staff message with who to bump) Called patient to review, she verbalized understanding. [...] Description 04/04/2024 9:10 AM EST Laboratory Laboratory Scenery [place] [address] [place] [phone] [place], Lab Scenery [address] [place] [address] 04/04/2024 10:15 AM EST Hem/Onc Treatment Hematology/Oncology Treatment, [place] [address] [facility], [place] [address] [place], Chair 6 Hem Onc Scenery [address] [place] [address] 04/05/2024 12:15 PM EST Hem/Onc Treatment Hematology/Oncology Treatment, [place] [address] [facility], [place] [address] [place], Chair 6 Hem Onc Scenery [address] [place] [address] 04/07/2024 9:10 AM EST Laboratory Laboratory Scenery [place] [address] [place] [phone] [place], Lab Scenery [address] [place] [address] 04/07/2024 10:15 AM EST Hem/Onc Treatment Hematology/Oncology Treatment, [place] [address] [place] [phone] [place], Chair 5 Hem Onc Scenery [address] [place] [address] 04/22/2024 10:00 AM EST Office Visit Family Medicine [address] [phone] Mikal Butler MD [address] [place] [address] [place] [address] Health Maintenance Due Date Last Done Comments [...] this encounter Medical Devices Implanted Type Area Credit Coordinator Device Identifier Shelf Expiration Date Model / Serial / Lot Port Implant W8f Poly Cath - [id number] Implanted:Qty : 1 on 11/18/2023 by Gregory Trevino MD at [facility] Right: Chest CR BARD : PERIPHERAL VASCULAR [id number] 09/03/2024 [id number] / / [id number] documented as of this encounter Advance Directives [...] Power of Attor abraham? No Care Teams Garden Labourer Relationship Specialty Start Date End Date Mikal Butler MD [address] [place] [address] [place] [id number] PCP - General Family Medicine 11/21/16 documented as of this encounter
--- OUTSIDE RECORDS SUMMARY | 2024-05-11 20:36 | External Medical Summary ---
Author Name Unknown Address Unknown Organization K09[facility] [place] [address] Laboratory Report Ordering Provider Test Date Status KAYLEE GOOD 03/28/2024 08:05:39 Final Observation Date Value Abnormality Reference (Units ) Status Nucleated erythrocytes/100 leukocytes [Ratio] in Blood by Automated count 03/28/2024 08:05:39 Final Performing Location [facility] [address]
--- OUTSIDE RECORDS SUMMARY | 2024-05-11 20:36 | External Medical Summary | Summary of Care ---
Author Name Unknown Organization [facility] Address [address] [place] [address] Phone [phone] Care Team Providers Care Talent Buyer Name Role Phone Mikal Butler MD Primary Care Provide r Reason for Visit * Reason Comments Outpatient Testing Encounter Details Date Type Department Care Team (Late st Contact Info) Description 03/28/2024 9:10 AM EST Laboratory Laboratory [facility] [place] [address] [place] [phone] [facility] Lab Scenery [address] [place] [address] Acute myeloid leukemia not having achieved remission [...] HCl 4 MG/0.1ML Nasal Liquid (Narcan Nasal) [place] 1 spray nasal single dose as needed [...] Upcoming Encounters Date Type Department Care Team (Latest Contact Info) Description 03/28/2024 8:30 AM EST Pharmacy Pharmacy Hematology Oncology [facility] [place] [address] [place] [address] [facility] Hem/Onc [address] [place] [address] 03/28/2024 10:00 AM EST Office Visit Hematology/Oncology Sc[facility]ery [place] [place] [address] [place] [phone] Dee Leyva MD [address] [place], [place] [address] [place] [address] Date of visit: 03/28/2024 03/28/2024 10:30 AM EST Hem/Onc Treatment Hematology/Oncology Treatment, [place] 200 [facility], [place] [phone] Estrella, Chair 11 Hem Onc Scenery [address] [facility] [place], [place] [address] Arrived 03/29/2024 9:00 AM EST Hem/Onc Treatment Hematology/Oncology Treatment, [place] 200 [facility], [place] [phone] Estrella, Chair 7 Hem Onc Scenery 200 [facility] [place], [place] [address] 03/31/2024 9:40 AM EST Laboratory Laboratory [facility] [place] [address] [place], [place] [phone] [place], Lab Scenery [address] [place], [place] [address] 03/31/2024 10:45 AM EST Hem/Onc Treatment Hematology/Oncology Treatment, [address], [place] [phone] Estrella, Chair 7 Hem Onc Scenery [address] [place], [place] [address] 04/01/2024 9:00 AM EST Hem/Onc Treatment Hematology/Oncology Treatment, [place] 200 [facility] [place] [address] Estrella, Chair 2 Hem Onc Scenery [address] [place], [place] [address] 04/04/2024 9:10 AM EST Laboratory Laboratory Scenery [place] [address] [place] [address] [place], Lab Scenery [address] [facility], [place] [address] 04/04/2024 10:15 AM EST Hem/Onc Treatment Hematology/Oncology Treatment, [place] 200 [facility], [place] [address] Estrella, Chair 6 Hem Onc Scenery [address] [place] [address] 04/05/2024 12:15 PM EST Hem/Onc Treatment Hematology/Oncology Treatment, [place] 200 [facility], [place] [address] Estrella, Chair 6 Hem Onc Scenery [address] [place], [place] [address] 04/07/2024 9:10 AM EST Laboratory Laboratory Scenery [place] [address] [place], [place] [address] [place], Lab Scenery [address] [place] [address] 04/07/2024 10:15 AM EST Hem/Onc Treatment Hematology/Oncology Treatment, [place] [address] [place] [facility] [place] [address] Estrella, Chair 5 Hem Onc Scenery [address] [place], [place] [address] 04/22/2024 10:00 AM EST Office Visit [address] [place] [phone] Mikal Butler MD [address] [place] [address] [place] [address] Pending Results Name Type Priority Associated Diagnoses Date /Time CBC WITH WBC DIFFERENTIAL Lab STAT Acute myeloid leukemia not having achieved remission (HCC) 03/28/2024 8:05 AM EST COMPREHENSIVE METABOLIC PANEL Lab STAT Acute myeloid leukemia not having achieved remission (HCC) 03/28/2024 8:05 AM EST URIC ACID Lab STAT Acute myeloid leukemia not having achieved remission (HCC) 03/28/2024 8:05 AM EST PHOSPHORUS Lab STAT Acute myeloid leukemia not having achieved remission (HCC) 03/28/2024 8:05 AM EST LD Lab STAT Acute myeloid leukemia not having achieved remission (HCC) 03/28/2024 8:05 AM EST CBC Lab STAT Acute myeloid leukemia not having achieved remission (HCC) 03/28/2024 8:05 AM EST DIFFERENTIAL, AUTOMATED Lab STAT Acute myeloid leukemia not having achieved remission (HCC) 03/28/2024 8:05 AM EST Health Maintenance Due Date Last Done Comments [...] COVID-19 Vaccine ( - season) 2023 04/15/2023, 04/15/2023, 09/21/2020, Additional history exists Influenza Vaccine (FLU shot) (#1) 2023 04/15/2023, 05/13/2022, 03/04/2021, Additional history exists Diabetes Screening 03/21/2027 03/21/2024, 1 05/15/2023, 03/07/2024, Additional history exists Lipid Panel 04/07/2028 04/07/2023, [...] this encounter Medical Devices Implanted Type Area Mri Special Procedures Technologist Device Identifier Shelf Expiration Date Model / Serial / Lot Port Implant W8f Poly Cath - [id number] Implanted:Qty : 1 on 11/18/2023 by Gregory Trevino MD at [facility] Right: Chest CR BARD : PERIPHERAL VASCULAR [id number] 09/03/2024 [id number] / / [id number] documented as of this encounter Visit Diagnoses [...] Power of Attor abraham? No Care Teams Talent Buyer Relationship Specialty Start Date End Date Mikal Butler MD [address] [place] [address] [place] [address] PCP - General Family Medicine 11/21/16 documented as of this encounter
--- OUTSIDE RECORDS SUMMARY | 2024-05-11 20:36 | External Medical Summary ---
Author Name Unknown Address Unknown Organization K09:[facility] [place] [address] Laboratory Report Ordering Provider Test Date Status KAYLEE GOOD 03/28/2024 08:05:39 Final Observation Date Value Abnormality Reference (Units ) Status Phosphate 03/28/2024 08:05:39 4.4 2.5-4.8 (m g/dL) Final Performing Location [facility] [address]
--- OUTSIDE RECORDS SUMMARY | 2024-05-11 20:36 | External Medical Summary | Summary of Care ---
Author Name Unknown Organization [facility] Address [address] [place] [facility] [place] [place] [address] Phone [phone] Care Team Providers Care Engineering Equipment Operator Name Role Phone Mikal Butler MD Primary Care Provide r Reason for Visit * Reason Onset Date Comments Appointment 03/14/2024 Encounter Details Date Type Department Care Team (Late st Contact Info) Description 03/14/2024 Telephone Hematology/Oncology [facility] [place] 200 [place] [address] Dee Leyva MD [address] [facility] [place] [address] Appointment Allergies Active Allergy Reactions Criticality [...] HCl 4 MG/0.1ML Nasal Liquid (Narcan Nasal) [place] 1 spray nasal single dose as needed [...] 24 Active Venetoclax 100 MG Oral Tablet (Venclexta)Niurka cations:Acute myeloid leukemia not having achieved remission (HCC) Take 1 Tablet by mouth in the morning. 30 Tablet 6 03/18/2024 11:11 AM EST 01/13/20 24 Active Posaconazole [...] 24 Active hydrOXYzine HCl 25 MG Oral TabletIndicatio ns:Acute myeloid leukemia not having achieved remission (HCC),Rash and nonspecific skin eruption Take 2 Tablets by mouth every 6 hours as needed for Itching. 120 Tablet 2 02/01/20 24 Active Lidocaine-Prilo janee 2.5-2.5 % External Cream (Emla)Indicatio ns:Acute myeloid leukemia not having achieved remission (HCC) APPLY TO SKIN OVER MEDIPORT & COVER 1HR PRIOR TO ACCESSING. 30 g 02/01/20 24 Active Allopurinol 300 MG Oral Tablet (Zyloprim)Indic ations:Acute myeloid leukemia not having achieved remission (HCC) Take 1 Tablet by mouth in the morning. 30 Tablet 02/19/20 24 Active Furosemide 40 MG Oral Tablet (Lasix)Indicati ons:Acute myeloid leukemia not having achieved remission (HCC) Take 1 Tablet by mouth in the morning. 30 Tablet 03/01/20 24 Active levoFLOXacin 250 MG Oral Tablet (Levaquin) Take 1 Tablet by mouth in the morning. Take only when absolute neutrophil counts (ANC) is less than 0.5.. 30 Tablet 6 03/07/20 24 Active Ondansetron HCl 8 MG Oral Tablet (Zofran)Indicat ions:Acute myeloid leukemia not having achieved remission (HCC) Take 1 Tablet by mouth daily. 20 Tablet 01/13/20 24 024 Discontin ued(Refil l) documented as of this [...] Telephone Encounter - Soha Geller LPN - 03/28/2024 11:17 AM EST Called and spoke with Sia, patient's Daughter, informed her the patient's treatment has been cancelled for 03/29/2024. She verbalized understanding. * Telephone Encounter - Soha Geller LPN - 03/28/2024 11:15 AM EST Left message for patient's daughter Maki, return phone number provided. To make her aware the patient will not need transportation tomorrow due to treatment being cancelled for 03/29/2024 * Telephone Encounter - Neymar Carpenter RN - 03/15/2024 2:43 PM EST [place]- please send patient reminder that her daughter is to bring her to her appointment on 03/29 fortreatment closer to that date. Thanks. * Telephone Encounter - Soha Geller LPN - 03/14/2024 2:56 PM EST My G sent. * Telephone Encounter - Soha Geller LPN - 03/14/2024 2:51 PM EST Called and spoke with GRETCHEN Porter at [facility], made her aware of changes in times on 03/24/2024 and 03/28/2024. She verbalized understanding. * Telephone Encounter - Soha Geller LPN - 03/14/2024 2:38 PM EST Called and spoke with Latrice, Informed her of patient's updated schedule for the patient as of this week up to the 03/29/2024. Latrice repeated back all dates and times. She states they are closed on [place] and will not be able to bring her. Latrice refused offer for faxed scheduled at thistime. Will contact her daughter in regards to arranging transportation for 03/29/2024. * Telephone Encounter - Ivania Diaz OSA - 03/14/2024 10:19 AM EST Pts scheduled * Telephone Encounter - Neymar Carpenter RN - 03/14/2024 9:19 AM EST Patient chemo being held by a week per Dr. Leyva. Scheduling- Cancel apts 03/14- 03/18 (treatment and labs) She will need scheduled for the following: - 2 hour treatment "Vidaza" 03/21 - 03/25, 03/28, 03/29 - Labs "CBCD,CMP,Phos,LD,Uric" 03/21, 03/24, 03/28 Ben[place]- Please call patients ride and let them know of the changes to her [facility] schedule and treatment schedule. documented in this encounter Plan of Treatment Upcoming Encounters Date Type Department Care Team (Late st Contact Info) Description 03/29/2024 9:00 AM EST Hem/Onc Treatment Hematology/Oncology Treatment, [place] [address] [place] [address] Estrella, Chair [address] [place] [address] 03/31/2024 9:40 AM EST Laboratory Laboratory [facility] [place] [address] [place] [address] [place], Lab Scenery [address] [address] 03/31/2024 10:45 AM EST Hem/Onc Treatment Hematology/Oncology Treatment, [place] 200 [facility] [place] [address] Park, Chair 7 Hem Onc Scenery [address] [place] [address] 04/01/2024 9:00 AM EST Hem/Onc Treatment Hematology/Oncology Treatment, [place] 200 [facility] [place] [address] Estrella, Chair 2 Hem Onc Scenery [address] [place], [place] [address] 04/04/2024 9:10 AM EST Laboratory Laboratory Scenery [facility] [address] [place] [address] Estrella, Lab Scenery [address] [address] 04/04/2024 10:15 AM EST Hem/Onc Treatment Hematology/Oncology Treatment, [place] 200 [facility] [place] [address] Estrella, Chair 6 Hem Onc Scenery [address] [place] [address] 04/05/2024 12:15 PM EST Hem/Onc Treatment Hematology/Oncology Treatment, [place] 200 [facility] [place] [address] Estrella, Chair 6 Hem Onc Scenery [address] [place] [address] 04/07/2024 9:10 AM EST Laboratory Laboratory Scenery [facility] [address] [place] [address] Estrella, Lab Scenery [address] [address] 04/07/2024 10:15 AM EST Hem/Onc Treatment Hematology/Oncology Treatment, [place] [address] [place] [address] Estrella, Chair 5 Hem Onc Scenery [address] [place] [address] 04/22/2024 10:00 AM EST Office Visit Family [address] [place] [phone] Mikal Butler MD [address] [place] [address] [place] [address] Health Maintenance Due Date Last Done Comments [...] this encounter Medical Devices Implanted Type Area Solution Manager Device Identifier Shelf Expiration Date Model / Serial / Lot Port Implant W8f Poly Cath - [id number] Implanted:Qty : 1 on 11/18/2023 by Gregory Trevino MD at OR [facility] Right: Chest CR BARD : PERIPHERAL VASCULAR [id number] 09/03/2024 [id number] / / [id number] documented as of this encounter Advance Directives [...] Power of Attor abraham? No Care Teams Engineering Equipment Operator Relationship Specialty Start Date End Date Mikal Butler MD [address] [place] [address] [place] [address] PCP - General Family Medicine 11/21/16 documented as of this encounter
--- OUTSIDE RECORDS SUMMARY | 2024-05-11 20:36 | External Medical Summary | Summary of Care ---
Author Name Unknown Organization [facility] Address [address] [place] [address] Phone [phone] Care Team Providers Care Dairy Equipment Installer Name Role Phone Mikal Butler MD Primary Care Provide r Encounter Details Date Type Department Care Team (Late st Contact Info) Description 03/28/2024 Result Scan Unspecified Department Kevin Canchola MD [address] [place] [address] <No scans attached> Allergies Active Allergy Reactions [...] HCl 4 MG/0.1ML Nasal Liquid (Narcan Nasal) [place] 1 spray nasal single dose as needed [...] 9:00 AM EST Hem/Onc Treatment Hematology/Oncology Treatment, [place] [address] [place] [address] Estrella, Chair 7 Hem Onc Scenery [address] [place] [address] 03/31/2024 9:40 AM EST Laboratory Laboratory Scenery [facility] [place] [address] [place] [address] Est[place], Lab Scenery [address] [place] [address] 03/31/2024 10:45 AM EST Hem/Onc Treatment Hematology/Oncology Treatment, [place] 200 [place] [address] Estrella, Chair 7 Hem Onc Scenery [address] [place] [address] 04/01/2024 9:00 AM EST [facility] [address] [place] [address] Estrella, Chair 2 Hem Onc Scenery [address] [place] [address] 04/04/2024 9:10 AM EST Laboratory Laboratory Scenery [place] [address] [place] [address] Estrella, Lab Scenery [address] [place] [address] 04/04/2024 10:15 AM EST Hem/Onc Treatment Hematology/Oncology Treatment, [place] [address] [place] [address] Estrella, Chair 6 Hem Onc Scenery [address] [place] [address] 04/05/2024 12:15 PM EST Hem/Onc Treatment Hematology/Oncology Treatment, [place] [address] [place] [address] Estrella, Chair 6 Hem Onc Scenery [address] [place] [address] 04/07/2024 9:10 AM EST Laboratory Laboratory Scenery [place] [place] [address] [place], [place] [address] [place], Lab Scenery [address] [place] [address] 04/07/2024 10:15 AM EST Hem/Onc Treatment [facility]ematology[facility]cology [facility], [place] [address] [facility] [address] Estrella, Chair 5 Hem Onc Scenery [address] [place] [address] 04/22/2024 10:00 AM EST Office Visit Family Medicine [address] [phone] Mikal Butler MD [address] [place] [address] [place] [address] Health Maintenance Due Date Last Done Comments [...] this encounter Medical Devices Implanted Type Area Patient Services Coordinator Device Identifier Shelf Expiration Date Model / Serial / Lot Port Implant W8f Poly Cath - [id number] Implanted:Qty : 1 on 11/18/2023 by Gregory Trevino MD at [facility] Right: Chest CR BARD : PERIPHERAL VASCULAR [id number] 09/03/2024 [id number] / / [id number] documented as of this encounter Procedures Procedure Name Priority Date/Time Associated Diagnosis Comments OUTSIDE LAB RESULTS 03/28/2024 documented in this encounter Results * OUTSIDE LAB RESULTS (03/28/2024) 03/28/2024 Kevin Canchola MD LABORATORY Final Result documented [...] Power of Attor abraham? No Care Teams Dairy Equipment Installer Relationship Specialty Start Date End Date Mikal Butler MD [address] [place] [address] [place] [id number] PCP - General Family Medicine 11/21/16 documented as of this encounter
--- OUTSIDE RECORDS SUMMARY | 2024-05-11 20:36 | External Medical Summary ---
Author Name Unknown Address Unknown Organization K01:LABORATORY [facility] - [address] [place] [address] Laboratory Report Ordering Provider Test Date Status KAYLEE GOOD 03/28/2024 08:05:39 Final Observation Date Value Abnormality Reference (Units ) Status Uric Acid 03/28/2024 08:05:39 2.3 Below low normal 2.4 -5.7 (mg/dL) Final Performing Location LABORATORY [facility] - [address] [place] [address]
--- OUTSIDE RECORDS SUMMARY | 2024-05-11 20:36 | External Medical Summary | Summary of Care ---
Author Name Unknown Organization [facility] Address [address] [place] [address] Phone [phone] Care Team Providers Care Public Relations Assistant Name Role Phone Mikal Butler MD Primary Care Provide r Reason for Visit * Reason Onset Date Comments Appointment 03/28/2024 Encounter Details Date Type Department Care Team (Late st Contact Info) Description 03/28/2024 Telephone Hematology/Oncology Treatment, [place] [address] [place] [address] Dee Leyva MD [address] [place] [address] Appointment Allergies Active Allergy Reactions [...] HCl 4 MG/0.1ML Nasal Liquid (Narcan Nasal) [place] 1 spray nasal single dose as needed [...] encounter Miscellaneous Notes * Telephone Encounter - Sean Levine OSA - 03/29/2024 8:40 AM EST Appointments have been changed * Telephone Encounter - Janya White, RN - 03/29/2024 7:59 AM EST Patient had [facility] 03/24/24 at [facility]. Will need to see MD prior to [...] Team (Late st Contact Info) Description 04/08/2024 11:15 AM EST Office Visit Hematology/Oncology [facility] [place] [address] [place] [address] Kevin Canchola MD [address] [place] [address] 04/22/2024 10:00 AM EST Office Visit Family Medicine [address] [address] Mikal Butler MD [address] [place] [address] [place] [address] Health Maintenance Due Date Last Done Comments [...] this encounter Medical Devices Implanted Type Area User Experience Lead Device Identifier Shelf Expiration Date Model / Serial / Lot Port Implant W8f Poly Cath - [id number] Implanted:Qty : 1 on 11/18/2023 by Gregory Trevino MD at OR [facility] Right: Chest CR BARD : PERIPHERAL VASCULAR [id number] 09/03/2024 [id number] / / [id number] documented as of this encounter Advance Directives [...] Power of Attor abraham? No Care Teams Public Relations Assistant Relationship Specialty Start Date End Date Mikal Butler MD [address] [place] [address] [place] [phone] PCP - General Family Medicine 11/21/16 documented as of this encounter
--- OUTSIDE RECORDS SUMMARY | 2024-05-11 20:36 | External Medical Summary | Summary of Care ---
Author Name Unknown Organization [facility] Address [address] [place] [facility] [place] [place] [address] Phone [phone] Care Team Providers Care Side Framer Name Role Phone Mikal Butler MD Primary Care Provide r Reason for Visit * Reason Comments Follow Up Treatment Encounter Details Date Type Department Care Team (Late st Contact Info) Description 03/28/2024 10:00 AM EST Office Visit Hematology/Oncology [facility] [place] [address] [facility] [place] [address] eDe Leyva MD [address] [facility] [place] [address] Acute myeloid leukemia [...] HCl 4 MG/0.1ML Nasal Liquid (Narcan Nasal) [place] 1 spray nasal single dose as needed [...] Active Metoprolol Tartrate 25 MG Oral Tablet (Lopressor)Niruka cations:Acute myeloid leukemia not having achieved remission [...] Sign Reading Time Taken Comments Blood Pressure 126/83 03/28/2024 10:11 AM EST Pulse 65 03/28/2024 10:11 AM EST Temperature 36.2 C (97.1 F) 03/28/2024 10:[address] Respiratory Rate - - Oxygen Saturation 98% 03/28/2024 10:11 AM EST Inhaled Oxygen Concentration - - Weight 75.9 kg (167 lb 4.8 oz) 03/28/2024 10:11 AM EST Height - - Body Mass Index 27 11/18/2023 12:13 PM EDT documented in this [...] Progress Notes * Dee Leyva MD - 03/28/2024 10:00 AM EST Date of visit: 03/28/2024 Subjective Sonia Mccarthy is a 63 year old female presents for follow up, was last seen on 03/21/2024ate of visit: 03/21/2024 Diagnosis: 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 Current treatment: Completed 3 cycles of Vidaza and when venetoclax, cycle 3 given from 02/08/2024-02/16/2024, due to start cycle 4 She continues to be on continuous venetoclax 100 mg (dose reduced due to concurrent posaconazole). She also continues to be on the triple antimicrobial prophylaxis. Bone marrow biopsy done on 03/24/2024- results are pending at this time HPI: Sonia Mccarthy is a 63 year old female diagnosed in 10/2023 with AML with complex karyotype, del 5q, monosomy 17. She was admitted to [facility] on 10/22/2023, received Cycle #1 chemo Vidaza + Venclexta on 10/28/2023- 11/03/2023. She was discharged from the hospital after Cycle #1 on 11/04/2023. She has a significant pmhx of cervical spondylosis w radiculopathy, HSV 2 infection, opioid dependence, DVT on xarelto( currently not on AC due to AML treatment associated thrombocytopenia), and PVD. She had presented to [facility] w feeling like she could not concentrate/confusion [...] Patient was hemodynamically stable upon transfer to [facility]. She was started on azacitadine (7 [...] fibrillation. At the time of discharge from [facility] , she was started acyclovir, levaquin, posaconazole. She was instructed to continue venetoclax 100 mg day (dose reduced due to the patient being on posaconazole). 11/06/2023: She returns for follow up at [facility] due to proximity from her home in [place]. The plan is for her to continue venetoclax 100 mg daily, undergo labs twice weekly and receive next-day blood transfusions at [facility] as needed. Patient has difficulty with transportation [...] transfusions in the weeks following the chemotherapy. PMH: Patient Active Problem List Diagnosis Family [...] HCl 4 MG/0.1ML Nasal Liquid (Narcan Nasal) [place] 1 spray nasal single dose as needed [...] before AML treatment was started on - legrash im proved. Has abdominal wall tender ecchymosis from the Vidaza skin injections -improving now, since medications changed to IV) and wound (b/l legs). Allergic/Immunologic: Negative. Neurological: Negative. Psychiatric/Behavioral: Negative. Objective BP 126/83 (BP Site: Left Arm, BP Position: Sitting, BP Cuff Size: Large) | Pulse 65 | Temp 36.2 C(97.1 F) (Tympanic) | Wt 75.9 kg (167 lb 4.8 oz) | LMP 05/01/2013 | SpO2 98% | BMI 27.00 kg/m |BSA 1.88 m Physical Exam Constitutional: Appearance: Normal [...] Thought content normal. Judgment: Judgment normal. ASSESSMENT/PLAN: ASSESSMENT/PLAN: Sonia Mccarthy is a 63 year [...] as skin rash on her bilateral shins PLAN OF CARE DISCUSSED WITH PATIENT ON 03/21/2024 : Follow-up: Return in about 1 week (around 03/28/2024). 2 units of PRBC transfusion today on 03/21/2024 2 units of platelet transfusion today on 03/21/2024 Bone marrow biopsy SABINA-scheduled for 03/22/2024 Follow up with me in 1 week-scheduled for 03/28/2024 Hold chemotherapy for now due to severe pancytopenia Acute myeloid leukemia not having achieved remission (HCC) (Primary) PLAN OF CARE DISCUSSED WITH PATIENT ON 03/28/2024 : Follow-up: Return in about 1 week (around 04/04/2024). | Check-out note: Follow up with me in 1 week 1 Unit Platelet transfusion today at [facility] Bring all your medications with you at your next visit in 1 week. Bone marrow biopsy done on 03/24/2024- results are pending at this time Dee Leyva MD documented in this encounter Nursing Notes * Maki Cid, GOPAL FERNANDEZ - 03/28/2024 10:12 AM EST Patient identifed by name and birthdate Do you have any concerns about pain management for today's visit? Yes. Patient instructed to discuss pain concerns with provider during the visit today Living Will or Advance Directive for Health Care as noted on the problem list. [facility] is a way you can talk to your provider on line through e-mail. Would you like to sign up? I can activate it for you? ALREADY ACTIVE Filed Vitals: 03/28/24 1011 BP: 126/83 Pulse: 65 Temp: 36.2 C (97.1 F) TempSrc: Tympanic SpO2: 98% Weight: 75.9 kg (167 lb 4.8 oz) Patient was instructed to not get up on the exam table/exam chair until directed and assisted by their provider; patient is to remain seated in the chair/ wheelchair/ exam table/ exam chair for fall prevention and safety reasons. Patient is aware to have assistance to step down off exam table/exam chair with personnel. Patient voiced full comprehension of instructions. Pt has extreme bruising on both extremities. Along with redness and swelling in the legs.Pt states that it is only painful on the right side of the leg. Dry and itchy skin. Slight bruising on the left side of the face. documented in this encounter Plan of Treatment Upcoming Encounters Date Type Department Care Team (Late st Contact Info) Description 04/04/2024 9:10 AM EST Laboratory Laboratory [facility] [place] [address] [facility] [place] [phone] [place], Lab [facility] 200 Kaia Nelson [facility] [place] [address] 04/04/2024 10:15 AM EST Hem/Onc Treatment Hematology/Oncology Treatment, [place] [address] [place] [phone] Est[place], Chair 6 Hem Onc Scene [address] [place] [address] 04/05/2024 12:15 PM EST Hem/Onc Treatment Hematology/Oncology Treatment, [place] [address] [place] [address] Est[place], Chair 6 Hem Onc Scenery [address] [place], [place] [address] 04/07/2024 9:10 AM EST Laboratory Laboratory [place] [address] [place] [phone] [place], Lab Scenery [address] [facility] [place] [address] 04/07/2024 10:15 AM EST Hem/Onc Treatment Hematology/Oncology Treatment, [place] [address] [place], [place] [phone] Est[place], Chair 5 Hem Onc Scenery [address] [place] [address] 04/22/2024 10:00 AM EST Office Visit Family Medicine [address] [phone] Mikal Butler MD [address] [place] [address], [place] [address] Health Maintenance Due Date Last Done Comments [...] this encounter Medical Devices Implanted Type Area Film Developer Device Identifier Shelf Expiration Date Model / Serial / Lot Port Implant W8f Poly Cath - [id number] Implanted:Qty : 1 on 11/18/2023 by Gregory Trevino MD at [facility] Right: Chest CR BARD : PERIPHERAL VASCULAR [id number] 09/03/2024 [id number] / / [id number] documented as of this encounter Visit Diagnoses [...] Power of Attor abraham? No Care Teams Side Framer Relationship Specialty Start Date End Date Mikal Butler MD [address] [place] [address] [place] [address] PCP - General Family Medicine 11/21/16 documented as of this encounter"
--- OUTSIDE RECORDS SUMMARY | 2024-05-11 20:36 | External Medical Summary | Summary of Care ---
Author Name Unknown Organization [facility] Address [address] [place] [address] Phone [phone] Care Team Providers Care Rigging Slinger Name Role Phone Mikal Butler MD Primary Care Provide r Reason for Visit * Reason Onset Date Comments Appointment 03/28/2024 Encounter Details Date Type Department Care Team (Late st Contact Info) Description 03/28/2024 Telephone Hematology/Oncology Treatment, [place] [address] [place] [address] Dee Leyva MD [address] [place] [address] Appointment Allergies Active Allergy Reactions [...] HCl 4 MG/0.1ML Nasal Liquid (Narcan Nasal) [place] 1 spray nasal single dose as needed [...] EST Faxed updated appointment calendar to both [facility] and [facility]. * Telephone Encounter - Soha Geller LPN - 03/29/2024 9:42 AM EST Called and spoke with GRETCHEN Porter at [facility]. Patient is now scheduled on 03/31/2024, 04/04/2024, 04/07, and 04/11. Per Charlotte's request will fax updated appointment calendar to her at [phone]. 09:27 am: Unable to speak with [facility] due to their office being closed for the Holidays. Please see TE from 03/28/2024, this nurse did speak with them in regards to patient's schedule changes yesterday. * Telephone Encounter - Sean Levine OSA - 03/29/2024 8:40 AM EST Appointments have been changed * Telephone Encounter - Janay White RN - 03/29/2024 7:59 AM EST Patient had BMBx 03/24/24 at [facility]. Will need to see MD [...] 04/08/2024 11:15 AM EST Office Visit Hematology/Oncology [facility] [place] [address] [facility] [place] [phone] Kevin Canchola MD 200 [facility] [place] [address] 04/22/2024 10:00 AM EST Office Visit Family Medicine [address] [place] [address] Mikal Butler MD [address] [place] [address] [place] [address] Health Maintenance Due Date Last Done Comments [...] this encounter Medical Devices Implanted Type Area Geological Engineer Device Identifier Shelf Expiration Date Model / Serial / Lot Port Implant W8f Poly Cath - [id number] Implanted:Qty : 1 on 11/18/2023 by Gregory Trevino MD at [facility] Right: Chest CR BARD : PERIPHERAL VASCULAR [id number] 09/03/2024 [id number] / / [id number] documented as of this encounter Advance Directives [...] Power of Attor abraham? No Care Teams Rigging Slinger Relationship Specialty Start Date End Date Mikal Butler MD [address] [place] [address] [place] [address] PCP - General Family Medicine 11/21/16 documented as of this encounter
--- OUTSIDE RECORDS SUMMARY | 2024-05-11 20:36 | External Medical Summary | Summary of Care ---
Author Name Unknown Organization [facility] Address [address] [place] [address] Phone [phone] Care Team Providers Care Mingler Operator Name Role Phone Mikal Butler MD Primary Care Provide r Reason for Visit * Reason Onset Date Comments Other 03/28/2024 Transportation Encounter Details Date Type Department Care Team (Late st Contact Info) Description 03/28/2024 Telephone Hematology/Oncology Treatment, [place] [address] [place] [address] Dee Leyva MD [address] [place] [address] Other (Transportation) Allergies Active Allergy Reactions Criticality Noted Date [...] HCl 4 MG/0.1ML Nasal Liquid (Narcan Nasal) [place] 1 spray nasal single dose as needed [...] Encounter - Soha Geller LPN - 03/28/2024 11:22 AM EST Called and spoke with [facility], canceled the transportation for the [facility] appointments for this coming and Thursday. She verbally verified they have the patient's [place] Hem/[place]c on 04/04, 04/05, and 04/07, and also for the [facility] appointments on 04/04/2024 and 04/07/2024. documented in this encounter Plan of Treatment Upcoming Encounters Date Type Department Care Team (Late st Contact Info) Description 03/29/2024 9:00 AM EST Hem/Onc Treatment Hematology/Oncology Treatment, [place] 200 [facility], [place] [address] Est[place], Chair 7 Hem Onc Scenery [address] [place] [address] 03/31/2024 9:40 AM EST Laboratory Laboratory [place] [facility] [address] [place], [place] [address] Park, Lab Scenery [address] [place], [place] [address] 03/31/2024 10:45 AM EST Hem/Onc Treatment Hematology/Oncology Treatment, [place] 200 [facility], [place] [address] Estrella, Chair 7 Hem Onc Scenery [address] [place], [place] [address] 04/01/2024 9:00 AM EST Hem/Onc Treatment Hematology/Oncology Treatment, [place] [address] [facility], [place] [address] Est[place], Chair 2 Hem Onc Scenery [address] [place], [place] [address] 04/04/2024 9:10 AM EST Laboratory Laboratory [place] [address] [place] [address] Park, Lab Scenery [address] [place], [place] [address] 04/04/2024 10:15 AM EST Hem/Onc Treatment Hematology/Oncology Treatment, [place] [address] [facility], [place] [address] Est[place], Chair 6 Hem Onc Scenery [address] [place] [address] 04/05/2024 12:15 PM EST Hem/Onc Treatment Hematology/Oncology Treatment, [place] [address] [facility], [place] [address] [place], Chair 6 Hem Onc Scenery [address] [place] [address] 04/07/2024 9:10 AM EST Laboratory Laboratory [place] [address] [place] [address] [place], Lab [place] [address] [place], [place] [address] 04/07/2024 10:15 AM EST Hem/Onc Treatment Hematology/Oncology Treatment, [place] [address] [facility], [place] [address] Est[place], Chair 5 Hem Onc Scenery [address] [place], [place] [address] 04/22/2024 10:00 AM EST Office Visit Family Medicine [address] [place] [address] Mikal Butler MD [address] [place] [address] [place] [address] Health Maintenance Due Date Last Done Comments [...] this encounter Medical Devices Implanted Type Area Information Technology Technician Device Identifier Shelf Expiration Date Model / Serial / Lot Port Implant W8f Poly Cath - [id number] Implanted:Qty : 1 on 11/18/2023 by Gregory Trevino MD at [facility] Right: Chest CR BARD : PERIPHERAL VASCULAR [id number] 09/03/2024 [id number] / / [id number] documented as of this encounter Advance Directives [...] Power of Attor abraham? No Care Teams Mingler Operator Relationship Specialty Start Date End Date Mikal Butler MD [address] [place] [address] [place] [address] PCP - General Family Medicine 11/21/16 documented as of this encounter
--- OUTSIDE RECORDS SUMMARY | 2024-05-11 20:36 | External Medical Summary | Summary of Care ---
Author Name Unknown Organization [facility] Address [address] [place] [address] Phone [phone] Care Team Providers Care Pc Support Specialist Name Role Phone Mikal Butler MD Primary Care Provide r Reason for Visit * Reason Comments Medication Management Encounter Details Date Type Department Care Team (Late st Contact Info) Description 03/28/2024 8:30 AM [facility] Pharmacy Pharmacy Hematology Oncology [facility] [address] [place], [place] [phone] [facility] Hem/Onc [address] [place], [place] [phone] Acute myeloid leukemia not having achieved remission [...] HCl 4 MG/0.1ML Nasal Liquid (Narcan Nasal) [place] 1 spray nasal single dose as needed [...] documented in this encounter Progress Notes * Issac Diamond [facility] - 03/29/2024 11:33 AM EST MEDICATION THERAPY MANAGEMENT Venetoclax (Venclexta) TREATMENT PROGRESS NOTE Sonia Mccarthy [phone] Patient Phone Numbers Labs Thursday and at [facility] If patient is at [place] those days, labs will be completed there Patient has given verbal consent that staff from the [facility] can speak to Patient and Daughter (Maki) regarding their treatment Patient has given verbal consent that staff from the [facility]otherapy [facility] can leave a voicemailwith treatment-related information: Yes This information can be left on Cell Communication: Spoke to: Patient Treatment: Medication: Venetoclax Indication: AML Dose: 100 mg (with posaconazole) Administration: daily Start Date: 10/28/23 Reference:https://www.nejm.org/doi/pdf/10.1056/slhbct2541190 Primary Home Care Attendant/Oncologist: Dr. Leyva Treatment Comments:With Azaciditine Supportive Care: [...] mg/dL (H) 03/28/24 0805 Estimated creatinine clearance: 53.8 mL/min (A) EF: 55% (10/27/2023) Hepatitis panel: Hepatitis A, B and C (10/22/2023) Drug interaction assessment: Treatment plan and current medication list evaluated for drug-drug interactions. Patient to be counseled about interaction, venetoclax and posaconazole. Drug interaction with Xarelto/Venetoclax per discussion with Dr Gipson, hold anticoagulation for now. 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 Del5q+, monosomy 17 [...] Refills: No refills needed Assessment of toxicity: Diarrhea - absent Nausea/Vomiting - absent Mucositis - absent Rash - absent Arthalgias/Myalgias - absent s/s tumor lysis syndrome - absent Labs reviewed last: 03/21/24 Assessment and Plan: Patient continues on venetoclax 100 mg daily continuously as above. She denies any AE. C3 of azacitidine has not been scheduled yet. Patient seeing Dr. Canchola on 04/08/24 to establish care and plan for new care trajectory w/ most recent bone marrow biopsy results per chart. Continues on prophylactic medications as above Patient seen by provider today, will now hold chemotherapy for now and follow up in 1 week. BMBx planned to be repeated. 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 Currently holding per provider. Follow up: 04/08/24- plan for next cycle Issac Diamond [facility] Pharmacy Hematology Oncology [address] [address] documented in this encounter Plan of Treatment Upcoming Encounters Date Type Department Care Team (Late st Contact Info) Description 04/08/2024 11:15 AM EST Office Visit [facility]ematology[facility]Oncology [facility] [place] 200 [facility] [address] Kevin Canchola MD 200 [facility] [place] [address] 04/22/2024 10:00 AM EST Office Visit Family Medicine [address] [phone] Mikal Butler MD [address] [place] [address] [place] [address] Health Maintenance Due Date Last Done Comments [...] this encounter Medical Devices Implanted Type Area Dog Walker Device Identifier Shelf Expiration Date Model / Serial / Lot Port Implant W8f Poly Cath - [id number] Implanted:Qty : 1 on 11/18/2023 by Gregory Trevino MD at [facility] Right: Chest CR BARD : PERIPHERAL VASCULAR [id number] 09/03/2024 [id number] / / [id number] documented as of this encounter Visit Diagnoses [...] Power of Attor abraham? No Care Teams Pc Support Specialist Relationship Specialty Start Date End Date Mikal Butler MD [address] [place] [address] [place] [address] PCP - General Family Medicine 11/21/16 documented as of this encounter
--- OUTSIDE RECORDS SUMMARY | 2024-05-11 20:36 | External Medical Summary ---
Author Name Unknown Address Unknown Organization K01:[facility] [address] [place] [address] Laboratory Report Ordering Provider Test Date Status KAYLEE GOOD 03/28/2024 08:05:39 Final Observation Date Value Abnormality Reference (Units ) Status LDH 03/28/2024 08:05:39 193 <=250 (U/L ) Final Performing Location [facility] [address] [place] [address]
--- OUTSIDE RECORDS SUMMARY | 2024-05-11 20:36 | External Medical Summary | Summary of Care ---
Author Name Unknown Organization [facility] Address [address] [place] [address] Phone [phone] Care Team Providers Care Outside Plant Supervisor Name Role Phone Mikal Butler MD Primary Care Provide r Reason for Visit * Reason Comments Nurse Documentation Hold Chemo Encounter Details Date Type Department Care Team (Late st Contact Info) Description 03/28/2024 10:30 AM EST Hem/Onc Treatment Hematology/Oncology Treatment, [place] [address] [place] [address] [place], Chair 11 Hem Onc Scene 200 [place] [address] Arrived Allergies Active Allergy Reactions Criticality Noted Date [...] HCl 4 MG/0.1ML Nasal Liquid (Narcan Nasal) [place] 1 spray nasal single dose as needed [...] Jo Perkins RN documented in this encounter Nursing Notes * Caryn Ferreira RN - 03/28/2024 2:[address] Leyva, delay treatment due to PLT<10. Pt reminded to call transportation to request a ride to [facility] for transfusion; pt verbalized understanding. Pt discharged in stable condition. documented in this encounter Plan of Treatment Upcoming Encounters Date Type Department Care Team (Late st Contact Info) Description 04/04/2024 9:10 AM EST Laboratory Laboratory [place] [address] [place] [phone] [place], Lab [place] [address] [place], [place] [address] 04/04/2024 10:15 AM EST Hem/Onc Treatment Hematology/Oncology Treatment, [address], [place] [address] [place], Chair 6 Hem Onc Scenery [address] [place], [place] [address] 04/05/2024 12:15 PM EST Hem/Onc Treatment Hematology/Oncology Treatment, [address], [place] [address] [place], Chair 6 Hem Onc Scenery [address] [place], [place] [address] 04/07/2024 9:10 AM EST Laboratory Laboratory [facility] [place] [address] [place], [place] [address] [place], Lab Scenery [address] [facility] [place] [address] 04/07/2024 10:15 AM EST Hem/Onc Treatment Hematology/Oncology Treatment, [address], [place] [address] [place], Chair 5 Hem Onc Scenery [address] [place], [place] [address] 04/22/2024 10:00 AM EST Office Visit Family Medicine [address] [place] [phone] Mikal Butler MD [address] [place] [address] [place] [address] Health Maintenance Due Date Last Done Comments [...] this encounter Medical Devices Implanted Type Area Strategic Communications Manager Device Identifier Shelf Expiration Date Model / Serial / Lot Port Implant W8f Poly Cath - [id number] Implanted:Qty : 1 on 11/18/2023 by Gregory Trevino MD at [facility] Right: Chest CR BARD : PERIPHERAL VASCULAR [id number] 09/03/2024 [id number] / / [id number] documented as of this encounter Advance Directives [...] Power of Attor abraham? No Care Teams Outside Plant Supervisor Relationship Specialty Start Date End Date Mikal Butler MD [address] [place] [address] [place] [address] PCP - General Family Medicine 11/21/16 documented as of this encounter
--- OUTSIDE RECORDS SUMMARY | 2024-05-11 20:36 | External Medical Summary | Summary of Care ---
Author Name Unknown Organization [facility] Address [address] [place] [address] Phone [phone] Care Team Providers Care Supervisor Special Services Name Role Phone Mikal Butler MD Primary Care Provide r Reason for Visit * Reason Onset Date Comments Test Results Lab 03/31/2024 Encounter Details Date Type Department Care Team (Late st Contact Info) Description 03/31/2024 Telephone Hematology/Oncology [facility] [place] 200 [facility] [place] [address] Kevin Canchola MD 200 [facility] [place] [place] [address] Test Results Lab Allergies Active Allergy Reactions Criticality Noted Date [...] HCl 4 MG/0.1ML Nasal Liquid (Narcan Nasal) [place] 1 spray nasal single dose as needed [...] CG/0.3 mL, 12 YRS AND ABOVE, IM (PFIZER-Comirnat) 04/15/2023 Pneumococcal Polysaccharide PPV23 (Pneumovax) 06/17/2010 Seasonal [...] Miscellaneous Notes * Telephone Encounter - Soha Gelelr LPN - 03/31/2024 11:[address] Canchola Critical labs received from [facility]. Patient is currently there today for transfusion. WBC: 0.27 Hgb: 5.7 Hct: 16.5 Plt: 5 ANC <0.5 documented in this encounter Plan of Treatment Upcoming Encounters Date Type Department Care Team (Late st Contact Info) Description 04/08/2024 8:30 AM EST Pharmacy Pharmacy Hematology Oncology [facility] [address] [place] [address] [facility], [facility] Hem/Onc [facility] [place] [address] 04/08/2024 11:15 AM EST Office Visit [facility] [place] 200 [facility] [place] [phone] Kevin Canchola MD [address] [place] [address] 04/22/2024 10:00 AM EST Office Visit Family Medicine [address] [phone] Mikal Butler MD [address] [place] [address] [place] [address] Health Maintenance Due Date Last Done Comments [...] this encounter Medical Devices Implanted Type Area News Writer Device Identifier Shelf Expiration Date Model / Serial / Lot Port Implant W8f Poly Cath - [id number] Implanted:Qty : 1 on 11/18/2023 by Gregory Trevino MD at OR [facility] Right: Chest CR BARD : PERIPHERAL VASCULAR [id number] 09/03/2024 [id number] / / [id number] documented as of this encounter Advance Directives [...] Power of Attor abraham? No Care Teams Supervisor Special Services Relationship Specialty Start Date End Date Mikal Butler MD [address] [place] [address] [place] [address] PCP - General Family Medicine 11/21/16 documented as of this encounter
--- OUTSIDE RECORDS SUMMARY | 2024-05-11 20:37 | External Medical Summary ---
Author Name Unknown Address Unknown Organization [facility] [place] [address] Laboratory Report Ordering Provider Test Date Status KAYLEE GOOD 03/28/2024 08:05:39 Final Observation Date Value Abnormality Reference (Units ) Status COMMENT 03/28/2024 08:05:39 WBC < 0.60, WBC differential cancelled. Please call Client Services if differential is required. Final Performing Location [facility] [place] [address]
--- OUTSIDE RECORDS SUMMARY | 2024-05-11 20:37 | External Medical Summary ---
Author Name Unknown Address Unknown Organization [facility] [address] Kaia Arreguin [place] [address] Laboratory Report Ordering Provider Test Date Status KAYLEE GOOD 03/28/2024 08:05:39 Final Observation Date Value Abnormality Reference (Units ) Status BUN 03/28/2024 08:05:39 24 Above high normal 6-20 (mg/dL) Final Creatinine 03/28/2024 08:05:39 1.1 Above high normal 0.5-1.0 (mg/dL) Final Glomerular filtration rate/1.73 sq M.predicted [Volume Rate/Area] in Serum, Plasma or Blood by Creatinine-based formula (CKD-EPI) 03/28/2024 08:05:39 59 Below low normal >=60 (mL/min) Final eGFR is calculated based on the CKD-EPI 2020 equation. Sodium 03/28/2024 08:05:39 136 135-146 (m mol/L) Final Potassium 03/28/2024 08:05:39 4.5 3.5-5.1 (m mol/L) Final Cl 03/28/2024 08:05:39 102 98-107 (mm ol/L) Final CO2 03/28/2024 08:05:39 23 22-32 (mmo l/L) Final Anion gap 03/28/2024 08:05:39 11 7-15 (mmol /L) Final Glucose 03/28/2024 08:05:39 106 70-120 (mg /dL) Final Albumin 03/28/2024 08:05:39 3.3 Below low normal 3.8 -5.0 (g/dL) Final AST (Aspartate aminotransferase) 03/28/2024 08:05:39 17 10-35 (U/L) Fin al Alk Phos 03/28/2024 08:05:39 105 35-130 (U/ L) Final Bilirubin, Total 03/28/2024 08:05:39 1.0 <=1 .2 (mg/dL) Final Calcium 03/28/2024 08:05:39 8.9 8.4-10.2 ( mg/dL) Final Protein 03/28/2024 08:05:39 7.4 6.0-8.3 (g /dL) Final ALT (Alanine aminotransferase) 03/28/2024 08:05:39 19 10-35 (U/L) Phan flynn Performing Location [facility] [address] [place] [address]
--- OUTSIDE RECORDS SUMMARY | 2024-05-11 20:37 | External Medical Summary | Summary of Care ---
Author Name Unknown Organization [facility] Address [address] [place] [place] [address] Phone [phone] Care Team Providers Care Apricot Washer Name Role Phone Mikal Butler MD Primary Care Provide r Reason for Visit * Reason Onset Date Comments Other 03/17/2024 Schedule request Encounter Details Date Type Department Care Team (Late st Contact Info) Description 03/17/2024 Telephone Hematology/Oncology [facility] [place] 200 [place] [address] Dee Leyva MD [address] [facility] [place] [address] Other (Schedule request) Allergies Active Allergy Reactions Criticality Noted Date Comments Amoxicillin Rash High 01/18/2024 Nausea, Vomiting, Diarrhea Penicillins 03/18/2012 documented as of this encounter (statuses as of 03/25/2024) Medications ACYCLOVIR 800 MG PO TABSIndications :Shingles [...] HCl 4 MG/0.1ML Nasal Liquid (Narcan Nasal) [place] 1 spray nasal single dose as needed [...] as of this encounter (statuses as of 03/25/2024) Active Problems Problem Noted Date Diagnosed Date [...] as of this encounter (statuses as of 03/25/2024) Resolved Problems Problem Noted Date Diagnosed Date Resolved Date Obesity, Class I, BMI 30.0-3 4.9 (see actual BMI) 02/26/2011 11/07/2015 Cervicalgia 02/26/2011 12/14/2017 Non-traumatic compartment sy ndrome of upper extremity 02/26/2011 12/14/2017 Pain in limb 02/26/2011 12/14/2017 PHLEBITIS OF DEEP VEINS OF RIGHT ARM 01/07/2010 11/07/2015 documented as of this encounter (statuses as of 03/25/2024) Immunizations Name Administration Dates Next Due COVID-19 [...] encounter Miscellaneous Notes * Telephone Encounter - Neymar Carpenter RN - 03/17/2024 1:48 PM EST Noted * Telephone Encounter - Soha Geller LPN - 03/17/2024 11:[address] Autumn Arvizu RN from [facility] [place] Texted Critical Labs: WBC: 0.34 Hgb: 6.4 Hct: 18.9 Platelets: 3 Anc: less than 0.5 Patient is getting 1 unit of PRBC and 2 units of platelets today * Telephone Encounter - Soha Geller LPN - 03/17/2024 11:14 AM EST Received tiger text from GRETCHEN Arvizu with [facility]. Per her request faxed patient's schedule for 03/21/2024 through 03/29/2024 to [facility] at [phone]. 2-pages documented in this encounter Plan of Treatment Upcoming Encounters Date Type Department Care Team (Late st Contact Info) Description 03/28/2024 8:30 AM EST Pharmacy Pharmacy Hematology Oncology [facility] [address] [place] [address] [facility] Clinic Hem/Onc [address] [place] [address] 03/28/2024 9:10 AM EST Laboratory [facility] [place] [address] [place] [id number] Elizabeth De La Rosa [facility] [address] [place] [address] 03/28/2024 10:00 AM EST Office Visit Hematology/Oncology [facility] [place] [address] [place] [phone] Dee Leyva MD [address] [place] [address] [place] [address] 03/28/2024 10:30 AM EST Hem/Onc Treatment Hematology/Oncology Treatment, [place] 200 [facility], [place] [address] [place], Chair 11 Hem Onc Scenery [address] [place], [place] [address] 03/29/2024 9:00 AM EST Hem/Onc Treatment Hematology/Oncology Treatment, [place] 200 [facility], [place] [address] [place], Chair 7 Hem Onc Scenery [address] [place], [place] [address] 03/31/2024 9:40 AM EST Laboratory Laboratory Scenery [place] [address] [place], [place] [address] [place], Lab Scenery [address] [place], [place] [address] 03/31/2024 10:45 AM EST Hem/Onc Treatment Hematology/Oncology Treatment, [place] 200 [facility], [place] [address] [place], Chair 7 Hem Onc Scenery [address] [place], [place] [address] 04/01/2024 9:00 AM EST Hem/Onc Treatment Hematology/Oncology Treatment, [place] 200 [place] [address] [place], Chair 2 Hem Onc Scenery [address] [place], [place] [address] 04/04/2024 9:10 AM EST Laboratory Laboratory Scenery [place] [address] [place], [place] [address] [place], Lab Scenery [address] [place] [address] 04/04/2024 10:15 AM EST Hem/Onc Treatment Hematology/Oncology Treatment, [place] 200 [facility], [place] [address] [place], Chair 6 Hem Onc Scenery [address] [place] [address] 04/05/2024 12:15 PM EST Hem/Onc Treatment Hematology/Oncology Treatment, [place] 200 [facility], [place] [address] [place], Chair 6 Hem Onc Scenery [address] [place] [address] 04/07/2024 9:10 AM EST Laboratory Laboratory Scenery [place] [address] [place] [address] [place], Lab Scenery [address] [place] [address] 04/07/2024 10:15 AM EST Hem/Onc Treatment Hematology/Oncology Treatment, [place] 200 [facility], [place] [address] [place], Chair 5 Hem Onc Scenery [address] [place] [address] 04/22/2024 10:00 AM EST Office Visit Family Medicine [address] [place] [address] Mikal Butler MD [address] [place] [address] [place] [address] Health Maintenance Due Date Last Done Comments [...] this encounter Medical Devices Implanted Type Area Program Architect Device Identifier Shelf Expiration Date Model / Serial / Lot Port Implant W8f Poly Cath - [id number] Implanted:Qty : 1 on 11/18/2023 by Gregory Trevino MD at OR [facility] Right: Chest CR BARD : PERIPHERAL VASCULAR [id number] 09/03/2024 [id number] / / [id number] documented as of this encounter Advance Directives [...] Power of Attor abraham? No Care Teams Apricot Washer Relationship Specialty Start Date End Date Mikal Butler MD [address] [place] [address] [place] [address] PCP - General Family Medicine 11/21/16 documented as of this encounter
--- OUTSIDE RECORDS SUMMARY | 2024-05-11 20:37 | External Medical Summary | Summary of Care ---
Author Name Unknown Organization [facility] Address [address] [place] [address] Phone [phone] Care Team Providers Care Airframe Technician Name Role Phone Mikal Butler MD Primary Care Provide r Encounter Details Date Type Department Care Team (Late st Contact Info) Description 03/25/2024 Orders Only Hematology/Oncology [facility] [place] 200 [facility] [place] [address] Kevin Canchola MD 200 [facility] [place] [address] Allergies Active Allergy Reactions Criticality Noted Date [...] HCl 4 MG/0.1ML Nasal Liquid (Narcan Nasal) [place] 1 spray nasal single dose as needed [...] 8:30 AM EST Pharmacy Pharmacy Hematology Oncology [address] [place] [address] [facility] Hem/Onc [address] [place] [address] 03/28/2024 9:10 AM EST Laboratory Laboratory Scenery [facility] [address] [place] [address] [place], Lab Scenery [address] [place] [address] 03/28/2024 10:00 AM EST Office Visit [facility]ology[facility] [place] [address] [place], [place] [phone] Dee Leyva MD [address] [place] [address] [place] [address] 03/28/2024 10:30 AM EST Hem/Onc Treatment Hematology/Oncology Treatment, [place] 200 [facility], [place] [address] [place], Chair 11 Hem Onc Scenery [address] [place], [place] [address] 03/29/2024 9:00 AM EST [facility] 200 [facility], [place] [address] [place], Chair 7 Hem Onc Scenery [address] [place], [place] [address] 03/31/2024 9:40 AM EST Laboratory Laboratory Scenery [place] [address] [place], [place] [address] [place], Lab Scenery [address] [facility] [place] [address] 03/31/2024 10:45 AM EST Hem/Onc Treatment Hematology/Oncology Treatment, [place] [facility] [address] [place], Chair 7 Hem Onc Scenery [address] [place] [address] 04/01/2024 9:00 AM EST Hem/Onc Treatment Hematology/Oncology Treatment, [place] 200 [facility] [place] [address] [place], Chair 2 Hem Onc Scenery [address] [place] [address] 04/04/2024 9:10 AM EST Laboratory Laboratory Scenery [facility] [address] [place] [address] [place], Lab Scenery [address] [place] [address] 04/04/2024 10:15 AM EST Hem/Onc Treatment Hematology/Oncology Treatment, [place] 200 [place] [address] [place], Chair 6 Hem Onc Scenery [address] [place] [address] 04/05/2024 12:15 PM EST Hem/Onc Treatment Hematology/Oncology Treatment, [place] 200 [facility] [address] [place], Chair 6 Hem Onc Scenery [address] [place] [address] 04/07/2024 9:10 AM EST Laboratory Laboratory Scenery [facility] [address] [place] [address] [place], Lab Scenery [address] [place] [address] 04/07/2024 10:15 AM EST Hem/Onc Treatment Hematology/Oncology Treatment, [place] 200 [facility] [address] [place], Chair 5 Hem Onc Scenery [address] [place] [address] 04/22/2024 10:00 AM EST Office Visit Family Medicine [address] [place] [address] Mikal Butler MD [address] [place] [address] [place] [address] Health Maintenance Due Date Last Done Comments [...] this encounter Medical Devices Implanted Type Area Metalsmith Helper Device Identifier Shelf Expiration Date Model / Serial / Lot Port Implant W8f Poly Cath - [id number] Implanted:Qty : 1 on 11/18/2023 by Gregory Trevino MD at OR [facility] Right: Chest CR BARD : PERIPHERAL VASCULAR [id number] 09/03/2024 [id number] / / [id number] documented as of this encounter Procedures Procedure Name Priority Date/Time Associated Diagnosis Comments CBC Routine 03/24/2024 documented in this encounter Results * (ABNORMAL) CBC (03/24/2024) HGB 8.8(A) 12.0 - 16.0 G/DL OUTSIDE LAB (SEE SCANNED REPORT) Blood Venous blood specimen / Unknown 03/24/2024 Kevin Canchola MD LAB BLOOD ORDERABLES Final [...] Power of Attor abraham? No Care Teams Airframe Technician Relationship Specialty Start Date End Date Mikal Butler MD [address] [place] [address] [place] [address] PCP - General Family Medicine 11/21/16 documented as of this encounter
--- OUTSIDE RECORDS SUMMARY | 2024-05-11 20:37 | External Medical Summary | Summary of Care ---
Author Name Unknown Organization [facility] Address [address] [place] [address] Phone [phone] Care Team Providers Care Drapery Hem[place] Automatic Name Role Phone Mikal Butler MD Primary Care Provide r Encounter Details Date Type Department Care Team (Late st Contact Info) Description 03/24/2024 Result Scan Unspecified Department Dee Leyva MD [address] [place] [phone] <No scans attached> Allergies Active Allergy Reactions Criticality Noted Date Comments Amoxicillin Rash High 01/18/2024 Nausea, Vomiting, Diarrhea Penicillins 03/18/2012 documented as of this encounter (statuses as of 03/25/2024) Medications Buprenorphine HCl-Naloxone HCl 8-2 MG Sublingual [...] HCl 4 MG/0.1ML Nasal Liquid (Narcan Nasal) [place] 1 spray nasal single dose as needed [...] 8:30 AM EST Pharmacy Pharmacy Hematology Oncology [address] [address] [facility], [facility] Hem/Onc [facility] [place] [address] 03/28/2024 9:10 AM EST Laboratory Laboratory Scenery [place] [address] [place], [place] [address] [place], Lab Scenery [address] [place], [place] [address] 03/28/2024 10:00 AM EST Office Visit Hematology/Oncology Scenery [place] [address] [place], [place] [address] Dee Leyva MD [address] [place] [address] [place] [address] 03/28/2024 10:30 AM EST Hem/Onc Treatment Hematology/Oncology Treatment, [place] 200 [facility], [place] [address] [place], Chair 11 Hem Onc Scenery [address] [place], [place] [address] 03/29/2024 9:00 AM EST Hem/Onc Treatment Hematology/Oncology Treatment, [place] 200 [facility], [place] [address] [place], Chair 7 Hem Onc Scenery [address] [place], [place] [address] 03/31/2024 9:40 AM EST Laboratory Laboratory [facility] [place] [address] [place], [place] [address] [place], Lab Scenery [address] [place] [address] 03/31/2024 10:45 AM EST Hem/Onc Treatment Hematology/Oncology Treatment, [place] 200 [facility], [place] [address] [place], Chair 7 Hem Onc Scenery [address] [place], [place] [address] 04/01/2024 9:00 AM EST Hem/Onc Treatment Hematology/Oncology Treatment, [place] [address] [place] [address] [place], Chair 2 Hem Onc Scenery [address] [place], [place] [address] 04/04/2024 9:10 AM EST Laboratory Laboratory Scenery [facility] [address] [place] [address] [place], Lab Scenery [address] [facility] [place], [place] [address] 04/04/2024 10:15 AM EST Hem/Onc Treatment Hematology/Oncology Treatment, [place] 200 [facility], [place] [address] [place], Chair 6 Hem Onc Scenery [address] [place], [place] [address] 04/05/2024 12:15 PM EST Hem/Onc Treatment Hematology/Oncology Treatment, [place] 200 [facility], [place] [address] [place], Chair 6 Hem Onc Scenery [address] [place], [place] [address] 04/07/2024 9:10 AM EST Laboratory Laboratory Scenery [place] [address] [place], [place] [address] [place], Lab Scenery [address] [facility] [place] [address] 04/07/2024 10:15 AM EST Hem/Onc Treatment Hematology/Oncology Treatment, [place] 200 [place] [address] [place], Chair 5 Hem Onc Scenery [address] [place] [address] 04/22/2024 10:00 AM EST Office Visit [address] [place] [phone] Mikal Butler MD [address] [place] [address] [place] [address] Health Maintenance Due Date Last Done Comments [...] this encounter Medical Devices Implanted Type Area Can Patcher Device Identifier Shelf Expiration Date Model / Serial / Lot Port Implant W8f Poly Cath - [id number] Implanted:Qty : 1 on 11/18/2023 by Gregory Trevino MD at OR [facility] Right: Chest CR BARD : PERIPHERAL VASCULAR [id number] 09/03/2024 [id number] / / [id number] documented as of this encounter Procedures Procedure Name Priority Date/Time Associated Diagnosis Comments OUTSIDE LAB RESULTS 03/24/2024 documented in this encounter Results * OUTSIDE LAB RESULTS (03/24/2024) 03/24/2024 Dee Leyva MD LABORATORY Final Result documented in this [...] Power of Attor abraham? No Care Teams Drapery Hemmer Automatic Relationship Specialty Start Date End Date Mikal Butler MD [address] [place] [address] [place] [address] PCP - General Family Medicine 11/21/16 documented as of this encounter
--- OUTSIDE RECORDS SUMMARY | 2024-05-11 20:37 | External Medical Summary ---
Author Name Unknown Address Unknown Organization [facility] [place] [address] Laboratory Report Ordering Provider Test Date Status KAYLEE GOOD 03/28/2024 08:05:39 Final Observation Date Value Abnormality Reference (Units ) Status WBC, Total 03/28/2024 08:05:39 0.33 Below lower panic limits 4.00-10.80 (K/uL) Final Results rechecked.
RBC 03/28/2024 08:05:39 2.53 3.85-5.15 (M/uL) Final Hemoglobin 03/28/2024 08:05:39 7.6 Below low normal 12 .0-15.3 (g/dL) Final HCT 03/28/2024 08:05:39 22.2 Below low normal 36. 0-45.2 (%) Final MCV 03/28/2024 08:05:39 87.7 81.5-97.5 (fL) Final MCH 03/28/2024 08:05:39 30.0 27.0-34.0 (pg) Final MCHC 03/28/2024 08:05:39 34.2 32.0-36.0 (g/dL) Final RDW 03/28/2024 08:05:39 15.3 11.5-15.5 (%) Final Platelets 03/28/2024 08:05:39 <10 Below lower panic li mits 140-400 (K/uL) Final Results rechecked. MPV 03/28/2024 08:05:39 Final No result - abnormal platele t distribution. Performing Location [facility] [place] [address]
[2024-05-11] MEDS: OSELTAMIVIR PHOSPHATE 75 MG CAP PO SCH (21:38)
[2024-05-11] MEDS: METOPROLOL TARTRATE 25 MG TAB PO SCH (21:38)
[2024-05-11] MEDS: ACYCLOVIR 400 MG TAB PO SCH (21:38)
[2024-05-11] MEDS: POTASSIUM CHLORIDE CRTAB 20 MEQ TABCR PO SCH (21:38)
[2024-05-12 06:38] LABS: BUN Creatinine Ratio 22.7 (10-20); Calcium 8.2 mg/dl (8.6-10.3); Potassium 2.7 mmol/L (3.5-5.1)
[2024-05-12 07:04] LABS: Mean Corpuscular Hgb Conc 36.9 g/dL (32.0-36.0); Mean Corpuscular Volume 81.1 fL (80.0-100.0); RDW Coefficient of Variation 12.5 % (11.5-14.5); RDW Standard Deviation 36.5 fL (36.4-46.3); Red Blood Count 2.17 M/uL (4.20-5.40)
[2024-05-12 07:09] LABS: ALC (manual) 0.08 K/uL (1.2-3.4); ANC (manual) 0.42 K/uL (1.4-6.5); Hematocrit (blood only) 17.6 % (37.0-47.0); Hemoglobin 6.5 g/dl (12.0-16.0); Lymphocytes # (manual) 0.08 K/uL (1.2-3.4); Lymphocytes % (manual) 14 %; Monocytes # (manual) 0.06 K/uL (0.11-0.59); Monocytes % (manual) 11 %; Neutrophils # (manual) 0.42 K/uL (1.40-6.50); Neutrophils % (manual) 75 %; Platelet Count 8 K/uL (130-400); RBC Morphology Unremarkable; White Blood Count 0.56 K/ul (4.8-10.8)
[2024-05-12] MEDS: POTASSIUM CHLORIDE CRTAB 20 MEQ TABCR PO SCH (08:10)
[2024-05-12] MEDS ORDERED: SODIUM CHLORIDE 0.9% 50 ML IV PRN ×2 (08:11→08:13)
[2024-05-12] MEDS ORDERED: SODIUM CHLORIDE 0.9% 100 ML IV PRN ×2 (08:11→08:13)
[2024-05-12] MEDS: CETIRIZINE HCL 10 MG TABLET PO SCH (08:11)
[2024-05-12] MEDS: PANTOprazole 40 MG TAB PO SCH (08:12)
[2024-05-12 08:28] LABS: Magnesium 1.9 mg/dl (1.7-2.4)
[2024-05-12] MEDS: ACETAMINOPHEN 325 MG TAB PO ONE (08:47)
[2024-05-12] MEDS: BUPRENORPHINE/NALOXONE 2/0.5MG TAB SL SCH (09:48)
[2024-05-12] MEDS ORDERED: AMOXICILLIN 500 MG CAP PO SCH (11:45)
[2024-05-12] MEDS: VORICONAZOLE 200 MG TABLET PO SCH (13:19)
[2024-05-12] MEDS: AMOXICILLIN 875 MG TAB PO SCH (13:19)
[2024-05-12 16:31] LABS: Potassium 3.2 mmol/L (3.5-5.1)
[2024-05-12 16:32] LABS: BUN Creatinine Ratio 27.8 (10-20); Calcium 7.7 mg/dl (8.6-10.3); Creatinine Clr Calc Pharmacy 74.1 ml/min
--- NOTE | 2024-05-12 17:15 | Ultrasound Report ---
EXAM: US Duplex Bilateral Lower Extremities Arteries INDICATION: Abnormal ABIs. TECHNIQUE: Real-time duplex ultrasound scan of the bilateral lower extremity arteries integrating B-mode two-dimensional vascular structure, Doppler spectral analysis and color flow Doppler imaging. COMPARISON: No relevant prior studies available. FINDINGS: Right common femoral artery: Peak systolic velocity 67 cm/s. No occlusion or significant stenosis on color flow and spectral Doppler imaging. Monophasic waveform. Right superficial femoral artery: Peak systolic velocity 73 cm/s d. No occlusion or significant stenosis on color flow and spectral Doppler imaging. Monophasic waveform. Right popliteal artery: Peak systolic velocity 44 cm/s. No occlusion or significant stenosis on color flow and spectral Doppler imaging. Monophasic waveform. Right calf/foot arteries: Peak systolic velocity 55 cm/s in the dorsalis pedis artery. No occlusion or significant stenosis on color flow and spectral Doppler imaging. Monophasic waveform. Left common femoral artery: Peak systolic velocity 190 cm/s. No occlusion or significant stenosis on color flow and spectral Doppler imaging. Normal waveform. Left superficial femoral artery: Peak systolic velocity 124 cm/s. No occlusion or significant stenosis on color flow and spectral Doppler imaging. Normal waveform. Left popliteal artery: Peak systolic velocity 156 cm/s. No occlusion or significant stenosis on color flow and spectral Doppler imaging. Normal waveform. Left calf/foot arteries: Peak systolic velocity noted in the posterior tibial artery at 115 cm/s. No occlusion or significant stenosis on color flow and spectral Doppler imaging. Normal waveform. Soft tissues: No abnormality noted. IMPRESSION: 1. Generalized slow flow in the right lower extremity without segmental stenosis. 2. No abnormality of the left lower extremity arteries. ACT 112: Negative or not required by law. Electronically signed by Alicia Lewis 05-12-2024 5:14 PM
--- NOTE | 2024-05-12 18:18 | Hospitalist Progress Note ---
Date of Service May 12, 2024 Assessment & Plan (1) Influenza: (2) UTI (urinary tract infection): (3) Febrile neutropenia: Plan: Patient presented by referral of the oncology office for evaluation of fever and febrile neutropenia In the ED, patient tested positive for influenza A Patient saturating well on room air, no evidence of pneumonia on CXR On Tamiflu (day 2) Given patient's immunocompromised state, will empirically start IV cefepime. MRSA nasal swab negative, no indication for vancomycin. Urine culture - Enterococcus, sensitivities pending, will start amoxicillin (clarified allergy with patient - no history of anaphylaxis and patient believes she got sick due to having large pills in the past) Blood cultures NGTD Patient has chronic BLLE wounds/erythema. Currently not worse than baseline per patient. No drainage. Continue prophylactic [employer] acyclovir, posaconazole nonformulary therefore using voriconazole while inpatient. Noted patient previously prescribed Levaquin 250 mg daily as well for prophylaxis. However patient reports she has not been taking this for some time. Per outpatient oncology note, patient is to be on Levaquin, acyclovir, posaconazole. Likely will need to resume Levaquin at discharge and provide prescription. ANC 420 today (4) Pancytopenia: (5) AML (acute myeloblastic leukemia): Plan: Receives transfusions twice weekly, received PRBC and platelets on 05/09/2024 Currently not on treatment Follows with Dr. Kevin Canchola CBC on admission WBC 0.6K, Hgb 8.3K, platelets 4K Dr. Canchola notified by ED, recommends 1 platelet transfusion - 2/5 Per outpatient oncology note: 2 units of PRBC if the hemoglobin is less than 6, 1 unit of Platelet for the Platelet count less than 10,000. Hgb 6.5, platelets 8K -- will give 1 platelet and 1 PRBC transfusion today (6) Acute hypokalemia: Plan: K+ 3.1, received replacement in ED K+2.7 today - s/p total 80meq potassium --> repeat K+ 3.2, will give an additional 40 mEq tonight Follow BMP (7) Elevated troponin: Plan: Mildly elevated HS troponin 17.9 -> 20 -> 27 Likely demand ischemia in the setting of acute illness No reports of chest pain, EKG without acute ST changes Continue to trend (8) Paroxysmal A-fib: Plan: Rate controlled on metoprolol Not on anticoagulation secondary to chronic anemia/ former cytopenia in the setting of AML (9) Leg edema: (10) Leg wound, left: (11) Leg wound, right: Plan: Patient reports chronic BLLE wounds for the past several months Erythema not worse than baseline per patient. Some scattered scabbing noted, no drainage. Continue [employer] furosemide Wound care nurse consult -- reported abnormal ALLAN, BL LE arterial Dopplers obtained - generalized slow flow in the RLE, no significant stenosis noted (12) History of DVT (deep vein thrombosis): Plan: Not on anticoagulation secondary to chronic anemia/ former cytopenia in the setting of AML DVT PROPHYLAXIS SCDs due to anemia/ thrombocytopenia I spent a total of 35 minutes coordinating, documenting, and providing care for this patient excluding time spent in the performance of separately billed services. This included personally reviewing all current laboratories and imaging studies, medication reconciliation, outpatient chart review, and discussion with specialists. Admission and Anticipated Discharge Date Admission Date: May 11, 2024 Supervising Physician Co-Signing Physician Notes I have seen and discussed the case with the collaborating advanced practitioner. I agree with the above PN I have reviewed and confirmed the patients medical history, the findings on physical examination, and the patients diagnosis and treatment plan with BRIJESH MORALES and agree with the information documented. In short, Ms. Mccarthy is a 64 yo woman with AML, pancytopenia [transfusion dependent, receives transfusion twice a week], PAF, DVT, not on anticoagulation secondary to anemia/thrombocytopenia from AML, remote history of narcotic abuse on Suboxone admitted for febrile neutropenia and noted to be influenza + and with enterococcus UTI. 1 U PRBC and 1 Unit platelet today agree with plan above I spent a total of 10 minutes coordinating, documenting, and providing care for this patient excluding time spent in the performance of separately billed services. All of the aforementioned completed outside of collaborating with the assigned advanced practitioner for a full treatment plan. I have reviewed the advanced practitioner's documentation, and I agree with, and take responsibility for the plan of care Subjective Follow-up for influenza A infection, febrile neutropenia. Patient seen and examined. Reports feeling much improved from yesterday. Cough and sore throat are improving. She denies shortness of breath. No chest pain. Denies lightheadedness and dizziness. No abdominal pain or nausea. Physical Exam Constitutional: no acute distress Chronically ill-appearing Respiratory: normal respiratory effort, lungs clear to auscultation Cardiovascular: Rate/Rhythm: regular rate and regular rhythm Vessels: normal peripheral pulses Extremities: no edema Skin: chronic venous changes BLE with scattered, dried scabs, no drainage Neurologic: no focal motor deficits Psychiatric: A+Ox3, euthymic affect Results & Data Results & Data Vital Signs (Past 12 Hours) Vital Signs Temp Pulse Pulse Resp BP BP Pulse Ox 05/12/24 12:07 60 18 124/63 100 05/12/24 11:35 37.0 C 63 19 125/56 L 91 05/12/24 10:35 36.9 C 73 15 122/49 L 97 05/12/24 10:05 36.9 C 79 24 170/83 H 99 05/12/24 09:50 36.8 C 23 146/58 H 05/12/24 09:40 37.1 C 87 20 125/56 L 100 05/12/24 09:30 36.7 C 57 L 20 125/56 L 99 05/12/24 09:12 36.6 C 56 L 18 153/60 H 99 05/12/24 08:57 37.0 C 70 16 157/82 H 93 05/12/24 08:40 37.3 C 59 L 12 134/66 97 05/12/24 08:30 59 L 20 134/66 98 05/12/24 08:00 71 18 130/59 L 94 05/12/24 07:59 56 L O2 Del Method O2 Flow Rate 05/12/24 12:07 Nasal Cannula 05/12/24 11:35 05/12/24 10:35 05/12/24 10:05 05/12/24 09:50 05/12/24 09:40 05/12/24 09:30 05/12/24 09:12 2 05/12/24 08:57 2 05/12/24 08:40 2 05/12/24 08:30 Nasal Cannula 05/12/24 08:00 Nasal Cannula 2 05/12/24 07:59 Laboratory Results Short CBC 05/11/24 05/12/24 Range/Units 17:54 05:34 WBC 0.75 L* 0.56 L* (4.8-10.8) K/ul Hgb 8.1 L 6.5 L* (12.0-16.0) g/dl Hct 21.6 L 17.6 L* (37.0-47.0) % Plt Count 14 L* D 8 L* (130-400) K/uL BMP 05/12/24 05/12/24 05:34 16:02 Sodium 136 136 Potassium 2.7 L 3.2 L Chloride 101 103 Carbon Dioxide 29 28 BUN 17 22 Creatinine 0.75 0.79 Glucose 105 H 101 H Calcium 8.2 L 7.7 L
[2024-05-12] MEDS: POTASSIUM CHLORIDE CRTAB 20 MEQ TABCR PO STA (19:07)
[2024-05-12] MEDS ORDERED: ALBUT/IPRATROP 3MG/0.5MG NEB 3 ML VIAL NEB PRN (21:49)
[2024-05-12] MEDS: ALBUT/IPRATROP 3MG/0.5MG NEB 3 ML VIAL NEB STA (22:30)
[2024-05-13 08:36] LABS: Anion Gap 3 (3-11); Calcium 8.1 mg/dl (8.6-10.3); Carbon Dioxide 24 mmol/L (21-32); Chloride 111 mmol/L (98-107); Sodium 138 mmol/L (136-145)
--- NOTE | 2024-05-13 08:45 | Electrocardiogram Report ---
Test Reason : Blood Pressure : */* mmHG Vent. Rate : 52 BPM Atrial Rate : 52 BPM P-R Int : 156 ms QRS Dur : 80 ms QT Int : 496 ms P-R-T Axes : 91 25 39 degrees QTcB Int : 461 ms Sinus bradycardia Otherwise normal ECG When compared with ECG of 11-May-2024 11:50, No significant change was found Confirmed by Aleksey Bauer ([id number]) on 05/13/2024 8:45:10 AM Referred By: REFERRED SELF Confirmed By: Aleksey Bauer
[2024-05-13 08:47] LABS: Blood Urea Nitrogen 18 mg/dl (6-23); Creatinine Clr Calc Pharmacy 95.1 ml/min; Glucose 88 mg/dl (70-99(Fasting))
--- NOTE | 2024-05-13 08:56 | Electrocardiogram Report ---
Test Reason : Blood Pressure : */* mmHG Vent. Rate : 62 BPM Atrial Rate : 62 BPM P-R Int : 126 ms QRS Dur : 84 ms QT Int : 444 ms P-R-T Axes : 72 10 28 degrees QTcB Int : 450 ms Poor data quality, interpretation may be adversely affected Normal sinus rhythm Normal ECG When compared with ECG of 12-May-2024 18:49, No significant change was found Confirmed by Aleksey Bauer ([id number]) on 05/13/2024 8:56:13 AM Referred By: REFERRED SELF Confirmed By: Aleksey Bauer
[2024-05-13 09:05] LABS: Troponin I High Sensitivity 15.7 pg/ml (0-14)
[2024-05-13 09:09] LABS: Hemoglobin 7.9 g/dl (12.0-16.0); Mean Corpuscular Hemoglobin 29.2 pg (25.0-34.0); Mean Corpuscular Hgb Conc 35.9 g/dL (32.0-36.0); Mean Corpuscular Volume 81.2 fL (80.0-100.0); Mean Platelet Volume 9.5 fL (9.4-12.4); Platelet Count 4 K/uL (130-400); RDW Coefficient of Variation 12.8 % (11.5-14.5); RDW Standard Deviation 37.6 fL (36.4-46.3); Red Blood Count 2.71 M/uL (4.20-5.40); White Blood Count 0.59 K/ul (4.8-10.8)
[2024-05-13 09:35] LABS: Basophils # (auto) 0.01 K/uL (0.00-0.20); Basophils % (auto) 1.7 %; Eosinophils # (auto) 0.01 K/uL (0.00-0.50); Eosinophils % (auto) 1.7 %; Immature Granulocytes # (auto) 0.01 K/uL (0.01-0.20); Immature Granulocytes % (auto) 1.7 %; Lymphocytes # (auto) 0.09 K/uL (1.20-3.40); Lymphocytes % (auto) 15.3 %; Monocytes # (auto) 0.13 K/uL (0.11-0.59); Neutrophils # (auto) 0.34 K/uL (1.40-6.50); Neutrophils % (auto) 57.6 %; Platelet Estimate Signific. Decreased (Normal); Polychromasia 1+
[2024-05-13] MEDS ORDERED: SODIUM CHLORIDE 0.9% 100 ML IV PRN (09:40)
[2024-05-13] MEDS ORDERED: SODIUM CHLORIDE 0.9% 50 ML IV PRN (09:40)
[2024-05-13] MEDS: ONDANSETRON 4 MG OD TAB PO PRN (09:42)
[2024-05-13 11:35] VITALS: RESP 15
[2024-05-13 12:02] VITALS: BP 130/69; TEMP 97.9; O2SAT 97
[2024-05-13 14:24] VITALS: PULSE 59
--- NOTE | 2024-05-13 16:04 | Discharge Summary ---
Date of Service May 13, 2024 Admission HPI Per Admitting Provider 64-year-old female PMH AML, pancytopenia, paroxysmal atrial fibrillation, history of DVT not on anticoagulation secondary to anemia/ thrombocytopenia from AML, remote history of narcotic abuse on Suboxone, and other problems listed below who presents to the ED for evaluation of fever. Patient reports she started to feel ill yesterday with sore throat, mild cough, fever. Patient had routine appointment with her oncologist today and was referred to the ED for further evaluation of febrile neutropenia. Patient denies chest pain and shortness of breath. Cough has been nonproductive. She reports feeling gene rally weak, no falls. Reports a good appetite, denies abdominal pain, nausea, vomiting, diarrhea. No urinary symptoms. In the ED, patient tested positive for influenza. Labs show WBC 0.6K, Hgb 8.3, platelet 4K. K+ 3.1, EKG without acute ST changes. VSS. Patient was given Tamiflu, potassium replacement, and ordered platelet transfusion. Admission Exam Per Admitting Provider Constitutional: WD/WN, vitals as above no acute distress Chronically ill-appearing Eyes: PERRL, conjunctivae normal, anicteric sclerae ENMT: external ear and nose normal, oropharynx normal Respiratory: normal respiratory effort; no respiratory distress Auscultation: + diminished lung sounds ( bilateral bases) Cardiovascular: Rate/Rhythm: regular rate and regular rhythm Vessels: normal peripheral pulses Extremities: no edema Gastrointestinal (Abdomen): normal bowel sounds, soft, nontender, no hepatosplenomegaly Musculoskeletal: no cyanosis or clubbing, extremities motor strength 5/5 Skin: no rashes, warm and dry erythema noted BLE with some scattered scabbing, no drainage noted Neurologic: PERRL, EOMI, accommodation nl, no face palsy, no dysarthria Psychiatric: A+Ox3, euthymic affect Principal Diagnosis Influenza A infection Enterococcus UTI Discharge Exam Constitutional WD/WN, vitals as above no acute distress chronically ill-appearing Respiratory normal respiratory effort; no respiratory distress Auscultation: + diminished lung sounds Cardiovascular Rate/Rhythm: regular rate and regular rhythm Vessels: normal peripheral pulses Extremities: + edema ( +1 edema BLE) Skin chronic venous changes BLE with some scattered, dried scabs, OPTi foam dressings in place Neurologic no focal motor deficits Psychiatric A+Ox3, euthymic affect Discharge Data Allergies Allergy/AdvReac Type Severity Reaction Status Date / Time amoxicillin Allergy Intermediate RASH; N/V/D Verified 05/11/24 13:25 Ordered Studies Laboratory Results WBC 0.59 K/ul (4.8-10.8) L* 05/13/24 06:52 RBC 2.71 M/uL (4.20-5.40) L 05/13/24 06:52 Hgb 7.9 g/dl (12.0-16.0) L 05/13/24 06:52 Hct 22.0 % (37.0-47.0) L 05/13/24 06:52 MCV 81.2 fL (80.0-100.0) 05/13/24 06:52 MCH 29.2 pg (25.0-34.0) 05/13/24 06:52 MCHC 35.9 g/dL (32.0-36.0) 05/13/24 06:52 RDW Std Deviation 37.6 fL (36.4-46.3) 05/13/24 06:52 RDW Coeff of Jared 12.8 % (11.5-14.5) 05/13/24 06:52 Plt Count 4 K/uL (130-400) L* 05/13/24 06:52 MPV 9.5 fL (9.4-12.4) 05/13/24 06:52 Immature Gran % (Auto) 1.7 % 05/13/24 06:52 Neut % (Auto) 57.6 % 05/13/24 06:52 Lymph % (Auto) 15.3 % 05/13/24 06:52 Wilkes % (Auto) 22.0 % 05/13/24 06:52 Eos % (Auto) 1.7 % 05/13/24 06:52 Baso % (Auto) 1.7 % 05/13/24 06:52 Neut # (Auto) 0.34 K/uL (1.40-6.50) L* 05/13/24 06:52 Lymph # (Auto) 0.09 K/uL (1.20-3.40) L 05/13/24 06:52 Wilkes # (Auto) 0.13 K/uL (0.11-0.59) 05/13/24 06:52 Eos # (Auto) 0.01 K/uL (0.00-0.50) 05/13/24 06:52 Baso # (Auto) 0.01 K/uL (0.00-0.20) 05/13/24 06:52 Immature Gran # (Auto) 0.01 K/uL (0.01-0.20) 05/13/24 06:52 Neutrophils % (Manual) 75 % 05/12/24 05:34 Lymphocytes % (Manual) 14 % 05/12/24 05:34 Monocytes % (Manual) 11 % 05/12/24 05:34 Neutrophils # (Manual) 0.42 K/uL (1.40-6.50) L 05/12/24 05:34 Total Absolute Neuts 0.42 K/uL (1.4-6.5) L* 05/12/24 05:34 Lymphocytes # (Manual) 0.08 K/uL (1.2-3.4) L 05/12/24 05:34 Total Abs Lymphocytes 0.08 K/uL (1.2-3.4) L 05/12/24 05:34 Monocytes # (Manual) 0.06 K/uL (0.11-0.59) L 05/12/24 05:34 Platelet Estimate Signific. Decreased (Normal) L 05/13/24 06:52 RBC Morphology Unremarkable 05/12/24 05:34 Polychromasia 1+ 05/13/24 06:52 Sodium 138 mmol/L (136-145) 05/13/24 06:52 Potassium 4.3 mmol/L (3.5-5.1) D 05/13/24 09:21 Chloride 111 mmol/L (98-107) H 05/13/24 06:52 Carbon Dioxide 24 mmol/L (21-32) 05/13/24 06:52 Anion Gap 3 (3-11) 05/13/24 06:52 BUN 18 mg/dl (6-23) 05/13/24 06:52 Creatinine 0.60 mg/dl (0.6-1.2) 05/13/24 06:52 Est Cr Clr Drug Dosing 95.1 ml/min 05/13/24 06:52 eGFR 99.55 05/13/24 06:52 BUN/Creatinine Ratio 30.0 (10-20) H 05/13/24 06:52 Glucose 88 mg/dl (70-99(Fasting)) 05/13/24 06:52 Lactate 1.2 mmol/L (0.4-2.0) 05/11/24 11:52 Calcium 8.1 mg/dl (8.6-10.3) L 05/13/24 06:52 Magnesium 1.9 mg/dl (1.7-2.4) 05/12/24 05:34 Total Bilirubin 1.2 mg/dl (0.2-1.0) H 05/11/24 11:52 Direct Bilirubin 0.2 mg/dl (0-0.2) 05/11/24 11:52 AST 26 U/L (13-39) 05/11/24 11:52 ALT 26 U/L (7-52) 05/11/24 11:52 Alkaline Phosphatase 91 U/L (34-104) 05/11/24 11:52 Troponin I High Sens 15.7 pg/ml (0-14) H D 05/13/24 06:52 Total Protein 7.8 gm/dl (6.0-8.3) 05/11/24 11:52 Albumin 3.4 gm/dl (3.4-5.0) 05/11/24 11:52 Procalcitonin 0.17 ng/ml (0-0.5) 05/11/24 11:52 Urine Color Yellow 05/11/24 15:15 Urine Appearance Cloudy (Clear) A 05/11/24 15:15 Urine pH 7.0 (4.5-7.5) 05/11/24 15:15 Ur Specific [place] 1.016 (1.000-1.030) 05/11/24 15:15 Urine Protein Trace (Negative) H 05/11/24 15:15 Urine Glucose (UA) Negative (Negative) 05/11/24 15:15 Urine Ketones Negative (Negative) 05/11/24 15:15 Urine Blood Negative (Negative) 05/11/24 15:15 Urine Nitrite Negative (Negative) 05/11/24 15:15 Urine Bilirubin Negative (Negative) 05/11/24 15:15 Urine Urobilinogen Positive (Negative) H 05/11/24 15:15 Ur Leukocyte Esterase Negative (Negative) 05/11/24 15:15 Urine WBC (Auto) 0-5 /hpf (0-5) 05/11/24 15:15 Urine RBC (Auto) 6-10 /hpf (0-2) H 05/11/24 15:15 U Hyaline Cast (Auto) 0-2 /lpf (0-2) 05/11/24 15:15 U Epithel Cells (Auto) 0-2 /hpf (0-2) 05/11/24 15:15 Urine Bacteria (Auto) 2+ (None Seen) H 05/11/24 15:15 Nasal Influ A H1 2009 PCR DETECTED (NotDetected) A 05/11/24 11:48 Nasal Screen MRSA (PCR) Negative (Negative) 05/11/24 15:14 Adenovirus (PCR) Not Detected (NotDetected) 05/11/24 11:48 B. pertussis DNA (PCR) Not Detected (NotDetected) 05/11/24 11:48 B.parapertussis DNA PCR Not Detected (NotDetected) 05/11/24 11:48 C. pneumoniae DNA (PCR) Not Detected (NotDetected) 05/11/24 11:48 Coronavirus OC43 (PCR) Not Detected (NotDetected) 05/11/24 11:48 Coronavirus HKU1 (PCR) Not Detected (NotDetected) 05/11/24 11:48 Coronavirus 229E (PCR) Not Detected (NotDetected) 05/11/24 11:48 SARS-CoV-2 (PCR) Not Detected (NotDetected) 05/11/24 11:48 Coronavirus NL63 (PCR) Not Detected (NotDetected) 05/11/24 11:48 Human Metapneumovir PCR Not Detected (NotDetected) 05/11/24 11:48 Influenza Type B (PCR) Not Detected (NotDetected) 05/11/24 11:48 M. pneumoniae (PCR) Not Detected (NotDetected) 05/11/24 11:48 Parainfluenza 1 (PCR) Not Detected (NotDetected) 05/11/24 11:48 Parainfluenza 2 (PCR) Not Detected (NotDetected) 05/11/24 11:48 Parainfluenza 3 (PCR) Not Detected (NotDetected) 05/11/24 11:48 Parainfluenza 4 (PCR) Not Detected (NotDetected) 05/11/24 11:48 RSV (PCR) Not Detected (NotDetected) 05/11/24 11:48 Entero/Rhino (PCR) Not Detected (NotDetected) 05/11/24 11:48 Group A Strep (PCR) NOT DETECTED (NotDetected) 05/11/24 11:48 Blood Type A Positive 05/11/24 12:28 Antibody Screen NEGATIVE 05/11/24 12:28 Crossmatch See Detail 05/11/24 12:28 Impressions Chest X-Ray 05/11/24 12:56 XR chest 1V portable CLINICAL HISTORY: cough COMPARISON STUDY: 10/17/2023 FINDINGS: Interval right chest port tip is near the cavoatrial junction. Stable moderate cardiomegaly without pulmonary vascular congestion. No effusion or consolidation. No pneumothorax. IMPRESSION: No pneumonia seen. ACT 112: Negative or not required by law. Electronically signed by: Felice Fields M.D. 05/11/2024 1:10 PM Duplex Scan Lower Extremity Artery 05/12/24 15:48 EXAM: US Duplex Bilateral Lower Extremities Arteries INDICATION: Abnormal ABIs. TECHNIQUE: Real-time duplex ultrasound scan of the bilateral lower extremity arteries integrating B-mode two-dimensional vascular structure, Doppler spectral analysis and color flow Doppler imaging. COMPARISON: No relevant prior studies available. FINDINGS: Right common femoral artery: Peak systolic velocity 67 cm/s. No occlusion or significant stenosis on color flow and spectral Doppler imaging. Monophasic waveform. Right superficial femoral artery: Peak systolic velocity 73 cm/s d. No occlusion or significant stenosis on color flow and spectral Doppler imaging. Monophasic waveform. Right popliteal artery: Peak systolic velocity 44 cm/s. No occlusion or significant stenosis on color flow and spectral Doppler imaging. Monophasic waveform. Right calf/foot arteries: Peak systolic velocity 55 cm/s in the dorsalis pedis artery. No occlusion or significant stenosis on color flow and spectral Doppler imaging. Monophasic waveform. Left common femoral artery: Peak systolic velocity 190 cm/s. No occlusion or significant stenosis on color flow and spectral Doppler imaging. Normal waveform. Left superficial femoral artery: Peak systolic velocity 124 cm/s. No occlusion or significant stenosis on color flow and spectral Doppler imaging. Normal waveform. Left popliteal artery: Peak systolic velocity 156 cm/s. No occlusion or significant stenosis on color flow and spectral Doppler imaging. Normal waveform. Left calf/foot arteries: Peak systolic velocity noted in the posterior tibial artery at 115 cm/s. No occlusion or significant stenosis on color flow and spectral Doppler imaging. Normal waveform. Soft tissues: No abnormality noted. IMPRESSION: 1. Generalized slow flow in the right lower extremity without segmental stenosis. 2. No abnormality of the left lower extremity arteries. ACT 112: Negative or not required by law. Electronically signed by Alicia Lewis 05-12-2024 5:14 PM Hospital Course (1) Influenza: (2) UTI (urinary tract infection): (3) Febrile neutropenia: Patient presented by referral of the oncology office for evaluation of fever and febrile neutropenia In the ED, patient tested positive for influenza A Patient saturating well on room air, no evidence of pneumonia on CXR Patient was started on and Tamiflu and will be discharged on to complete 5-day course Given patient's immunocompromised state, she empirically received IV cefepime. MRSA nasal swab negative, no indication for vancomycin. Urine culture - Enterococcus. Initially started on amoxicillin however sensitivities reviewed and is sensitive to Levaquin. Patient should be on Levaquin prophylaxis. Therefore will discharge on Levaquin 500 mg daily x 5 days, then she is to resume her prophylaxis dose of 250 mg daily. Blood cultures NGTD Patient has chronic BLLE wounds/erythema. Currently not worse than baseline per patient. No drainage. Continue prophylactic COMB WINDER acyclovir, posaconazole nonformulary therefore using voriconazole while inpatient. Noted patient previously prescribed Levaquin 250 mg daily as well for prophylaxis. However patient reports she has not been taking this for some time. Per outpatient oncology note, patient is to be on Levaquin, acyclovir, posaconazole. Prophylactic Levaquin being resumed as above. ANC 480 -> 340 today (4) Pancytopenia: (5) AML (acute myeloblastic leukemia): Receives transfusions twice weekly, received PRBC and platelets on 05/09/2024 Currently not on treatment Follows with Dr. Kevin Canchola CBC on admission WBC 0.6K, Hgb 8.3K, platelets 4K Dr. Canchola notified by ED, recommends 1 platelet transfusion - 2/5 Per outpatient oncology note: 2 units of PRBC if the hemoglobin is less than 6, 1 unit of Platelet for the Platelet count less than 10,000. Hgb 6.5, platelets 8K -- s/p 1 platelet and 1 PRBC transfusion on 05/12 Today, Hgb 7.9, platelets 4K -- s/p 1 platelet on 05/13 Dr. Canchola's office notified of patient's admission. Patient is to continue her usual blood work and as indicated transfusions on 05/16 at [facility]. (6) Acute hypokalemia: K+ 3.1, received replacement in ED 05/12 K+2.7 today --> repeat K+ 3.2, will give an additional 40 mEq K+ 4.3 on 05/13 (7) Elevated troponin: Mildly elevated HS troponin 17.9 -> 20 -> 27 Likely demand ischemia in the setting of acute illness No reports of chest pain, EKG without acute ST changes Continue to trend (8) Paroxysmal A-fib: Rate controlled on metoprolol Not on anticoagulation secondary to chronic anemia/ former cytopenia in the setting of AML (9) Leg edema: (10) Leg wound, left: (11) Leg wound, right: Patient reports chronic BLLE wounds for the past several months Erythema not worse than baseline per patient. Some scattered scabbing noted, no drainage. Continue COMB WINDER furosemide Wound care nurse consult -- reported abnormal ALLAN, BL LE arterial Dopplers obtained - generalized slow flow in the RLE, no significant stenosis noted Wound care instructions as per discharge instructions (12) History of DVT (deep vein thrombosis): Not on anticoagulation secondary to chronic anemia/ former cytopenia in the setting of AML Total Time Total Time Spent Total Time Spent (In Minutes): 40 Discharge Plan Discharge Items Patient Disposition: Home - Self-Care Reason For Visit: Fever Discharge Diagnosis: Influenza A UTI Activity: Resume your previous activity Non-emergency contact: Primary Care Provider and Oncologist Call non-emergency contact if: you have any medication questions, your symptoms worsen, your pain is not controlled and you have a fever Follow-up/Referrals: Mikal Butler MD [Primary Care Provider] - (Date & Time 05/18/2024 1:20 PM Provider: Jeniffer Enriquez MD Family Medicine [facility] ) Diet: Regular Addtl Attending Provider Instructions: You presented to the hospital for evaluation of fever. You were found to have influenza A infection and a urinary tract infection. You were started on Tamilfu for treatment of influenza and will be discharged on Tamiflu 75mg twice daily x 6 doses to complete treatment. You were given antibiotics for the urinary tract infection and will be discharged on Levaquin 500mg daily x 5 days, then start Levaquin 250mg daily for further prevention of infection. Your platelet and blood counts were low during admission and you received 3 bags of platelets and 1 unit of blood. Keep your usual appointments for your blood work and blood transfusions. Dr. Canchola has been notified of your hospital admission. You had an ultrasound of both legs to evaluate blood flow. The blood flow in your right leg is slow however no blockages. Wound care instructions: Bilateral legs, cleaned with normal saline and dry. Apply OPTi foam or gauze to leg wounds, change every other day or as needed. If wounds do not heal or worsen, recommend follow-up with your PCP and/or the wound care center. It was a pleasure taking care of you. If you need to reach a member of the [facility] Hospitalist team at [facility], please call [phone]. CARMEN De Guzman Pending Studies at Discharge: No Stand-Alone Forms: My [facility], Smoking Cessation Medications and DC Order Prescriptions: New oseltamivir [Tamiflu] 75 mg Capsule 75 mg PO BID Qty: 6 0RF levofloxacin 250 mg tablet See Taper PO DAILY Qty: 40 0RF Taper: Taper, Blank 500 mg DAILY for 5 Days 250 mg DAILY for 30 Days Rx Instructions: Take Levaquin 500mg daily x 5 days, then resume prophylactic dose of 250mg daily. Continued posaconazole 100 mg Tablet,Delayed Release (Dr/Ec) 300 mg PO DAILY acyclovir 400 mg Tablet 400 mg PO BID ondansetron 8 mg Tablet,Disintegrating 8 mg PO DAILY metoprolol tartrate 25 mg Tablet 25 mg PO BID furosemide 40 mg tablet 40 mg PO Q OTHER DAY potassium chloride 10 mEq tablet extended release 20 meq PO BID hydroxyzine HCl 25 mg tablet 25 mg PO Q6H PRN (Reason: Itching) mupirocin 2 % ointment 1 applic TOPICAL TID Rx Instructions: Start Date 05/03/24 x14 day supply buprenorphine-naloxone 8-2 mg tablet, sublingual 0.25 tab SUBLINGUAL DAILY cetirizine 10 mg Tablet 10 mg PO DAILY pantoprazole [Protonix] 40 mg Tablet,Delayed Release (Dr/Ec) 40 mg PO DAILY Discharge Orders: Discharge Order (Routine); Ordered 05/13/24 Ordered By: Amanda Martínez/Other Patient Handouts: UTIs, When to Use Antibiotics Admission Data Admit Date/Time: 05/11/24 13:30 Attending Provider: Farnaz Hope Admit Provider: Wilian Cohen Primary Care Provider: Mikal Butler Other Providers: Wilian Cohen Other Interventions: *Nursing Shift Assessment Last Done: 05/13/24 14:51 Discharge Summary Assessment (RN) Last Done: 05/13/24 14:52 Supervising Physician Co-Signing Physician Notes I have seen and discussed the case with the collaborating advanced practitioner. I agree with the above PN I have reviewed and confirmed the patients medical history, the findings on physical examination, and the patients diagnosis and treatment plan with BRIJESH MORALES and agree with the information documented. In short, Ms. Mccarthy is a 64 yo woman with AML, pancytopenia [transfusion dependent, receives transfusion twice a week], PAF, DVT, not on anticoagulation secondary to anemia/thrombocytopenia from AML, remote history of narcotic abuse on Suboxone admitted for febrile neutropenia and noted to be influenza + and wit h enterococcus UTI. Patient doing much better overall. Plan to treat uti with 5 days 500mg Levaquin then transition to 250 for prophylaxis.agree with plan as above I spent a total of 10 minutes coordinating, documenting, and providing care for this patient excluding time spent in the performance of separately billed services. All of the aforementioned completed outside of collaborating with the assigned advanced practitioner for a full treatment plan. I have reviewed the advanced practitioner's documentation, and I agree with, and take responsibility for the plan of care
== END 2024-05-13 16:56 | disposition home or self-care (01) | DRG 194 ==
LOC: ED 11:37 → SUATTDRO 13:30 → EDINP 13:30 → 2N 05-12 20:44